=== PATIENT | male | born 1960 | race Caucasian/White ===

== ENCOUNTER 2019-11-04 19:59 | Inpatient (IN) | payer OTHER, MEDICARE, SELFPAY ==
[2019-11-04] VITALS (8 sets, daily range): BP systolic 127–151; BP diastolic 45–87; PULSE 72–86; RESP 12–23; TEMP 36.7–37.1; O2SAT 94–96; BMI 66.3
--- NOTE | 2019-11-04 20:51 | EKG12_ITS ---
Test Reason : SOB Blood Pressure : / mmHG Vent. Rate : 081 BPM Atrial Rate : 081 BPM P-R Int : 154 ms QRS Dur : 104 ms QT Int : 388 ms P-R-T Axes : 057 015 075 degrees QTc Int : 450 ms Normal sinus rhythm Normal ECG Confirmed by JOSE L WANG MD ([id number]), design editor MICKY LARES ([id number]) on 11/07/2019 3:15:31 PM Referred By: BB Confirmed By:JOSE L WANG MD
[2019-11-04] MEDS: Ipratropium/Albuterol Sulfate 3 ML AMPUL.NEB INHALATION (21:07)
[2019-11-04] MEDS: Furosemide 100 MG/10 ML Vial 80 MG IV (21:52)
[2019-11-04 22:01] LABS: Absolute Lymphocyte Count 2.49 X10^3/uL (0.83-4.51); Basophil# 0.03 X10^3/uL; Basophil% 0.2 % (0-1); Eosinophil# 0.11 X10^3/uL; Eosinophils% 0.8 % (0-5); Hematocrit 35.5 % (40-54); Hemoglobin 10.4 g/dL (13.0-16.5); Lymphocyte # 2.49 X10^3/ul (4.0); Lymphocyte % 18.6 % (19-41); Mean Corp Hgb Conc 29.3 g/dL (32-36); Mean Corpuscular Volume 88.8 fL (80-94); Mean Platelet Vol. 8.6 fl (6.2-12.0); Monocyte# 0.74 X10^3/uL; Monocyte% 5.5 % (0-10); NRBC Flagged by Analyzer 0 % (0-5); Neutrophil # 9.95 X10^3/uL (2.7-7.7); Neutrophil % 74.2 % (47-70); Platelet Count 271 K/mm3 (150-450); RBC Distribution Width CV 16.4 % (11.6-14.6); RBC Distribution Width SD 52.9 fl (35.1-43.9); White Blood Count 13.4 K/mm3 (4.4-11.0)
--- NOTE | 2019-11-04 22:20 | RAD_ITS ---
STUDY: X-RAY CHEST REASON FOR EXAM: Male, 59 years old. C/O OF S/S OF CHF, GAINED 25 LB, GENERALIZED RASH. EDEMA. TECHNIQUE: Single AP portable view of the chest. COMPARISON: None. FINDINGS: lunchroom monitor leads are present. The lungs are clear and expanded. There is no demonstrated pleural abnormality. Normal size heart. Normal mediastinum and jazmine. Normal visualized pulmonary arteries. Normal visualized aortic arch and descending thoracic aorta. There are diffuse degenerative changes of the visualized thoracic spine. Normal visualized ribs, clavicles, and shoulders. There is no demonstrated abnormality of the visualized soft tissue structures of the upper abdomen. RAD/Chest 1 View (Portable) IMPRESSION: Degenerative changes of the thoracic spine. No acute cardiopulmonary disease process is seen. Electronically Signed: Ramu Lewis MD at 22:49 EDT , Service support ,
[2019-11-04 22:22] LABS: Anion Gap 3 (5-15); BUN 16 mg/dL (7-18); BUN/Creat Ratio 13.7 RATIO (10-20); Calcium,Total 8.7 mg/dL (8.5-10.1); Chloride 103 mmol/L (98-107); Creatinine, Serum 1.17 mg/dL (0.70-1.30); EST Glomerular Filtration Rate 68 mL/min (>60); Est Glom Filt Rate - Afr Amer 83 mL/min (>60); Estimated Creatinine Clearance 76.46 ml/min; Glucose 315 mg/dL (74-106); Potassium 3.6 mmol/L (3.5-5.1); Sodium Level 138 mmol/L (136-145)
--- NOTE | 2019-11-04 22:47 | ED.DCSUM_ITS ---
History of Present Illness Chief Complaint: Edema Informant: Patient Onset: Weeks - 1 Activity at onset: Exertion, Rest Timing: Continuous Quality: Dyspnea on exertion, Orthopnea Current Severity: Severe Maximum Severity: Severe Worsened by: Exertion, Lying flat Relieved by: Rest Associated Symptoms: Cough - [employer]. Negative for: Fever Narrative: 25 pound weight gain in the past week, seems to all have gone into his legs and possibly his abdomen, he is on torsemide 80 mg once daily for congestive heart failure, in the last day or 2 he has felt more dyspneic as well especially with exertion, lying down, and now at rest he is still mildly dyspneic. He is not able to walk now. He lives by himself and has severe lymphedema. He denies any chest pain, fevers. He has had a minor cough. - Past Medical History (1) Congestive heart failure Status: Chronic (2) Lymphedema Status: Chronic Past Medical History - Allergies and Home Meds Allergies/Adverse Reactions: Allergies gabapentin Adverse Reaction (Verified 11/04/19 21:43) Swelling liraglutide [From Victoza] Adverse Reaction (Verified 11/04/19 21:43) Nausea/Vom/Diarrhea Primary Care Physician: [facility] Doctor,Out of [NON-STAFF] - Lives: Alone Smoking Status: Never smoker Review of Systems General: Reports: Malaise. Denies: Chills, Fever, Sweats Eyes: Denies: Visual changes - bilaterally, Diplopia ENT: Denies: Bilateral ear pain, Rhinorrhea, Sore throat Cardiovascular: Denies: Chest pain, Palpitations, Heart racing Respiratory: Reports: Dyspnea, Cough, Dyspnea on exertion, Orthopnea. Denies: Sputum Gastrointestinal: Denies: Abdominal pain, Nausea, Vomiting, Diarrhea, Melena, Hematochezia Genitourinary: Denies: Dysuria, Hematuria, Frequency Musculoskeletal: Reports: Swelling. Denies: Back pain, Extremity Pain Skin: Denies: Rash, Wounds Neurological: Denies: Headache, Weakness, Numbness Physical Exam Vital Signs/Narrative: Vital Signs Temp Pulse Resp BP Pulse Ox 11/04/19 22:01 76 12 150/72 H 95 11/04/19 22:00 98.5 F 76 12 150/72 H 95 11/04/19 21:07 82 14 11/04/19 21:04 98.5 F 82 18 151/59 H 94 11/04/19 20:04 98.7 F 82 14 148/87 H 94 11/04/19 20:02 98.7 F 86 23 H 148/87 H 94 Inital Vital Signs reviewed: Yes General: Well nourished, Well developed, Obese - morbidly, No Acute Distress Head: Normocephalic, Atraumatic Eyes: Perrl, EOMI ENT: Moist mucous membranes, No rhinorrhea Neck: Supple, Nontender, - - + mild JVD Cardiovascular: Regular rate, Regular rhythm, No murmurs Respiratory: No distress, Chest nontender, Diminished - diffusely, symmetrically. Negative for: Rales, Rhonchi, Wheezing Abdomen: Soft, Nontender, Nondistended, Normal bowel sounds Back: Nontender, Normal Inspection Extremities: Nontender, Edema - Severe bilateral lower extremity to groins, with signs of chronic venous stasis dermatitis, no tenderness or wounds that appear infected Skin: Normal color, No Trauma, Rash - Chronic stasis dermatitis, see above Neurological: Alert, Oriented x3, Cranial nerves II-XII grossly intact, Normal Strength, Normal Sensation Psychological: Normal affect, Normal Mood Diagnostic/Tx/Re-eval Impressions Chest X-Ray 11/04/19 22:20 IMPRESSION: Degenerative changes of the thoracic spine. No acute cardiopulmonary disease process is seen. Electronically Signed: Ramu Lewis MD at 22:49 EDT , Service support , 11/04/19 20:51 Chest 1 View (Portable) [RAD] Stat Laboratory Results 11/04/19 11/04/19 21:56 21:56 WBC 13.4 H RBC 4.00 L Hgb 10.4 L Hct 35.5 L MCV 88.8 MCH 26.0 L MCHC 29.3 L RDW Std Deviation 52.9 H RDW Coeff of Varsha 16.4 H Plt Count 271 MPV 8.6 Immature Gran % (Auto) 0.700 Neut % (Auto) 74.2 H Lymph % (Auto) 18.6 L [place] % (Auto) 5.5 Eos % (Auto) 0.8 Baso % (Auto) 0.2 Absolute Neuts (auto) 10.0 H Absolute Lymphs (auto) 2.49 Nucleated RBC % 0 Sodium 138 Potassium 3.6 Chloride 103 Carbon Dioxide 32.0 Anion Gap 3 L BUN 16 Creatinine 1.17 Estim Creat Clear Calc 76.46 Est GFR (MDRD) Af Amer 83 Est GFR (MDRD) Non-Af 68 BUN/Creatinine Ratio 13.7 Glucose 315 H Calcium 8.7 Troponin I < 0.015 - Rhythm Strip Rhythm Strip: Sinus Rhythm Rate: 81 Ectopy: None - EKG Initial EKG Interpretation: Sinus Rhythm, No Acute Injury Pattern Treatment - Dyspnea: Albuterol, - - Lasix Repeat Evaluation: Improved - With no dyspnea at rest while sitting any longer - Medical Decision Making Patient lives alone and has so much lymphedema and increased water weight that he is unable to safely walk at home. He has no signs of any infection or overt decompensated heart failure with regards to pulmonary edema, however I think inpatient diuresis will benefit him. Plan is for admission. There is no old echocardiogram to know any other details about his heart failure at this time. The patient does not know the details. ED Disposition - Plan for ED Patient: Disposition: Acute Care Hospital [facility] Diagnosis: Acute exacerbation of CHF (congestive heart failure), Anasarca, Unable to ambulate Referrals: [facility] Doctor,Out of [NON-STAFF] -
--- NOTE | 2019-11-04 23:13 | HP.PCM_ITS ---
Problem List (1) Acute exacerbation of CHF (congestive heart failure) Status: Acute (2) Anasarca Status: Acute (3) Unable to ambulate Status: Acute (4) Congestive heart failure Status: Chronic (5) Lymphedema Status: Chronic History of Present Illness Date of Admission: 11/04/19 Chief Complaint: weight gain The patient is a 59 year old M with a significant history of congestive heart failure; severe obesity; diabetes mellitus; lymphedema; hermaphrodite s/p surgical correction; bipolar disease; and DVT who presented to emergency department with weight gain. He reports gained about 25 pounds in 1 week. He reported that the weight gain is water weight in his legs and in his abdomen. Associated with his symptoms is shortness of breath at rest. He has chronic orthopnea for which he sleeps in a couch. He has paroxysmal nocturnal dyspnea and fatigue. Patient has difficulty walking. Also he reports rash on his torso for 4 weeks Home health nurse helps to take care of him. Past Medical History Past Medical History (Chronic Problems): Chronic Problems Congestive heart failure (Chronic) Lymphedema (Chronic) Allergies gabapentin Adverse Reaction (Verified 11/04/19 21:43) Swelling liraglutide [From Victoza] Adverse Reaction (Verified 11/04/19 21:43) Nausea/Vom/Diarrhea Home Medications: Ambulatory Orders Medication Instructions Recorded Aripiprazole [Abilify] 30 mg PO DAILY 11/04/19 Aspirin [Aspir 81] 81 mg PO DAILY 11/04/19 Fluoxetine [Prozac] 20 mg PO DAILY 11/04/19 [place] Carbonate 600 mg PO DAILY 11/04/19 Rosuvastatin Calcium 10 mg PO DAILY 11/04/19 Syringe,Insul U-500,Ndl,0.5ML 130 units SQ BID 11/04/19 [Insulin Syringe] Warfarin [Coumadin ([facility])] 5 mg PO DAILY 11/04/19 Warfarin [Coumadin ([facility])] 7.5 mg PO QWEEK 11/04/19 Torsemide [Demadex] 40 mg PO BID 11/05/19 Surgical History: tonsillectomy, - - Surgery to close vaginal opening (reports hermaphrodite at ); leg surgery Lives: Alone Smoking Status: Never smoker Alcohol: None - *Family History Maternal History Items: Heart Disease Paternal History Items: Cancer - His father from mesothelioma Review of Systems Constitutional: Reports: Weight Change, Fatigue. Denies: Chills, Fever HEENT: Denies: Head Aches, Sinus Congestion, Sinus Drainage Cardiovascular: Reports: Edema, Orthopnea, Paroxysmal Noc. Dyspnea. Denies: Chest Pain, Palpitations Respiratory: Reports: Shortness of breath at rest. Denies: Cough, Sputum production Gastrointestinal: Denies: Abdominal Pain, Nausea, Vomiting Genitourinary: Denies: Dysuria Musculoskeletal: Denies: Joint Pain, Joint Tenderness Skin: Reports: Rash. Denies: Wounds Neurological: Denies: Numbness, Tingling, Focal weakness Psychiatric: Denies: Anxiety, Depression, Homicidal Ideations, Suicidal Ideations Hematologic/ Lymphatic: Denies: Easy Bruising, Easy Bleeding VTE Information - Inpt Only VTE Present on Admission: No VTE Mechan Device Prophylaxis: None VTE Pharm Prophylaxis ordered?: No Reason prophylaxis not ordered:: Treatment Not Indicated - Continue home Coumadin the patient takes for history of DVT. Patient Problems: Active and Suspected Problems Acute exacerbation of CHF (congestive heart failure) (Acute) Anasarca (Acute) Unable to ambulate (Acute) - Physical Exam Vitals/I&O's: Vital Signs Temp Pulse Resp BP Pulse Ox 98.1 F 72 17 127/45 H 96 11/04/19 23:00 11/04/19 23:00 11/04/19 23:00 11/04/19 23:00 11/04/19 23:00 Oxygen Delivery Method Room Air Weight: 221.807 kg Body Mass Index (BMI) 66.3 General: Alert, Oriented x3, Cooperative HEENT: Atraumatic, PERRLA, EOMI, Normocephalic Neck: Supple, No JVD, Negative Carotid Bruits Lungs: Clear to auscultation, Normal air movement Cardiovascular: Regular rate, Normal S1, Normal S2, No murmurs Abdomen: Bowel Sounds Present, Soft, Non Tender Extremities: Capillary Refill Less than 3 Seconds, Edema - Nonpitting Skin: - - Maculopapular rash on torso; erythema bilateral legs. Musculoskeletal: No Tenderness to Palpation of Joints or Extremities Neurological: Cranial nerves II-XII grossly intact Psych/Mental Status: Normal Affect, Appropriate Laboratory Results 11/04/19 21:56: WBC 13.4 H, RBC 4.00 L, Hgb 10.4 L, Hct 35.5 L, MCV 88.8, MCH 26.0 L, MCHC 29.3 L, RDW Std Deviation 52.9 H, RDW Coeff of Varsha 16.4 H, Plt Count 271, MPV 8.6, Immature Gran % (Auto) 0.700, Neut % (Auto) 74.2 H, Lymph % (Auto) 18.6 L, [place] % (Auto) 5.5, Eos % (Auto) 0.8, Baso % (Auto) 0.2, Absolute Neuts (auto) 10.0 H, Absolute Lymphs (auto) 2.49, Nucleated RBC % 0 11/04/19 21:56: Sodium 138, Potassium 3.6, Chloride 103, Carbon Dioxide 32.0, Anion Gap 3 L, BUN 16, Creatinine 1.17, Estim Creat Clear Calc 76.46, Est GFR (MDRD) Af Amer 83, Est GFR (MDRD) Non-Af 68, BUN/Creatinine Ratio 13.7, Glucose 315 H, Calcium 8.7, Troponin I < 0.015 Assessment/Plan All Active Problems Acute exacerbation of CHF (congestive heart failure) (Acute) Anasarca (Acute) Unable to ambulate (Acute) The patient is a 59 year old M with a significant history of congestive heart failure; severe obesity; diabetes mellitus; lymphedema; hermaphrodite s/p surgical correction; bipolar disease; and DVT who presented to emergency department with weight gain; and shortness of breath consistent with acute exacerbation of underlying heart failure. Acute Exacerbation of heart failure Patient reports history of heart failure. Type of heart failure unspecified No echocardiogram in our system. Indeed patient has no have records in our system prior to this presentation. Patient reported last echocardiogram was done this year[address] at [facility]. Orders to obtain records. Daily weight. Strict I&O's CXR independently reviewed confirms no acute cardiopulmonary process. EKG independently reviewed confirms sinus rhythm. BNP ordered. Reportedly he is on torsemide 40 mg twice daily at home. At the emergency department he received Lasix 80 mg IV x1. We will continue patient on Lasix 80 mg every 8 hours. Supplement potassium. Monitor electrolytes and renal function Trend blood pressure Fluid restriction of 1500 mls daily Cardiac calorie controlled and 2 g sodium restricted diet. Diabetes mellitus On presentation his blood glucose was elevated. Continue home basal insulin. Accu-Chek QA [facility] with correction scale insulin. Leukocytosis White count of 13.4. No clear signs of infection. Trend. Debility Patient is unable to ambulate. PT and OT consult. Treatment for heart failure. Bipolar disorder Abilify, Prozac and lithium continued History of DVT On presentation INR was supratherapeutic at 3.6. Daily INR. De-escalate home Coumadin. Coumadin 4 mg daily ordered. Adjust as necessary. Severe obesity: BMI 65.9. Complicates care. Recommend lifestyle modification. Maculopapular rash Reportedly patient saw dermatology at via telemedicine. Patient to follow-up outpatient with electronic gluer. DVT prophylaxis Patient on Coumadin for DVT. Coumadin continued. Inpatient E&M: 36440 Init Hosp L3
[2019-11-04 23:20] LABS: Prothrombin Time (Protime)PT. 35.6 SECONDS (11.7-14.9)
[2019-11-04 23:25] LABS: International Normalized Ratio 3.6
[2019-11-05] VITALS (11 sets, daily range): BP systolic 129–153; BP diastolic 53–68; PULSE 72–80; RESP 18–22; TEMP 36.6–36.9; O2SAT 92–95; BMI 65.9
[2019-11-05 01:25] LABS: Bedside Glucose 191 mg/dL (70-110)
[2019-11-05 04:01] LABS: BNP,B-Type NATRIURETIC PEPTIDE 7.8 pg/mL (0-100)
[2019-11-05 05:24] LABS: Absolute Lymphocyte Count 3.05 X10^3/uL (0.83-4.51); Absolute Neutrophil Count 8.9 X10^3/uL (2.0-7.7); Basophil# 0.02 X10^3/uL; Basophil% 0.2 % (0-1); Eosinophil# 0.07 X10^3/uL; Eosinophils% 0.6 % (0-5); Hematocrit 33.5 % (40-54); Hemoglobin 10.1 g/dL (13.0-16.5); Lymphocyte # 3.05 X10^3/ul (4.0); Mean Corp Hgb Conc 30.1 g/dL (32-36); Mean Corpuscular Hgb 25.8 pg (27.0-32.0); Mean Corpuscular Volume 85.5 fL (80-94); Mean Platelet Vol. 8.1 fl (6.2-12.0); Monocyte# 0.64 X10^3/uL; NRBC Flagged by Analyzer 0 % (0-5); Neutrophil # 8.86 X10^3/uL (2.7-7.7); Neutrophil % 69.6 % (47-70); Platelet Count 264 K/mm3 (150-450); RBC Distribution Width CV 16.6 % (11.6-14.6); Red Blood Count 3.92 M/mm3 (4.6-6.2); White Blood Count 12.7 K/mm3 (4.4-11.0)
[2019-11-05 05:35] LABS: Anion Gap 5 (5-15); BUN 15 mg/dL (7-18); BUN/Creat Ratio 14.4 RATIO (10-20); Calcium,Total 8.4 mg/dL (8.5-10.1); Chloride 103 mmol/L (98-107); Creatinine, Serum 1.04 mg/dL (0.70-1.30); EST Glomerular Filtration Rate 78 mL/min (>60); Est Glom Filt Rate - Afr Amer 95 mL/min (>60); Estimated Creatinine Clearance 86.01 ml/min; Glucose 173 mg/dL (74-106); International Normalized Ratio 3.4; Potassium 3.4 mmol/L (3.5-5.1); Prothrombin Time (Protime)PT. 34.3 SECONDS (11.7-14.9); Sodium Level 139 mmol/L (136-145)
[2019-11-05] MEDS: Insulin Lispro 100 UNIT/ML INSULN.PEN SC ×4 (06:47→21:36)
[2019-11-05] MEDS: 0.9% Saline Lock 10 ML Syringe IV ×2 (06:49→21:30)
[2019-11-05] MEDS: Furosemide 100 MG/10 ML Vial 80 MG IV ×2 (06:49→21:29)
[2019-11-05 07:00] LABS: Bedside Glucose 170 mg/dL (70-110)
[2019-11-05] MEDS: ARIPiprazole 10 MG Tablet 30 MG PO (09:51)
[2019-11-05] MEDS: Lithium Carbonate 300mg Capsule 600 MG PO (09:52)
[2019-11-05] MEDS: FLUoxetine 20 MG Capsule PO (09:52)
[2019-11-05] MEDS: Aspirin E.C. 81 MG Tablet PO (09:53)
--- NOTE | 2019-11-05 10:35 | VDLE_ITS ---
Reason For Study: Shortness of breath RIGHT LEFT GSV is normal. GSV is normal. CFV is compressible, spontaneous, phasic, CFV is compressible, spontaneous, phasic, competent and demonstrates normal competent, and demonstrates normal augmentation. augmentation. FV is compressible, spontaneous, phasic, FV is compressible, spontaneous, phasic, competent and demonstrates normal competent and demonstrates normal augmentation. augmentation. POP V is compressible, spontaneous, phasic, POP V is compressible, spontaneous, phasic, competent and demonstrates normal competent and demonstrates normal augmentation. augmentation. T/P Trunk is compressible. T/P Trunk is compressible. PTV is compressible. PTV is compressible. PeroV not visualized. SFJ and PeroV not visualized. Procedure Exam performed portable in patient room. Exam was limited and technically difficult due to pt body habitus. A preliminary report was called and/or faxed to [facility]. Interpretation Summary No evidence for acute deep venous thrombosis bilateral lower extremities with patent and compressible bilateral great saphenous veins. Note limitations of exam with bilateral peroneal veins and left saphenofemoral junction not identified Ordering Physician: Yudith Head Performed By: Carito Shafer RVT
--- NOTE | 2019-11-05 11:56 | PCM.PROGNOTE ---
Patient Problems: Active and Suspected Problems Acute exacerbation of CHF (congestive heart failure) (Acute) Anasarca (Acute) Unable to ambulate (Acute) Subjective: Patient seen and examined. Reports continued shortness of breath. He reports earlier in the week he had fever, chills which is now resolved. He reports shortness of breath developed fairly suddenly over the past 24 hours. States shortness of breath is worsened by lying flat. He also reports a 25 pound weight gain in the last week and increased lower extremity swelling. - Physical Exam Vitals/I&O's: Vital Signs Temp Pulse Resp BP Pulse Ox 97.9 F 80 20 H 129/68 H 92 11/05/19 10:25 11/05/19 10:25 11/05/19 10:25 11/05/19 10:25 11/05/19 10:25 Oxygen Delivery Method Room Air Weight: 486 lb 12.49 oz Body Mass Index (BMI) 65.9 Intake and Output for Last 24 Hours 11/03/19 11/04/19 11/05/19 23:59 23:59 23:59 Intake Total 460 / 460 Balance 460 / 460 General: Alert, Oriented x3, Cooperative HEENT: Atraumatic, PERRLA, EOMI, Normocephalic Neck: Supple, No JVD, Negative Carotid Bruits Lungs: Clear to auscultation, Diminished Cardiovascular: Regular rate, Regular Rhythm, Normal S1, Normal S2, No murmurs Abdomen: Bowel Sounds Present, Soft, Non Tender, Non-Distended, Obese Extremities: No clubbing, No cyanosis, - - Chronic lymphedema bilateral lower extremities Skin: - - Chronic skin changes bilateral lower extremities with hyperpigmentation and venous stasis changes Musculoskeletal: No Tenderness to Palpation of Joints or Extremities Neurological: Cranial nerves II-XII grossly intact, Neuro grossly intact Psych/Mental Status: Normal Affect, Appropriate Laboratory Results 11/04/19 21:06: PT 35.6 H, INR 3.6 H* 11/04/19 21:52: B-Natriuretic Peptide 7.8 11/04/19 21:56: WBC 13.4 H, RBC 4.00 L, Hgb 10.4 L, Hct 35.5 L, MCV 88.8, MCH 26.0 L, MCHC 29.3 L, RDW Std Deviation 52.9 H, RDW Coeff of Varsha 16.4 H, Plt Count 271, MPV 8.6, Immature Gran % (Auto) 0.700, Neut % (Auto) 74.2 H, Lymph % (Auto) 18.6 L, [place] % (Auto) 5.5, Eos % (Auto) 0.8, Baso % (Auto) 0.2, Absolute Neuts (auto) 10.0 H, Absolute Lymphs (auto) 2.49, Nucleated RBC % 0 11/04/19 21:56: Sodium 138, Potassium 3.6, Chloride 103, Carbon Dioxide 32.0, Anion Gap 3 L, BUN 16, Creatinine 1.17, Estim Creat Clear Calc 76.46, Est GFR (MDRD) Af Amer 83, Est GFR (MDRD) Non-Af 68, BUN/Creatinine Ratio 13.7, Glucose 315 H, Calcium 8.7, Troponin I < 0.015 11/05/19 01:17: POC Glucose 191 H 11/05/19 05:15: WBC 12.7 H, RBC 3.92 L, Hgb 10.1 L, Hct 33.5 L, MCV 85.5, MCH 25.8 L, MCHC 30.1 L, RDW Std Deviation 51.0 H, RDW Coeff of Varsha 16.6 H, Plt Count 264, MPV 8.1, Immature Gran % (Auto) 0.600, Neut % (Auto) 69.6, Lymph % (Auto) 24.0, [place] % (Auto) 5.0, Eos % (Auto) 0.6, Baso % (Auto) 0.2, Absolute Neuts (auto) 8.9 H, Absolute Lymphs (auto) 3.05, Nucleated RBC % 0 11/05/19 05:15: PT 34.3 H, INR 3.4 11/05/19 05:15: Sodium 139, Potassium 3.4 L, Chloride 103, Carbon Dioxide 31.0, Anion Gap 5, BUN 15, Creatinine 1.04, Estim Creat Clear Calc 86.01, Est GFR (MDRD) Af Amer 95, Est GFR (MDRD) Non-Af 78, BUN/Creatinine Ratio 14.4, Glucose 173 H, Calcium 8.4 L 11/05/19 06:43: POC Glucose 170 H Current Medications Acetaminophen (Tylenol) 650 mg PO Q6H PRN PRN PRN Reason: Pain Score 1-10/Temp > 100.7 F Aripiprazole (Abilify) 30 mg PO DAILY [facility] Last Admin: 11/05/19 09:51 Dose: 30 mg Documented by: Aspirin (Ecotrin) 81 mg PO DAILY [facility] Last Admin: 11/05/19 09:53 Dose: 81 mg Documented by: Atorvastatin Calcium (Lipitor) 20 mg PO QHS [facility] Dextrose (D50w Syringe) 0 gm IV X1 PRN; Protocol PRN Reason: Hypoglycemia Fluoxetine HCl (Prozac) 20 mg PO DAILY [facility] Last Admin: 11/05/19 09:52 Dose: 20 mg Documented by: Furosemide (Lasix) 80 mg IV BID [facility] Glucagon () 1 mg IM .X1 PRN PRN Reason: Hypoglycemia Insulin Human Lispro (Humalog Kwikpen (Bkc)) 0 unit SC ACHS [facility]; Protocol Last Admin: 11/05/19 06:47 Dose: 3 units Documented by: [place] Carbonate ([place] Carbonate) 600 mg PO DAILY [facility] Last Admin: 11/05/19 09:52 Dose: 600 mg Documented by: Melatonin (Melatonin) 3 mg PO QHS PRN PRN PRN Reason: INSOMNIA Ondansetron HCl (Zofran) 4 mg IV Q8H PRN PRN PRN Reason: NAUSEA/VOMITING Potassium Chloride (K-Dur) 40 meq PO TID [facility] Last Admin: 11/05/19 06:44 Dose: 40 meq Documented by: Sodium Chloride () 10 - 40 ml IV UD PRN PRN Reason: SALINE FLUSH Last Admin: 11/05/19 06:49 Dose: 10 ml Documented by: Warfarin Sodium (Coumadin (Pbkc)) 4 mg PO DAILY@1700 [facility] Medical Necessity - Tobacco Use Smoking Status: Never smoker Assessment/Plan All Active Problems Acute exacerbation of CHF (congestive heart failure) (Acute) Anasarca (Acute) Unable to ambulate (Acute) 1. Chronic lymphedema with increased swelling and weight gain-BNP and chest x-ray is normal. Patient was discharged from [facility] 08/17/2019 following treatment for CHF exacerbation however at that time he also had normal BNP and chest x-ray. Echocardiogram completed during that admission which showed preserved ejection fraction. Low suspicion for diastolic CHF. Snug Scott wraps bilateral lower extremities. Elevate lower extremities. IV Lasix. Patient is torsemide 40 mg twice daily at home. PT/OT. Fluid and sodium restriction. 2. Super morbid obesity-complicates #1. Encouraged diet and lifestyle modifications. 3. Type 2 diabetes [id number] with sliding scale insulin. Continue home insulin regimen. 4. History of DVT-on anticoagulation with Coumadin 5. Bipolar disorder/schizophrenia-continue Abilify, Prozac, lithium. 6. Hyperlipidemia-continue statin. DVT prophylaxis-Coumadin This patient was seen by YAMILEX Burgess under the supervision of Dr. Head.
[2019-11-05 12:30] LABS: Bedside Glucose 278 mg/dL (70-110)
[2019-11-05] MEDS: Acetaminophen 325 MG Tablet 650 MG PO (17:34)
[2019-11-05] MEDS: Atorvastatin Calcium 20 MG Tablet PO (21:29)
[2019-11-05 22:45] LABS: Bedside Glucose 255 mg/dL (70-110)
[2019-11-06 00:46] LABS: Bedside Glucose 282 mg/dL (70-110)
[2019-11-06] MEDS: Acetaminophen 325 MG Tablet 650 MG PO (00:46)
[2019-11-06 00:50] VITALS: BP 146/61; PULSE 70; RESP 18; TEMP 36.8; O2SAT 94
[2019-11-06 03:00] VITALS: PULSE 68
[2019-11-06 06:38] LABS: Hematocrit 35.4 % (40-54); Hemoglobin 10.5 g/dL (13.0-16.5); Mean Corp Hgb Conc 29.7 g/dL (32-36); Mean Corpuscular Hgb 25.9 pg (27.0-32.0); Mean Corpuscular Volume 87.4 fL (80-94); Mean Platelet Vol. 8.5 fl (6.2-12.0); Platelet Count 254 K/mm3 (150-450); RBC Distribution Width CV 16.6 % (11.6-14.6); RBC Distribution Width SD 53.1 fl (35.1-43.9); Red Blood Count 4.05 M/mm3 (4.6-6.2); White Blood Count 10.8 K/mm3 (4.4-11.0)
[2019-11-06 06:44] LABS: International Normalized Ratio 2.5; Prothrombin Time (Protime)PT. 26.4 SECONDS (11.7-14.9)
[2019-11-06] MEDS: Insulin Lispro 100 UNIT/ML INSULN.PEN SC ×2 (06:46→11:34)
[2019-11-06 06:50] VITALS: BP 122/66; PULSE 70; RESP 18; TEMP 36.7; O2SAT 96
[2019-11-06 06:57] LABS: Anion Gap 3 (5-15); BUN 12 mg/dL (7-18); BUN/Creat Ratio 12.2 RATIO (10-20); Calcium,Total 8.9 mg/dL (8.5-10.1); Chloride 102 mmol/L (98-107); Creatinine, Serum 0.98 mg/dL (0.70-1.30); EST Glomerular Filtration Rate 84 mL/min (>60); Est Glom Filt Rate - Afr Amer 101 mL/min (>60); Estimated Creatinine Clearance 91.28 ml/min; Glucose 258 mg/dL (74-106); Potassium 3.9 mmol/L (3.5-5.1); Sodium Level 137 mmol/L (136-145)
[2019-11-06 07:01] LABS: Bedside Glucose 256 mg/dL (70-110)
[2019-11-06 07:17] VITALS: PULSE 63
[2019-11-06 09:47] VITALS: BP 116/69; PULSE 68; RESP 16; TEMP 36.8; O2SAT 96
[2019-11-06] MEDS: Lithium Carbonate 300mg Capsule 600 MG PO (09:57)
[2019-11-06] MEDS: ARIPiprazole 10 MG Tablet 30 MG PO (09:57)
[2019-11-06] MEDS: Aspirin E.C. 81 MG Tablet PO (09:58)
[2019-11-06] MEDS: Furosemide 100 MG/10 ML Vial 80 MG IV (09:58)
[2019-11-06] MEDS: FLUoxetine 20 MG Capsule PO (09:58)
--- NOTE | 2019-11-06 11:26 | PCM.DC ---
- Discharge Diagnoses Current Active Problems: Current Active and Chronic Problems Anasarca (Acute) Unable to ambulate (Acute) Congestive heart failure (Chronic) Lymphedema (Chronic) You will use the following diet at home:: Calorie/Carbohydrate Controlled (specify 1200, 1400, etc), Cardiac, Other - 1500 cc fluid restriction, 2 g sodium restriction Discharge Activity: Return to Normal Activity Call your doctor if you observe: Shortness of breath, Dizziness, Fainting spells, Chest pain Additional Instructions: Your home torsemide regimen was increased to 60 mg twice daily. Recommend continuing this for 2 weeks with further follow-up with your primary care provider in 1 to 2 weeks. You will need repeat lab work including a BMP which can be ordered by her primary care provider in 1 week. Allergies/Adverse Reactions: Allergies gabapentin Adverse Reaction (Verified 11/04/19 21:43) Swelling liraglutide [From Victoza] Adverse Reaction (Verified 11/04/19 21:43) Nausea/Vom/Diarrhea Medications to take at Discharge Aripiprazole [Abilify] 30 mg PO DAILY 11/04/19 Aspirin [Aspir 81] 81 mg PO DAILY 11/04/19 Fluoxetine [Prozac] 20 mg PO DAILY 11/04/19 [place] Carbonate 600 mg PO DAILY 11/04/19 Rosuvastatin Calcium 10 mg PO DAILY 11/04/19 Syringe,Insul U-500,Ndl,0.5ML [Insulin Syringe U-500] 130 units SQ BID 11/04/19 Warfarin [Coumadin] 5 mg PO DAILY 11/04/19 Warfarin [Coumadin] 7.5 mg PO QWEEK 11/04/19 Potassium Chloride [K-Dur] 40 meq PO BID #120 tab 11/06/19 Torsemide [Demadex] 60 mg PO BID #30 tab 11/06/19 The following prescriptions were given: Torsemide [Demadex] 60 mg PO BID #30 tab Transmission Status: Pending to [id number] Potassium Chloride [K-Dur] 40 meq PO BID #120 tab Transmission Status: Pending to [id number] Primary Care Physician: Chantale Doctor,Out of [NON-STAFF] - Please follow up with your Primary Care Physician in: 1 Week Test Results: Test results from this visit will be discussed in further detail at your follow-up appointment, if applicable. Please Follow Up With: Clinic,Wound When: Call to follow up for lymphedema Proposed Discharge Date: 11/06/19
--- NOTE | 2019-11-06 11:29 | DS.PCM_ITS ---
Discharge Date and Diagnosis Date of Admission: 11/04/19 Date of Discharge: 11/06/19 - Primary Discharge Diagnosis Acute Problems: Active Problems 1. Chronic lymphedema with increased swelling and weight gain, low suspicion for diastolic CHF 2. Super morbid obesity 3. Type 2 diabetes mellitus 4. History of DVT 5. Bipolar disorder/schizophrenia 6. Hyperlipidemia - Secondary Discharge Diagnosis Chronic Problems: Chronic Problems Congestive heart failure (Chronic) Lymphedema (Chronic) Hospital Course and Treatment Imaging Results: Diagnostic Data Chest X-Ray 11/04/19 22:20 IMPRESSION: Degenerative changes of the thoracic spine. No acute cardiopulmonary disease process is seen. Electronically Signed: Ramu Lewis MD at 22:49 EDT , Service support , Operations: None Procedures: None Summary of Care Provided: The patient is a 59 year old M admitted 11/04/2019 due to weight gain. 1. Chronic lymphedema with increased swelling and weight gain-BNP and chest x- ray is normal. Patient was discharged from [facility] 08/17/2019 following treatment for CHF exacerbation however at that time he also had normal BNP and chest x-ray. Echocardiogram completed during that admission which showed preserved ejection fraction. Low suspicion for diastolic CHF. Snug Scott wraps bilateral lower extremities. Elevate lower extremities. IV Lasix during admission. Lower extremity Dopplers negative for DVT. Patient is torsemide 40 mg twice daily at home. Will increase to 60 mg twice daily for at least the next 2 weeks pending outpatient follow-up with primary care provider in the next 1 to 2 weeks and repeat BMP. Recommend continuing increased dose until patient reaches dry weight/swelling at baseline. Patient did have 11 pound weight loss during admission. Discharged on potassium supplementation as well. Recommended follow-up with wound clinic for lymphedema management. Patient educated on 1500 cc fluid restriction and sodium restriction. 2. Super morbid obesity-complicates #1. Encouraged diet and lifestyle modifications. 3. Type 2 diabetes mellitus- Continue home insulin regimen. 4. History of DVT-on anticoagulation with Coumadin. 5. Bipolar disorder/schizophrenia-continue Abilify, Prozac, lithium. 6. Hyperlipidemia-continue statin. General: Alert, Oriented x3, Cooperative HEENT: Atraumatic, PERRLA, EOMI, Normocephalic Neck: Supple, No JVD, Negative Carotid Bruits Lungs: Clear to auscultation, Diminished Cardiovascular: Regular rate, Regular Rhythm, Normal S1, Normal S2, No murmurs Abdomen: Bowel Sounds Present, Soft, Non Tender, Non-Distended, Obese Extremities: No clubbing, No cyanosis, - - Chronic lymphedema bilateral lower extremities Skin: - - Chronic skin changes bilateral lower extremities with hyperpigmentation and venous stasis changes Musculoskeletal: No Tenderness to Palpation of Joints or Extremities Neurological: Cranial nerves II-XII grossly intact, Neuro grossly intact Psych/Mental Status: Normal Affect, Appropriate Patient seen and examined prior to discharge. Physical assessment as noted above. Patient is stable for discharge with follow up recommendations as noted above. This patient was seen by YAMILEX Burgess under the supervision of Dr. Weiner. - Physical Exam Vitals/I&O's: Vital Signs Temp Pulse Resp BP Pulse Ox 98.3 F 68 16 116/69 96 11/06/19 09:47 11/06/19 09:47 11/06/19 09:47 11/06/19 09:47 11/06/19 09:47 Oxygen Flow Rate (L/min) 2 Oxygen Delivery Method Room Air Weight: 478 lb 9.977 oz Body Mass Index (BMI) 65.9 Intake and Output for Last 24 Hours 11/04/19 11/05/19 11/06/19 23:59 23:59 23:59 Intake Total 1540 / 1540 Output Total 6500 / 6500 1500 / 1500 Balance -4960 / -4960 -1500 / -1500 Microbiology Past 72 Hours 11/05/19 11:43 Mucosa - Nasopharyngeal Coronavirus COVID-19 PCR - Final Laboratory Results 11/05/19 12:12: POC Glucose 278 H 11/05/19 17:23: POC Glucose 282 H 11/05/19 21:35: POC Glucose 255 H 11/06/19 06:27: PT 26.4 H, INR 2.5 11/06/19 06:27: WBC 10.8, RBC 4.05 L, Hgb 10.5 L, Hct 35.4 L, MCV 87.4, MCH 25.9 L, MCHC 29.7 L, RDW Std Deviation 53.1 H, RDW Coeff of Varsha 16.6 H, Plt Count 254, MPV 8.5 11/06/19 06:27: Sodium 137, Potassium 3.9, Chloride 102, Carbon Dioxide 32.0, Anion Gap 3 L, BUN 12, Creatinine 0.98, Estim Creat Clear Calc 91.28, Est GFR (MDRD) Af Amer 101, Est GFR (MDRD) Non-Af 84, BUN/Creatinine Ratio 12.2, Glucose 258 H, Calcium 8.9 11/06/19 06:44: POC Glucose 256 H Current Medications Acetaminophen (Tylenol) 650 mg PO Q6H PRN PRN PRN Reason: Pain Score 1-10/Temp > 100.7 F Last Admin: 11/06/19 00:46 Dose: 650 mg Documented by: Aripiprazole (Abilify) 30 mg PO DAILY [facility] Last Admin: 11/06/19 09:57 Dose: 30 mg Documented by: Aspirin (Ecotrin) 81 mg PO DAILY [facility] Last Admin: 11/06/19 09:58 Dose: 81 mg Documented by: Atorvastatin Calcium (Lipitor) 20 mg PO QHS [facility] Last Admin: 11/05/19 21:29 Dose: 20 mg Documented by: Dextrose (D50w Syringe) 0 gm IV X1 PRN; Protocol PRN Reason: Hypoglycemia Fluoxetine HCl (Prozac) 20 mg PO DAILY [facility] Last Admin: 11/06/19 09:58 Dose: 20 mg Documented by: Furosemide (Lasix) 80 mg IV BID [facility] Last Admin: 11/06/19 09:58 Dose: 80 mg Documented by: Glucagon () 1 mg IM .X1 PRN PRN Reason: Hypoglycemia Insulin Human Lispro (Humalog Kwikpen (Bkc)) 0 unit SC ACHS [facility]; Protocol Last Admin: 11/06/19 06:46 Dose: 6 units Documented by: [place] Carbonate (Grabill Carbonate) 600 mg PO DAILY [facility] Last Admin: 11/06/19 09:57 Dose: 600 mg Documented by: Melatonin (Melatonin) 3 mg PO QHS PRN PRN PRN Reason: INSOMNIA Ondansetron HCl (Zofran) 4 mg IV Q8H PRN PRN PRN Reason: NAUSEA/VOMITING Potassium Chloride (K-Dur) 40 meq PO TID [facility] Last Admin: 11/06/19 06:45 Dose: 40 meq Documented by: Sodium Chloride () 10 - 40 ml IV UD PRN PRN Reason: SALINE FLUSH Last Admin: 11/05/19 21:30 Dose: 10 ml Documented by: Warfarin Sodium (Coumadin (Pbkc)) 4 mg PO DAILY@1700 HARSHIL Last Admin: 11/05/19 16:02 Dose: 4 mg Documented by: Discharge Diet: Low fat/ Low Cholesterol, 8 Cup Fluid Restriciton, 2000 mg Sodium Diet, Carb Control Diet Discharge Activity: Return to Normal Activity Call your doctor if you observe: Shortness of breath, Dizziness, Fainting spells, Chest pain Home Medications: Medications to take at Discharge Aripiprazole [Abilify] 30 mg PO DAILY 11/04/19 Aspirin [Aspir 81] 81 mg PO DAILY 11/04/19 Fluoxetine [Prozac] 20 mg PO DAILY 11/04/19 [place] Carbonate 600 mg PO DAILY 11/04/19 Rosuvastatin Calcium 10 mg PO DAILY 11/04/19 Syringe,Insul U-500,Ndl,0.5ML [Insulin Syringe U-500] 130 units SQ BID 11/04/19 Warfarin [Coumadin] 5 mg PO DAILY 11/04/19 Warfarin [Coumadin] 7.5 mg PO QWEEK 11/04/19 Potassium Chloride [K-Dur] 40 meq PO BID #120 tab 11/06/19 Torsemide [Demadex] 60 mg PO BID #30 tab 11/06/19 Following Prescrptions Were Given to Patient: Torsemide [Demadex] 60 mg PO BID #30 tab Transmission Status: Pending to [id number] Potassium Chloride [K-Dur] 40 meq PO BID #120 tab [facility] Status: [facility] Primary Care Physician: Chantale Doctor,Out of [NON-STAFF] - Please follow up with your Primary Care Physician in: 1 Week Please Follow Up With: Clinic,Wound When: Call to follow up for lymphedema Disposition: Home Minutes spent on discharge:: 35 Patient Condition:: Stable Medical Necessity - Tobacco Use Smoking Status: Never smoker Meaningful Use Info Meaningful Use Diagnoses (Choose all that apply): None applicable
[2019-11-06 12:15] LABS: Bedside Glucose 320 mg/dL (70-110)
== END 2019-11-06 13:39 | disposition home or self-care (01) | DRG 607 ==
LOC: ED 23:00 → PCU 11-05 01:08
PROVIDERS: Family Medicine; Nurse Practitioner Family; Admitting Provider Hospitalist; Emergency Provider Emergency Medicine
DX: I89.0 Lymphedema, not elsewhere classified (principal); I50.32 Chronic diastolic (congestive) heart failure; Z68.44 Body mass index [BMI] 60.0-69.9, adult; E66.01 Morbid (severe) obesity due to excess calories; I11.0 Hypertensive heart disease with heart failure; E11.65 Type 2 diabetes mellitus with hyperglycemia; F31.9 Bipolar disorder, unspecified; F20.9 Schizophrenia, unspecified; E78.5 Hyperlipidemia, unspecified; Q56.0 Hermaphroditism, not elsewhere classified; R21 Rash and other nonspecific skin eruption; Z86.718 Personal history of other venous thrombosis and embolism
CPT/HCPCS: 36415; 71045; 80048; 82962; 83880; 84484; 85025; 85027; 85610; 87635; 93005; 93970; 94640; 97116; 97162; 97165; 97802; 99285; G2023; A4216; J1940; U0004

== ENCOUNTER 2019-11-27 19:20 | Inpatient (IN) | payer MEDICARE, MEDICAID, OTHER, SELFPAY ==
[2019-11-05 00:27] VITALS: BMI 65.9
[2019-11-27 19:20] VITALS: PULSE 80; RESP 20; TEMP 36.9; O2SAT 98; BMI 66.0
--- NOTE | 2019-11-27 19:40 | EKG12_ITS ---
Test Reason : DYSRHYTHMIA Blood Pressure : / mmHG Vent. Rate : 076 BPM Atrial Rate : 076 BPM P-R Int : 156 ms QRS Dur : 104 ms QT Int : 412 ms P-R-T Axes : 041 000 047 degrees QTc Int : 463 ms Normal sinus rhythm Poor R wave progression Confirmed by SUHAS DENIS, JOSE EDUARDO ([id number]), news copy editor MICKY LARES ([id number]) on 11/28/2019 11:19:58 AM Referred By: Jose Eduardo Solares Confirmed By:JOSE EDUARDO DAI MD
--- NOTE | 2019-11-27 19:41 | ED.DCSUM_ITS ---
History of Present Illness Chief Complaint: Shortness of Breath Informant: Patient Onset: Days Context: Gradual Onset Narrative: Patient presents with increasing shortness of breath and weakness. He reports a 16 pound weight gain in fluid over the past 1 week. He is on Lasix 40 mg twice daily for CHF. He also states he has had a fever nightly for the past month in the high 99 range. He does report short of breath but denies cough or conge stion. For the past 3 hours he does report chest heaviness. - Past Medical History (1) Anxiety and depression Status: Chronic (2) High cholesterol Status: Chronic (3) Hypertension Status: Chronic (4) Obstructive sleep apnea Status: Chronic (5) CVA (cerebral vascular accident) Status: Chronic (6) Diabetes Status: Chronic (7) Congestive heart failure Status: Chronic (8) Lymphedema Status: Chronic Past Medical History - Allergies and Home Meds Allergies/Adverse Reactions: Allergies gabapentin Adverse Reaction (Verified 11/27/19 19:24) Swelling liraglutide [From Victoza] Adverse Reaction (Verified 11/27/19 19:24) Nausea/Vom/Diarrhea Primary Care Physician: [facility] [Primary Care Provider] - Prior records reviewed: Yes Surgical History: tonsillectomy, - - Surgery to close vaginal opening (reports hermaphrodite at ); leg surgery Smoking Status: Never smoker - Family History Maternal Family History: Reports: Heart Disease Paternal Family History: Reports: Cancer - His father from mesothelioma Review of Systems General: Reports: Fever Eyes: Denies: Visual changes - bilaterally ENT: Denies: Bilateral ear pain Cardiovascular: Reports: Chest pain Respiratory: Reports: Dyspnea. Denies: Cough Gastrointestinal: Denies: Abdominal pain, Nausea, Vomiting, Diarrhea Musculoskeletal: Reports: Swelling. Denies: Extremity Pain Skin: Denies: Rash Neurological: Reports: Weakness. Denies: Headache Hematologic: Denies: Easy bruising, Easy bleeding Allergy: Denies: Uticaria Physical Exam Vital Signs/Narrative: Vital Signs Temp Pulse Resp Pulse Ox 11/27/19 19:20 98.4 F 80 20 H 98 Inital Vital Signs reviewed: Yes General: Well nourished, Well developed Head: Normocephalic ENT: Moist mucous membranes Neck: Supple Cardiovascular: Regular rate, Regular rhythm Respiratory: No distress, CTA bilaterally Abdomen: Soft, Nontender, Normal bowel sounds Extremities: - - Patient with chronic lower extremity edema and venous stasis skin changes. No sign of cellulitis or open wounds. Neurological: Alert, Oriented x3 Psychological: Normal affect Diagnostic/Tx/Re-eval Impressions Chest X-Ray 11/27/19 20:16 IMPRESSION: Mild bilateral groundglass pulmonary opacities possible pneumonia, atypical viral pneumonia. Electronically Signed: Jayro Bolden, at 21:04 EDT Tel , Service support , 11/27/19 20:16 Chest 1 View (Portable) [RAD] Stat Laboratory Results 11/27/19 11/27/19 11/27/19 19:35 19:35 19:35 WBC 13.1 H RBC 4.19 L Hgb 10.8 L Hct 36.3 L MCV 86.6 MCH 25.8 L MCHC 29.8 L RDW Std Deviation 49.1 H RDW Coeff of Varsha 15.7 H Plt Count 281 MPV 8.6 Immature Gran % (Auto) 0.800 Neut % (Auto) 73.3 H Lymph % (Auto) 21.5 [place] % (Auto) 3.4 Eos % (Auto) 0.8 Baso % (Auto) 0.2 Absolute Neuts (auto) 9.6 H Absolute Lymphs (auto) 2.82 Nucleated RBC % 0 PT INR Sodium 139 Potassium 3.7 Chloride 100 Carbon Dioxide 35.0 H Anion Gap 4 L BUN 14 Creatinine 1.05 Estim Creat Clear Calc 85.20 Est GFR (MDRD) Af Amer 94 Est GFR (MDRD) Non-Af 77 BUN/Creatinine Ratio 13.3 Glucose 234 H Calcium 8.8 Troponin I < 0.015 B-Natriuretic Peptide 21.0 [place] 11/27/19 11/27/19 19:35 19:35 WBC RBC Hgb Hct MCV MCH MCHC RDW Std Deviation RDW Coeff of Varsha Plt Count MPV Immature Gran % (Auto) Neut % (Auto) Lymph % (Auto) [place] % (Auto) Eos % (Auto) Baso % (Auto) Absolute Neuts (auto) Absolute Lymphs (auto) Nucleated RBC % PT 31.5 H INR 3.1 Sodium Potassium Chloride Carbon Dioxide Anion Gap BUN Creatinine Estim Creat Clear Calc Est GFR (MDRD) Af Amer Est GFR (MDRD) Non-Af BUN/Creatinine Ratio Glucose Calcium Troponin I B-Natriuretic Peptide [place] 0.40 L - EKG Initial EKG Interpretation: Sinus Rhythm - Sinus at 76 with no acute ischemia. - Medical Decision Making Patient's vital signs been stable. He is currently on 2 L nasal cannula that was started by EMS. In review of prior records, patient presented for CHF exacerbation with admission last year with similar findings-normal chest x-ray and BNP despite being fluid overloaded. At that time he had a recent echocardiogram at [facility] that showed preserved ejection fraction. Patient has gained 16 pounds in the last week and because of the extra fluid retention has been unable to ambulate around his home. He is given 80 mg of IV Lasix here. I will speak with hospitalist regarding admission overnight for diuresis and evaluation by physical therapy. ED Disposition - Plan for ED Patient: Disposition: Acute Care Hospital [facility] Diagnosis: CHF (congestive heart failure) [facility] [Primary [facility] Provider] -
[2019-11-27 20:12] LABS: Absolute Lymphocyte Count 2.82 X10^3/uL (0.83-4.51); Absolute Neutrophil Count 9.6 X10^3/uL (2.0-7.7); Basophil# 0.02 X10^3/uL; Basophil% 0.2 % (0-1); Eosinophils% 0.8 % (0-5); Hematocrit 36.3 % (40-54); Hemoglobin 10.8 g/dL (13.0-16.5); Lymphocyte # 2.82 X10^3/ul (4.0); Lymphocyte % 21.5 % (19-41); Mean Corp Hgb Conc 29.8 g/dL (32-36); Mean Corpuscular Hgb 25.8 pg (27.0-32.0); Mean Corpuscular Volume 86.6 fL (80-94); Mean Platelet Vol. 8.6 fl (6.2-12.0); Monocyte# 0.45 X10^3/uL; Monocyte% 3.4 % (0-10); NRBC Flagged by Analyzer 0 % (0-5); Neutrophil % 73.3 % (47-70); Platelet Count 281 K/mm3 (150-450); RBC Distribution Width CV 15.7 % (11.6-14.6); RBC Distribution Width SD 49.1 fl (35.1-43.9); Red Blood Count 4.19 M/mm3 (4.6-6.2); White Blood Count 13.1 K/mm3 (4.4-11.0)
--- NOTE | 2019-11-27 20:16 | RAD_ITS ---
STUDY: X-RAY CHEST REASON FOR EXAM: Male, 59 years old. Weakness -- Increase Shortness of breath TECHNIQUE: Portable chest COMPARISON: 11/04/2019 FINDINGS: There are mild bilateral groundglass pulmonary opacities. There is no demonstrated pleural abnormality. Normal size heart. Normal mediastinum and jazmine. Normal visualized pulmonary arteries. Normal visualized aortic arch and descending thoracic aorta. Normal visualized thoracic spine. Normal visualized ribs, clavicles, and shoulders. There is no demonstrated abnormality of the visualized soft tissue structures of the upper abdomen. RAD/Chest 1 View (Portable) IMPRESSION: Mild bilateral groundglass pulmonary opacities possible pneumonia, atypical viral pneumonia. Electronically Signed: Jayro Bolden, at 21:04 EDT Tel , Service support ,
[2019-11-27 20:26] LABS: Anion Gap 4 (5-15); BUN 14 mg/dL (7-18); BUN/Creat Ratio 13.3 RATIO (10-20); Calcium,Total 8.8 mg/dL (8.5-10.1); Chloride 100 mmol/L (98-107); Creatinine, Serum 1.05 mg/dL (0.70-1.30); EST Glomerular Filtration Rate 77 mL/min (>60); Est Glom Filt Rate - Afr Amer 94 mL/min (>60); Glucose 234 mg/dL (74-106); Potassium 3.7 mmol/L (3.5-5.1); Sodium Level 139 mmol/L (136-145)
[2019-11-27 20:49] VITALS: BP 182/83; PULSE 72; RESP 15; TEMP 36.9; O2SAT 99
[2019-11-27 20:56] VITALS: BP 133/59; PULSE 71; RESP 20; O2SAT 97
[2019-11-27 21:02] LABS: International Normalized Ratio 3.1; Prothrombin Time (Protime)PT. 31.5 SECONDS (11.7-14.9)
[2019-11-27] MEDS: Furosemide 100 MG/10 ML Vial 80 MG IV (21:38)
[2019-11-27 21:47] VITALS: BP 140/56; PULSE 69; RESP 12; TEMP 36.8; O2SAT 99
[2019-11-27 21:57] LABS: Probe Check PASS; Specimen Processing Control PASS
--- NOTE | 2019-11-27 22:00 | HP.PCM_ITS ---
Problem List (1) Anxiety and depression Status: Chronic (2) High cholesterol Status: Chronic (3) Hypertension Status: Chronic (4) Obstructive sleep apnea Status: Chronic (5) Diabetes Status: Chronic (6) Acute exacerbation of CHF (congestive heart failure) Status: Acute (7) Lymphedema Status: Chronic (8) Morbid obesity Status: Chronic History of Present Illness Date of Admission: 11/27/19 The patient is a 59 year old patient with a past medical history of morbid obesity, lymphedema, congestive heart failure, coronary artery disease, hypertension, hyperlipidemia presents the emergency room with shortness of breath after gaining 16 pounds over the past week. He is a known patient of the [facility] however they did not have beds available for admission this evening. The patient is requiring supplemental oxygen to maintain his oxygen saturation in normal range. Laboratory studies reveal a white blood cell count of 13.1, hemoglobin 10.8, hematocrit 36.3 platelets 281, sodium 139, potassium 3.7, chloride 100, bicarb 35, BUN 14, creatinine 1.05, glucose 234, lithium 0.4, COVID test negative, chest x-ray mild groundglass pulmonary opacities possible pneumonia. The patient has had previous heart failure exacerbations and responded to increased doses of Lasix. The patient will be admitted to the progressive care unit for management of underlying congestive heart failure and further cardiac work-up. Past Medical History Past Medical History (Chronic Problems): Chronic Problems Anxiety and depression (Chronic) High cholesterol (Chronic) Hypertension (Chronic) Obstructive sleep apnea (Chronic) CVA (cerebral vascular accident) (Chronic) Diabetes (Chronic) Morbid obesity (Chronic) Congestive heart failure (Chronic) Lymphedema (Chronic) Allergies gabapentin Adverse Reaction (Verified 11/27/19 19:24) Swelling liraglutide [From Victoza] Adverse Reaction (Verified 11/27/19 19:24) Nausea/Vom/Diarrhea Home Medications: Ambulatory Orders Medication Instructions Recorded Aripiprazole [Abilify] 30 mg PO DAILY 11/04/19 Aspirin [Aspir 81] 81 mg PO DAILY 11/04/19 Fluoxetine [Prozac] 20 mg PO DAILY 11/04/19 [place] Carbonate 600 mg PO DAILY 11/04/19 Rosuvastatin Calcium 10 mg PO DAILY 11/04/19 Syringe,Insul U-500,Ndl,0.5ML 140 units SQ BID 11/04/19 [Insulin Syringe U-500] Warfarin [Coumadin] 5 mg PO SUMOTUWETHSA 11/04/19 Warfarin [Coumadin] 7.5 mg PO FR 11/04/19 Potassium Chloride [K-Dur] 20 meq PO DAILY 11/27/19 Torsemide [Demadex] 40 mg PO BID 11/27/19 Surgical History: tonsillectomy, - - Surgery to close vaginal opening (reports hermaphrodite at ); leg surgery Lives: Spouse/ Significant Other Smoking Status: Never smoker - *Family History Maternal History Items: Heart Disease Paternal History Items: Cancer - His father from mesothelioma Review of Systems Constitutional: Reports: Weight Change - +16lbs. Denies: Chills, Fever HEENT: Denies: Head Aches, Sinus Congestion, Sinus Drainage Cardiovascular: Denies: Chest Pain, Palpitations Respiratory: Reports: Shortness of breath at rest. Denies: Cough, Sputum production Gastrointestinal: Denies: Abdominal Pain, Nausea, Vomiting Genitourinary: Denies: Dysuria Musculoskeletal: Denies: Joint Pain, Joint Tenderness Skin: Denies: Rash, Wounds Neurological: Denies: Numbness, Tingling, Focal weakness Psychiatric: Denies: Anxiety, Depression, Homicidal Ideations, Suicidal Ideations Hematologic/ Lymphatic: Denies: Easy Bruising, Easy Bleeding VTE Information - Inpt Only VTE Present on Admission: No VTE Mechan Device Prophylaxis: None VTE Pharm Prophylaxis ordered?: Yes - Physical Exam Vitals/I&O's: Vital Signs Temp Pulse Resp BP Pulse Ox 98.2 F 69 12 140/56 H 99 11/27/19 21:47 11/27/19 21:47 11/27/19 21:47 11/27/19 21:47 11/27/19 21:47 Oxygen Flow Rate (L/min) 3 Oxygen Delivery Method Nasal Cannula Weight: 487 lb 0.018 oz Body Mass Index (BMI) 66.0 General: Alert, Oriented x3, Cooperative HEENT: Atraumatic, Normocephalic Neck: Supple, No JVD Lungs: No rhonchi, No wheeze, No rales, Diminished Cardiovascular: Regular rate, Normal S1, Normal S2, No murmurs Abdomen: Bowel Sounds Present, Soft, Non Tender, Obese Extremities: Capillary Refill Less than 3 Seconds, Edema - 4+ Skin: No rashes Musculoskeletal: No Tenderness to Palpation of Joints or Extremities Neurological: Neuro grossly intact Psych/Mental Status: Normal Affect, Appropriate Laboratory Results 11/27/19 19:35: WBC 13.1 H, RBC 4.19 L, Hgb 10.8 L, Hct 36.3 L, MCV 86.6, MCH 25.8 L, MCHC 29.8 L, RDW Std Deviation 49.1 H, RDW Coeff of Varsha 15.7 H, Plt Count 281, MPV 8.6, Immature Gran % (Auto) 0.800, Neut % (Auto) 73.3 H, Lymph % (Auto) 21.5, [place] % (Auto) 3.4, Eos % (Auto) 0.8, Baso % (Auto) 0.2, Absolute Neuts (auto) 9.6 H, Absolute Lymphs (auto) 2.82, Nucleated RBC % 0 11/27/19 19:35: Sodium 139, Potassium 3.7, Chloride 100, Carbon Dioxide 35.0 H, Anion Gap 4 L, BUN 14, Creatinine 1.05, Estim Creat Clear Calc 85.20, Est GFR (MDRD) Af Amer 94, Est GFR (MDRD) Non-Af 77, BUN/Creatinine Ratio 13.3, Glucose 234 H, Calcium 8.8, Troponin I < 0.015 11/27/19 19:35: B-Natriuretic Peptide 21.0 11/27/19 19:35: PT 31.5 H, INR 3.1 11/27/19 19:35: [place] 0.40 L 11/27/19 19:48: COVID-19 (JEN) Negative Assessment/Plan All Active Problems Acute exacerbation of CHF (congestive heart failure) (Acute) Anasarca (Acute) Unable to ambulate (Acute) Chronic Problems Anxiety and depression (Chronic) High cholesterol (Chronic) Hypertension (Chronic) Obstructive sleep apnea (Chronic) CVA (cerebral vascular accident) (Chronic) Diabetes (Chronic) Morbid obesity (Chronic) Congestive heart failure (Chronic) Lymphedema (Chronic) Plan 1. Congestive heart failure exacerbation?admit patient to progressive care unit?increase Lasix to 80 mg IV twice daily, echocardiogram in the a.m., continue oxygen support, repeat CBC BMP and BNP in the a.m. 2. Hyperlipidemia?continue statin 3. Hypertension?continue current medication stable 4. Diabetes?continue current medications may add sliding scale insulin if necessary 5. DVT prophylaxis?low molecular weight heparin Inpatient E&M: 04274 Init Hosp L3
[2019-11-27 22:20] VITALS: BP 151/83; BP 153/65; PULSE 75; RESP 18; TEMP 36.5; O2SAT 95
--- NOTE | 2019-11-27 22:26 | ED.RN ---
called friendAlycia for pt update.
[2019-11-27 22:30] VITALS: PULSE 72
[2019-11-27 22:40] VITALS: BMI 64.9
--- NOTE | 2019-11-27 22:43 | NURSING ---
Pt states last PNA shot was about 2 years ago.
[2019-11-27 22:44] VITALS: BMI 64.9
[2019-11-27] MEDS: 0.9% Saline Lock 10 ML Syringe IV (23:45)
[2019-11-27] MEDS: DiphenhydrAMINE 50 MG/ML Syringe IV (23:45)
[2019-11-28] VITALS (9 sets, daily range): BP systolic 110–148; BP diastolic 51–78; PULSE 67–78; RESP 18–24; TEMP 36.6–37.6; O2SAT 93–96
[2019-11-28 01:41] LABS: Bedside Glucose 116 mg/dL (70-110)
--- NOTE | 2019-11-28 05:55 | ECHOCS_ITS ---
Reason For Study: CHF Procedure This was a 2D Doppler, Color Flow transthoracic echocardiogram. The study was technically difficult. The exam was of poor technical quality due to body habitus. Contrast injection was performed. Exam performed portable in patient room. Left Ventricle Normal LV size. Left ventricular systolic function is normal. The estimated ejection fraction is 65 %. Unable to assess diastolic dysfunction. No regional wall motion abnormalities noted. Right Ventricle Normal RV size. Normal systolic function. Atria Normal left atrium. Normal right atrium. No doppler evidence for ASD. Mitral Valve There is no mitral annular calcification. Normal mitral valve. Tricuspid Valve Normal tricuspid valve. Trivial tricuspid valve insufficiency. Unable to estimate RV systolic pressure/pulmonary artery pressure due to technically difficult study. Aortic Valve Trisinus/trileaflet aortic valve. Mild focal aortic valve calcification. Pulmonic Valve The pulmonic valve is not well visualized. Great Vessels Mildly dilated aortic root. Pericardium/Pleural No pericardial effusion. Medication Diluted definity 8.0ml given slow IV push to enhance endocardial definition. MMode/2D Measurements & Calculations LVIDd: 5.4 cm IVSd: 1.1 cm Ao root diam: 4.2 cm LVIDs: 3.3 cm LVPWd: 1.4 cm RVDd: 4.9 cm FS: 38.5 % LA dimension(2D): 4.4 cm Time Measurements MV dec time: 0.29 sec Doppler Measurements & Calculations MV E max tanmay: 106.9 cm/sec Ao V2 max: 178.6 cm/sec LV V1 max: 109.4 cm/sec MV A max tanmay: 88.1 cm/sec Ao max P.8 mmHg LV V1 max P.8 mmHg MV E/A: 1.2 PA V2 max: 116.3 cm/sec Interpretation Summary The study was technically difficult. Contrast injection was performed. Left ventricular systolic function is normal. The estimated ejection fraction is 65 %. Trivial tricuspid valve insufficiency. Mild focal aortic valve calcification. Mildly dilated aortic root. Unable to estimate RV systolic pressure/pulmonary artery pressure due to technically difficult study. Unable to assess diastolic dysfunction. Ordering Physician: Jose Eduardo Solares Referring Physician: [facility] Performed By: Marielena Moralez, MIAH, RVT
[2019-11-28 06:36] LABS: Absolute Lymphocyte Count 2.85 X10^3/uL (0.83-4.51); Absolute Neutrophil Count 8.8 X10^3/uL (2.0-7.7); Basophil# 0.02 X10^3/uL; Basophil% 0.2 % (0-1); Eosinophil# 0.08 X10^3/uL; Eosinophils% 0.6 % (0-5); Hematocrit 34.7 % (40-54); Hemoglobin 10.3 g/dL (13.0-16.5); Lymphocyte # 2.85 X10^3/ul (4.0); Lymphocyte % 23.1 % (19-41); Mean Corp Hgb Conc 29.7 g/dL (32-36); Mean Corpuscular Hgb 26.1 pg (27.0-32.0); Mean Corpuscular Volume 88.1 fL (80-94); Mean Platelet Vol. 8.5 fl (6.2-12.0); Monocyte# 0.54 X10^3/uL; Monocyte% 4.4 % (0-10); NRBC Flagged by Analyzer 0 % (0-5); Neutrophil # 8.76 X10^3/uL (2.7-7.7); Neutrophil % 71.1 % (47-70); Platelet Count 274 K/mm3 (150-450); RBC Distribution Width CV 15.9 % (11.6-14.6); RBC Distribution Width SD 50.8 fl (35.1-43.9); Red Blood Count 3.94 M/mm3 (4.6-6.2); White Blood Count 12.3 K/mm3 (4.4-11.0)
[2019-11-28 06:49] LABS: Prothrombin Time (Protime)PT. 30.8 SECONDS (11.7-14.9)
[2019-11-28 07:00] LABS: Anion Gap 6 (5-15); BUN 14 mg/dL (7-18); BUN/Creat Ratio 14.4 RATIO (10-20); Calcium,Total 8.6 mg/dL (8.5-10.1); Chloride 100 mmol/L (98-107); Creatinine, Serum 0.97 mg/dL (0.70-1.30); EST Glomerular Filtration Rate 84 mL/min (>60); Est Glom Filt Rate - Afr Amer 102 mL/min (>60); Estimated Creatinine Clearance 92.22 ml/min; Glucose 116 mg/dL (74-106); Potassium 3.3 mmol/L (3.5-5.1); Sodium Level 140 mmol/L (136-145)
[2019-11-28] MEDS: Aspirin E.C. 81 MG Tablet PO (08:35)
[2019-11-28] MEDS: ARIPiprazole 10 MG Tablet 30 MG PO (08:35)
[2019-11-28 08:36] LABS: Bedside Glucose 162 mg/dL (70-110)
[2019-11-28] MEDS: Furosemide 100 MG/10 ML Vial 80 MG IV ×2 (08:36→17:00)
[2019-11-28] MEDS: FLUoxetine 20 MG Capsule PO (08:37)
[2019-11-28] MEDS: Lithium Carbonate 300mg Capsule 600 MG PO (08:37)
[2019-11-28] MEDS: 0.9% Saline Lock 10 ML Syringe IV ×3 (08:40→21:57)
--- NOTE | 2019-11-28 09:51 | PN_ITS ---
Reason for Visit: Follow-up for CHF exacerbation Objective: Seen and examined along with the nursing staff. No fever or chills. 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 This time he is admitted with 14 pounds weight gain along with shortness of breath for about 1- 2 weeks. Patient was last admitted from 11/03 through 11/05 for chronic lymphedema with increased swelling and weight gain and prior to that emergency hospital in August 2019. Although, patient was discharged on torsemide 60 mg twice daily but home medication shows torsemide 40 mg twice daily at home. Patient has been also noncompliant with fluid intake and salt intake. Vitals/I&O's: Vital Signs Temp Pulse Resp BP Pulse Ox 98.4 F 67 24 H 133/51 H 96 11/28/19 04:32 11/28/19 06:25 11/28/19 04:32 11/28/19 04:32 11/28/19 04:32 Oxygen Flow Rate (L/min) 2 Oxygen Delivery Method Nasal Cannula Weight: 474 lb 10.484 oz Body Mass Index (BMI) 64.9 Intake and Output for Last 24 Hours 11/26/19 11/27/19 11/28/19 23:59 23:59 23:59 Intake Total 240 / 240 160 / 160 Output Total 1320 / 1320 815 / 815 Balance -1080 / -1080 -655 / -655 General: Alert, Oriented x3, Cooperative HEENT: Atraumatic, PERRLA, EOMI, Normocephalic Neck: Supple, No JVD, Negative Carotid Bruits Lungs: Clear to auscultation, No rhonchi, No wheeze, No rales, Diminished Cardiovascular: Regular rate, Regular Rhythm, Normal S1, Normal S2, No murmurs Abdomen: Bowel Sounds Present, Soft, Non Tender, Non-Distended Extremities: No edema, Capillary Refill Less than 3 Seconds, Edema - Bilateral lower extremity edema. Lymphedema bilateral lower extremity along with soft tissue hypertrophy and hyperplasia. Skin: No breakdown, Rash Present - Hives and wheals present on back upper chest, upper extremities and thighs area. Musculoskeletal: No Tenderness to Palpation of Joints or Extremities Neurological: Cranial nerves II-XII grossly intact Psych/Mental Status: Normal Affect, Appropriate Laboratory Results 11/27/19 19:35: WBC 13.1 H, RBC 4.19 L, Hgb 10.8 L, Hct 36.3 L, MCV 86.6, MCH 25.8 L, MCHC 29.8 L, RDW Std Deviation 49.1 H, RDW Coeff of Varsha 15.7 H, Plt Count 281, MPV 8.6, Immature Gran % (Auto) 0.800, Neut % (Auto) 73.3 H, Lymph % (Auto) 21.5, [place] % (Auto) 3.4, Eos % (Auto) 0.8, Baso % (Auto) 0.2, Absolute Neuts (auto) 9.6 H, Absolute Lymphs (auto) 2.82, Nucleated RBC % 0 11/27/19 19:35: Sodium 139, Potassium 3.7, Chloride 100, Carbon Dioxide 35.0 H, Anion Gap 4 L, BUN 14, Creatinine 1.05, Estim Creat Clear Calc 85.20, Est GFR (MDRD) Af Amer 94, Est GFR (MDRD) Non-Af 77, BUN/Creatinine Ratio 13.3, Glucose 234 H, Calcium 8.8, Troponin I < 0.015 11/27/19 19:35: B-Natriuretic Peptide 21.0 11/27/19 19:35: PT 31.5 H, INR 3.1 11/27/19 19:35: [place] 0.40 L 11/27/19 19:48: COVID-19 (JEN) Negative 11/27/19 23:52: POC Glucose 116 H 11/28/19 06:05: WBC 12.3 H, RBC 3.94 L, Hgb 10.3 L, Hct 34.7 L, MCV 88.1, MCH 26.1 L, MCHC 29.7 L, RDW Std Deviation 50.8 H, RDW Coeff of Varsha 15.9 H, Plt Count 274, MPV 8.5, Immature Gran % (Auto) 0.600, Neut % (Auto) 71.1 H, Lymph % (Auto) 23.1, [place] % (Auto) 4.4, Eos % (Auto) 0.6, Baso % (Auto) 0.2, Absolute Neuts (auto) 8.8 H, Absolute Lymphs (auto) 2.85, Nucleated RBC % 0 11/28/19 06:05: PT 30.8 H, INR 3.0 11/28/19 06:05: Sodium 140, Potassium 3.3 L, Chloride 100, Carbon Dioxide 34.0 H , Anion Gap 6, BUN 14, Creatinine 0.97, Estim Creat Clear Calc 92.22, Est GFR (MDRD) Af Amer 102, Est GFR (MDRD) Non-Af 84, BUN/Creatinine Ratio 14.4, Glucose 116 H, Calcium 8.6 11/28/19 08:26: POC Glucose 162 H Current Medications Acetaminophen (Tylenol) 650 mg PO Q4H PRN PRN PRN Reason: Pain Score 1-1010 Aripiprazole (Abilify) 30 mg PO DAILY REPLACED BY [facility] Last Admin: 11/28/19 08:35 Dose: 30 mg Documented by: [facility] Last Admin: 11/28/19 08:35 Dose: 81 mg Documented by: Atorvastatin Calcium (Lipitor) 20 mg PO DAILY@2200 REPLACED BY [facility] Dextrose (D50w Syringe) 0 gm IV X1 PRN; Protocol PRN Reason: Hypoglycemia Diphenhydramine HCl (Benadryl) 50 mg IV Q6H PRN PRN PRN Reason: ITCHING Last Admin: 11/27/19 23:45 Dose: 50 mg Documented by: Fluoxetine HCl (Prozac) 20 mg PO DAILY REPLACED BY [facility] Last Admin: 11/28/19 08:37 Dose: 20 mg Documented by: Furosemide (Lasix) 80 mg IV BID@1000,1800 REPLACED BY [facility] Last Admin: 11/28/19 08:36 Dose: 80 mg Documented by: Glucagon () 1 mg IM .X1 PRN PRN Reason: Hypoglycemia Hydrocortisone (Hytone) 1 applic TOPICAL BID REPLACED BY [facility]; Protocol Sodium Chloride () 250 mls @ 15 mls/hr IV .[id number] PRN PRN Reason: Saline Flush Sodium Chloride () 250 mls @ 15 mls/hr IV .[id number] PRN PRN Reason: Additional IVPB Infusion Insulin Human Regular (Humulin R U-500 (Bkc)) 140 units SC BID REPLACED BY [facility] Last Admin: 11/28/19 08:35 Dose: 140 units Documented by: [place] Carbonate ([place] Carbonate) 600 mg PO DAILY REPLACED BY [facility] Last Admin: 11/28/19 08:37 Dose: 600 mg Documented by: Potassium Chloride (K-Dur) [facility] Stop: 12/01/19 09:18 Sodium Chloride () 10 - 40 ml IV UD PRN PRN Reason: SALINE FLUSH Last Admin: 11/28/19 08:40 Dose: 10 ml Documented by: Warfarin Sodium (Coumadin (Pbkc)) 5 mg PO SuMoTuWeThSa@1700 HARSHIL Warfarin Sodium (Coumadin (Pbkc)) 7.5 mg PO Fr@1700 REPLACED BY [facility] STROKE Vital Signs/Narrative: Vital Signs Pulse 11/28/19 06:25 67 Medical Necessity - Tobacco Use Smoking Status: Never smoker Assessment/Plan All Active Problems Acute exacerbation of CHF (congestive heart failure) (Acute) Anasarca (Acute) Unable to ambulate (Acute) There is a 59-year-old gentleman with history of bilateral lower extremity lymphedema, CVA, right lower extremity DVT on Coumadin and other comorbidities is being admitted with shortness of breath, weight gain about 14 pounds in last 1 to 2 weeks, lower extremity lymphedema 1. Acute on chronic heart failure with preserved EF: Patient is being admitted to PCU. As per previous discharge summary on November 06, 2019, he had echo done in [facility] probably in August 2019 which showed preserved EF. Try to get that echo report. 2D echo is ordered. On Lasix 80 mg IV twice daily. CHF core measures discussed with the patient, low-salt diet, daily weight measurement, strict intake and output and strict compliance with his diet. His consumer safety officer is in [facility]. 2. Hypokalemia: Potassium replaced. Monitor electrolytes. 3. Dyslipidemia: Continue statin 4. Diabetes mellitus type 2: Blood sugars controlled. A1c tomorrow a.m. Accu- Cheks and insulin is covered with sliding scale short-acting insulin 5. History of right lower extremity: On Coumadin. INR is 3.0. 6. Super morbid obesity: Filter Assembler consult. Weight loss counseling done. 7. Allergic dermatitis: Macular rash with hives on the back, upper extremities and thighs. Hydrocortisone cream 2.5% ordered. Total time of the visit including total time spent in counseling or coordination of care, (more than 50% of the total time, spent in obtaining medical information from nurses and other ancillary care providers), food and drug research scientist and wound nurse, review of labs and imaging is 30 minutes Inpatient E&M: [id number] [place] [id number]
[2019-11-28 11:03] LABS: Magnesium 2.1 mg/dL (1.6-2.6)
[2019-11-28] MEDS: Acetaminophen 325 MG Tablet 650 MG PO ×2 (11:13→21:52)
--- NOTE | 2019-11-28 11:18 | NURSING ---
Was consulted on patient for chronic lymphedema. pt has no open wounds. pt states he has had lymphedema for over 20 years and does use his lymphedema pumps twice a day. pt lives at home alone and has aides that come on to assist him at home. patient has very large calves and much smaller ankles. with legs this shape, it is difficult to wrap and ends up constricting at the ankles. Pt states he cannot wear compression wraps. washed legs and feet with soap and water. pat dry. applied aloe vesta to the dry skin bilateral lower legs. if patient does not go home in the next day or two, would recommend family bring in his lymphedema pumps. will monitor as needed.
[2019-11-28 11:51] LABS: Bedside Glucose 163 mg/dL (70-110)
--- NOTE | 2019-11-28 13:15 | CASEMGMT ---
NICK ORNELAS assessment: Face to Face with patient for initial transition planning/care coordination assessment. NICK ORNELAS introduced self and role at [facility], pt voices understanding and consents to assessment at this time. Pt is sitting up in chair in no distress at this time. Pt is A/Ox4 at this time and answers all questions appropriately at this time. Care providers, pharmacy, and demographics verified/updated at this time. Presentation: Increased SOB, weakness Admitting dx: CHF exacerbation PCP: [facility] Specialists: Pt states no current specialists. [facility] A[facility]B, [facility], [place] Prescription Benefit: ID Living Will/HPOA: Pt states has LW/HPOA and is aware that they are not on file at [facility] at this time. Pt states his sister, Tash Carroll, is HPOA. LNOK: Tash Carroll, sister/HPOA; Juanjose Osorio, friend Living Arrangements: Pt states lives alone in 1 story apartment and states no concerns at home at this time. Pt states is independent with ADL's. Transportation: Pt states friend drives or uses ID transportation and states no transportation concerns at this time. DME/HHC: Pt states has the following DME: grab bars, shower chair, raised toilet seat, cane, walkerx3, w/c, hospital bed, medical alert button, lymphadema pumps, and 2liters home oxygen prn thru the ID. Pt states no need for any further DME at this time. Pt states has an aide thru [facility] which is set up thru the ID and states has ID Home health nurse that comes out as needed. Pt states has been to [facility] in the past. Pt states no concerns with going home at time of discharge. Pt states is disabled. Pt states does not smoke or drink ETOH. Pt states no further concerns/needs at this time. CM to follow for any further discharge planning/needs. Advised pt to ask for CM if any further questions/concerns/needs arise, voices understanding. Pt Goal: Home Plan[place] NICK ORNELAS
[2019-11-28] MEDS: Hydrocortisone 2.5% Crm 1 APPLIC TOPICAL ×2 (14:56→21:52)
--- NOTE | 2019-11-28 15:56 | CHAPLAIN ---
Type of Pastoral Visit _x__ Initial Visit ___ Follow-up Visit ___ On-call Visit ___ General Patient Visit ___ Spiritual Assessment ___ Family Conference ___ Bereavement ___ Rapid Response ___ Code Blue ___ Other (describe below) Pastoral Care Referral From _x__ Patient ___ Family ___ Nurse ___ Physician ___ Residential Treatment Specialist ___ Bottle Packing Machine Cleaner ___ Other (describe below) Sacrament/Intervention _x__ Active listening ___ Anointing ___ Faith ___ Bereavement ___ Communion _x__ Alanna exploration ___ _x__ Life review _x__ Prayer ___ Reconciliation ___ Sacrament of Sick ___ Supportive presence ___ Wedding ___ Other (describe below) Pastoral Comments patient identified himself as a believing Episcopalian and welcomes spiritual care; pt is talkative about his alanna and his family; pt is ; pt does not have a orthodoxy connection at this time; pt requested a Bible to read and this was given to him
[2019-11-28 17:06] LABS: Bedside Glucose 120 mg/dL (70-110)
[2019-11-28] MEDS: Atorvastatin Calcium 20 MG Tablet PO (21:52)
[2019-11-28 22:05] LABS: Bedside Glucose 188 mg/dL (70-110)
[2019-11-29 03:00] VITALS: PULSE 65
[2019-11-29 03:50] VITALS: BP 143/62; PULSE 62; RESP 18; TEMP 36.9; O2SAT 96
[2019-11-29 03:55] VITALS: O2SAT 96
[2019-11-29 06:20] LABS: International Normalized Ratio 2.5; Prothrombin Time (Protime)PT. 26.7 SECONDS (11.7-14.9)
[2019-11-29 07:12] LABS: Absolute Lymphocyte Count 3.06 X10^3/uL (0.83-4.51); Absolute Neutrophil Count 7.9 X10^3/uL (2.0-7.7); Basophil# 0.02 X10^3/uL; Basophil% 0.2 % (0-1); Eosinophil# 0.13 X10^3/uL; Eosinophils% 1.1 % (0-5); Hematocrit 37.7 % (40-54); Hemoglobin 11.1 g/dL (13.0-16.5); Lymphocyte # 3.06 X10^3/ul (4.0); Lymphocyte % 26.1 % (19-41); Mean Corp Hgb Conc 29.4 g/dL (32-36); Mean Corpuscular Hgb 26.2 pg (27.0-32.0); Mean Corpuscular Volume 88.9 fL (80-94); Mean Platelet Vol. 8.2 fl (6.2-12.0); Monocyte# 0.57 X10^3/uL; Monocyte% 4.9 % (0-10); NRBC Flagged by Analyzer 0 % (0-5); Neutrophil # 7.87 X10^3/uL (2.7-7.7); Neutrophil % 67.1 % (47-70); Platelet Count 279 K/mm3 (150-450); RBC Distribution Width SD 51.9 fl (35.1-43.9); Red Blood Count 4.24 M/mm3 (4.6-6.2); White Blood Count 11.7 K/mm3 (4.4-11.0)
[2019-11-29 07:21] VITALS: PULSE 64
[2019-11-29 07:38] LABS: ALB/GLOB Ratio 0.5 RATIO (0.9-2.4); AST(SGOT) 14 U/L (15-37); Alanine Aminotransfer ALT/SGPT 16 U/L (16-61); Albumin, Serum 2.8 g/dL (3.2-5.0); Alkaline Phosphatase 90 U/L (45-117); Anion Gap 5 (5-15); BUN 15 mg/dL (7-18); BUN/Creat Ratio 13.8 RATIO (10-20); Calcium,Total 9.2 mg/dL (8.5-10.1); Chloride 100 mmol/L (98-107); Creatinine, Serum 1.09 mg/dL (0.70-1.30); EST Glomerular Filtration Rate 74 mL/min (>60); Est Glom Filt Rate - Afr Amer 90 mL/min (>60); Estimated Creatinine Clearance 82.07 ml/min; Globulin 5.3 g/dL (2.2-4.2); Glucose 87 mg/dL (74-106); Magnesium 2.4 mg/dL (1.6-2.6); Potassium 3.6 mmol/L (3.5-5.1); Protein, Total 8.1 g/dL (6.4-8.2); Sodium Level 139 mmol/L (136-145)
[2019-11-29 07:49] VITALS: BP 117/48; PULSE 63; RESP 16; TEMP 36.5; O2SAT 96
[2019-11-29 07:59] LABS: Hemoglobin A1c 8.3 % (3.8-5.6)
[2019-11-29 08:01] LABS: Bedside Glucose 80 mg/dL (70-110)
--- NOTE | 2019-11-29 08:57 | DCINST_ITS ---
- Discharge Diagnoses Current Active Problems: Current Active and Chronic Problems Morbid obesity (Chronic) Congestive heart failure (Chronic) You will use the following diet at home:: Calorie/Carbohydrate Controlled (specify 1200, 1400, etc) - Carb controlled diet, Cardiac Your food should be the consistency of: Regular Discharge Activity: May Not Drive Weight Bearing Status: Weight bearing as tolerated Call your doctor if you observe: Fever of 101 or Higher, Numbness or Tingling, Change in Color, Inability to urinate, Inability to have a bowel movement, Shortness of breath, Dizziness, Fainting spells, Swelling in the ankles, Chest pain, Prolonged hiccoughing, Increased palpitations (irregular heartbeat) Additional Instructions: Follow-up system archive analyst in 1 to 2 weeks. 2 g sodium di et was emphasized along with 1500 mL fluid restriction. Allergies/Adverse Reactions: Allergies gabapentin Adverse Reaction (Verified 11/27/19 19:24) Swelling liraglutide [From Victoza] Adverse Reaction (Verified 11/27/19 19:24) Nausea/Vom/Diarrhea Medications to take at Discharge Aripiprazole [Abilify] 30 mg PO DAILY 11/04/19 Aspirin [Aspir 81] 81 mg PO DAILY 11/04/19 Fluoxetine [Prozac] 20 mg PO DAILY 11/04/19 [place] Carbonate 600 mg PO DAILY 11/04/19 Syringe,Insul U-500,Ndl,0.5ML [Insulin Syringe U-500] 140 units SQ BID 11/04/19 Warfarin [Coumadin] 5 mg PO SUMOTUWETHSA 11/04/19 Warfarin [Coumadin] 7.5 mg PO FR 11/04/19 Furosemide [Lasix] 80 mg PO BIDLX #60 tab 11/29/19 Potassium Chloride [K-Dur] 40 meq PO BID #0 11/29/19 Rosuvastatin Calcium 20 mg PO DAILY #0 11/29/19 The following prescriptions were given: Furosemide [Lasix] 80 mg PO BIDLX #60 tab Transmission Status: Sent to [facility] [[facility]] - Please follow up with your Primary Care Physician in: In 1 week Test Results: Test results from this visit will be discussed in further detail at your follow- up appointment, if applicable.
[2019-11-29 09:00] VITALS: BP 117/48; PULSE 63; RESP 16; TEMP 36.5; O2SAT 96
--- NOTE | 2019-11-29 09:01 | PCM.DC.SUM ---
Discharge Date and Diagnosis Date of Admission: 11/27/19 Date of Discharge: 11/29/19 - Primary Discharge Diagnosis Acute Problems: Acute on chronic heart failure with preserved EF/diastolic heart failure - Secondary Discharge Diagnosis Chronic Problems: Chronic Problems Anxiety and depression (Chronic) High cholesterol (Chronic) Hypertension (Chronic) Obstructive sleep apnea (Chronic) CVA (cerebral vascular accident) (Chronic) Diabetes (Chronic) Morbid obesity (Chronic) Congestive heart failure (Chronic) Lymphedema (Chronic) Hospital Course and Treatment Consultations 11/28/19 10:18 Consult: Onc/Wound/picker and packer Routine Comment: Reason for Consult:: Bilateral lower extremity lymphedema/CHF Operations: None Summary of Care Provided: The patient is a 59 year old gentleman with history of bilateral lower extremity lymphedema, CVA, right lower extremity DVT on Coumadin and other comorbidities is being admitted with shortness of breath, weight gain about 14 pounds in last 1 to 2 weeks, lower extremity lymphedema 1. Acute on chronic heart failure with preserved EF, clinically, seems early findings of heart failure: Patient is being admitted to PCU. The echo done in [facility] showed preserved EF. Patient is started on Lasix 30 mg IV twice daily. Ordnance Engineering Technician consult and CHF core measures were followed. Patient was emphasized on low-salt diet, daily weight measurement strict intake and output and fluid restriction of 1500 mL. 2D echo done here was technically difficult but reported EF 65% with no regional wall motion abnormality. Normal right and left atria. Normal mitral valve, trivial TR unable to assess right ventricular systolic function. Chest x-ray shows mild bilateral groundglass pulmonary opacities but normal mediastinum and jazmine. Patient is discharged on Lasix 80 mg twice daily along with potassium supplement. Fasting lipid profile shows HDL 38, LDL 81, triglyceride 149. Rosuvastatin dose increased to 10 mg daily. Patient heart rate in 60s but may be considered if heart rate permits. Consider PAMELLA inhibitor if BP permits. Medical records from [facility] reviewed. Patient had echo done in [facility] on August 15, 2019 reported as EF 50 to 55%, mild concentric LVH, mild TR. Ventricular filling pattern normal. RVSP 35.2. Patient also had CTPA on 08/15/2019 which shows mild scattered groundglass infiltrative/edematous changes. Mild bronchial wall thickening suggestive of bronchitis 2. Hypokalemia: Potassium replaced. Monitor electrolytes. 3. Dyslipidemia: Rosuvastatin dose increased to 20 mg daily. 4. Diabetes mellitus type 2: Blood sugars controlled. A1c 8.3. Accu-Cheks and insulin is covered with sliding scale short-acting insulin 5. History of right lower extremity: On Coumadin. Repeat INR 2.5. 6. Super morbid obesity: Ordnance Engineering Technician consult. Weight loss counseling done. 7. Allergic dermatitis: Macular rash with hives on the back, upper extremities and thighs. Hydrocortisone cream 2.5% ordered. Discharge medication reconciliation done. Discharge follow-up instructions completed. Discharge process discussed with the patient and all questions were answered to patient's satisfaction. Total time spent, exact 35 minutes on discharge meds reconciliation, examination, coordination of care with nurses and ancillary staff, review of imaging and blood test and discussion with the patient on follow-up instructions - Physical Exam Vitals/I&O's: Vital Signs Temp Pulse Resp BP Pulse Ox 97.7 F L 63 16 117/48 L 96 11/29/19 07:49 11/29/19 07:49 11/29/19 07:49 11/29/19 07:49 11/29/19 07:49 Oxygen Flow Rate (L/min) 2 Oxygen Delivery Method Room Air Weight: 468 lb 0.662 oz Body Mass Index (BMI) 64.9 Intake and Output for Last 24 Hours 11/27/19 11/28/19 11/29/19 23:59 23:59 23:59 Intake Total 240 / 240 1550 / 1550 140 / 140 Output Total 1320 / 1320 2095 / 2095 Balance -1080 / -1080 -545 / -545 140 / 140 General: Alert, Oriented x3, Cooperative HEENT: Atraumatic, PERRLA, EOMI, Normocephalic Neck: Supple, No JVD, Negative Carotid Bruits Lungs: Clear to auscultation, No rhonchi, No wheeze, No rales, Diminished - Air entry is diminished bilaterally Cardiovascular: Regular rate, Regular Rhythm, Normal S1, Normal S2, No murmurs Abdomen: Bowel Sounds Present, Soft, Non Tender, Non-Distended Extremities: Capillary Refill Less than 3 Seconds, Edema - Bilateral lower extremity pitting and nonpitting edema Skin: No rashes, No breakdown Musculoskeletal: No Tenderness to Palpation of Joints or Extremities, Arthritic Changes Neurological: Cranial nerves II-XII grossly intact, Deep Tendon Reflexes 2+/4 and Symmetrical, Neuro grossly intact Psych/Mental Status: Normal Affect, Appropriate Laboratory Results 11/28/19 06:05: Magnesium 2.1 11/28/19 11:45: POC Glucose 163 H 11/28/19 16:57: POC Glucose 120 H 11/28/19 21:50: POC Glucose 188 H 11/29/19 05:42: PT 26.7 H, INR 2.5 11/29/19 06:55: WBC 11.7 H, RBC 4.24 L, Hgb 11.1 L, Hct 37.7 L, MCV 88.9, MCH 26.2 L, MCHC 29.4 L, RDW Std Deviation 51.9 H, RDW Coeff of Varsha 16.0 H, Plt Count 279, MPV 8.2, Immature Gran % (Auto) 0.600, Neut % (Auto) 67.1, Lymph % (Auto) 26.1, [place] % (Auto) 4.9, Eos % (Auto) 1.1, Baso % (Auto) 0.2, Absolute Neuts (auto) 7.9 H, Absolute Lymphs (auto) 3.06, Nucleated RBC % 0 11/29/19 06:55: Sodium 139, Potassium 3.6, Chloride 100, Carbon Dioxide 34.0 H, Anion Gap 5, BUN 15, Creatinine 1.09, Estim Creat Clear Calc 82.07, Est GFR (MDRD) Af Amer 90, Est GFR (MDRD) Non-Af 74, BUN/Creatinine Ratio 13.8, Glucose 87, Calcium 9.2, Magnesium 2.4, Total Bilirubin 0.50, AST 14 L, ALT 16, Alkaline Phosphatase 90, Total Protein 8.1, Albumin 2.8 L, Globulin 5.3 H, Albumin/Globulin Ratio 0.5 L 11/29/19 06:55: Hemoglobin A1c 8.3 H 11/29/19 06:55: Triglycerides Pending, Cholesterol Pending, LDL Cholesterol Pending, VLDL Cholesterol Pending, HDL Cholesterol Pending 11/29/19 07:55: POC Glucose 80 Current Medications Acetaminophen (Tylenol) 650 mg PO Q4H PRN PRN PRN Reason: Pain Score 1-10/10 Last Admin: 11/28/19 21:52 Dose: 650 mg Documented by: Aripiprazole (Abilify) 30 mg PO DAILY COUNTS INCLUDE 234 BEDS AT THE [facility] Last Admin: 11/28/19 08:35 Dose: 30 mg Documented by: [facility] Last Admin: 11/28/19 08:35 Dose: 81 mg Documented by: Atorvastatin Calcium (Lipitor) 20 mg PO DAILY@2200 COUNTS INCLUDE 234 BEDS AT THE [facility] Last Admin: 11/28/19 21:52 Dose: 20 mg Documented by: Dextrose (D50w Syringe) 0 gm IV X1 PRN; Protocol PRN Reason: Hypoglycemia Diphenhydramine HCl (Benadryl) 50 mg IV Q6H PRN PRN PRN Reason: ITCHING Last Admin: 11/27/19 23:45 Dose: 50 mg Documented by: Fluoxetine HCl (Prozac) 20 mg PO DAILY COUNTS INCLUDE 234 BEDS AT THE [facility] Last Admin: 11/28/19 08:37 Dose: 20 mg Documented by: Furosemide (Lasix) 80 mg IV BID@1000,1800 COUNTS INCLUDE 234 BEDS AT THE [facility] Last Admin: 11/28/19 17:00 Dose: 80 mg Documented by: Glucagon () 1 mg IM .X1 PRN PRN Reason: Hypoglycemia Hydrocortisone (Hytone) 1 applic TOPICAL BID COUNTS INCLUDE 234 BEDS AT THE [facility]; Protocol Last Admin: 11/28/19 21:52 Dose: 1 applicatio Documented by: Sodium Chloride () 250 mls @ 15 mls/hr IV .[id number] PRN PRN Reason: Saline Flush Sodium Chloride () 250 mls @ 15 mls/hr IV .[id number] PRN PRN Reason: Additional IVPB Infusion Insulin Human Regular (Humulin R U-500 (Bkc)) 140 units SC BID COUNTS INCLUDE 234 BEDS AT THE [facility] Last Admin: 11/28/19 21:52 Dose: 140 units Documented by: [place] Carbonate ([place] Carbonate) 600 mg PO DAILY COUNTS INCLUDE 234 BEDS AT THE [facility] Last Admin: 11/28/19 08:37 Dose: 600 mg Documented by: Potassium Chloride (K-Dur) [facility] Stop: 12/01/19 09:18 Last Admin: 11/28/19 16:59 Dose: 40 meq Documented by: Sodium Chloride () 10 - 40 ml IV UD PRN PRN Reason: SALINE FLUSH Last Admin: 11/28/19 21:57 Dose: 10 ml Documented by: Warfarin Sodium (Coumadin (Pbkc)) 5 mg PO SuMoTuWeThSa@1700 COUNTS INCLUDE 234 BEDS AT THE [facility] Last Admin: 11/28/19 16:59 Dose: 5 mg Documented by: Warfarin Sodium (Coumadin (Pbkc)) 7.5 mg PO @1700 COUNTS INCLUDE 234 BEDS AT THE [facility] Discharge Activity: May Not Drive Weight Bearing Status: Weight bearing as tolerated Call your doctor if you observe: Fever of 101 or Higher, Numbness or Tingling, Change in Color, Inability to urinate, Inability to have a bowel movement, Shortness of breath, Dizziness, Fainting spells, Swelling in the ankles, Chest pain, Prolonged hiccoughing, Increased palpitations (irregular heartbeat) Home Medications: Medications to take at Discharge Aripiprazole [Abilify] 30 mg PO DAILY 11/04/19 Aspirin [Aspir 81] 81 mg PO DAILY 11/04/19 Fluoxetine [Prozac] 20 mg PO DAILY 11/04/19 [place] Carbonate 600 mg PO DAILY 11/04/19 Syringe,Insul U-500,Ndl,0.5ML [Insulin Syringe U-500] 140 units SQ BID 11/04/19 Warfarin [Coumadin] 5 mg PO SUMOTUWETHSA 11/04/19 Warfarin [Coumadin] 7.5 mg PO 11/04/19 Furosemide [Lasix] 80 mg PO BIDLX #60 tab 11/29/19 Hydrocortisone 2.5% Crm [Hytone] 1 applic TOPICAL BID #1 tube 11/29/19 Potassium Chloride [K-Dur] 40 meq PO BID #0 11/29/19 Rosuvastatin Calcium 20 mg PO DAILY #0 11/29/19 Following Prescrptions Were Given to Patient: Hydrocortisone 2.5% Crm [Hytone] 1 applic TOPICAL BID #1 tube Transmission Status: Pending to [facility] Furosemide [Lasix] 80 mg PO BIDLX #60 tab Transmission Status: Sent to [facility] [[facility]] - Please follow up with your Primary Care Physician in: In 1 week Medical Necessity - Tobacco Use Smoking Status: Never smoker Meaningful Use Info Meaningful Use Diagnoses (Choose all that apply): CHF - CHF PAMELLA/ARB ordered at discharge?: No Reason PAMELLA/ARB not ordered?: Hypotension Documented LVEF (%): 65 Inpatient E&M: 21686 Disch Hosp
[2019-11-29] MEDS: Furosemide 100 MG/10 ML Vial 80 MG IV (09:13)
[2019-11-29] MEDS: Aspirin E.C. 81 MG Tablet PO (09:13)
[2019-11-29] MEDS: ARIPiprazole 10 MG Tablet 30 MG PO (09:14)
[2019-11-29] MEDS: Hydrocortisone 2.5% Crm 1 APPLIC TOPICAL (09:14)
[2019-11-29] MEDS: FLUoxetine 20 MG Capsule PO (09:14)
[2019-11-29] MEDS: Lithium Carbonate 300mg Capsule 600 MG PO (09:14)
[2019-11-29] MEDS: 0.9% Saline Lock 10 ML Syringe IV (09:16)
[2019-11-29 09:19] LABS: Cholesterol 149 mg/dL (200); High Density Lipoprotein 38 mg/dL; Triglycerides 149 mg/dL; Very Low Density Lipoprotein 30 mg/dL (5-40)
--- NOTE | 2019-11-29 09:35 | PHA.DC.MC ---
Addendum entered and electronically signed by Esme Hall 11/29/19 09:41: Also spoke to patient regarding U-500 insulin. Pt confirms he uses a pen and takes 140 units BID. This h clarified that no changes were made to the U-500. Pt verbalized understanding and denied any questions. Original Note: Pharmacy Service has performed discharge medication reconciliation and counseling for this patient. 1. FUROSEMIDE 80MG PO BIDLX The patient's discharge medication list was reviewed for discrepancies and discrepancies were resolved. Home Medications Aripiprazole [Abilify] 30 mg PO DAILY 11/04/19 Aspirin [Aspir 81] 81 mg PO DAILY 11/04/19 Fluoxetine [Prozac] 20 mg PO DAILY 11/04/19 [place] Carbonate 600 mg PO DAILY 11/04/19 Rosuvastatin Calcium 10 mg PO DAILY 11/04/19 Syringe,Insul U-500,Ndl,0.5ML [Insulin Syringe U-500] 140 units SQ BID 11/04/19 Warfarin [Coumadin] 5 mg PO SUMOTUWETHSA 11/04/19 Warfarin [Coumadin] 7.5 mg PO FR 11/04/19 Furosemide [Lasix] 80 mg PO BIDLX #60 tab 11/29/19 Potassium Chloride [K-Dur] 40 meq PO BID #0 11/29/19 The patient was counseled on the following discharge medications and changes in medications for homegoing were reviewed. The Reason for Use, instructions for use, and potential side effects were reviewed for all new medications. The patient's questions regarding all of their medications were answered. The patient was able to verbally demonstrate an understanding of their discharge medications.
--- NOTE | 2019-11-29 09:56 | CASEMGMT ---
RN CM NOTE: Pt being discharged. Discharge instructions and summary faxed to [facility] at this time. Ryanne GOODRICHN RN CM
--- NOTE | 2019-11-30 13:50 | CASEMGMT ---
NICK ORNELAS Discharge Follow-Up Phone Call. Lace: 10 Strata: 3 Discharge Date: 11/29/19 Adm Dx: Acute on Chronic Heart Failure Attempted discharge follow-up phone call. No answer. VM message left for pt to return call if he has any questions/concerns/needs. Phone number provided. Ryanne CALVILLO RN CM
== END 2019-11-29 11:10 | disposition home or self-care (01) | DRG 292 ==
LOC: ED 21:30 → PCU 22:42
PROVIDERS: Admitting Provider Family Medicine; Emergency Provider Emergency Medicine; Referring Provider Family Medicine; Visit Provider Internal Medicine
DX: I11.0 Hypertensive heart disease with heart failure (principal); Z68.44 Body mass index [BMI] 60.0-69.9, adult; I50.33 Acute on chronic diastolic (congestive) heart failure; I89.0 Lymphedema, not elsewhere classified; I25.10 Atherosclerotic heart disease of native coronary artery without angina pectoris; E11.9 Type 2 diabetes mellitus without complications; E78.00 Pure hypercholesterolemia, unspecified; G47.33 Obstructive sleep apnea (adult) (pediatric); F32.9 Major depressive disorder, single episode, unspecified; F41.9 Anxiety disorder, unspecified; E66.01 Morbid (severe) obesity due to excess calories; Z86.718 Personal history of other venous thrombosis and embolism; Z79.01 Long term (current) use of anticoagulants; Z86.73 Personal history of transient ischemic attack (TIA), and cerebral infarction without residual deficits; E87.6 Hypokalemia; E78.5 Hyperlipidemia, unspecified; L23.9 Allergic contact dermatitis, unspecified cause; Z79.82 Long term (current) use of aspirin; Z79.4 Long term (current) use of insulin; Z79.899 Other long term (current) drug therapy
CPT/HCPCS: 36415; 71045; 80048; 80053; 80061; 80178; 82962; 83036; 83735; 83880; 84484; 85025; 85610; 87635; 93005; 93306; 97110; 97162; 97166; 97802; 97803; 99285; G2023; Q9957; A4216; C8929; J1940; U0003

== ENCOUNTER 2020-02-20 17:26 | Inpatient (IN) | payer OTHER, MEDICARE, MEDICAID, SELFPAY ==
[2020-02-20 17:27] VITALS: BP 127/41; PULSE 88; RESP 18; TEMP 36.8; O2SAT 99; BMI 68.3
--- NOTE | 2020-02-20 17:35 | EKG12_ITS ---
Test Reason : EDEMA Blood Pressure : / mmHG Vent. Rate : 080 BPM Atrial Rate : 080 BPM P-R Int : 162 ms QRS Dur : 106 ms QT Int : 386 ms P-R-T Axes : 040 -05 063 degrees QTc Int : 445 ms Normal sinus rhythm Nonspecific T wave abnormality Abnormal ECG Confirmed by CARLOS DENIS, JAXON ([id number]), clinical editor OMKAR PAZ ([id number]) on 02/23/2020 1:28:09 PM Referred By: DONNA Confirmed By:SRIRAM GONZALEZ MD
--- NOTE | 2020-02-20 17:37 | ED.DCSUM_ITS ---
History of Present Illness Chief Complaint: Edema Informant: Patient Onset: Weeks Context: Gradual Onset Narrative: Patient presents with increased edema and 20 pound weight gain over the last 10 days. He is a history of CHF with similar presentations. He states he is currently on torsemide 40 mg twice daily. Approximate 2 weeks ago he went to the ER at [facility] for similar. He states he was discharged with instructions to double his diuretic. He states he did this for a while, however got to the point where he was not passing any urine. He backed off to his regular dosing and started urinating again. Unfortunately he started retaining more fluid at that time. He does report shortness of breath especially with exertion. He is unable to lie down flat to sleep but states it is been that way for several years. - Past Medical History (1) Anxiety and depression Status: Chronic (2) CVA (cerebral vascular accident) Status: Chronic (3) Congestive heart failure Status: Chronic (4) Diabetes Status: Chronic (5) High cholesterol Status: Chronic (6) Hypertension Status: Chronic (7) Lymphedema Status: Chronic (8) Morbid obesity Status: Chronic Past Medical History - Allergies and Home Meds Allergies/Adverse Reactions: Allergies gabapentin Adverse Reaction (Verified 11/27/19 19:24) Swelling liraglutide [From Victoza] Adverse Reaction (Verified 11/27/19 19:24) Nausea/Vom/Diarrhea Primary Care Physician: [facility] [Primary Care Provider] - Prior records reviewed: Yes Surgical History: tonsillectomy, - - Surgery to close vaginal opening (reports hermaphrodite at ); leg surgery Lives: Alone Smoking Status: Never smoker - Family History Maternal Family History: Reports: Heart Disease Paternal Family History: Reports: Cancer - His father from mesothelioma Review of Systems General: Denies: Chills, Fever Eyes: Denies: Visual changes - bilaterally ENT: Denies: Bilateral ear pain Cardiovascular: Denies: Chest pain Respiratory: Reports: Dyspnea. Denies: Cough Gastrointestinal: Denies: Abdominal pain, Nausea, Vomiting, Diarrhea Musculoskeletal: Reports: Swelling Skin: Denies: Rash Neurological: Denies: Headache Hematologic: Denies: Easy bruising, Easy bleeding Allergy: Denies: Uticaria Physical Exam Vital Signs/Narrative: Vital Signs Temp Pulse Resp BP Pulse Ox 02/20/20 17:27 98.2 F 88 18 127/41 H 99 Inital Vital Signs reviewed: Yes General: Well nourished, Well developed Head: Normocephalic ENT: Moist mucous membranes Neck: Supple Cardiovascular: Regular rate, Regular rhythm Respiratory: No distress, CTA bilaterally Abdomen: Soft, Nontender Extremities: Edema, - - Chronic lymphedema lower extremities. Few abrasions noted to the lateral portion of the right lower leg without sign of infection. Neurological: Alert, Oriented x3 Psychological: Normal affect Diagnostic/Tx/Re-eval Impressions Chest X-Ray 02/20/20 18:40 IMPRESSION: No acute cardiopulmonary disease or major interval change. Electronically Signed: Emeterio Maynard DO at 18:59 EDT Tel [phone], Service support , 02/20/20 18:40 Chest 1 View (Portable) [RAD] Stat Laboratory Results 02/20/20 02/20/20 02/20/20 08:24 08:24 08:24 WBC 13.7 H RBC 4.31 L Hgb 11.2 L Hct 37.5 L MCV 87.0 MCH 26.0 L MCHC 29.9 L RDW Std Deviation 51.6 H RDW Coeff of Varsha 16.2 H Plt Count 280 MPV 8.4 Immature Gran % (Auto) 0.600 Neut % (Auto) 74.1 H Lymph % (Auto) 19.3 Travis % (Auto) 4.9 Eos % (Auto) 1.0 Baso % (Auto) 0.1 Absolute Neuts (auto) 10.1 H Absolute Lymphs (auto) 2.65 Nucleated RBC % 0 PT INR Sodium 139 Potassium 3.7 Chloride 102 Carbon Dioxide 34.0 H Anion Gap 3 L BUN 15 Creatinine 1.21 Estim Creat Clear Calc 73.93 Est GFR (MDRD) Af Amer 79 Est GFR (MDRD) Non-Af 66 BUN/Creatinine Ratio 12.4 Glucose 217 H Calcium 8.9 Troponin I < 0.015 B-Natriuretic Peptide 5.8 TSH 2.36 02/20/20 08:24 WBC RBC Hgb Hct MCV MCH MCHC RDW Std Deviation RDW Coeff of Varsha Plt Count MPV Immature Gran % (Auto) Neut % (Auto) Lymph % (Auto) Travis % (Auto) Eos % (Auto) Baso % (Auto) Absolute Neuts (auto) Absolute Lymphs (auto) Nucleated RBC % PT 29.5 H INR 2.9 Sodium Potassium Chloride Carbon Dioxide Anion Gap BUN Creatinine Estim Creat Clear Calc Est GFR (MDRD) Af Amer Est GFR (MDRD) Non-Af BUN/Creatinine Ratio Glucose Calcium Troponin I B-Natriuretic Peptide TSH - EKG Initial EKG Interpretation: Sinus Rhythm - Sinus at 80 with nonspecific T wave flattening. No acute ischemia. - Medical Decision Making Test results are reviewed with the patient. Although his BNP is not elevated, the last 2 admissions with similar presentation and excess fluid did not reveal an elevation in his BNP. At this time I will give him IV Lasix and speak with hospitalist regarding admission. He has tried changing his torsemide dose at home as an outpatient without success. ED Disposition - Plan for ED Patient: Disposition: Acute Care Hospital [facility] Diagnosis: CHF (congestive heart failure) [facility] [Primary Care Provider] -
[2020-02-20 18:33] LABS: Absolute Lymphocyte Count 2.65 X10^3/uL (0.83-4.51); Absolute Neutrophil Count 10.1 X10^3/uL (2.0-7.7); Basophil# 0.02 X10^3/uL; Basophil% 0.1 % (0-1); Eosinophil# 0.14 X10^3/uL; Hematocrit 37.5 % (40-54); Hemoglobin 11.2 g/dL (13.0-16.5); Lymphocyte # 2.65 X10^3/ul (4.0); Lymphocyte % 19.3 % (19-41); Mean Corp Hgb Conc 29.9 g/dL (32-36); Mean Platelet Vol. 8.4 fl (6.2-12.0); Monocyte# 0.67 X10^3/uL; Monocyte% 4.9 % (0-10); NRBC Flagged by Analyzer 0 % (0-5); Neutrophil # 10.14 X10^3/uL (2.7-7.7); Neutrophil % 74.1 % (47-70); Platelet Count 280 K/mm3 (150-450); RBC Distribution Width CV 16.2 % (11.6-14.6); RBC Distribution Width SD 51.6 fl (35.1-43.9); Red Blood Count 4.31 M/mm3 (4.6-6.2); White Blood Count 13.7 K/mm3 (4.4-11.0)
--- NOTE | 2020-02-20 18:40 | RAD_ITS ---
STUDY: X-RAY CHEST REASON FOR EXAM: Male, 59 years old. No evidence of breath. Increased edema in the legs. History of CHF. TECHNIQUE: Single AP portable view of the chest. COMPARISON: 11/27/2019. And 09/03/1999 FINDINGS: Telemetry wires overlie the chest. There is chronic interstitial changes within the lungs. There is no new mass or infiltrate. There is no demonstrated pleural abnormality. Normal size heart. Normal mediastinum and jazmine. Normal visualized pulmonary arteries. There is atherosclerotic calcification of the aortic arch with tortuosity. There are diffuse degenerative changes of the visualized thoracic spine. Normal visualized ribs, clavicles, and shoulders. There is no demonstrated abnormality of the visualized soft tissue structures of the upper abdomen. RAD/Chest 1 View (Portable) IMPRESSION: No acute cardiopulmonary disease or major interval change. Electronically Signed: Emeterio Maynard DO at 18:59 EDT Tel [phone], Service support ,
[2020-02-20 18:43] LABS: International Normalized Ratio 2.9; Prothrombin Time (Protime)PT. 29.5 SECONDS (11.7-14.9)
[2020-02-20 18:53] LABS: BNP,B-Type NATRIURETIC PEPTIDE 5.8 pg/mL (0-100)
[2020-02-20 18:58] LABS: Anion Gap 3 (5-15); BUN 15 mg/dL (7-18); BUN/Creat Ratio 12.4 RATIO (10-20); Calcium,Total 8.9 mg/dL (8.5-10.1); Chloride 102 mmol/L (98-107); Creatinine, Serum 1.21 mg/dL (0.70-1.30); EST Glomerular Filtration Rate 66 mL/min (>60); Est Glom Filt Rate - Afr Amer 79 mL/min (>60); Estimated Creatinine Clearance 73.93 ml/min; Glucose 217 mg/dL (74-106); Potassium 3.7 mmol/L (3.5-5.1); Sodium Level 139 mmol/L (136-145); Thyroid Stim Hormone (TSH) 2.36 uIU/mL (0.358-3.74)
--- NOTE | 2020-02-20 19:23 | HP.PCM_ITS ---
Problem List (1) Lymphedema Status: Acute (2) Congestive heart failure Status: Chronic Qualifiers: Heart failure type: diastolic (3) Anxiety and depression Status: Chronic (4) Diabetes Status: Chronic Qualifiers: Diabetes mellitus type: type 2 Diabetes mellitus residential insulin use: with extermination supervisor use Diabetes mellitus complication status: with other specified complication Qualified Code(s): E11.69 - Type 2 diabetes mellitus with other specified complication; Z79.4 - extermination supervisor (current) use of insulin (5) High cholesterol Status: Chronic (6) Hypertension Status: Chronic Qualifiers: Hypertension type: essential hypertension Qualified Code(s): I10 - Essential (primary) hypertension (7) Morbid obesity Status: Chronic (8) Obstructive sleep apnea Status: Chronic History of Present Illness Date of Admission: 02/20/20 Chief Complaint: BL LE edema, weight gain, dyspnea The patient is a 59 y/o M w/ PMHx: Morbid Obesity, Hx DVT on Coumadin, HTN, HLD, Diabetes mellitus type II, FERNANDO on 2L NC q HS, Anxiety and Depression/bipolar disorder, CKD stage II, Chronic Diastolic CHF, Chronic BL LE Lymphedema who presents to the [facility] ED on 02/20/20 with history of ~ 22 lb weight gain over the last 1.5 weeks in addition to worsening BL LE edema with recent ED evaluation at [facility] ED only ~ 2 weeks prior with increase of his torsemide x 2 with resulting eventual decreased UOP so he returned to his home regimen; however, since he notes recurrent weight gain on ~ 20 lbs. He denies any chest pain. He notes chronic exertional dyspnea and orthopnea but this is unchanged. He notes that normally when this does occur he has weight gain in his BL LE and abdominal region. He does admit that he does make poor diet choices including several high salt items. He denies having been working with the wound care center for his chronic lymphedema but is interested in doing so. Work-up in the ED included T 98.2, heart rate 88, BP 127/41, respiratory rate 18, 99% on room air, CBC with WC 13.7, hemoglobin 11.2, platelet 280 with left shift, INR 2.9, BMP with carbon oxide 34, glucose 217 otherwise not marked appearing, BNP 5.8, TSH 2.38, troponin less than 0.015, chest x-ray with no acute cardiopulmonary findings, EKG with sinus rhythm with nonspecific T wave flattening with no acute evidence of ischemia. In the ED patient ministered Lasix 80 mg IV x1. Past Medical History Past Medical History (Chronic Problems): Chronic Problems Anxiety and depression (Chronic) High cholesterol (Chronic) Hypertension (Chronic) Obstructive sleep apnea (Chronic) CVA (cerebral vascular accident) (Chronic) Diabetes (Chronic) Morbid obesity (Chronic) Congestive heart failure (Chronic) Allergies gabapentin Adverse Reaction (Verified 11/27/19 19:24) Swelling liraglutide [From Victoza] Adverse Reaction (Verified 11/27/19 19:24) Nausea/Vom/Diarrhea Home Medications: Ambulatory Orders Medication Instructions Recorded Aripiprazole [Abilify] 30 mg PO DAILY 11/04/19 Fluoxetine [Prozac] 20 mg PO DAILY 11/04/19 [place] Carbonate 600 mg PO DAILY 11/04/19 Warfarin [Coumadin] 5 mg PO SUMOTUWETHSA 11/04/19 Warfarin [Coumadin] 7.5 mg PO FR 11/04/19 Potassium Chloride [K-Dur] 40 meq PO BID #0 11/29/19 Rosuvastatin Calcium 20 mg PO DAILY #0 11/29/19 Aspirin E.C. [Ecotrin] 81 mg PO DAILY@0800 02/20/20 Insulin Regular, Human [Humulin R 130 unit SQ BID 02/20/20 U-500 Kwikpen] Liraglutide [Victoza 3-Rick] 1.2 mg SQ DAILY 02/20/20 Torsemide [Demadex] 40 mg PO BID 02/20/20 Surgical History: tonsillectomy, - - 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 Psychiatric History: Anxiety, Bipolar, Depression Lives: Alone Smoking Status: Never smoker Tobacco Use: Non-smoker Alcohol: None Drugs: None - *Family History Maternal History Items: Heart Disease - Mother with history of significant CHF. Paternal History Items: Cancer - Father with a history of mesothelioma. Review of Systems Constitutional: Reports: Fatigue. Denies: Anorexia, Chills, Fever, Malaise, Weakness, Weight Change HEENT: Denies: Head Aches, Sinus Congestion, Sinus Drainage Cardiovascular: Reports: Edema, Orthopnea. Denies: Chest Pain, Chest Pressure, Chest Tightness, Heaviness, Light Headedness, Palpitations, Syncope Respiratory: Reports: Shortness of breath upon exertion. Denies: Cough, Pleuritic Pain, Shortness of Breath, Shortness of breath at rest, Sputum production Gastrointestinal: Denies: Abdominal Pain, Nausea, Vomiting Genitourinary: Denies: Dysuria Musculoskeletal: Reports: Back Pain, Joint Pain. Denies: Joint Tenderness Skin: Denies: Rash, Wounds Neurological: Denies: Numbness, Tingling, Focal weakness Psychiatric: Reports: Anxiety, Depression. Denies: Homicidal Ideations, Suicidal Ideations Hematologic/ Lymphatic: Reports: Anemia, Easy Bruising, Easy Bleeding VTE Information - Inpt Only VTE Present on Admission: No VTE Mechan Device Prophylaxis: SCD's VTE Pharm Prophylaxis ordered?: No Reason prophylaxis not ordered:: Treatment Not Indicated - On coumadin, therapeutic. Subjective: Patient seated upright in the ED bed, no acute distress, no apparent dyspnea. Objective: Physical Examination: General: awake, alert, oriented x 3 and cooperative, seated upright in the ED bed, no acute distress. Skin: normal color, turgor, no icterus, cyanosis significant bilateral lower extremity lymphedema and chronic stasis skin changes. HEENT: AT/NC, EOMI, PERRLA, MMM, no carotid bruits or JVD noted; however, signif icantly thickened neck makes examination difficult. Lungs: Distant normal breath sounds, moderately decreased BL bases, no obvious rales, ronchi or wheezing. Heart: Regular rate and rhythm; no gallop, rub audible. Abdomen: soft, morbidly obese, NTTP, difficult to discern distention given habitus, some pitting to the lower abdomen, distant normal BS, unable to discern HSM secondary to morbidly obese habitus. Extremities: no cyanosis, clubbing, see skin, significant bilateral lower extremity pedal to proximal thigh 3+ pitting edema, significant lymphedema. Neurological: patient awake, alert, oriented x 3; cognitive function intact; pupils equally reactive to light and accomodation; cranial nerves II-XII grossly normal, moving all 4 extremities, no focal deficits, strength moderately to horacio rely global decrease secondary to acute presentation. Psychiatric: affect appears normal, no acute evidence of depressive or anxiety feelings. - Physical Exam Vitals/I&O's: Vital Signs Temp Pulse Resp BP Pulse Ox 98.2 F 88 18 127/41 H 99 02/20/20 17:27 02/20/20 17:27 02/20/20 17:27 02/20/20 17:27 02/20/20 17:27 Oxygen Delivery Method Room Air Weight: 503 lb 8.572 oz Body Mass Index (BMI) 68.3 Laboratory Results 02/20/20 08:24: WBC 13.7 H, RBC 4.31 L, Hgb 11.2 L, Hct 37.5 L, MCV 87.0, MCH 26.0 L, MCHC 29.9 L, RDW Std Deviation 51.6 H, RDW Coeff of Varsha 16.2 H, Plt Count 280, MPV 8.4, Immature Gran % (Auto) 0.600, Neut % (Auto) 74.1 H, Lymph % (Auto) 19.3, [place] % (Auto) 4.9, Eos % (Auto) 1.0, Baso % (Auto) 0.1, Absolute Neuts (auto) 10.1 H, Absolute Lymphs (auto) 2.65, Nucleated RBC % 0 02/20/20 08:24: Sodium 139, Potassium 3.7, Chloride 102, Carbon Dioxide 34.0 H, Anion Gap 3 L, BUN 15, Creatinine 1.21, Estim Creat Clear Calc 73.93, Est GFR (MDRD) Af Amer 79, Est GFR (MDRD) Non-Af 66, BUN/Creatinine Ratio 12.4, Glucose 217 H, Calcium 8.9, Troponin I < 0.015, TSH 2.36 02/20/20 08:24: B-Natriuretic Peptide 5.8 02/20/20 08:24: PT 29.5 H, INR 2.9 Assessment/Plan All Active Problems Acute exacerbation of CHF (congestive heart failure) (Acute) Anasarca (Acute) Unable to ambulate (Acute) Lymphedema (Acute) The patient is a 59 y/o M w/ PMHx: Morbid Obesity, Hx DVT on Coumadin, HTN, HLD, Diabetes mellitus type II, FERNANDO on 2L NC q HS, Anxiety and Depression/bipolar disorder, CKD stage II, Chronic Diastolic CHF, Chronic BL LE Lymphedema who presents to the [facility] ED on 02/20/20 with history of ~ 22 lb weight gain over the last 1.5 weeks in addition to worsening BL LE edema with recent ED evaluation at [facility] ED only ~ 2 weeks prior with increase of his torsemide x 2 with resulting eventual decreased UOP so he returned to his home regimen; however, since he notes recurrent weight gain on ~ 20 lbs. 1. Acute on Chronic Severe Lymphedema with recent weight gain, Lower Suspicion Acute on Chronic Diastolic CHF: ED evaluation with chest x-ray with no acute cardiopulmonary findings, normal BNP which is been demonstrated previously and he notes is consistently the case when he presents with weight gain, trop normal x 1, 11/28/19 ECHO w/ normal LV systolic function, EF 65%, trivial TVI, mild focal AV calcification, mildly dilated aortic root, inability to estimate RV systolic pressure, inability to assess diastolic dysfunction. Will admit to PCU on telemetry be cautious, will cycle cardiac enzymes, trend INR which is known to be therapeutic upon presentation therefore lower suspicion for DVT recurrence, encourage bilateral lower extremity snug Scott wraps and elevation, initiate IV diuresis for lower extremity lymphedema primarily, monitor renal function closely, consult nutrition for education and teaching as suspect oral intake of salt likely contributing. 2. Morbid Obesity: Weight loss and lifestyle changes encouraged, nutrition consulted. 3. Diabetes mellitus type II: Will continue home insulin regimen, ADA diet, accu checks w/ ISS. 4. Bipolar disorder: We will continue patient Abilify, fluoxetine and lithium. [place] level requested and pending. 5. Hypertension: Holding home oral Lasix, IV Lasix temporarily as noted for acute on chronic lymphedema, transition back to oral once appropriate, PRN hydralazine. 6. Hyperlipidemia: Continue home statin regimen. 7. DVT prophylaxis: SCDs, continue Coumadin with INR trending. 8. CODE status: Patient NICOL is his sister and living will is currently in place. Discussed CODE status at length including difference between FULL code, DNR-CCA and DNR-CC status. Following discussions about the differences in these status, requested Full Code status. Advanced Care Planning Face to Face Time: 16 minutes. OBSV E&M: 87473 Initial observation care L3 Procedures: [id number] Advncd Care Plan 30 Min
[2020-02-20] MEDS: Furosemide 100 MG/10 ML Vial 80 MG IV (19:35)
[2020-02-20 19:39] VITALS: BP 109/84; PULSE 73; RESP 12; TEMP 36.8; O2SAT 98
[2020-02-20 20:12] VITALS: BMI 66.7
[2020-02-20 20:13] VITALS: BMI 66.7
[2020-02-20 20:27] LABS: Magnesium 2.1 mg/dL (1.6-2.6)
[2020-02-20 20:30] VITALS: BP 154/76; PULSE 74; RESP 22; TEMP 36.9; O2SAT 95
[2020-02-20] MEDS: Insulin Lispro 100 UNIT/ML INSULN.PEN SC (21:18)
[2020-02-20 21:21] LABS: Bedside Glucose 178 mg/dL (70-110)
[2020-02-20 23:17] VITALS: PULSE 73
[2020-02-20 23:39] VITALS: O2SAT 97
[2020-02-21] VITALS (11 sets, daily range): BP systolic 117–137; BP diastolic 56–71; PULSE 63–80; RESP 17–18; TEMP 36.4–37.1; O2SAT 92–99
[2020-02-21] MEDS: Acetaminophen 325 MG Tablet 650 MG PO ×3 (02:50→19:52)
[2020-02-21] MEDS: 0.9% Saline Lock 10 ML Syringe IV ×3 (05:21→21:05)
[2020-02-21] MEDS: Furosemide 40 MG/4 ML Vial IV ×3 (05:21→21:05)
--- NOTE | 2020-02-21 05:55 | EKG12_ITS ---
Test Reason : AM EKG Blood Pressure : / mmHG Vent. Rate : 074 BPM Atrial Rate : 074 BPM P-R Int : 162 ms QRS Dur : 108 ms QT Int : 424 ms P-R-T Axes : 007 020 045 degrees QTc Int : 470 ms Normal sinus rhythm Normal ECG When compared with ECG of 20-FEB-2020 17:54, MANUAL COMPARISON REQUIRED, DATA IS UNCONFIRMED Confirmed by CARLOS DENIS, JAXON ([id number]), photography editor SCOOBY FOSTER ([id number]) on 02/26/2020 1:32:39 PM Referred By: RAMANA Confirmed By:SRIRAM GONZALEZ MD
[2020-02-21 05:57] LABS: Basophil# 0.02 X10^3/uL; Basophil% 0.1 % (0-1); Eosinophil# 0.09 X10^3/uL; Eosinophils% 0.7 % (0-5); Hematocrit 35.2 % (40-54); Hemoglobin 10.1 g/dL (13.0-16.5); Lymphocyte % 21.1 % (19-41); Mean Corp Hgb Conc 28.7 g/dL (32-36); Mean Corpuscular Hgb 24.8 pg (27.0-32.0); Mean Corpuscular Volume 86.3 fL (80-94); Mean Platelet Vol. 8.3 fl (6.2-12.0); Monocyte# 0.69 X10^3/uL; NRBC Flagged by Analyzer 0 % (0-5); Neutrophil # 9.99 X10^3/uL (2.7-7.7); Neutrophil % 72.7 % (47-70); Platelet Count 267 K/mm3 (150-450); RBC Distribution Width CV 16.5 % (11.6-14.6); RBC Distribution Width SD 51.8 fl (35.1-43.9); Red Blood Count 4.08 M/mm3 (4.6-6.2); White Blood Count 13.8 K/mm3 (4.4-11.0)
[2020-02-21 06:05] LABS: International Normalized Ratio 2.8
[2020-02-21 06:30] LABS: ALB/GLOB Ratio 0.6 RATIO (0.9-2.4); AST(SGOT) 13 U/L (15-37); Alanine Aminotransfer ALT/SGPT 12 U/L (16-61); Albumin, Serum 2.8 g/dL (3.2-5.0); Alkaline Phosphatase 80 U/L (45-117); Anion Gap 5 (5-15); BUN 14 mg/dL (7-18); BUN/Creat Ratio 12.6 RATIO (10-20); Calcium,Total 8.7 mg/dL (8.5-10.1); Chloride 104 mmol/L (98-107); Creatinine, Serum 1.11 mg/dL (0.70-1.30); EST Glomerular Filtration Rate 73 mL/min (>60); Est Glom Filt Rate - Afr Amer 88 mL/min (>60); Estimated Creatinine Clearance 80.59 ml/min; Globulin 4.5 g/dL (2.2-4.2); Glucose 138 mg/dL (74-106); Potassium 3.3 mmol/L (3.5-5.1); Protein, Total 7.3 g/dL (6.4-8.2); Sodium Level 141 mmol/L (136-145)
[2020-02-21] MEDS: Insulin Lispro 100 UNIT/ML INSULN.PEN SC ×2 (08:56→12:03)
[2020-02-21] MEDS: Aspirin E.C. 81 MG Tablet PO (08:58)
[2020-02-21] MEDS: ARIPiprazole 10 MG Tablet 30 MG PO (08:58)
[2020-02-21] MEDS: Lithium Carbonate 300mg Capsule 600 MG PO (08:58)
[2020-02-21] MEDS: FLUoxetine 20 MG Capsule PO (08:59)
[2020-02-21 09:11] LABS: Bedside Glucose 210 mg/dL (70-110)
[2020-02-21 12:11] LABS: Bedside Glucose 176 mg/dL (70-110)
--- NOTE | 2020-02-21 12:33 | PN_ITS ---
Subjective: Patient seen and examined. He was admitted with a complaint of worsening lower extremity edema and weight gain. He has been evaluated for acute on chronic lymphedema. He is on IV Lasix. Patient states he feels better today. He feels the swelling has gone down a bit. His shortness of breath is also much better. He denies any nausea or vomiting, fever or chills abdominal pain. Review systems otherwise negative. He has remained hemodynamically stable. Vitals/I&O's: Vital Signs Temp Pulse Resp BP Pulse Ox 98.0 F 80 17 134/71 H 92 02/21/20 08:42 02/21/20 11:58 02/21/20 08:42 02/21/20 08:42 02/21/20 08:42 Oxygen Flow Rate (L/min) 2 Oxygen Delivery Method Room Air Weight: 491 lb 13.62 oz Body Mass Index (BMI) 66.7 Intake and Output for Last 24 Hours 02/19/20 02/20/20 02/21/20 23:59 23:59 23:59 Intake Total 1402 / 1402 Output Total 3000 / 3000 Balance -1598 / -1598 General: Alert, Oriented x3, Cooperative, - - super morbid obesity HEENT: Atraumatic, PERRLA, EOMI, Normocephalic Oral: Moist Mucosa Neck: Supple, No JVD, Negative Carotid Bruits Lungs: Clear to auscultation, Normal air movement, No rhonchi, No wheeze Cardiovascular: Regular rate, Regular Rhythm, Normal S1, Normal S2, No murmurs Abdomen: Bowel Sounds Present, Soft, Non Tender, Non-Distended, No Hepato- splenomegaly Extremities: - - massive lymphadenopathy of both LEs, both LEs wrapped in PAMELLA bandage. Skin: No rashes, No breakdown Musculoskeletal: No Tenderness to Palpation of Joints or Extremities Lymphatic: No Cervical, Supraclavicular, or Inguinal Adenopathy Neurological: Cranial nerves II-XII grossly intact, Neuro grossly intact, Motor Exam 5/5 strength throughout Psych/Mental Status: Normal Affect, Appropriate, Alert and oriented to time, place, person, mood and affect Laboratory Results 02/20/20 18:24: WBC 13.7 H, RBC 4.31 L, Hgb 11.2 L, Hct 37.5 L, MCV 87.0, MCH 26.0 L, MCHC 29.9 L, RDW Std Deviation 51.6 H, RDW Coeff of Varsha 16.2 H, Plt Count 280, MPV 8.4, Immature Gran % (Auto) 0.600, Neut % (Auto) 74.1 H, Lymph % (Auto) 19.3, Bryan % (Auto) 4.9, Eos % (Auto) 1.0, Baso % (Auto) 0.1, Absolute Neuts (auto) 10.1 H, Absolute Lymphs (auto) 2.65, Nucleated RBC % 0 02/20/20 18:24: Sodium 139, Potassium 3.7, Chloride 102, Carbon Dioxide 34.0 H, Anion Gap 3 L, BUN 15, Creatinine 1.21, Estim Creat Clear Calc 73.93, Est GFR (MDRD) Af Amer 79, Est GFR (MDRD) Non-Af 66, BUN/Creatinine Ratio 12.4, Glucose 217 H, Calcium 8.9, Troponin I < 0.015, TSH 2.36 02/20/20 18:24: B-Natriuretic Peptide 5.8 02/20/20 18:24: PT 29.5 H, INR 2.9 02/20/20 18:24: Magnesium 2.1 02/20/20 18:24: Prentiss 0.50 L 02/20/20 21:08: POC Glucose 178 H 02/20/20 21:25: Troponin I < 0.015 02/21/20 00:05: Troponin I < 0.015 02/21/20 05:40: WBC 13.8 H, RBC 4.08 L, Hgb 10.1 L, Hct 35.2 L, MCV 86.3, MCH 24.8 L, MCHC 28.7 L, RDW Std Deviation 51.8 H, RDW Coeff of Varsha 16.5 H, Plt Count 267, MPV 8.3, Immature Gran % (Auto) 0.400, Neut % (Auto) 72.7 H, Lymph % (Auto) 21.1, Bryan % (Auto) 5.0, Eos % (Auto) 0.7, Baso % (Auto) 0.1, Absolute Neuts (auto) 10.0 H, Absolute Lymphs (auto) 2.90, Nucleated RBC % 0 02/21/20 05:40: PT 29.0 H, INR 2.8 02/21/20 05:40: Sodium 141, Potassium 3.3 L, Chloride 104, Carbon Dioxide 32.0, Anion Gap 5, BUN 14, Creatinine 1.11, Estim Creat Clear Calc 80.59, Est GFR (MDRD) Af Amer 88, Est GFR (MDRD) Non-Af 73, BUN/Creatinine Ratio 12.6, Glucose 138 H, Calcium 8.7, Total Bilirubin 0.50, AST 13 L, ALT 12 L, Alkaline Phosphatase 80, Total Protein 7.3, Albumin 2.8 L, Globulin 4.5 H, Albumin/Globulin Ratio 0.6 L 02/21/20 08:44: POC Glucose 210 H 02/21/20 12:01: POC Glucose 176 H Diagnostic Data Chest X-Ray 02/20/20 18:40 IMPRESSION: No acute cardiopulmonary disease or major interval change. Electronically Signed: Emeterio Maynard DO at 18:59 EDT Tel [phone], Service support , Current Medications Acetaminophen (Tylenol) 650 mg PO Q6H PRN PRN PRN Reason: Pain Score 1-10/Temp > 100.7 F Last Admin: 02/21/20 09:05 Dose: 650 mg Documented by: Al Hydroxide/Mg Hydroxide (Mylanta Ii) 30 ml PO Q6H PRN PRN PRN Reason: Gastric Burning Albuterol Sulfate (Ventolin Aerosols) 2.5 mg INHALATION Q2H PRN PRN PRN Reason: Dyspnea, wheezing Aripiprazole (Abilify) 30 mg PO DAILY [facility] Last Admin: 02/21/20 08:58 Dose: 30 mg Documented by: Aspirin (Ecotrin) 81 mg PO DAILY@0800 [facility] Last Admin: 02/21/20 08:58 Dose: 81 mg Documented by: Atorvastatin Calcium (Lipitor) 40 mg PO QHS [facility] Last Admin: 02/20/20 21:21 Dose: Not Given Documented by: Fluoxetine HCl (Prozac) 20 mg PO DAILY [facility] Last Admin: 02/21/20 08:59 Dose: 20 mg Documented by: Furosemide (Lasix) 40 mg IV Q8 [facility] Last Admin: 02/21/20 05:21 Dose: 40 mg Documented by: Guaifenesin (Robitussin) 20 ml PO Q4H PRN PRN PRN Reason: COUGH Hydralazine HCl (Apresoline Iv) 10 mg IV Q4H PRN PRN PRN Reason: SBP > 160 Insulin Human Lispro (Humalog Kwikpen (Bk)) 0 unit SC ACHS [facility]; Protocol Last Admin: 02/21/20 12:03 Dose: 2 units Documented by: Insulin Human Regular (Humulin R U-500 ([facility] Last Admin: 02/21/20 08:57 Dose: 130 units Documented by: [place] Carbonate ([place] Carbonate) 600 mg PO DAILY [facility] Last Admin: 02/21/20 08:58 Dose: 600 mg Documented by: Magnesium Hydroxide (Milk Of Magnesia) 30 ml PO DAILY PRN PRN PRN Reason: Constipation Melatonin (Melatonin) 3 mg PO QHS PRN PRN PRN Reason: INSOMNIA Morphine Sulfate () 2 mg IV Q3H PRN PRN PRN Reason: Pain Score 6-10/10 Nitroglycerin (Nitrostat) 0.4 mg SUBLINGUAL Q5M PRN PRN Reason: CARDIAC/CHEST PAIN Ondansetron HCl (Zofran) 4 mg IV Q8H PRN PRN PRN Reason: NAUSEA/VOMITING Oxycodone HCl (Oxyir) 5 mg PO Q4H PRN PRN PRN Reason: Pain Score 4-5/10 Potassium Chloride (K-Dur) [facility] Last Admin: 02/21/20 08:58 Dose: 40 meq Documented by: Prochlorperazine Edisylate (Compazine Iv) 5 mg IV Q4H PRN PRN PRN Reason: Breakthrough Nausea/Vomiting Psyllium Hydrophilic Mucilloid (Metamucil) 1 packet PO DAILY PRN PRN PRN Reason: Constipation Senna/Docusate Sodium (Senokot-S, Liv-Colace) 2 tablet PO BID PRN PRN PRN Reason: Constipation Sodium Chloride () 10 - 40 ml IV UD PRN PRN Reason: SALINE FLUSH Last Admin: 02/21/20 05:21 Dose: 10 ml Documented by: Throat Lozenges (Cepacol Sore Throat Lozenge) 1 lozenge MUCOUS MEM Q2H PRN PRN PRN Reason: SORE THROAT Warfarin Sodium (Coumadin (Pbkc)) 7.5 mg PO Fr@1700 [facility] Warfarin Sodium (Jantoven) 5 mg PO SuMoTuWeThSa@1700 [facility] Vital Signs/Narrative: Vital Signs Temp Pulse Resp BP Pulse Ox 02/21/20 11:58 80 02/21/20 08:42 98.0 F 69 17 134/71 H 92 Medical Necessity - Tobacco Use Smoking Status: Never smoker Tobacco Use: Non-smoker Assessment/Plan All Active Problems Acute exacerbation of CHF (congestive heart failure) (Acute) Anasarca (Acute) Unable to ambulate (Acute) Lymphedema (Acute) # acute on chronic lymphedema * This is gained about 20 pounds over the last few weeks due to worsening of his edema. * Claims to be compliant with his Lasix. * Currently on IV Lasix. Troponins x3 were negative. * continue IV lasix * PT/OT consult to encourage patient to ambulate * fall precautions * # Type 2 diabetes mellitus * on liraglutide and lantus 130 units bid. * ISS. Accuchecks ACHS * # Bipolar disorder: on abilify, fluoxetine and lithium. # Hypertension; IV hydralazine prn. # history of DVT; on coumadin. INR is 2.8 today # super morbid obesity; BMI is >66. Severe lymphedema likely contributing. Nutrition consulted DVT prophylaxis: on coumadin. INR is therapeutic OBSV E&M: 64785 Subsequent observation care L2
--- NOTE | 2020-02-21 14:45 | CASEMGMT ---
NICK ORNELAS Assessment: Face to Face with patient for initial transition planning/care coordination assessment. NICK ORNELAS introduced self and role at [facility], pt voices understanding and consents to assessment at this time. Pt is sitting up in chair in no distress at this time. Pt is A/Ox4 at this time and answers all questions appropriately at this time. Care providers, pharmacy, and demographics verified at this time. Presentation: Pt w/ increased edema to bilat lower extremities. Pt w/ CHF and has gained 22lbs in a week and half Admitting dx: A on C lymphedema, weight gain, CHF PCP: Carol [place] Specialists: Pt states no current specialists. [place]acy[place] [place], [facility] Living Will/HPOA: Pt states has a LW/HPOA and is aware that they are not on file at [facility] at this time. Pt states his sister, Tash Carroll, is HPOA. LNOK: Tash Carroll, sister/HPOA; Juanjose Osorio, friend Living Arrangements: Pt states lives with alone in 1 story apartment and states no concerns at home at this time. Pt states is independent with ADL's. Transportation: Pt states drives self and states no transportation concerns at this time. DME/HHC: Pt states has the following DME: cane, w/c, hospital bed, medical alert, walker x3, raised toilet seat, grab bars, shower chair, lymphadema pumps, and 2 liters [facility]. Pt states no need for any further DME at this time. Pt states has an aide 3 times/week for 2 hours and SN thru the [place]. Pt states has been to [facility] in the past. Pt states no concerns with going home at time of discharge. Pt states is disabled. Pt states does not smoke cigarettes or drink ETOH. Pt states no further concerns/needs at this time. CM to follow for any further discharge planning/needs. Advised pt to ask for CM if any further questions/concerns/needs arise, voices understanding. Pt Goal: Home [place]
--- NOTE | 2020-02-21 14:45 | CASEMGMT ---
NICK ORNELAS Assessment: Face to Face with patient for initial transition planning/care coordination assessment. NICK ORNELAS introduced self and role at [facility], pt voices understanding and consents to assessment at this time. Pt is sitting up in chair in no distress at this time. Pt is A/Ox4 at this time and answers all questions appropriately at this time. Care providers, pharmacy, and demographics verified at this time. Presentation: Pt w/ increased edema to bilat lower extremities. Pt w/ CHF and has gained 22lbs in a week and half Admitting dx: A on C lymphedema, weight gain, CHF PCP: [place] Specialists: Pt states no current specialists. [place]acy[place] [place], [facility] [place] Living Will/HPOA: Pt states has a LW/HPOA and is aware that they are not on file at [facility] at this time. Pt states his son, Kris Hartman, is HPOA. LNOK: Tash Mccartyclifblayne, sister/HPOA; Juanjose Devon, friend Living Arrangements: Pt states lives with alone in 1 story apartment and states no concerns at home at this time. Pt states is independent with ADL's. Transportation: Pt states drives self and states no transportation concerns at this time. DME/HHC: Pt states has the following DME: cane, w/c, hospital bed, medical alert, walker x3, raised toilet seat, grab bars, shower chair, lymphadema pumps, and 2 liters [facility] oxygen [facility]. Pt states no need for any further DME at this time. Pt states has an aide 3 times/week for 2 hours and SN thru [place]. Pt states has been to [facility] in the past. Pt states no concerns with going home at time of discharge. Pt states is disabled. Pt states does not smoke cigarettes or drink ETOH. Pt states no further concerns/needs at this time. CM to follow for any further discharge planning/needs. Advised pt to ask for CM if any further questions/concerns/needs arise, voices understanding. Pt Goal: Home Plan[place] NICK ORNELAS
--- NOTE | 2020-02-21 15:54 | CHAPLAIN ---
Type of Pastoral Visit _x__ Initial Visit ___ Follow-up Visit ___ On-call Visit ___ General Patient Visit ___ Spiritual Assessment ___ Family Conference ___ Bereavement ___ Rapid Response ___ Code Blue ___ Other (describe below) Pastoral Care Referral From _x__ Patient ___ Family ___ Nurse ___ Physician ___ Pet Care Attendant ___ Driving Teacher ___ Other (describe below) Sacrament/Intervention _x__ Active listening ___ Anointing ___ Mosque ___ Bereavement ___ Communion _x__ Alanna exploration _x__ ___ Life review _x__ Prayer ___ Reconciliation ___ Sacrament of Sick _x__ Supportive presence ___ Wedding ___ Other (describe below) Pastoral Comments have met this patient in previous admission; update on life and health; pt likes talking about spiritual alanna and life; pt welcomes prayer and asks for a Bible to read while he is in hospital; given Bible upon return to room
[2020-02-21 17:35] LABS: Bedside Glucose 148 mg/dL (70-110)
[2020-02-21] MEDS: oxyCODONE 5 MG Tablet PO (21:04)
[2020-02-21] MEDS: Atorvastatin Calcium 40 MG Tablet PO (21:05)
[2020-02-21 21:16] LABS: Bedside Glucose 104 mg/dL (70-110)
[2020-02-22 02:39] VITALS: BP 126/63; PULSE 65; RESP 14; TEMP 36.4; O2SAT 97
[2020-02-22] MEDS: Acetaminophen 325 MG Tablet 650 MG PO (02:41)
[2020-02-22 03:26] VITALS: PULSE 65
[2020-02-22 04:56] LABS: Absolute Lymphocyte Count 2.79 X10^3/uL (0.83-4.51); Absolute Neutrophil Count 8.5 X10^3/uL (2.0-7.7); Basophil# 0.01 X10^3/uL; Basophil% 0.1 % (0-1); Eosinophil# 0.14 X10^3/uL; Eosinophils% 1.2 % (0-5); Hematocrit 38.5 % (40-54); Lymphocyte # 2.79 X10^3/ul (4.0); Lymphocyte % 23.2 % (19-41); Mean Corp Hgb Conc 28.6 g/dL (32-36); Mean Corpuscular Hgb 25.1 pg (27.0-32.0); Mean Corpuscular Volume 87.7 fL (80-94); Mean Platelet Vol. 8.5 fl (6.2-12.0); Monocyte# 0.59 X10^3/uL; Monocyte% 4.9 % (0-10); NRBC Flagged by Analyzer 0 % (0-5); Neutrophil # 8.45 X10^3/uL (2.7-7.7); Neutrophil % 70.3 % (47-70); Platelet Count 280 K/mm3 (150-450); RBC Distribution Width CV 16.5 % (11.6-14.6); RBC Distribution Width SD 52.6 fl (35.1-43.9); Red Blood Count 4.39 M/mm3 (4.6-6.2)
[2020-02-22 05:18] LABS: Anion Gap 5 (5-15); BUN 13 mg/dL (7-18); BUN/Creat Ratio 11.9 RATIO (10-20); Calcium,Total 8.8 mg/dL (8.5-10.1); Chloride 102 mmol/L (98-107); Creatinine, Serum 1.09 mg/dL (0.70-1.30); EST Glomerular Filtration Rate 74 mL/min (>60); Est Glom Filt Rate - Afr Amer 90 mL/min (>60); Estimated Creatinine Clearance 82.07 ml/min; Glucose 79 mg/dL (74-106); Potassium 3.8 mmol/L (3.5-5.1); Sodium Level 135 mmol/L (136-145)
[2020-02-22] MEDS: oxyCODONE 5 MG Tablet PO (05:57)
[2020-02-22] MEDS: 0.9% Saline Lock 10 ML Syringe IV (05:57)
[2020-02-22] MEDS: Furosemide 40 MG/4 ML Vial IV (05:57)
[2020-02-22 07:00] VITALS: PULSE 65
[2020-02-22 07:43] VITALS: O2SAT 94
[2020-02-22] MEDS: Aspirin E.C. 81 MG Tablet PO (07:47)
[2020-02-22 08:30] VITALS: BP 140/67; PULSE 80; RESP 18; TEMP 36.7; O2SAT 97
[2020-02-22 08:46] LABS: Bedside Glucose 114 mg/dL (70-110)
[2020-02-22] MEDS: ARIPiprazole 10 MG Tablet 30 MG PO (09:11)
[2020-02-22] MEDS: FLUoxetine 20 MG Capsule PO (09:12)
[2020-02-22] MEDS: Lithium Carbonate 300mg Capsule 600 MG PO (09:12)
--- NOTE | 2020-02-22 09:17 | PCM.DC ---
- Discharge Diagnoses Current Active Problems: Current Active and Chronic Problems Congestive heart failure (Chronic) You will use the following diet at home:: Cardiac Your food should be the consistency of: Regular Your liquids should be the consistency of: Regular/Thin Discharge Activity: Return to Normal Activity Weight Bearing Status: Weight bearing as tolerated Call your doctor if you observe: Fever of 101 or Higher, Shortness of breath, Swelling in the ankles, Chest pain Instructions: ED Peripheral Edema, Bilateral Allergies/Adverse Reactions: Allergies gabapentin Adverse Reaction (Verified 11/27/19 19:24) Swelling liraglutide [From Victoza] Adverse Reaction (Verified 11/27/19 19:24) Nausea/Vom/Diarrhea Medications to take at Discharge Aripiprazole [Abilify] 30 mg PO DAILY 11/04/19 Fluoxetine [Prozac] 20 mg PO DAILY 11/04/19 [place] Carbonate 600 mg PO DAILY 11/04/19 Warfarin [Coumadin] 5 mg PO SUMOTUWETHSA 11/04/19 Warfarin [Coumadin] 7.5 mg PO FR 11/04/19 Potassium Chloride [K-Dur] 40 meq PO BID #0 11/29/19 Rosuvastatin Calcium 20 mg PO DAILY #0 11/29/19 Aspirin E.C. [Ecotrin] 81 mg PO DAILY@0800 02/20/20 Insulin Regular, Human [Humulin R U-500 Kwikpen] 130 unit SQ BID 02/20/20 Liraglutide [Victoza 3-Rick] 1.2 mg SQ DAILY 02/20/20 Torsemide [Demadex] 40 mg PO BID 02/20/20 Primary Care Physician: [facility] [Primary Care Provider] - Please follow up with your Primary Care Physician in: 1-2 weeks Test Results: Test results from this visit will be discussed in further detail at your follow-up appointment, if applicable. When: wound clinic in 2-3 weeks Proposed Discharge Date: 02/22/20
--- NOTE | 2020-02-22 09:22 | DS.PCM_ITS ---
Discharge Date and Diagnosis Date of Admission: 02/20/20 Date of Discharge: 02/22/20 - Primary Discharge Diagnosis Acute Problems: acute on chronic lymphedema of the lower extremities - Secondary Discharge Diagnosis Chronic Problems: Chronic Problems Anxiety and depression (Chronic) High cholesterol (Chronic) Hypertension (Chronic) Obstructive sleep apnea (Chronic) CVA (cerebral vascular accident) (Chronic) Diabetes (Chronic) Morbid obesity (Chronic) Congestive heart failure (Chronic) Hospital Course and Treatment Imaging Results: Diagnostic Data Chest X-Ray 02/20/20 18:40 IMPRESSION: No acute cardiopulmonary disease or major interval change. Electronically Signed: Emeterio RobertonDO at 18:59 EDT Tel [phone], Service support , Operations: None Procedures: None Summary of Care Provided: Patient is a 59-year-old male with an extensive past medical history as outlined was admitted through the ED on 02/20/2020 with complaint of 22 pound weight gain over the last 1-1/2 weeks in addition to worsening lower extremity edema. He had been seen at an ED about 2 weeks prior to admission and his torsemide dose was doubled. However he had noted the weight gain as mentioned. He also had chronic exertional dyspnea and orthopnea but this had not worsened. Patient admitted to eating high salt food items in the weeks prior to admission. He had not been following up at the wound care center for the lymphedema. In the ED, vitals were stable and labs were essentially unremarkable. BNP was only 5.8. Troponins x3 were negative and chest x-ray showed no acute cardiopulmonary findings. EKG showed no acute ST changes. He was admitted and managed for acute on chronic lymphedema. He was diuresed with IV Lasix. Patient's swelling improved and shortness of breath also improved. Patient work with physical therapy. Stable and was discharged home on 02/22/2020. He is to continue taking his torsemide and is to follow-up with his primary care doctor within 1 to 2 weeks. Patient was also referred to the wound care center for follow-up about his chronic lymphedema. Patient seen and examined prior to discharge. He felt well and had no complaints. Review of systems otherwise negative. Labs and vitals reviewed. Home medication reviewed and reconciled. o/E; Vital Signs Temp Pulse Resp BP Pulse Ox 98.0 F 80 18 140/67 H 97 02/22/20 09:38 02/22/20 09:38 02/22/20 09:38 02/22/20 09:38 02/22/20 09:38 General: Alert, Oriented x3, Cooperative, - - super morbid obesity HEENT: Atraumatic, PERRLA, EOMI, Normocephalic Oral: Moist Mucosa Neck: Supple, No JVD, Negative Carotid Bruits Lungs: Clear to auscultation, Normal air movement, No rhonchi, No wheeze Cardiovascular: Regular rate, Regular Rhythm, Normal S1, Normal S2, No murmurs Abdomen: Bowel Sounds Present, Soft, Non Tender, Non-Distended, No Hepato- splenomegaly Extremities: - - massive lymphadenopathy of both LEs, both LEs wrapped in PAMELLA bandage. Skin: No rashes, No breakdown Musculoskeletal: No Tenderness to Palpation of Joints or Extremities Lymphatic: No Cervical, Supraclavicular, or Inguinal Adenopathy Neurological: Cranial nerves II-XII grossly intact, Neuro grossly intact, Motor Exam 5/5 strength throughout Psych/Mental Status: Normal Affect, Appropriate, Alert and oriented to time, place, person, mood and affect Plan is for discharge today. Patient counseled about eating a low-salt diet and to be compliant with his diuretic. - Physical Exam Vitals/I&O's: Vital Signs Temp Pulse Resp BP Pulse Ox 98.0 F 80 18 140/67 H 97 02/22/20 08:30 02/22/20 08:30 02/22/20 08:30 02/22/20 08:30 02/22/20 08:30 Oxygen Flow Rate (L/min) 2 Oxygen Delivery Method Room Air Weight: 491 lb 13.62 oz Body Mass Index (BMI) 66.7 Intake and Output for Last 24 Hours 02/20/20 02/21/20 02/22/20 23:59 23:59 23:59 Intake Total 1742 / 1742 120 / 120 Output Total 3300 / 3300 200 / 200 Balance -1558 / -1558 -80 / -80 Laboratory Results 02/21/20 12:01: POC Glucose 176 H 02/21/20 16:22: POC Glucose 148 H 02/21/20 21:03: POC Glucose 104 02/22/20 04:20: WBC 12.0 H, RBC 4.39 L, Hgb 11.0 L, Hct 38.5 L, MCV 87.7, MCH 25.1 L, MCHC 28.6 L, RDW Std Deviation 52.6 H, RDW Coeff of Varsha 16.5 H, Plt Count 280, MPV 8.5, Immature Gran % (Auto) 0.300, Neut % (Auto) 70.3 H, Lymph % (Auto) 23.2, [place] % (Auto) 4.9, Eos % (Auto) 1.2, Baso % (Auto) 0.1, Absolute Neuts (auto) 8.5 H, Absolute Lymphs (auto) 2.79, Nucleated RBC % 0 02/22/20 04:20: Sodium 135 L, Potassium 3.8, Chloride 102, Carbon Dioxide 28.0, Anion Gap 5, BUN 13, Creatinine 1.09, Estim Creat Clear Calc 82.07, Est GFR (MDRD) Af Amer 90, Est GFR (MDRD) Non-Af 74, BUN/Creatinine Ratio 11.9, Glucose 79, Calcium 8.8 02/22/20 08:30: POC Glucose 114 H Current Medications Acetaminophen (Tylenol) 650 mg PO Q6H PRN PRN PRN Reason: Pain Score 1-10/Temp > 100.7 F Last Admin: 02/22/20 02:41 Dose: 650 mg Documented by: Al Hydroxide/Mg Hydroxide (Mylanta Ii) 30 ml PO Q6H PRN PRN PRN Reason: Gastric Burning Albuterol Sulfate (Ventolin Aerosols) 2.5 mg INHALATION Q2H PRN PRN PRN Reason: Dyspnea, wheezing Aripiprazole (Abilify) 30 mg PO DAILY [facility] Last Admin: 02/22/20 09:11 Dose: 30 mg Documented by: Aspirin (Ecotrin) 81 mg PO DAILY@0800 [facility] Last Admin: 02/22/20 07:47 Dose: 81 mg Documented by: Atorvastatin Calcium (Lipitor) 40 mg PO QHS [facility] Last Admin: 02/21/20 21:05 Dose: 40 mg Documented by: Fluoxetine HCl (Prozac) 20 mg PO DAILY [facility] Last Admin: 02/22/20 09:12 Dose: 20 mg Documented by: Furosemide (Lasix) 40 mg IV Q8 [facility] Last Admin: 02/22/20 05:57 Dose: 40 mg Documented by: Guaifenesin (Robitussin) 20 ml PO Q4H PRN PRN PRN Reason: COUGH Hydralazine HCl (Apresoline Iv) 10 mg IV Q4H PRN PRN PRN Reason: SBP > 160 Hydrocortisone (Hytone) 1 applic TOPICAL BID PRN PRN; Protocol PRN Reason: RASH/TOPICAL IRRITATION Insulin Human Lispro (Humalog Kwikpen ([facility])) 0 unit SC [facility]; Protocol Last Admin: 02/22/20 08:31 Dose: Not Given Documented by: Insulin Human Regular (Humulin R U-500 ([facility])) [facility] Last Admin: 02/22/20 08:32 Dose: 130 units Documented by: [place] Carbonate ([place] Carbonate) 600 mg PO DAILY [facility] Last Admin: 02/22/20 09:12 Dose: 600 mg Documented by: Magnesium Hydroxide (Milk Of Magnesia) 30 ml PO DAILY PRN PRN PRN Reason: Constipation Melatonin (Melatonin) 3 mg PO QHS PRN PRN PRN Reason: INSOMNIA Morphine Sulfate () 2 mg IV Q3H PRN PRN PRN Reason: Pain Score 6-10/10 Nitroglycerin (Nitrostat) 0.4 mg SUBLINGUAL Q5M PRN PRN Reason: CARDIAC/CHEST PAIN Ondansetron HCl (Zofran) 4 mg IV Q8H PRN PRN PRN Reason: NAUSEA/VOMITING Oxycodone HCl (Oxyir) 5 mg PO Q4H PRN PRN PRN Reason: Pain Score 4-5/10 Last Admin: 02/22/20 05:57 Dose: 5 mg Documented by: Potassium Ch[facility] ([facility]) [facility] Last Admin: 02/22/20 07:47 Dose: 40 meq Documented by: Prochlorperazine Edisylate (Compazine Iv) 5 mg IV Q4H PRN PRN PRN Reason: Breakthrough Nausea/Vomiting Psyllium Hydrophilic Mucilloid (Metamucil) 1 packet PO DAILY PRN PRN PRN Reason: Constipation Senna/Docusate Sodium (Senokot-S, Liv-Colace) 2 tablet PO BID PRN PRN PRN Reason: Constipation Sodium Chloride () 10 - 40 ml IV UD PRN PRN Reason: SALINE FLUSH Last Admin: 02/22/20 05:57 Dose: 10 ml Documented by: Throat Lozenges (Cepacol Sore Throat Lozenge) 1 lozenge MUCOUS MEM Q2H PRN PRN PRN Reason: SORE THROAT Warfarin Sodium (Coumadin (Pbkc)) 7.5 mg PO Fr@1700 [facility] Warfarin Sodium (Jantoven) 5 mg PO SuMoTuWeThSa@1700 [facility] Last Admin: 02/21/20 16:40 Dose: 5 mg Documented by: Discharge Diet: Low fat/ Low Cholesterol Discharge Activity: Return to Normal Activity Weight Bearing Status: Weight bearing as tolerated Call your doctor if you observe: Fever of 101 or Higher, Shortness of breath, Swelling in the ankles, Chest pain Home Medications: Medications to take at Discharge Aripiprazole [Abilify] 30 mg PO DAILY 11/04/19 Fluoxetine [Prozac] 20 mg PO DAILY 11/04/19 [place] Carbonate 600 mg PO DAILY 11/04/19 Warfarin [Coumadin] 5 mg PO SUMOTUWETHSA 11/04/19 Warfarin [Coumadin] 7.5 mg PO 11/04/19 Potassium Chloride [K-Dur] 40 meq PO BID #0 11/29/19 Rosuvastatin Calcium 20 mg PO DAILY #0 11/29/19 Aspirin E.C. [Ecotrin] 81 mg PO DAILY@0800 02/20/20 Insulin Regular, Human [Humulin R U-500 Kwikpen] 130 unit SQ BID 02/20/20 Liraglutide [Victoza 3-Rick] 1.2 mg SQ DAILY 02/20/20 Torsemide [Demadex] 40 mg PO BID 02/20/20 [facility] - Please follow up with your Primary Care Physician in: 1-2 weeks When: wound clinic in 2-3 weeks Patient Instructions: ED Peripheral Edema, Bilateral Disposition: Home with Home Health Minutes spent on discharge:: 40 Patient Condition:: Stable Medical Necessity - Tobacco Use Smoking Status: Never smoker Tobacco Use: Non-smoker Meaningful Use Info Meaningful Use Diagnoses (Choose all that apply): None applicable Inpatient E&M: 41180 Disch Hosp
[2020-02-22 09:38] VITALS: BP 140/67; PULSE 80; RESP 18; TEMP 36.7; O2SAT 97
--- NOTE | 2020-02-22 09:53 | PHA.DC.MR ---
Pharmacy Service has performed discharge medication reconciliation for this patient. The patient's discharge medication list was reviewed for discrepancies and discrepancies were resolved. Home Medications Aripiprazole [Abilify] 30 mg PO DAILY 11/04/19 Fluoxetine [Prozac] 20 mg PO DAILY 11/04/19 [place] Carbonate 600 mg PO DAILY 11/04/19 Warfarin [Coumadin] 5 mg PO SUMOTUWETHSA 11/04/19 Warfarin [Coumadin] 7.5 mg PO FR 11/04/19 Potassium Chloride [K-Dur] 40 meq PO BID #0 11/29/19 Rosuvastatin Calcium 20 mg PO DAILY #0 11/29/19 Aspirin E.C. [Ecotrin] 81 mg PO DAILY@0800 02/20/20 Insulin Regular, Human [Humulin R U-500 Kwikpen] 130 unit SQ BID 02/20/20 Liraglutide [Victoza 3-Rick] 1.2 mg SQ DAILY 02/20/20 Torsemide [Demadex] 40 mg PO BID 02/20/20
--- NOTE | 2020-02-22 10:38 | CASEMGMT ---
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 He is aware they are not on file at [facility]. His sister Tash is his Healthcare Power of Fishing Tool [employer]. Kristi CHAPARRO
--- NOTE | 2020-02-23 15:14 | CASEMGMT ---
DC DATE: 02.22.2020 DC Disposition: Home Attempted call to phone, call did not go through. Mani GOODRICHN RN ACM
== END 2020-02-22 11:06 | disposition home health service (06) | DRG 607 ==
LOC: ED 19:20 → PCU 19:45
PROVIDERS: Admitting Provider Family Medicine; Emergency Provider Emergency Medicine; Visit Provider Student in an Organized Health Care Education/Training Program
DX: I89.0 Lymphedema, not elsewhere classified (principal); I50.32 Chronic diastolic (congestive) heart failure; I13.0 Hypertensive heart and chronic kidney disease with heart failure and stage 1 through stage 4 chronic kidney disease, or unspecified chronic kidney disease; Z68.44 Body mass index [BMI] 60.0-69.9, adult; E66.01 Morbid (severe) obesity due to excess calories; G47.33 Obstructive sleep apnea (adult) (pediatric); F31.9 Bipolar disorder, unspecified; F41.9 Anxiety disorder, unspecified; N18.2 Chronic kidney disease, stage 2 (mild); E11.22 Type 2 diabetes mellitus with diabetic chronic kidney disease; E78.5 Hyperlipidemia, unspecified; Z86.718 Personal history of other venous thrombosis and embolism
CPT/HCPCS: 36415; 71045; 80048; 80053; 80178; 82962; 83735; 83880; 84443; 84484; 85025; 85610; 93005; 97162; 97166; 97802; 99251; 99285; A4216; G0463; J1940

== ENCOUNTER 2020-04-01 16:54 | Inpatient (IN) | payer OTHER, MEDICARE, MEDICAID, SELFPAY ==
[2020-04-01] VITALS (8 sets, daily range): BP systolic 117–144; BP diastolic 58–68; PULSE 66–72; RESP 16–24; TEMP 36.2–36.7; O2SAT 96–100; BMI 49.2; BMI 49.3; BMI 65.9
--- NOTE | 2020-04-01 17:17 | EKG12_ITS ---
Test Reason : Blood Pressure : / mmHG Vent. Rate : 071 BPM Atrial Rate : 071 BPM P-R Int : 164 ms QRS Dur : 106 ms QT Int : 422 ms P-R-T Axes : 011 003 037 degrees QTc Int : 458 ms Normal sinus rhythm Poor R wave progression Normal ECG Confirmed by SUHAS DENIS, MAMADOU ([id number]), editor managing newspaper OMKAR PAZ ([id number]) on 04/08/2020 11:44:34 AM Referred By: Yudith Head Confirmed By:MAMADOU DAI MD
--- NOTE | 2020-04-01 17:43 | RAD_ITS ---
STUDY: X-RAY CHEST REASON FOR EXAM: Male, 59 years old. cellulitis to both legs, seeping clear fluids TECHNIQUE: Single AP portable view of the chest. COMPARISON: 02/20/2020. FINDINGS: The lungs are clear and expanded. There is no demonstrated pleural abnormality. Normal size heart. Normal mediastinum and jazmine. Normal visualized pulmonary arteries. Normal visualized aortic arch and descending thoracic aorta. Normal visualized thoracic spine. Normal visualized ribs, clavicles, and shoulders. There is no demonstrated abnormality of the visualized soft tissue structures of the upper abdomen. RAD/Chest 1 View (Portable) IMPRESSION: Normal x-ray examination of the chest. Electronically Signed: Rachel Dowell MD at 18:31 EDT Tel , Service support ,
[2020-04-01 18:09] LABS: Absolute Neutrophil Count 9.2 X10^3/uL (2.0-7.7); Basophil# 0.02 X10^3/uL; Basophil% 0.2 % (0-1); Eosinophil# 0.21 X10^3/uL; Eosinophils% 1.7 % (0-5); Hematocrit 36.7 % (40-54); Hemoglobin 10.9 g/dL (13.0-16.5); Lymphocyte % 18.3 % (19-41); Mean Corp Hgb Conc 29.7 g/dL (32-36); Mean Corpuscular Hgb 25.5 pg (27.0-32.0); Mean Corpuscular Volume 85.7 fL (80-94); Mean Platelet Vol. 8.7 fl (6.2-12.0); Monocyte# 0.78 X10^3/uL; Monocyte% 6.2 % (0-10); NRBC Flagged by Analyzer 0 % (0-5); Platelet Count 308 K/mm3 (150-450); RBC Distribution Width CV 16.4 % (11.6-14.6); RBC Distribution Width SD 50.9 fl (35.1-43.9); Red Blood Count 4.28 M/mm3 (4.6-6.2); White Blood Count 12.6 K/mm3 (4.4-11.0)
[2020-04-01 18:17] LABS: International Normalized Ratio 2.7; Prothrombin Time (Protime)PT. 28.6 SECONDS (11.7-14.9)
[2020-04-01 18:18] LABS: Partial Thromboplast Time 56.9 Seconds (24.1-36.2)
[2020-04-01 18:29] LABS: ALB/GLOB Ratio 0.6 RATIO (0.9-2.4); AST(SGOT) 13 U/L (15-37); Alanine Aminotransfer ALT/SGPT 15 U/L (16-61); Albumin, Serum 2.9 g/dL (3.2-5.0); Alkaline Phosphatase 83 U/L (45-117); Anion Gap 1 (5-15); BUN 17 mg/dL (7-18); Calcium,Total 9.2 mg/dL (8.5-10.1); Chloride 102 mmol/L (98-107); Creatinine, Serum 1.21 mg/dL (0.70-1.30); EST Glomerular Filtration Rate 66 mL/min (>60); Est Glom Filt Rate - Afr Amer 79 mL/min (>60); Estimated Creatinine Clearance 73.93 ml/min; Globulin 5.2 g/dL (2.2-4.2); Glucose 117 mg/dL (74-106); Lactic Acid 1.7 mmol/L (0.4-1.9); Potassium 3.8 mmol/L (3.5-5.1); Protein, Total 8.1 g/dL (6.4-8.2); Sodium Level 138 mmol/L (136-145)
[2020-04-01 18:37] LABS: Bacteria 0 SEEN /hpf (None Seen); Mucous, Urine 0 SEEN /hpf (<or=2+); Red Blood Cells-Urine 0 SEEN /hpf (0-5)
[2020-04-01 18:40] LABS: Color, Urine Yellow (Yellow); Glucose, Dipstick Normal (Normal); Ketone-Dipstick Negative (Negative); Leukocyte Esterase-Dipstick 25 /ul (Negative); Nitrite-Dipstick Negative (Negative); Occult Blood-Urine Negative /ul (Negative); Protein-Dipstick Negative (Negative); Urine Bilirubin Dipstick Negative (Negative); Urine Clarity Sl. Cloudy (Clear); Urine Urobilinogen Normal (Normal)
[2020-04-01 18:47] LABS: Squamous Epithelial Cells - UA 5-10 SEEN /hpf (0-5); White Blood Cells 0-5 SEEN /hpf (0-5)
--- NOTE | 2020-04-01 19:33 | PCM.HP.STD ---
Problem List (1) Cellulitis of right leg Status: Acute (2) Lymphedema Status: Chronic (3) Anxiety and depression Status: Chronic (4) Congestive heart failure Status: Chronic Qualifiers: Heart failure type: diastolic Heart failure chronicity: chronic Qualified Code(s): I50.32 - Chronic diastolic (congestive) heart failure (5) Diabetes Status: Chronic Qualifiers: Diabetes mellitus type: type 2 Diabetes mellitus penitentiary insulin use: with penitentiary use Diabetes mellitus complication status: with other specified complication Qualified Code(s): E11.69 - Type 2 diabetes mellitus with other specified complication; 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 (6) High cholesterol Status: Chronic (7) Hypertension Status: Chronic Qualifiers: Hypertension type: essential hypertension Qualified Code(s): I10 - Essential (primary) hypertension (8) Morbid obesity Status: Chronic History of Present Illness Date of Admission: 04/01/20 Chief Complaint: Fever, RLE redness, warmth, BL LE lymphedema with BL drainage The patient is a 59 y/o M w/ PMHx: Morbid Obesity, HTN, HLD, Chronic diastolic CHF, Diabetes mellitus type II, Anxiety and Depression/Bipolar disorder, [facility]), Chronic lymphedema with chronic BL LE venous stasis who presents to the [facility] ED on 04/01/20 with worsening RLE redness, pain, edema with F 101 at home the day prior. He does note that both lower extremities have had significantly increased drainage over the last several weeks. He was hoping that things would scab over and resolve but they had not done so. He notes the right lower extremity redness and discomfort has been over the last 48 hours with a fever only yesterday. Patient denies any contact with any ill individuals specifically concerning for Covid. He does state that he has had some nausea with this acute presentation but otherwise denies any vomiting, abdominal pain, diarrhea, alteration to sense of taste or smell, cough or dyspnea. Work-up in the ED included T 97.3, HR 72, BP 144/61, RR 24, 100% on RA, CBC with WC 12.6, hemoglobin 10.9, platelet 308 with left shift, coags with INR 2.7, CMP with carbon oxide 35, glucose 117, lactic acid 1.7, troponin less than 0.015, urinalysis not marked appearing, chest x-rays no acute cardiopulmonary findings. In the ED patient administered Zosyn therapy. Past Medical History Past Medical History (Chronic Problems): Chronic Problems Anxiety and depression (Chronic) High cholesterol (Chronic) Hypertension (Chronic) Obstructive sleep apnea (Chronic) CVA (cerebral vascular accident) (Chronic) Diabetes (Chronic) Morbid obesity (Chronic) Congestive heart failure (Chronic) Lymphedema (Chronic) Allergies gabapentin Adverse Reaction (Verified 04/01/20 16:55) Swelling liraglutide [From Victoza] Adverse Reaction (Verified 04/01/20 16:55) Nausea/Vom/Diarrhea Home Medications: Ambulatory Orders Medication Instructions Recorded Aripiprazole [Abilify] 30 mg PO DAILY 11/04/19 Fluoxetine [Prozac] 40 mg PO DAILY 11/04/19 [place] Carbonate 600 mg PO DAILY 11/04/19 Warfarin [Coumadin] 5 mg PO SUMOTUWETHSA 11/04/19 Warfarin [Coumadin] 7.5 mg PO FR 11/04/19 Aspirin E.C. [Ecotrin] 81 mg PO DAILY@0800 02/20/20 Insulin Regular, Human [Humulin R 140 unit SQ BID 02/20/20 U-500 Kwikpen] Liraglutide [Victoza 3-Rick] 1.2 mg SQ DAILY 02/20/20 Torsemide [Demadex] 80 mg PO BID 02/20/20 Acetaminophen [Tylenol Extra 1,000 mg PO Q8H PRN PRN 04/01/20 Strength] Potassium Chloride [K-Dur] 40 meq PO DAILY 04/01/20 Rosuvastatin Calcium 20 mg PO QHS 04/01/20 Surgical History: tonsillectomy, - - 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 Psychiatric History: Anxiety, Bipolar, Depression Lives: Alone Smoking Status: Never smoker Tobacco Use: Non-smoker Alcohol: None Drugs: None - *Family History Maternal History Items: Heart Disease - Mother with history of significant CHF. Paternal History Items: Cancer - Father with a history of mesothelioma. Review of Systems Constitutional: Reports: Anorexia, Fever, Malaise, Weakness, Fatigue. Denies: Chills, Weight Change HEENT: Denies: Head Aches, Sinus Congestion, Sinus Drainage Cardiovascular: Denies: Chest Pain, Palpitations Respiratory: Reports: Shortness of breath upon exertion. Denies: Cough, Shortness of Breath, Shortness of breath at rest, Sputum production Gastrointestinal: Reports: Nausea. Denies: Abdominal Pain, Vomiting Genitourinary: Denies: Dysuria Musculoskeletal: Reports: Back Pain, Joint Pain, Leg Pain. Denies: Joint Tenderness Skin: Reports: Skin Changes, Wounds. Denies: Rash Neurological: Denies: Numbness, Tingling, Focal weakness Psychiatric: Reports: Anxiety, Depression. Denies: Homicidal Ideations, Suicidal Ideations Hematologic/ Lymphatic: Reports: Anemia. Denies: Easy Bruising, Easy Bleeding VTE Information - Inpt Only VTE Present on Admission: No VTE Mechan Device Prophylaxis: SCD's VTE Pharm Prophylaxis ordered?: No Reason prophylaxis not ordered:: Medical Contraindication - Continued on coumadin w/ INR trending. Subjective: Patient seated upright in the ED bed, fatigued otherwise no acute distress, notes some discomfort to right lower extremity primarily. Objective: Physical Examination: General: awake, alert, oriented x 3 and cooperative, seated upright in the ED bed, mildly fatigued, denies any acute complaints aside from mild discomfort lower extremities, right greater than left. Skin: normal color, turgor, no icterus, cyanosis except significant chronic bilateral lower extremity venous stasis skin changes, seeping, increased redness to right lower extremity compared to left, more warmth to right lower extremity palpation than left, bilateral, left greater than right small denuded regions with seepage, blistering. HEENT: AT/NC, EOMI, PERRLA, MMM, no obvious carotid bruits, difficult to assess JVD secondary to thickened neck. Lungs: Distant breath sounds, greater bases, moderate effort, no rales, rhonchi or wheezing. Heart: Regular rate and rhythm; no gallop, rub audible. Abdomen: soft, morbidly obese, NTTP, unable to discern distention secondary to habitus, distant normal bowel sounds, no obvious HSM but habitus makes examination difficult. Extremities: no cyanosis, clubbing, chronic bilateral lower extremity significant lymphedema with significant 3+ pitting edema bilaterally. Neurological: patient awake, alert, oriented x 3; cognitive function intact; pupils equally reactive to light and accomodation; cranial nerves II-XII grossly normal, moving all 4 extremities, no focal deficits, strength moderately to severely globally decreased secondary to underlying conditions including morbid obesity and acute presentation as noted. Psychiatric: affect appears fatigued otherwise normal, no acute evidence of depressive or anxiety feelings. - Physical Exam Vitals/I&O's: Vital Signs Temp Pulse Resp BP Pulse Ox 97.1 F L 72 20 H 129/65 H 96 04/01/20 19:13 04/01/20 19:13 04/01/20 18:17 04/01/20 19:13 04/01/20 18:17 Oxygen Delivery Method Room Air Weight: 363 lb 5.149 oz Body Mass Index (BMI) 49.2 Laboratory Results 04/01/20 17:12: WBC 12.6 H, RBC 4.28 L, Hgb 10.9 L, Hct 36.7 L, MCV 85.7, MCH 25.5 L, MCHC 29.7 L, RDW Std Deviation 50.9 H, RDW Coeff of Varsha 16.4 H, Plt Count 308, MPV 8.7, Immature Gran % (Auto) 0.600, Neut % (Auto) 73.0 H, Lymph % (Auto) 18.3 L, [place] % (Auto) 6.2, Eos % (Auto) 1.7, Baso % (Auto) 0.2, Absolute Neuts (auto) 9.2 H, Absolute Lymphs (auto) 2.30, Nucleated RBC % 0 04/01/20 17:12: PT 28.6 H, INR 2.7, APTT 56.9 H 04/01/20 17:12: Sodium 138, Potassium 3.8, Chloride 102, Carbon Dioxide 35.0 H, Anion Gap 1 L, BUN 17, Creatinine 1.21, Estim Creat Clear Calc 73.93, Est GFR (MDRD) Af Amer 79, Est GFR (MDRD) Non-Af 66, BUN/Creatinine Ratio 14.0, Glucose 117 H, Calcium 9.2, Total Bilirubin 0.40, AST 13 L, ALT 15 L, Alkaline Phosphatase 83, Troponin I < 0.015, Total Protein 8.1, Albumin 2.9 L, Globulin 5.2 H, Albumin/Globulin Ratio 0.6 L 04/01/20 17:12: Lactic Acid 1.7 04/01/20 18:30: Urine Color Yellow, Urine Clarity Sl. Cloudy, Urine pH 6.0, Ur Specific [place] 1.010, Urine Protein Negative, Urine Glucose (UA) Normal, Urine Ketones Negative, Urine Occult Blood Negative, Urine Nitrite Negative, Urine Bilirubin Negative, Urine Urobilinogen Normal, Ur Leukocyte Esterase 25 H, Urine RBC 0 SEEN, Urine WBC 0-5 SEEN, Ur Squamous Epith Cells 5-10 SEEN, Urine Bacteria 0 SEEN, Urine Mucus 0 SEEN Current Medications Piperacillin Sod/Tazobactam (Sod 3.375 gm/ Sodium Chloride) 50 mls @ 100 mls/hr IV X1 ONE Stop: 04/01/20 19:40 Last Admin: 04/01/20 19:27 Dose: 100 mls/hr Documented by: Assessment/Plan All Active Problems Cellulitis of right leg (Acute) Acute exacerbation of CHF (congestive heart failure) (Acute) Anasarca (Acute) Unable to ambulate (Acute) The patient is a 59 y/o M w/ PMHx: Morbid Obesity, HTN, HLD, Chronic diastolic CHF, Diabetes mellitus type II, Anxiety and Depression/Bipolar disorder, [facility] ([facility]), Chronic lymphedema with chronic BL LE venous stasis who presents to the [facility] ED on 04/01/20 with worsening RLE redness, pain, edema with F 101 at home the day prior. 1. RLE Extremity Cellulitis complicated by significant bilateral lower extremity stasis disease and lymphedema: Will admit to [facility], maintain on IV Zosyn and Vanc pending MRSA screen with d/c vanc if negative, will obtain Wound Cx, plan repeat CBC in AM, continue affected extremity elevation above heart when seated and in bed, monitor erythema outline with VS checks, currently therapeutic on his Coumadin, initiate and continue IV Lasix therapy to assist with transition back to oral torsemide once appropriate, snug Scott wraps, bilateral lower extremity elevation. 2. Chronic systolic CHF: Noted in history, will continue Coumadin with INR trending, holding torsemide with continued IV Lasix as noted, not on SCOTT inhibitor/ARB or beta-roman therapy, continue statin. Post recent echocardiogram noted to 11/28/2019 with normal LV systolic function, EF 65%, trivial TBI, mildly dilated aortic root, inability to assess RV systolic pressure/pulmonary artery pressure secondary to technical difficulty and inability to assess diastolic dysfunction. 3. Chronic normocytic anemia: Admission Hgb 10.9, baseline appears 10-11, stable, continue to trend. Iron panel, ferritin, vitamin B12, folic acid levels requested. 4. Morbid Obesity: Weight loss and lifestyle changes encouraged, nutrition consulted. 5. Diabetes mellitus type II: Will continue home insulin regimen as well as Victoza, ADA diet, accu checks w/ ISS, nutrition consulted for education and teaching. 6. Anxiety and depression/bipolar disorder: We will continue patient home Prozac, Abilify and lithium regimen. 7. Hypertension: Holding patient oral torsemide, will maintain on IV Lasix as noted, add back oral regimen once improved bilateral lower extremity. 8. Hyperlipidemia: Continue home statin regimen. 9. History of bone cancer: Per patient report possible history of 2010 [facility], no treatment, unclear, [facility]. 10. History DVT: Continued on Coumadin with INR trending. 11. DVT Prophylaxis: SCDs, coumadin w/ INR trending. Inpatient E&M: 62034 Init Hosp L3
--- NOTE | 2020-04-01 19:56 | ED.VIS.GEN ---
History of Present Illness Chief Complaint: Cellulitis Informant: Patient Narrative: 59-year-old male with past medical history of hypertension, hyperlipidemia, morbid obesity, diabetes, lymphedema presents with fever and lower extremity redness. Patient states has been present over the past few days. Worsening swelling over the past 3 weeks however he did have a fever of 101 yesterday. States his legs have been weeping. Denies any nausea, vomiting, abdominal pain, urinary symptoms. Denies chest pain or shortness of breath. Past Medical History - Allergies and Home Meds Allergies/Adverse Reactions: Allergies gabapentin Adverse Reaction (Verified 04/01/20 19:46) Swelling of legs Past Medical History: - - HTN, DMII, HLD Surgical History: tonsillectomy, - - 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 Smoking Status: Never smoker - Family History Maternal Family History: Reports: Heart Disease - Mother with history of significant CHF. Paternal Family History: Reports: Cancer - Father with a history of mesothelioma. Review of Systems General: Reports: Fever. Denies: Chills, Sweats Eyes: Denies: Visual changes - bilaterally, Diplopia ENT: Denies: Rhinorrhea, Sore throat Cardiovascular: Denies: Chest pain, Palpitations Respiratory: Denies: Dyspnea, Cough, Dyspnea on exertion Gastrointestinal: Denies: Abdominal pain, Nausea, Vomiting, Diarrhea, Melena, Hematochezia Genitourinary: Denies: Dysuria, Hematuria, Frequency Musculoskeletal: Reports: Swelling. Denies: Back pain, Extremity Pain Skin: Reports: - - redness. Denies: Rash, Wounds Neurological: Denies: Headache, Weakness, Numbness Physical Exam Vital Signs/Narrative: Vital Signs Temp Pulse Resp BP Pulse Ox 04/01/20 19:45 97.5 F L 66 20 H 117/62 100 04/01/20 19:13 97.1 F L 72 129/65 H 04/01/20 18:17 66 20 H 129/68 H 96 04/01/20 17:39 97.7 F L 04/01/20 17:38 100 04/01/20 16:57 97.3 F L 72 24 H 144/61 H 100 Inital Vital Signs reviewed: Yes General: Well nourished, Well developed, Obese, No Acute Distress Head: Normocephalic, Atraumatic Eyes: Perrl, EOMI ENT: Moist mucous membranes, No rhinorrhea Neck: Supple, Nontender Cardiovascular: Regular rate, Regular rhythm, No murmurs Respiratory: No distress, CTA bilaterally, Chest nontender Abdomen: Soft, Nontender, Nondistended, Normal bowel sounds Back: Nontender, Normal Inspection Extremities: - - Bilateral lower extremity swelling. Erythema to the right. Bilateral weeping. Skin: Normal color, No rash Neurological: Alert, Oriented x3, Cranial nerves II-XII grossly intact, Normal Strength, Normal Sensation Psychological: Normal affect, Normal Mood Diagnostic/Tx/Re-eval Chest X-Ray - ED: 1 View, Normal Clinical Impression(s) from Imaging Studies Chest X-Ray 04/01/20 17:43 IMPRESSION: Normal x-ray examination of the chest. Electronically Signed: Rachel Dowell MD at 18:31 EDT Tel , Service support , Laboratory Data 04/01/20 04/01/20 04/01/20 17:12 17:12 17:12 WBC 12.6 H RBC 4.28 L Hgb 10.9 L Hct 36.7 L MCV 85.7 MCH 25.5 L MCHC 29.7 L RDW Std Deviation 50.9 H RDW Coeff of Varsha 16.4 H Plt Count 308 MPV 8.7 Immature Gran % (Auto) 0.600 Neut % (Auto) 73.0 H Lymph % (Auto) 18.3 L [place] % (Auto) 6.2 Eos % (Auto) 1.7 Baso % (Auto) 0.2 Absolute Neuts (auto) 9.2 H Absolute Lymphs (auto) 2.30 Nucleated RBC % 0 PT 28.6 H INR 2.7 APTT 56.9 H Sodium 138 Potassium 3.8 Chloride 102 Carbon Dioxide 35.0 H Anion Gap 1 L BUN 17 Creatinine 1.21 Estim Creat Clear Calc 73.93 Est GFR (MDRD) Af Amer 79 Est GFR (MDRD) Non-Af 66 BUN/Creatinine Ratio 14.0 Glucose 117 H Lactic Acid Calcium 9.2 Total Bilirubin 0.40 AST 13 L ALT 15 L Alkaline Phosphatase 83 Troponin I < 0.015 Total Protein 8.1 Albumin 2.9 L Globulin 5.2 H Albumin/Globulin Ratio 0.6 L Urine Color Urine Clarity Urine pH Ur Specific [place] Urine Protein Urine Glucose (UA) Urine Ketones Urine Occult Blood Urine Nitrite Urine Bilirubin Urine Urobilinogen Ur Leukocyte Esterase Urine RBC Urine WBC Ur Squamous Epith Cells Urine Bacteria Urine Mucus 04/01/20 04/01/20 17:12 18:30 WBC RBC Hgb Hct MCV MCH MCHC RDW Std Deviation RDW Coeff of Varsha Plt Count MPV Immature Gran % (Auto) Neut % (Auto) Lymph % (Auto) [place] % (Auto) Eos % (Auto) Baso % (Auto) Absolute Neuts (auto) Absolute Lymphs (auto) Nucleated RBC % PT INR APTT Sodium Potassium Chloride Carbon Dioxide Anion Gap BUN Creatinine Estim Creat Clear Calc Est GFR (MDRD) Af Amer Est GFR (MDRD) Non-Af BUN/Creatinine Ratio Glucose Lactic Acid 1.7 Calcium Total Bilirubin AST ALT Alkaline Phosphatase Troponin I Total Protein Albumin Globulin Albumin/Globulin Ratio Urine Color Yellow Urine Clarity Sl. Cloudy Urine pH 6.0 Ur Specific [place] 1.010 Urine Protein Negative Urine Glucose (UA) Normal Urine Ketones Negative Urine Occult Blood Negative Urine Nitrite Negative Urine Bilirubin Negative Urine Urobilinogen Normal Ur Leukocyte Esterase 25 H Urine RBC 0 SEEN Urine WBC 0-5 SEEN Ur Squamous Epith Cells 5-10 SEEN Urine Bacteria 0 SEEN Urine Mucus 0 SEEN - Medical Decision Making Patient has significant swelling to the bilateral lower extremities. Erythema and warmth of the right lower extremity. Leukocytosis. Chest x-ray clear. Patient will be given Zosyn. Patient will benefit from IV antibiotics as well as diuresis. Spoke with hospitalist who is agreeable with this plan and patient was admitted in stable condition. Impression: 1. Cellulitis 2. Bilateral lower extremity swelling 3. Morbid obesity ED Disposition - Plan for ED Patient: Disposition: Acute Care Hospital [facility]
[2020-04-01 22:05] LABS: Magnesium 2.3 mg/dL (1.6-2.6)
[2020-04-01] MEDS: Furosemide 100 MG/10 ML Vial 80 MG IV (22:35)
[2020-04-01] MEDS: Atorvastatin Calcium 40 MG Tablet PO (22:36)
[2020-04-01 23:05] LABS: Bedside Glucose 106 mg/dL (70-110)
[2020-04-01] MEDS: Acetaminophen 325 MG Tablet 650 MG PO (23:06)
[2020-04-01] MEDS: oxyCODONE 5 MG Tablet PO (23:07)
--- NOTE | 2020-04-01 23:27 | PCM.RX.CS ---
Consult Pharmacy has been consulted to manage selected antiobiotic: Vancomycin Type of Consult: New start Suspected Infection: Skin/Soft tissue Prior Doses of Antibiotics Received/Current Regimen: Medications Vancomycin HCl 1,750 mg/ (Sodium Chloride) 535 mls @ 250 mls/hr IV Q12H HARSHIL Vancomycin HCl 2,000 mg/ (Sodium Chloride) 540 mls @ 250 mls/hr IV X1 ONE Stop: 04/02/20 00:39 Last Admin: 04/01/20 23:15 Dose: 250 mls/hr Labs: Sodium 138 mmol/L (136-145) 04/01/20 17:12 Potassium 3.8 mmol/L (3.5-5.1) 04/01/20 17:12 Chloride 102 mmol/L (98-107) 04/01/20 17:12 Carbon Dioxide 35.0 mmol/L (21.0-32.0) H 04/01/20 17:12 Anion Gap 1 (5-15) L 04/01/20 17:12 BUN 17 mg/dL (7-18) 04/01/20 17:12 Creatinine 1.21 mg/dL (0.70-1.30) 04/01/20 17:12 Est GFR (MDRD) Af Amer 79 mL/min (>60) 04/01/20 17:12 Est GFR (MDRD) Non-Af 66 mL/min (>60) 04/01/20 17:12 BUN/Creatinine Ratio 14.0 RATIO (-20) 04/01/20 17:12 Glucose 117 mg/dL (74-106) H 04/01/20 17:12 Weight used for dosin.4 kg Estimated Creatinine Clearance: 74 Goal Trough: 15-20 mcg/mL Pharmacy Plan for Drug Dosing: Pharmacy Service will continue to monitor and adjust dosing as required. Follow-Up Labs: Trough Vancomycin Labs to be done on [date and time ordered]: 04/03/20 @1030
[2020-04-02 00:31] LABS: Bedside Glucose 132 mg/dL (70-110)
[2020-04-02 00:47] LABS: M R Staph aureus DNA By PCR Negative (Negative); Probe Check PASS; Specimen Processing Control PASS; Staph aureus DNA By PCR NEGATIVE (Negative)
[2020-04-02 01:25] VITALS: O2SAT 93
--- NOTE | 2020-04-02 03:35 | NURSING ---
Oxygen applied at 2L via n/c. Pt states he has sleep apnea and cannot wear a CPAP or BIPAP but does wear 2L at home at .
[2020-04-02 04:55] VITALS: BP 133/52; PULSE 89; RESP 20; TEMP 37.3; O2SAT 95
[2020-04-02 05:55] LABS: Absolute Lymphocyte Count 1.23 X10^3/uL (0.83-4.51); Absolute Neutrophil Count 11.3 X10^3/uL (2.0-7.7); Basophil# 0.02 X10^3/uL; Basophil% 0.2 % (0-1); Eosinophil# 0.02 X10^3/uL; Eosinophils% 0.2 % (0-5); Hematocrit 32.4 % (40-54); Hemoglobin 9.9 g/dL (13.0-16.5); Lymphocyte # 1.23 X10^3/ul (4.0); Lymphocyte % 9.3 % (19-41); Mean Corp Hgb Conc 30.6 g/dL (32-36); Mean Corpuscular Volume 88.3 fL (80-94); Mean Platelet Vol. 8.4 fl (6.2-12.0); Monocyte# 0.56 X10^3/uL; Monocyte% 4.2 % (0-10); NRBC Flagged by Analyzer 0 % (0-5); Neutrophil # 11.33 X10^3/uL (2.7-7.7); Neutrophil % 85.6 % (47-70); Platelet Count 252 K/mm3 (150-450); RBC Distribution Width CV 18.9 % (11.6-14.6); RBC Distribution Width SD 58.4 fl (35.1-43.9); Red Blood Count 3.67 M/mm3 (4.6-6.2); White Blood Count 13.2 K/mm3 (4.4-11.0)
[2020-04-02] MEDS: Furosemide 100 MG/10 ML Vial 80 MG IV ×3 (05:56→21:00)
[2020-04-02 06:02] LABS: International Normalized Ratio 1.1; Prothrombin Time (Protime)PT. 14.2 SECONDS (11.7-14.9)
[2020-04-02 06:38] LABS: ALB/GLOB Ratio 0.7 RATIO (0.9-2.4); AST(SGOT) 31 U/L (15-37); Alanine Aminotransfer ALT/SGPT 46 U/L (16-61); Albumin, Serum 2.6 g/dL (3.2-5.0); Alkaline Phosphatase 151 U/L (45-117); Anion Gap 7 (5-15); BUN 19 mg/dL (7-18); BUN/Creat Ratio 24.8 RATIO (10-20); Calcium,Total 8.4 mg/dL (8.5-10.1); Chloride 102 mmol/L (98-107); Creatinine, Serum 0.77 mg/dL (0.70-1.30); EST Glomerular Filtration Rate 111 mL/min (>60); Est Glom Filt Rate - Afr Amer 135 mL/min (>60); Estimated Creatinine Clearance 116.18 ml/min; Ferritin 1164 ng/mL (26-388); Globulin 3.8 g/dL (2.2-4.2); Glucose 142 mg/dL (74-106); Iron 75 ug/dL (65-175); Iron Binding Capacity,Total 236 ug/dL (250-450); PERCENT IRON SATURATION 31.8 % (15.0-55.0); Potassium 4.5 mmol/L (3.5-5.1); Protein, Total 6.4 g/dL (6.4-8.2); Sodium Level 136 mmol/L (136-145)
[2020-04-02 07:10] VITALS: O2SAT 96
[2020-04-02] MEDS: Insulin Lispro 100 UNIT/ML INSULN.PEN SC ×2 (08:50→11:27)
[2020-04-02] MEDS: Aspirin E.C. 81 MG Tablet PO (08:55)
[2020-04-02 08:56] VITALS: BP 130/60; PULSE 78; RESP 20; TEMP 37.1; O2SAT 96
[2020-04-02] MEDS: ARIPiprazole 10 MG Tablet 30 MG PO (09:07)
[2020-04-02] MEDS: Lithium Carbonate 300mg Capsule 600 MG PO (09:07)
[2020-04-02] MEDS: FLUoxetine 20 MG Capsule 40 MG PO (09:07)
--- NOTE | 2020-04-02 09:09 | NURSING ---
wound photo: left lower leg
--- NOTE | 2020-04-02 09:10 | NURSING ---
wound photo: right lower leg
[2020-04-02 10:00] LABS: Vitamin B12 900 pg/mL (211-911)
--- NOTE | 2020-04-02 10:40 | CASEMGMT ---
NICK ORNELAS Face to Face with patient for initial transition planning/care coordination assessment. RN JOHNSON introduced self and role at [facility]. Patient lying in bed, alert and oriented. Patient willing to participate in assessment and is able to answer all questions appropriately. Care providers, pharmacy, and demographics verified. Patient wishes to discharge home, with resumption of his aide services. Patient states he has no further needs or concerns at this time. CM to follow for discharge planning needs that may arise. PCP: SHASHANK Medina Specialists: none Preferred Pharmacy: [facility] Insurance: [place], [facility], [facility] Prescription Benefit: yes Living Will/HPOA: yes sister Tash Pace HPOA LNOK: sister Living Arrangements: Patient lives alone in a 1st floor apartment with no steps to enter. Patient states he is independent for dressing and toileting, has aides for bathing 3x/week for 2 hrs/day. Transportation: [employer] DME/HHC: Patient states he has a shower chair, raised toilet, cane, walker, hospital bed, grab bars, wheelchair, and oxygen at [facility] @ 2lpm. Will monitor need for HHC as patient progresses with care. Disposition Plan: Patient to discharge home with resumption of aide services, family support, and follow-up plans in place. Will monitor need for HHC for [facility]cfp and therapy. Carito CALVILLO, RN, CM
[2020-04-02 11:05] LABS: Bedside Glucose 219 mg/dL (70-110)
[2020-04-02 11:51] LABS: Bedside Glucose 205 mg/dL (70-110)
--- NOTE | 2020-04-02 11:57 | PCM.PN.HOSP ---
Patient Problems: Active and Suspected Problems Cellulitis of right leg (Acute) Reason for Visit: Bilateral lower extremity lymphedema, chronic in nature. Right lower extremity cellulitis Objective: Patient had fever at home. T-max in hospital 99.2 Fahrenheit. Heart rate and blood pressure are controlled. Physical exam General: Alert, Oriented x3, Cooperative, morbid obesity 65.9 kg/m?. HEENT: Atraumatic, PERRLA, EOMI, Normocephalic Oral: No Gingival or Mucosal Lesions/ Ulcerations Neck: Supple, No JVD, Negative Carotid Bruits Lungs: Air entry diminished in bilateral lung bases. No crepitation/rhonchi Cardiovascular: Regular rate, Regular Rhythm, Normal S1, Normal S2, No murmurs Abdomen: Bowel Sounds Present, Soft, Non Tender, Non-Distended : No renal angle tenderness. No suprapubic tenderness. Extremities: Bilateral lower extremity lymphedema chronic in nature with seeping of clear fluid. Right worse than left. Skin: Erythema, tenderness in right lower leg. Superficial weeping excoriation/ulcer in both lower legs. Musculoskeletal: No Tenderness to Palpation of Joints or Extremities Neurological: Cranial nerves II-XII grossly intact, Deep Tendon Reflexes 2+/4 and Symmetrical, Neuro grossly intact Psych/Mental Status: Normal Affect, Appropriate. Vitals/I&O's: Vital Signs Temp Pulse Resp BP Pulse Ox 98.8 F 78 20 H 130/60 H 96 04/02/20 08:56 04/02/20 08:56 04/02/20 08:56 04/02/20 08:56 04/02/20 08:56 Oxygen Flow Rate (L/min) 2 Oxygen Delivery Method Nasal Cannula Weight: 485 lb 14.381 oz Body Mass Index (BMI) 65.9 Intake and Output for Last 24 Hours 03/31/20 04/01/20 04/02/20 23:59 23:59 23:59 Intake Total 850 / 850 1390 / 1390 Output Total 1000 / 1000 1100 / 1100 Balance -150 / -150 290 / 290 Microbiology Past 72 Hours 04/01/20 22:45 Wound - Leg, Left Gram Stain - Final 04/01/20 22:45 Wound - Leg, Right Gram Stain - Final Laboratory Results 04/01/20 17:12: WBC 12.6 H, RBC 4.28 L, Hgb 10.9 L, Hct 36.7 L, MCV 85.7, MCH 25.5 L, MCHC 29.7 L, RDW Std Deviation 50.9 H, RDW Coeff of Varsha 16.4 H, Plt Count 308, MPV 8.7, Immature Gran % (Auto) 0.600, Neut % (Auto) 73.0 H, Lymph % (Auto) 18.3 L, [place] % (Auto) 6.2, Eos % (Auto) 1.7, Baso % (Auto) 0.2, Absolute Neuts (auto) 9.2 H, Absolute Lymphs (auto) 2.30, Nucleated RBC % 0 04/01/20 17:12: PT 28.6 H, INR 2.7, APTT 56.9 H 04/01/20 17:12: Sodium 138, Potassium 3.8, Chloride 102, Carbon Dioxide 35.0 H, Anion Gap 1 L, BUN 17, Creatinine 1.21, Estim Creat Clear Calc 73.93, Est GFR (MDRD) Af Amer 79, Est GFR (MDRD) Non-Af 66, BUN/Creatinine Ratio 14.0, Glucose 117 H, Calcium 9.2, Total Bilirubin 0.40, AST 13 L, ALT 15 L, Alkaline Phosphatase 83, Troponin I < 0.015, Total Protein 8.1, Albumin 2.9 L, Globulin 5.2 H, Albumin/Globulin Ratio 0.6 L 04/01/20 17:12: Lactic Acid 1.7 04/01/20 17:12: Magnesium 2.3 04/01/20 18:30: Urine Color Yellow, Urine Clarity Sl. Cloudy, Urine pH 6.0, Ur Specific Gu[place] 1.010, Urine Protein Negative, Urine Glucose (UA) Normal, Urine Ketones Negative, Urine Occult Blood Negative, Urine Nitrite Negative, Urine Bilirubin Negative, Urine Urobilinogen Normal, Ur Leukocyte Esterase 25 H, Urine RBC 0 SEEN, Urine WBC 0-5 SEEN, Ur Squamous Epith Cells 5-10 SEEN, Urine Bacteria 0 SEEN, Urine Mucus 0 SEEN 04/01/20 22:34: POC Glucose 106 04/01/20 22:45: S.aureus Protein A PCR NEGATIVE, MRSA (PCR) Negative 04/02/20 00:26: POC Glucose 132 H 04/02/20 05:38: WBC 13.2 H, RBC 3.67 L, Hgb 9.9 L, Hct 32.4 L, MCV 88.3, MCH 27.0, MCHC 30.6 L, RDW Std Deviation 58.4 H, RDW Coeff of Varsha 18.9 H, Plt Count 252, MPV 8.4, Immature Gran % (Auto) 0.500, Neut % (Auto) 85.6 H, Lymph % (Auto) 9.3 L, [place] % (Auto) 4.2, Eos % (Auto) 0.2, Baso % (Auto) 0.2, Absolute Neuts (auto) 11.3 H, Absolute Lymphs (auto) 1.23, Nucleated RBC % 0 04/02/20 05:38: Sodium 136, Potassium 4.5, Chloride 102, Carbon Dioxide 27.0, Anion Gap 7, BUN 19 H, Creatinine 0.77, Estim Creat Clear Calc 116.18, Est GFR (MDRD) Af Amer 135, Est GFR (MDRD) Non-Af 111, BUN/Creatinine Ratio 24.8 H, Glucose 142 H, Calcium 8.4 L, Iron 75, TIBC 236 L, Iron Saturation 31.8, Ferritin 1164 H, Total Bilirubin 0.50, AST 31, ALT 46, Alkaline Phosphatase 151 H, Total Protein 6.4, Albumin 2.6 L, Globulin 3.8, Albumin/Globulin Ratio 0.7 L, Folate 17.40 04/02/20 05:38: PT 14.2, INR 1.1 04/02/20 05:38: Vitamin B12 900 04/02/20 08:02: POC Glucose 219 H 04/02/20 11:25: POC Glucose 205 H Current Medications Acetaminophen (Acetaminophen 325 Mg Tablet) 650 mg PO Q6H PRN PRN PRN Reason: Pain Score 1-10/Temp > 100.7 F Last Admin: 04/01/20 23:06 Dose: 650 mg Documented by: Al Hydroxide/Mg Hydroxide (Mag Hydrox/Al Hydrox/Simeth 30 Ml Udc) 30 ml PO Q6H PRN PRN PRN Reason: Gastric Burning Aripiprazole (Aripiprazole 10 Mg Tablet) 30 mg PO DAILY [facility] Last Admin: 04/02/20 09:07 Dose: 30 mg Documented by: Aspirin (Aspirin E.C. 81 Mg Tablet) 81 mg PO DAILY@0800 [facility] Last Admin: 04/02/20 08:55 Dose: 81 mg Documented by: Atorvastatin Calcium (Atorvastatin Calcium 40 Mg Tablet) 40 mg PO QHS [facility] Last Admin: 04/01/20 22:36 Dose: 40 mg Documented by: Fluoxetine HCl (Fluoxetine 20 Mg Capsule) 40 mg PO DAILY [facility] Last Admin: 04/02/20 09:07 Dose: 40 mg Documented by: Furosemide (Furosemide 100 Mg/10 Ml Vial) 80 mg IV TID [facility] Last Admin: 04/02/20 05:56 Dose: 80 mg Documented by: Guaifenesin (Guaifenesin 10 Ml Udc (200mg/10ml)) 20 ml PO Q4H PRN PRN PRN Reason: COUGH Piperacillin Sod/Tazobactam (Sod 3.375 gm/ Sodium Chloride) 50 mls @ 12.5 mls/hr IV Q8 [facility] Last Infusion: 04/02/20 09:41 Dose: Infused Documented by: Insulin Human Lispro (Insulin Lispro 100 Unit/Ml Insuln.Pen) 0 unit SC ACHS [facility]; Protocol Last Admin: 04/02/20 11:27 Dose: 2 u Documented by: Insulin Human Regular (Insulin U-500 Pen) 140 units SC BIDAC [facility] Last Admin: 04/02/20 08:50 Dose: 140 u Documented by: [place] Carbonate ([place] Carbonate 300mg Capsule) 600 mg PO DAILY [facility] Last Admin: 04/02/20 09:07 Dose: 600 mg Documented by: Magnesium Hydroxide (Magnesium Hydroxide 30 Ml Udc) 30 ml PO DAILY PRN PRN PRN Reason: Constipation Melatonin (Melatonin 3 Mg Tablet) 3 mg PO QHS PRN PRN PRN Reason: INSOMNIA Morphine Sulfate (Morphine 2 Mg/Ml Syringe) 2 mg IV Q3H PRN PRN PRN Reason: Pain Score 6-10 Nitroglycerin (Nitroglycerin (Inpatient Use) 0.4 Mg Tab.Subl) 0.4 mg SUBLINGUAL Q5M PRN PRN Reason: CARDIAC/CHEST PAIN Ondansetron HCl (Ondansetron 4 Mg/2 Ml Vial) 4 mg IV Q8H PRN PRN PRN Reason: NAUSEA/VOMITING Oxycodone HCl (Oxycodone 5 Mg Tablet) 5 mg PO Q4H PRN PRN PRN Reason: Pain Score 4-5 Last Admin: 10/19/20 23:07 Dose: 5 mg Documented by: Potassium Chloride (Potassium Chloride 20 Meq Tablet) [facility] Last Admin: 04/02/20 08:54 Dose: 40 meq Documented by: Prochlorperazine Edisylate (Prochlorperazine 10 Mg/2 Ml Vial) 5 mg IV Q4H PRN PRN PRN Reason: Breakthrough nausea/vomiting Psyllium Hydrophilic Mucilloid (Psyllium 1 Packet) 1 packet PO DAILY PRN PRN PRN Reason: Constipation Senna/Docusate Sodium (Senna/Docusate Sodium 1 Tablet) 2 tablet PO BID PRN PRN PRN Reason: Constipation Sodium Chloride (0.9% Saline Lock 10 Ml Syringe) 10 - 40 ml IV UD PRN PRN Reason: SALINE FLUSH Throat Lozenges (Benzocaine/Menthol 1 Lozenge) 1 lozenge MUCOUS MEM Q2H PRN PRN PRN Reason: SORE THROAT Warfarin Sodium (Warfarin 7.5 Mg Tablet) 7.5 mg PO Fr@1700 [facility] Warfarin Sodium (Warfarin 5 Mg Tablet) 5 mg PO SuMoTuWeThSa@1700 [facility] STROKE Vital Signs/Narrative: Vital Signs Temp Pulse Resp BP Pulse Ox 04/02/20 08:56 98.8 F 78 20 H 130/60 H 96 Medical Necessity - Tobacco Use Smoking Status: Never smoker Tobacco Use: Non-smoker Assessment/Plan All Active Problems Cellulitis of right leg (Acute) Acute exacerbation of CHF (congestive heart failure) (Acute) Anasarca (Acute) Unable to ambulate (Acute) The patient is 55-year-old woman with multiple comorbidities including chronic diastolic heart failure diabetes mellitus type 2 was admitted with worsening of right lower extremity erythema, pain, tenderness and fever 101 at home suggestive of right lower extremity cellulitis. 1. Right lower extremity cellulitis complicated with bilateral lower extremity lymphedema with venous stasis/hypertension and weeping/seepage of lymphatic fluid and ulcer: Patient is being admitted on the MedSurg floor. Seen by wound care nurse and dressing done. On IV Zosyn. Vancomycin discontinued as MRSA nasal screen was negative. Conservative management with lower extremity elevation, PT and OT. On IV Lasix for lymphedema 2. Chronic systolic heart failure: At home patient is on torsemide which is transitioned to IV Lasix. On a statin. Most of his echocardiogram 11/28/2019 showed normal LV systolic function EF 65%, mildly dilated aortic root with technically limited study. 3. Chronic normocytic anemia: Hemoglobin is stable, baseline 10.9/36, most recent 9.9/32.4. Serum iron 75, TIBC low at 236, iron saturation 31.8. Ferritin high 1164. 4. Morbid Obesity: Weight loss and lifestyle changes encouraged, renal technician consulted. 5. Diabetes mellitus type II: continue home insulin regimen accu checks with sliding scale insulin. Victoza is on hold as not hospital formulary. 6. Anxiety and depression/bipolar disorder: continue patient home Prozac, Abilify and lithium regimen. 7. Hypertension: Holding patient oral torsemide, on IV Lasix, 80 mg 3 times daily as noted, once euvolemic, will change to back Torsemide 8. Hyperlipidemia: Continue home statin regimen. 9. History of bone cancer: Per patient report possible [facility], unclear, [facility]. 10. History DVT: Continued on Coumadin with INR trending. Coumadin increased to 7.5 mg daily. Monitor INR daily. INR subtherapeutic. Supplemented with Lovenox subcu 1 dose. 11. DVT Prophylaxis: As mentioned above Total time of the visit including total time spent in counseling or coordination of care, (more than 50% of the total time, spent in obtaining medical information from nurses and other ancillary care providers), wound care, review of labs and imaging is 30 minutes. Inpatient E&M: [id number] [facility] [[email or web address]] Hosp L2
--- NOTE | 2020-04-02 13:51 | CASEMGMT ---
NICK CM in to discuss [facility] decl[facility]. Patient wishes to stay at [facility]. [facility] with [facility]. Patient had no further questions or concerns at this time.
[2020-04-02 13:57] VITALS: BP 122/53; PULSE 73; RESP 16; TEMP 37.2; O2SAT 97
--- NOTE | 2020-04-02 15:16 | CASEMGMT ---
NICK ORNELAS received call from [facility] and [facility]. Patient is active with aides serviced 6 hours per week. Per Purnima at [facility] they are able to provided skilled services if needs. P: [phone] F: [phone] to send updated clinicals at discharge.
[2020-04-02 16:26] LABS: Bedside Glucose 112 mg/dL (70-110)
[2020-04-02] MEDS: Enoxaparin 150 MG/ML Syringe SC (16:27)
[2020-04-02 21:00] VITALS: BP 125/56; PULSE 68; RESP 18; TEMP 36.9; O2SAT 94
[2020-04-02] MEDS: Atorvastatin Calcium 40 MG Tablet PO (21:00)
[2020-04-02] MEDS: oxyCODONE 5 MG Tablet PO (21:01)
[2020-04-02 21:41] LABS: Bedside Glucose 90 mg/dL (70-110)
[2020-04-02 22:31] LABS: Bedside Glucose 135 mg/dL (70-110)
[2020-04-03 02:22] VITALS: BP 119/63; PULSE 64; RESP 18; TEMP 36.7; O2SAT 96
[2020-04-03] MEDS: oxyCODONE 5 MG Tablet PO ×2 (05:13→21:04)
[2020-04-03] MEDS: Furosemide 100 MG/10 ML Vial 80 MG IV ×2 (05:14→16:40)
[2020-04-03] MEDS: 0.9% Saline Lock 10 ML Syringe IV ×3 (05:15→16:47)
[2020-04-03 05:43] LABS: Absolute Lymphocyte Count 1.99 X10^3/uL (0.83-4.51); Absolute Neutrophil Count 7.7 X10^3/uL (2.0-7.7); Basophil# 0.02 X10^3/uL; Basophil% 0.2 % (0-1); Eosinophil# 0.14 X10^3/uL; Eosinophils% 1.3 % (0-5); Hematocrit 32.5 % (40-54); Hemoglobin 9.4 g/dL (13.0-16.5); Lymphocyte # 1.99 X10^3/ul (4.0); Lymphocyte % 18.8 % (19-41); Mean Corp Hgb Conc 28.9 g/dL (32-36); Mean Corpuscular Hgb 25.3 pg (27.0-32.0); Mean Corpuscular Volume 87.6 fL (80-94); Mean Platelet Vol. 8.3 fl (6.2-12.0); Monocyte# 0.71 X10^3/uL; Monocyte% 6.7 % (0-10); NRBC Flagged by Analyzer 0 % (0-5); Neutrophil # 7.68 X10^3/uL (2.7-7.7); Neutrophil % 72.5 % (47-70); Platelet Count 251 K/mm3 (150-450); RBC Distribution Width CV 16.6 % (11.6-14.6); RBC Distribution Width SD 53.3 fl (35.1-43.9); Red Blood Count 3.71 M/mm3 (4.6-6.2); White Blood Count 10.6 K/mm3 (4.4-11.0)
[2020-04-03 05:55] LABS: International Normalized Ratio 2.8; Prothrombin Time (Protime)PT. 29.5 SECONDS (11.7-14.9)
[2020-04-03 06:09] LABS: Anion Gap 4 (5-15); BUN 12 mg/dL (7-18); BUN/Creat Ratio 11.4 RATIO (10-20); Calcium,Total 8.3 mg/dL (8.5-10.1); Chloride 105 mmol/L (98-107); Creatinine, Serum 1.05 mg/dL (0.70-1.30); EST Glomerular Filtration Rate 77 mL/min (>60); Est Glom Filt Rate - Afr Amer 93 mL/min (>60); Glucose 73 mg/dL (74-106); Magnesium 2.2 mg/dL (1.6-2.6); Potassium 3.4 mmol/L (3.5-5.1); Sodium Level 137 mmol/L (136-145)
[2020-04-03 07:34] VITALS: O2SAT 95
[2020-04-03] MEDS: Lithium Carbonate 300mg Capsule 600 MG PO (08:27)
[2020-04-03] MEDS: FLUoxetine 20 MG Capsule 40 MG PO (08:28)
[2020-04-03] MEDS: Aspirin E.C. 81 MG Tablet PO (08:28)
[2020-04-03] MEDS: ARIPiprazole 10 MG Tablet 30 MG PO (08:28)
[2020-04-03 08:33] VITALS: BP 114/42; PULSE 71; RESP 20; TEMP 36.9; O2SAT 98
[2020-04-03 08:40] LABS: Bedside Glucose 91 mg/dL (70-110)
--- NOTE | 2020-04-03 11:19 | PN_ITS ---
Patient Problems: Active and Suspected Problems Cellulitis of right leg (Acute) Reason for Visit: Follow-up for cellulitis Objective: Seen and examined. No fever or chills. Physical exam General: Alert, Oriented x3, Cooperative, morbid obesity 65.9 kg/m?. HEENT: Atraumatic, PERRLA, EOMI, Normocephalic Oral: No Gingival or Mucosal Lesions/ Ulcerations Neck: Supple, No JVD, Negative Carotid Bruits Lungs: Air entry diminished in bilateral lung bases. No crepitation/rhonchi Cardiovascular: Regular rate, Regular Rhythm, Normal S1, Normal S2, No murmurs Abdomen: Bowel Sounds Present, Soft, Non Tender, Non-Distended : No renal angle tenderness. No suprapubic tenderness. Extremities: Bilateral lower extremity lymphedema chronic in nature with seeping of clear fluid. Right worse than left. Skin: Bilateral lower extremity legs looks better. Seepage have almost stopped. Superficial excoriation in both lower legs. Musculoskeletal: No Tenderness to Palpation of Joints or Extremities Neurological: Cranial nerves II-XII grossly intact, Deep Tendon Reflexes 2+/4 and Symmetrical, Neuro grossly intact Psych/Mental Status: Normal Affect, Appropriate. Vitals/I&O's: Vital Signs Temp Pulse Resp BP Pulse Ox 98.4 F 71 20 H 114/42 L 98 04/03/20 08:33 04/03/20 08:33 04/03/20 08:33 04/03/20 08:33 04/03/20 08:33 Oxygen Flow Rate (L/min) 2 Oxygen Delivery Method Nasal Cannula Weight: 478 lb 6.449 oz Body Mass Index (BMI) 65.9 Intake and Output for Last 24 Hours 04/01/20 04/02/20 04/03/20 23:59 23:59 23:59 Intake Total 850 / 850 1440 / 1440 100 / 100 Output Total 1000 / 1000 1100 / 2750 3600 / 3600 Balance -150 / -150 340 / -1310 -3500 / -3500 Microbiology Past 72 Hours 04/01/20 22:45 Wound - Leg, Left Gram Stain - Final 04/01/20 22:45 Wound - Leg, Left Wound Culture - Preliminary GNR lactose earth sciences professor Mixed Gram Positive Organisms 04/01/20 22:45 Wound - Leg, Right Gram Stain - Final 04/01/20 22:45 Wound - Leg, Right Wound Culture - Preliminary Mixed Gram Pos & Gram Neg Org 04/01/20 18:30 Urine, Clean Catch Urine Culture - Final Mixed Gram Positive Organisms Laboratory Results 04/02/20 11:25: POC Glucose 205 H 04/02/20 16:21: POC Glucose 112 H 04/02/20 21:35: POC Glucose 90 04/02/20 22:24: POC Glucose 135 H 04/03/20 05:34: PT 29.5 H, INR 2.8 04/03/20 05:34: WBC 10.6, RBC 3.71 L, Hgb 9.4 L, Hct 32.5 L, MCV 87.6, MCH 25.3 L, MCHC 28.9 L D, RDW Std Deviation 53.3 H, RDW Coeff of Varsha 16.6 H, Plt Count 251, MPV 8.3, Immature Gran % (Auto) 0.500, Neut % (Auto) 72.5 H, Lymph % (Auto) 18.8 L, [place] % (Auto) 6.7, Eos % (Auto) 1.3, Baso % (Auto) 0.2, Absolute Neuts (auto) 7.7, Absolute Lymphs (auto) 1.99, Nucleated RBC % 0 04/03/20 05:34: Sodium 137, Potassium 3.4 L, Chloride 105, Carbon Dioxide 28.0, Anion Gap 4 L, BUN 12, Creatinine 1.05, Estim Creat Clear Calc 85.20, Est GFR (MDRD) Af Amer 93, Est GFR (MDRD) Non-Af 77, BUN/Creatinine Ratio 11.4, Glucose 73 L, Calcium 8.3 L, Magnesium 2.2 04/03/20 08:25: POC Glucose 91 Current Medications Acetaminophen (Acetaminophen 325 Mg Tablet) 650 mg PO Q6H PRN PRN PRN Reason: Pain Score 1-10/Temp > 100.7 F Last Admin: 04/01/20 23:06 Dose: 650 mg Documented by: Al Hydroxide/Mg Hydroxide (Mag Hydrox/Al Hydrox/Simeth 30 Ml Udc) 30 ml PO Q6H PRN PRN PRN Reason: Gastric Burning Aripiprazole (Aripiprazole 10 Mg Tablet) 30 mg PO DAILY [facility] Last Admin: 04/03/20 08:28 Dose: 30 mg Documented by: Aspirin (Aspirin E.C. 81 Mg Tablet) 81 mg PO DAILY@0800 [facility] Last Admin: 04/03/20 08:28 Dose: 81 mg Documented by: Atorvastatin Calcium (Atorvastatin Calcium 40 Mg Tablet) 40 mg PO QHS [facility] Last Admin: 04/02/20 21:00 Dose: 40 mg Documented by: Calamine/Phenol (Menthol/Lanolin/Calamine/Znox 113 Gm Tube) 1 applic TOPICAL BID [facility]; Protocol Fluoxetine HCl (Fluoxetine 20 Mg Capsule) 40 mg PO DAILY [facility] Last Admin: 04/03/20 08:28 Dose: 40 mg Documented by: Furosemide (Furosemide 100 Mg/10 Ml Vial) 80 mg IV TID [facility] Last Admin: 04/03/20 05:14 Dose: 80 mg Documented by: Guaifenesin (Guaifenesin 10 Ml Udc (200mg/10ml)) 20 ml PO Q4H PRN PRN PRN Reason: COUGH Ceftriaxone Sodium 2 gm/ (Sodium Chloride) 50 mls @ 100 mls/hr IV Q24 [facility] Insulin Human Lispro (Insulin Lispro 100 Unit/Ml Insuln.Pen) 0 unit SC ACHS [facility]; Protocol Last Admin: 04/03/20 08:26 Dose: Not Given Documented by: Insulin Human Regular (Insulin U-500 Pen) 140 units SC BIDAC [facility] Last Admin: 04/03/20 08:29 Dose: 140 u Documented by: [place] Carbonate ([place] Carbonate 300mg Capsule) 600 mg PO DAILY [facility] Last Admin: 04/03/20 08:27 Dose: 600 mg Documented by: Magnesium Hydroxide (Magnesium Hydroxide 30 Ml Udc) 30 ml PO DAILY PRN PRN PRN Reason: Constipation Melatonin (Melatonin 3 Mg Tablet) 3 mg PO QHS PRN PRN PRN Reason: INSOMNIA Morphine Sulfate (Morphine 2 Mg/Ml Syringe) 2 mg IV Q3H PRN PRN PRN Reason: Pain Score 6-10 Nitroglycerin (Nitroglycerin (Inpatient Use) 0.4 Mg Tab.Subl) 0.4 mg SUBLINGUAL Q5M PRN PRN Reason: CARDIAC/CHEST PAIN Nystatin (Nystatin Powder 15gm Bottle) 1 applic TOPICAL BID [facility]; Protocol Ondansetron HCl (Ondansetron 4 Mg/2 Ml Vial) 4 mg IV Q8H PRN PRN PRN Reason: NAUSEA/VOMITING Oxycodone HCl (Oxycodone 5 Mg Tablet) 5 mg PO Q4H PRN PRN PRN Reason: Pain Score 4-5 Last Admin: 04/03/20 05:13 Dose: 5 mg Documented by: Potassium Chloride (Potassium Chloride 20 Meq Tablet) 40 meq PO DAILYCM [facility] Last Admin: 04/03/20 08:28 Dose: 40 meq Documented by: Prochlorperazine Edisylate (Prochlorperazine 10 Mg/2 Ml Vial) 5 mg IV Q4H PRN PRN PRN Reason: Breakthrough nausea/vomiting Psyllium Hydrophilic Mucilloid (Psyllium 1 Packet) 1 packet PO DAILY PRN PRN PRN Reason: Constipation Senna/Docusate Sodium (Senna/Docusate Sodium 1 Tablet) 2 tablet PO BID PRN PRN PRN Reason: Constipation Sodium Chloride (0.9% Saline Lock 10 Ml Syringe) 10 - 40 ml IV UD PRN PRN Reason: SALINE FLUSH Last Admin: 04/03/20 06:25 Dose: 10 ml Documented by: Throat Lozenges (Benzocaine/Menthol 1 Lozenge) 1 lozenge MUCOUS MEM Q2H PRN PRN PRN Reason: SORE THROAT Warfarin Sodium (Warfarin 7.5 Mg Tablet) 7.5 mg PO Fr@1700 [facility] Warfarin Sodium (Warfarin 7.5 Mg Tablet) 7.5 mg PO SuMoTuWeThSa@1700 [facility] Last Admin: 04/02/20 17:37 Dose: 7.5 mg Documented by: STROKE Vital Signs/Narrative: Vital Signs Temp Pulse Resp BP Pulse Ox 04/03/20 08:33 98.4 F 71 20 H 114/42 L 98 04/03/20 07:34 95 Medical Necessity - Tobacco Use Smoking Status: Never smoker Tobacco Use: Non-smoker Assessment/Plan All Active Problems Cellulitis of right leg (Acute) Acute exacerbation of CHF (congestive heart failure) (Acute) Anasarca (Acute) Unable to ambulate (Acute) The patient is 55-year-old woman with multiple comorbidities including chronic diastolic heart failure diabetes mellitus type 2 was admitted with worsening of right lower extremity erythema, pain, tenderness and fever 101 at home suggestive of right lower extremity cellulitis. 1. Right lower extremity cellulitis complicated with bilateral lower extremity lymphedema with venous stasis/hypertension and weeping/seepage of lymphatic fluid and ulcer: Patient is being admitted on the MedSur floor. Seen by wound care nurse and dressing done. On IV Zosyn. Vancomycin discontinued as MRSA nasal screen was negative. Conservative management with lower extremity elevation, PT and OT. On IV Lasix for lymphedema 04/03: Antibiotic narrowed down to IV ceftriaxone 2 g daily. DC IV Zosyn. Gram stain of wound culture shows mixed gram-positive and gram-negative organism and gram-negative chilo lactose earth sciences professor. Monitor culture. Blood cultures x2 did not show growth yet. Patient has lymphedema pump at home. He agreed for coming to lymphedema clinic at [facility]. 2. Chronic systolic heart failure: At home patient is on torsemide which is transitioned to IV Lasix. On a statin. Most of his echocardiogram 11/28/2019 showed normal LV systolic function EF 65%, mildly dilated aortic root with technically limited study. 3. Chronic normocytic anemia: Hemoglobin is stable, baseline 10.9/36, most rece nt 9.9/32.4. Serum iron 75, TIBC low at 236, iron saturation 31.8. Ferritin high 1164. 4. Morbid Obesity: Weight loss and lifestyle changes encouraged, hydrogen treater consulted. 5. Diabetes mellitus type II: continue home insulin regimen accu checks with sliding scale insulin. Victoza is on hold as not hospital formulary. 6. Anxiety and depression/bipolar disorder: continue patient home Prozac, Abilify and lithium regimen. 7. Hypertension: Holding patient oral torsemide, on IV Lasix, 80 mg 3 times daily as noted, once euvolemic, will change to back Torsemide 8. Hyperlipidemia: Continue home statin regimen. 9. History of bone cancer: Per patient report possible [facility], unclear, [facility] at [facility]. 10. History DVT: Continued on Coumadin with INR trending. Coumadin increased to 7.5 mg daily. Monitor INR daily. INR subtherapeutic. Supplemented with Lovenox subcu 1 dose. 11. DVT Prophylaxis: As mentioned above Total time of the visit including total time spent in counseling or coordination of care, (more than 50% of the total time, spent in obtaining medical information from nurses and other ancillary care providers), wound care, review of labs and imaging is 30 minutes. Inpatient E&M: [id number] [facility] Hosp L2
[2020-04-03] MEDS: Nystatin Powder 15gm Bottle 1 APPLIC TOPICAL ×2 (11:42→21:04)
[2020-04-03 16:45] LABS: Bedside Glucose 139 mg/dL (70-110)
[2020-04-03 16:46] VITALS: BP 112/61; PULSE 62; RESP 20; TEMP 36.6; O2SAT 99
[2020-04-03 21:00] VITALS: BP 105/52; PULSE 65; RESP 18; TEMP 36.7; O2SAT 96
[2020-04-03] MEDS: Acetaminophen 325 MG Tablet 650 MG PO (21:04)
[2020-04-03] MEDS: Atorvastatin Calcium 40 MG Tablet PO (21:05)
[2020-04-03] MEDS: Menthol/Lanolin/Calamine/Znox 113 GM Tube 1 APPLIC TOPICAL (21:05)
[2020-04-03 21:06] LABS: Bedside Glucose 86 mg/dL (70-110)
[2020-04-03 22:26] LABS: Bedside Glucose 137 mg/dL (70-110)
[2020-04-04] MEDS: oxyCODONE 5 MG Tablet PO (02:01)
[2020-04-04 02:13] VITALS: BP 121/60; PULSE 62; RESP 18; TEMP 36.8; O2SAT 98
[2020-04-04 07:29] LABS: Anion Gap 4 (5-15); BUN 8 mg/dL (7-18); BUN/Creat Ratio 7.8 RATIO (10-20); Calcium,Total 8.6 mg/dL (8.5-10.1); Chloride 105 mmol/L (98-107); Creatinine, Serum 1.03 mg/dL (0.70-1.30); EST Glomerular Filtration Rate 79 mL/min (>60); Est Glom Filt Rate - Afr Amer 96 mL/min (>60); Estimated Creatinine Clearance 86.85 ml/min; Glucose 83 mg/dL (74-106); Potassium 3.3 mmol/L (3.5-5.1); Sodium Level 140 mmol/L (136-145)
[2020-04-04 07:49] LABS: International Normalized Ratio 2.9; Prothrombin Time (Protime)PT. 29.8 SECONDS (11.7-14.9)
[2020-04-04 07:55] VITALS: O2SAT 96
[2020-04-04 08:10] LABS: Bedside Glucose 93 mg/dL (70-110)
[2020-04-04 08:15] VITALS: BP 135/52; PULSE 55; RESP 18; TEMP 37.1; O2SAT 98
[2020-04-04] MEDS: Aspirin E.C. 81 MG Tablet PO (08:32)
--- NOTE | 2020-04-04 10:02 | PCM.DC ---
- Discharge Diagnoses Current Active Problems: Current Active and Chronic Problems Anxiety and depression (Chronic) High cholesterol (Chronic) Hypertension (Chronic) Diabetes (Chronic) Morbid obesity (Chronic) Cellulitis of right leg (Acute) Congestive heart failure (Chronic) Lymphedema (Chronic) You will use the following diet at home:: Calorie/Carbohydrate Controlled (specify 1200, 1400, etc) - 1800 ADA DIET, Cardiac Your food should be the consistency of: Regular Discharge Activity: May Not Drive Call your doctor if you observe: Fever of 101 or Higher, Numbness or Tingling, Inability to urinate, Inability to have a bowel movement, Shortness of breath, Dizziness, Fainting spells, Swelling in the ankles, Chest pain, Prolonged hiccoughing, Increased palpitations (irregular heartbeat), Calf discomfort, Uncontrolled pain Additional Instructions: Patient can come to lymphedema clinic at [facility] as an outpatient 2 times a week. Allergies/Adverse Reactions: Allergies gabapentin Adverse Reaction (Verified 04/01/20 19:46) Swelling of legs Medications to take at Discharge Aripiprazole [Abilify] 30 mg PO DAILY 11/04/19 Fluoxetine [Prozac] 40 mg PO DAILY 11/04/19 [place] Carbonate 600 mg PO DAILY 11/04/19 Warfarin [Coumadin] 5 mg PO SUMOTUWETHSA 11/04/19 Warfarin [Coumadin] 7.5 mg PO FR 11/04/19 Aspirin E.C. [Ecotrin] 81 mg PO DAILY@0800 02/20/20 Insulin Regular, Human [Humulin R U-500 Kwikpen] 140 unit SQ BID 02/20/20 Liraglutide [Victoza 3-Rick] 1.2 mg SQ DAILY 02/20/20 Acetaminophen [Tylenol] 1,000 mg PO Q8H PRN PRN 04/01/20 Rosuvastatin Calcium 20 mg PO QHS 04/01/20 Amox/Clavulanate Tablet [Augmentin Tablet] 875 mg PO Q12H #8 tab 04/04/20 L. Acidophilus/L.bulgaricus [Lactobacillus Tablet] 1 ea PO TID #14 tab 04/04/20 Menthol/Lanolin/Calamine/Znox [Calmoseptine Ointment] 1 applic TOPICAL BID tube 04/04/20 Nystatin Powder [Mycostatin Powder] 1 applic TOPICAL BID #1 bottle 04/04/20 Potassium Chloride [K-Dur] 40 meq PO BIDCM #60 tab 04/04/20 Senna/Docusate Sodium [Senokot-S] 2 tablet PO BID PRN PRN tablet 04/04/20 Torsemide [Demadex] 80 mg PO BID #60 tab 04/04/20 The following prescriptions were given: Amox/Clavulanate Tablet [Augmentin Tablet] 875 mg PO Q12H #8 tab Transmission Status: Pending to [facility] Torsemide [Demadex] 80 mg PO BID #60 tab Transmission Status: Pending to [facility] Potassium Chloride [K-Dur] 40 meq PO BIDCM #60 tab Transmission Status: Pending to [facility] L. Acidophilus/L.bulgaricus [Lactobacillus Tablet] 1 ea PO TID #14 tab Transmission Status: Pending to [facility] Nystatin Powder [Mycostatin Powder] 1 applic TOPICAL BID #1 bottle Transmission Status: Pending to [facility] Primary Care Physician: [facility] [Primary Care Provider] - Please follow up with your Primary Care Physician in: IN 1-2 WEEKS Test Results: Test results from this visit will be discussed in further detail at your follow-up appointment, if applicable.
--- NOTE | 2020-04-04 10:03 | DS.PCM_ITS ---
Discharge Date and Diagnosis - Problem List Patient Problems: Active and Suspected Problems Cellulitis of right leg (Acute) Date of Admission: 04/01/20 Date of Discharge: 04/04/20 - Primary Discharge Diagnosis Acute Problems: Active Problems Cellulitis of right leg (Acute) - Secondary Discharge Diagnosis Chronic Problems: Chronic Problems Anxiety and depression (Chronic) High cholesterol (Chronic) Hypertension (Chronic) Obstructive sleep apnea (Chronic) CVA (cerebral vascular accident) (Chronic) Diabetes (Chronic) Morbid obesity (Chronic) Congestive heart failure (Chronic) Lymphedema (Chronic) Hospital Course and Treatment Consultations 04/01/20 21:46 Consult: Onc/Wound/toll mechanic Routine Comment: Operations: None Summary of Care Provided: [] The patient is 55-year-old woman with multiple comorbidities including chronic diastolic heart failure diabetes mellitus type 2 was admitted with worsening of right lower extremity erythema, pain, tenderness and fever 101 at home suggestive of right lower extremity cellulitis. 1. Right lower extremity cellulitis complicated with bilateral lower extremity lymphedema with venous stasis/hypertension and weeping/seepage of lymphatic fluid and ulcer: Patient is being admitted on the [facility] floor. Seen by wound care nurse and dressing done. Patient was started on IV Zosyn which was narrowed down to ceftriaxone. Vancomycin discontinued as MRSA nasal screen was negative. Conservative management with lower extremity elevation, PT and OT. On IV Lasix for lymphedema Advised to take lactobacillus 1 tablet 3 times daily as patient had history of C. difficile about 3 to 4 years ago. Initial Gram stain of wound culture shows Enterobacter cloacae, Streptococcus group G gram-positive organism and gram- negative organism. Patient is discharged on broad-spectrum antibiotic Augmentin to complete a total of 7 days to cover gram-positive and gram-negative organisms. Blood culture negative for more than 48 hours. Patient has lymphedema pump at home. He agreed for coming to [facility]. 2. Chronic systolic heart failure: At home patient is on torsemide which is transitioned to IV Lasix. On a statin. Most of his echocardiogram 11/28/2019 showed normal LV systolic function EF 65%, mildly dilated aortic root with technically limited study. Torsemide increased to 100 mg twice daily with potassium supplement. Follow with PCP to titrate the dose of Lasix and check BMP. 3. Chronic normocytic anemia: Hemoglobin is stable, baseline 10.9/36, most recent 9.9/32.4. Serum iron 75, TIBC low at 236, iron saturation 31.8. Ferritin high 1164. 4. Morbid Obesity: Weight loss and lifestyle changes encouraged, healthcare project manager consulted. 5. Diabetes mellitus type II: continue home insulin regimen accu checks with sliding scale insulin. Victoza is on hold as not hospital formulary. 6. Anxiety and depression/bipolar disorder: continue patient home Prozac, Abilify and lithium regimen. 7. Hypertension: Holding patient oral torsemide, on IV Lasix, 80 mg 3 times daily as noted, once euvolemic, will change to back Torsemide 8. Hyperlipidemia: Continue home statin regimen. 9. History of bone cancer: Per patient report possible history of 2010 bone cancer under care [facility] the [facility], no treatment, unclear, follow-up at the [facility]. 10. History DVT: Continued on Coumadin INR therapeutic. On home dose of Coumadin. 11. DVT Prophylaxis: As mentioned above Discharge medication reconciliation done. Discharge follow-up instructions completed. Discharge process discussed with the patient and all questions were answered to patient's satisfaction. Total time spent, exact 35 minutes on discharge meds reconciliation, examination, coordination of care with nurses and ancillary staff, review of imaging and blood test and discussion with the patient on follow-up instructions Patient Problems: Active and Suspected Problems Cellulitis of right leg (Acute) Objective: No fever or chills. Heart rate and blood pressure controlled. Patient had good diuresis, negative telemetry. Physical exam General: Alert, Oriented x3, Cooperative, morbid obesity 65.9 kg/m?. HEENT: Atraumatic, PERRLA, EOMI, Normocephalic Oral: No Gingival or Mucosal Lesions/ Ulcerations Neck: Supple, No JVD, Negative Carotid Bruits Lungs: Air entry diminished in bilateral lung bases. No crepitation/rhonchi Cardiovascular: Regular rate, Regular Rhythm, Normal S1, Normal S2, No murmurs Abdomen: Bowel Sounds Present, Soft, Non Tender, Non-Distended : No renal angle tenderness. No suprapubic tenderness. Extremities: Bilateral lower extremity lymphedema chronic in nature. Lymphedema, and leg edema much better. Skin: Bilateral lower extremity legs looks better. Scott wrap bandage on. Superficial excoriation in both lower legs. Musculoskeletal: No Tenderness to Palpation of Joints or Extremities Neurological: Cranial nerves II-XII grossly intact, Deep Tendon Reflexes 2+/4 and Symmetrical, Neuro grossly intact Psych/Mental Status: Normal Affect, Appropriate. - Physical Exam Vitals/I&O's: Vital Signs Temp Pulse Resp BP Pulse Ox 98.7 F 55 L 18 135/52 H 98 04/04/20 08:15 04/04/20 08:15 04/04/20 08:15 04/04/20 08:15 04/04/20 08:15 Oxygen Flow Rate (L/min) 2 Oxygen Delivery Method Nasal Cannula Weight: 479 lb 1.032 oz Body Mass Index (BMI) 65.9 Intake and Output for Last 24 Hours 04/02/20 04/03/20 04/04/20 23:59 23:59 23:59 Intake Total 1440 / 1440 870 / 870 480 / 480 Output Total 1100 / 2750 4000 / 4000 400 / 400 Balance 340 / -1310 -3130 / -3130 80 / 80 Microbiology Past 72 Hours 04/02/20 05:38 Blood Culture (Wb) - Anticubital Right Blood Culture - Preliminary No growth in 48 hours. 04/01/20 17:38 Blood Culture (Wb) - Left Hand Blood Culture - Preliminary No growth in 48 hours. 04/01/20 22:45 Wound - Leg, Left Gram Stain - Final 04/01/20 22:45 Wound - Leg, Left Wound Culture - Preliminary Enterobacter cloacae complex Mixed Gram Positive Organisms 04/01/20 22:45 Wound - Leg, Right Gram Stain - Final 04/01/20 22:45 Wound - Leg, Right Wound Culture - Preliminary Mixed Gram Pos & Gram Neg Org 04/01/20 18:30 Urine, Clean Catch Urine Culture - Final Mixed Gram Positive Organisms Laboratory Results 04/03/20 11:40: POC Glucose 137 H 04/03/20 16:38: POC Glucose 139 H 04/03/20 21:01: POC Glucose 86 04/04/20 06:05: PT 29.8 H, INR 2.9 04/04/20 06:05: Sodium 140, Potassium 3.3 L, Chloride 105, Carbon Dioxide 31.0, Anion Gap 4 L, BUN 8, Creatinine 1.03, Estim Creat Clear Calc 86.85, Est GFR (MDRD) Af Amer 96, Est GFR (MDRD) Non-Af 79, BUN/Creatinine Ratio 7.8 L, Glucose 83, Calcium 8.6 04/04/20 08:03: POC Glucose 93 Current Medications Acetaminophen (Acetaminophen 325 Mg Tablet) 650 mg PO Q6H PRN PRN PRN Reason: Pain Score 1-10/Temp > 100.7 F Last Admin: 04/03/20 21:04 Dose: 650 mg Documented by: Al Hydroxide/Mg Hydroxide (Mag Hydrox/Al Hydrox/Simeth 30 Ml Udc) 30 ml PO Q6H PRN PRN PRN Reason: Gastric Burning Aripiprazole (Aripiprazole 10 Mg Tablet) 30 mg PO DAILY REPLACED BY [facility] Last Admin: 04/03/20 08:28 Dose: 30 mg Documented by: Aspirin (Aspirin E.C. 81 Mg Tablet) 81 mg PO DAILY@0800 REPLACED BY [facility] Last Admin: 04/04/20 08:32 Dose: 81 mg Documented by: Atorvastatin Calcium (Atorvastatin Calcium 40 Mg Tablet) 40 mg PO QHS REPLACED BY [facility] Last Admin: 04/03/20 21:05 Dose: 40 mg Documented by: Calamine/Phenol (Menthol/Lanolin/Calamine/Znox 113 Gm Tube) 1 applic TOPICAL BID REPLACED BY [facility]; Protocol Last Admin: 04/03/20 21:05 Dose: 1 applicatio Documented by: Fluoxetine HCl (Fluoxetine 20 Mg Capsule) 40 mg PO DAILY REPLACED BY [facility] Last Admin: 04/03/20 08:28 Dose: 40 mg Documented by: Furosemide (Furosemide 100 Mg/10 Ml Vial) 80 mg IV BID@1000,1800 REPLACED BY [facility] Last Admin: 04/03/20 16:40 Dose: 80 mg Documented by: Guaifenesin (Guaifenesin 10 Ml Udc (200mg/10ml)) 20 ml PO Q4H PRN PRN PRN Reason: COUGH Ceftriaxone Sodium 2 gm/ (Sodium Chloride) 50 mls @ 100 mls/hr IV Q24 REPLACED BY [facility] Last Infusion: 04/03/20 12:18 Dose: Infused Documented by: Sodium Chloride () 250 mls @ 15 mls/hr IV .[id number] PRN PRN Reason: Saline Flush Last Infusion: 04/03/20 12:55 Dose: 0 mls/hr Documented by: Insulin Human Lispro (Insulin Lispro 100 Unit/Ml Insuln.Pen) 0 unit SC ACHS REPLACED BY [facility]; Protocol Last Admin: 04/04/20 08:09 Dose: Not Given Documented by: Insulin Human Regular (Insulin U-500 Pen) [facility] Last Admin: 04/04/20 08:32 Dose: 140 u Documented by: [place] Carbonate ([place] Carbonate 300mg Capsule) 600 mg PO DAILY REPLACED BY [facility] Last Admin: 04/03/20 08:27 Dose: 600 mg Documented by: Magnesium Hydroxide (Magnesium Hydroxide 30 Ml Udc) 30 ml PO DAILY PRN PRN PRN Reason: Constipation Melatonin (Melatonin 3 Mg Tablet) 3 mg PO QHS PRN PRN PRN Reason: INSOMNIA Morphine Sulfate (Morphine 2 Mg/Ml Syringe) 2 mg IV Q3H PRN PRN PRN Reason: Pain Score 6-10 Nitroglycerin (Nitroglycerin (Inpatient Use) 0.4 Mg Tab.Subl) 0.4 mg SUBLINGUAL Q5M PRN PRN Reason: CARDIAC/CHEST PAIN Nystatin (Nystatin Powder 15gm Bottle) 1 applic TOPICAL BID REPLACED BY [facility]; Protocol Last Admin: 04/03/20 21:04 Dose: 1 applicatio Documented by: Ondansetron HCl (Ondansetron 4 Mg/2 Ml Vial) 4 mg IV Q8H PRN PRN PRN Reason: NAUSEA/VOMITING Oxycodone HCl (Oxycodone 5 Mg Tablet) 5 mg PO Q4H PRN PRN PRN Reason: Pain Score 4-5 Last Admin: 04/04/20 02:01 Dose: 5 mg Documented by: Potassium Chloride (Potassium Chloride 20 Meq Tablet) [facility] Last Admin: 04/04/20 08:32 Dose: 40 meq Documented by: Prochlorperazine Edisylate (Prochlorperazine 10 Mg/2 Ml Vial) 5 mg IV Q4H PRN PRN PRN Reason: Breakthrough nausea/vomiting Psyllium Hydrophilic Mucilloid (Psyllium 1 Packet) 1 packet PO DAILY PRN PRN PRN Reason: Constipation Senna/Docusate Sodium (Senna/Docusate Sodium 1 Tablet) 2 tablet PO BID PRN PRN PRN Reason: Constipation Sodium Chloride (0.9% Saline Lock 10 Ml Syringe) 10 - 40 ml IV UD PRN PRN Reason: SALINE FLUSH Last Admin: 04/03/20 16:47 Dose: 10 ml Documented by: Throat Lozenges (Benzocaine/Menthol 1 Lozenge) 1 lozenge MUCOUS MEM Q2H PRN PRN PRN Reason: SORE THROAT Warfarin Sodium (Warfarin 7.5 Mg Tablet) 7.5 mg PO Fr@1700 REPLACED BY [facility] Warfarin Sodium (Warfarin 5 Mg Tablet) 5 mg PO SuMoTuWeThSa@1700 REPLACED BY [facility] Last Admin: 04/03/20 16:39 Dose: 5 mg Documented by: Discharge Activity: May Not Drive Call your doctor if you observe: Fever of 101 or Higher, Numbness or Tingling, Inability to urinate, Inability to have a bowel movement, Shortness of breath, Dizziness, Fainting spells, Swelling in the ankles, Chest pain, Prolonged hiccoughing, Increased palpitations (irregular heartbeat), Calf discomfort, Uncontrolled pain Home Medications: Medications to take at Discharge Aripiprazole [Abilify] 30 mg PO DAILY 11/04/19 Fluoxetine [Prozac] 40 mg PO DAILY 11/04/19 [place] Carbonate 600 mg PO DAILY 11/04/19 Warfarin [Coumadin] 5 mg PO SUMOTUWETHSA 11/04/19 Warfarin [Coumadin] 7.5 mg PO FR 11/04/19 Aspirin E.C. [Ecotrin] 81 mg PO DAILY@0800 02/20/20 Insulin Regular, Human [Humulin R U-500 Kwikpen] 140 unit SQ BID 02/20/20 Liraglutide [Victoza 3-Rick] 1.2 mg SQ DAILY 02/20/20 Acetaminophen [Tylenol] 1,000 mg PO Q8H PRN PRN 04/01/20 Rosuvastatin Calcium 20 mg PO QHS 04/01/20 Amox/Clavulanate Tablet [Augmentin Tablet] 875 mg PO Q12H #8 tab 04/04/20 L. Acidophilus/L.bulgaricus [Lactobacillus Tablet] 1 ea PO TID #14 tab 04/04/20 Menthol/Lanolin/Calamine/Znox [Calmoseptine Ointment] 1 applic TOPICAL BID tube 04/04/20 Nystatin Powder [Mycostatin Powder] 1 applic TOPICAL BID #1 bottle 04/04/20 Potassium Chloride [K-Dur] 40 meq PO BIDCM #60 tab 04/04/20 Senna/Docusate Sodium [Senokot-S] 2 tab PO BID PRN PRN tab 04/04/20 Torsemide 100 mg PO BID #60 tab 04/04/20 Following Prescriptions Were Given to Patient: Amox/Clavulanate Tablet [Augmentin Tablet] 875 mg PO Q12H #8 tab Transmission Status: Received by [facility] Potassium Chloride [K-Dur] 40 meq PO BIDCM #60 tab Transmission Status: Received by [facility] L. Acidophilus/L.bulgaricus [Lactobacillus Tablet] 1 ea PO TID #14 tab Transmission Status: Received by [facility] Nystatin Powder [Mycostatin Powder] 1 applic TOPICAL BID #1 bottle Transmission Status: Received by [facility] Torsemide 100 mg PO BID #60 tab Transmission Status: Received by [facility] - Please follow up with your Primary Care Physician in: IN 1-2 WEEKS Medical Necessity - Tobacco Use Smoking Status: Never smoker Tobacco Use: Non-smoker Meaningful Use Info Meaningful Use Diagnoses (Choose all that apply): None applicable Inpatient E&M: 55783 [facility]
[2020-04-04] MEDS: Menthol/Lanolin/Calamine/Znox 113 GM Tube 1 APPLIC TOPICAL (10:50)
[2020-04-04] MEDS: ARIPiprazole 10 MG Tablet 30 MG PO (10:50)
[2020-04-04] MEDS: Lithium Carbonate 300mg Capsule 600 MG PO (10:50)
[2020-04-04] MEDS: Furosemide 100 MG/10 ML Vial 80 MG IV (10:50)
[2020-04-04] MEDS: FLUoxetine 20 MG Capsule 40 MG PO (10:51)
[2020-04-04] MEDS: Nystatin Powder 15gm Bottle 1 APPLIC TOPICAL (10:51)
[2020-04-04 11:46] LABS: Bedside Glucose 134 mg/dL (70-110)
--- NOTE | 2020-04-04 12:59 | CASEMGMT ---
NICK ORNELAS in to discuss discharge plans with patient. Patient is interested in [facility] for nursing and therapy. Per Purnima at [facility] they are able to provided these services as he is already established them for [facility]. INCK ORNELAS updated the patietn and he is agreeable with [facility] for HHC. NICK ORNELAS sent referral to Purnima at [facility] and discharge instructions.
[2020-04-04 13:49] VITALS: BP 134/61; PULSE 65; RESP 18; TEMP 36.9; O2SAT 98
--- NOTE | 2020-04-05 13:52 | CASEMGMT ---
NICK ORNELAS Discharge Follow-Up Phone Call. Veronicae:??14 ???Strata: 4 Discharge Date: 04/04/20 Adm Dx:?? RLE cellulitis, BLE lymphedema/Venous status Call to pt to inquire about how he?has been doing since being discharged from the hospital.? He states he is doing okay. His aide from [facility] will be coming to his home this evening to wash his hair and give him a sponge bath. He states the nurse is scheduled to come tomorrow for start of care and for therapy to begin. He feels he is getting around his home with use of his cane, but is thankful he will be getting therapy, stating That will be good to help get some of my strength back and improve my balance. He reports his leg is Looking good. It's pretty well dried up. He states there has not been any draingin/seepage from it that he has noticed. He has not removed the dressing to it yet, as he is waiting for the nurse to come tomorrow to remove/change it . Pt reports he got both of the prescriptions from [facility] retail pharmacy. He states he already had supply of K+, Torsemide, and Nystatin, so he only needed to get the Augmentin and Acidophilus. He states he is taking his medications as prescribed and denies having any questions about his medications. [facility]. They told him they would call him back to schedule a video-appt. He is awaiting their return call. Pt denies having any questions/concerns/needs. NICK ORNELAS thanked pt for choosing [facility]. Pt states, You guys took very good care of me. I really appreciated it. The nurses and aides were really great. NICK ORNELAS thanked pt for the compliment. Ryanne CALVILLO RN, CM
== END 2020-04-04 13:55 | disposition home health service (06) | DRG 603 ==
LOC: ED 17:22 → MS3 19:57
PROVIDERS: Admitting Provider Family Medicine; Emergency Provider Emergency Medicine; Referring Provider Family Medicine; Visit Provider Internal Medicine
DX: L03.115 Cellulitis of right lower limb (principal); Z68.44 Body mass index [BMI] 60.0-69.9, adult; I50.32 Chronic diastolic (congestive) heart failure; E66.01 Morbid (severe) obesity due to excess calories; I11.0 Hypertensive heart disease with heart failure; F31.9 Bipolar disorder, unspecified; F41.9 Anxiety disorder, unspecified; E11.9 Type 2 diabetes mellitus without complications; E78.5 Hyperlipidemia, unspecified; G47.33 Obstructive sleep apnea (adult) (pediatric); D64.9 Anemia, unspecified; I89.0 Lymphedema, not elsewhere classified; Z86.718 Personal history of other venous thrombosis and embolism; Z79.01 Long term (current) use of anticoagulants
CPT/HCPCS: 36415; 71045; 80048; 80053; 81001; 82607; 82728; 82746; 82962; 83540; 83550; 83605; 83735; 84484; 85025; 85610; 85730; 87040; 87070; 87077; 87086; 87088; 87186; 87205; 87640; 93005; 97802; 99251; 99285; J7040; J7050; A4216; G0463; J0696; J1940

== ENCOUNTER → 2020-05-24 13:23 | Outpatient (CLI) | payer MEDICARE, MEDICAID, SELFPAY ==
[2020-04-01 19:52] VITALS: BMI 65.9
[2020-05-24 13:50] LABS: Anion Gap 7 (5-15); BUN 23 mg/dL (7-18); BUN/Creat Ratio 16.8 RATIO (10-20); Chloride 99 mmol/L (98-107); Creatinine, Serum 1.37 mg/dL (0.70-1.30); EST Glomerular Filtration Rate 57 mL/min (>60); Est Glom Filt Rate - Afr Amer 69 mL/min (>60); Glucose 276 mg/dL (74-106); Potassium 3.9 mmol/L (3.5-5.1); Sodium Level 134 mmol/L (136-145)
== END ==
DX: I50.9 Heart failure, unspecified (principal)
CPT/HCPCS: 80048

== ENCOUNTER 2020-05-29 16:09 | Inpatient (IN) | payer OTHER, MEDICARE, MEDICAID, SELFPAY ==
[2020-04-01 19:52] VITALS: BMI 65.9
[2020-05-29] VITALS (12 sets, daily range): BP systolic 91–158; BP diastolic 48–79; PULSE 90–113; RESP 24–39; TEMP 38.3–39.8; O2SAT 80–100; BMI 67.6
--- NOTE | 2020-05-29 16:26 | EKG12_ITS ---
Test Reason : SOB Blood Pressure : / mmHG Vent. Rate : 095 BPM Atrial Rate : 095 BPM P-R Int : 146 ms QRS Dur : 096 ms QT Int : 340 ms P-R-T Axes : 055 003 054 degrees QTc Int : 427 ms Normal sinus rhythm Normal ECG Confirmed by CARLOS DENIS, JAXON ([id number]), film editor supervisor OMKAR PAZ ([id number]) on 06/05/2020 10:19:29 AM Referred By: FARA/DON Confirmed By:SRIRAM GONZALEZ MD
--- NOTE | 2020-05-29 16:28 | ED.DCSUM_ITS ---
- ER Visit Summary Date of Service: 05/29/20 Chief Complaint: Weakness History of Present Illness: The patient is a 59 M who goes to the [facility]. He reports that he has weakness that began yesterday. States he has had a fever to 102 degrees and chills. Has been nausea and vomited twice. No blood in his emesis. He had strips of the diarrhea today. No blood in the stools or black tarry stools. Complains of a headache is 5-10 in severity and throbbing. Does have a history of similar headaches. Complains of generalized weakness that is made him unable to walk. Patient denies sick contacts. He does wear a mask. States that he does have a history of obstructive sleep apnea. He does not wear CPAP. He wears 2 L of oxygen at night. Physical Examination: Vitals: 101.7, 158/56, 100, 24, 90% on room air which is not hypoxic. General: Well-nourished and well-developed. Head: Normocephalic atraumatic. Neck: Supple, no lymphadenopathy. No JVD. Nontender. Cardiovascular: Regular rate and rhythm. No murmurs. Heart sounds are distant. Respiratory: No respiratory distress. Clear to auscultation bilaterally. Abdominal: Soft, nontender, nondistended, normal bowel sounds. No guarding, rebound, or peritoneal signs. Back: Nontender. Extremities: Nontender, 3+ edema to his lower extremities bilaterally with dry, thickened skin. Skin: Normal color, no rash. Neurologic: Alert and oriented ?3. Cranial nerves II through XII are intact. Normal strength and sensation. Psych: Normal affect. Test Results: EKG is sinus at [address] changes. CBC shows a white count of 25.9 with an H&H 11.0 and 36.5, 7 neutrophils and a 3, lymphs is a 3, immature granulocytes 1.4%. Chem-7 shows a sodium 128, chloride 93, glucose 225, BUN 21, creatinine 1.64. LFTs show total protein of 8.4 and albumin of 2.9, globulin 5.5. INR is 2.7. PTT is 49.5. Troponin is negative. BNP is 14.9. Lactic acid is 4.1. Emergency Department Course and Treatment: Patient had an IV placed. Is given a dose of Zofran IV and Tylenol p.o. He is resting more comfortably. Patient does meet criteria for septic shock with a lactic acid of 4.1. However, he has lymphedema with increased swelling of his lower extremities and a 30 cc/kg bolus would be 6.7 L. I do not think that that it is in his best interest. He was given a liter of normal saline. His vital signs have remained stable while here. I do not have an obvious source for the patient's sepsis. He does have excoriation to his legs and weeping from them. He was given Zosyn and vancomycin IV. Sepsis re-evaluation was performed Treatment Plan: Patient was discussed with Dr. Head. He will be admitted to the hospital for further evaluation and treatment. Disposition: Admitted in serious condition. Impression: 1. Septic shock. 2. Coumadin coagulopathy. 3. JIL. 4. Critical care time 33 minutes. 5. Lymphedema. This note was generated with [employer] dictation software. It may contain incorrect words, spelling, and punctuation that were not noted in review of the chart prior to signing ED Disposition - Plan for ED Patient: [facility] [[facility] -
[2020-05-29 16:53] LABS: Absolute Lymphocyte Count 0.78 X10^3/uL (0.83-4.51); Absolute Neutrophil Count 24.2 X10^3/uL (2.0-7.7); Basophil# 0.06 X10^3/uL; Basophil% 0.2 % (0-1); Hematocrit 36.5 % (40-54); Lymphocyte # 0.78 X10^3/ul (4.0); Mean Corp Hgb Conc 30.1 g/dL (32-36); Mean Corpuscular Hgb 25.5 pg (27.0-32.0); Mean Corpuscular Volume 84.5 fL (80-94); Mean Platelet Vol. 8.6 fl (6.2-12.0); Monocyte# 0.51 X10^3/uL; NRBC Flagged by Analyzer 0 % (0-5); Neutrophil # 24.15 X10^3/uL (2.7-7.7); Neutrophil % 93.4 % (47-70); POSITIVE DIFFERENTIAL YES; Platelet Count 275 K/mm3 (150-450); RBC Distribution Width CV 16.9 % (11.6-14.6); RBC Distribution Width SD 52.4 fl (35.1-43.9); Red Blood Count 4.32 M/mm3 (4.6-6.2); White Blood Count 25.9 K/mm3 (4.4-11.0)
[2020-05-29] MEDS: Ondansetron 4 MG/2 ML Vial IV (16:56)
[2020-05-29] MEDS: Acetaminophen 500 MG Tablet 1000 MG PO (16:57)
[2020-05-29 17:01] LABS: International Normalized Ratio 2.7; Partial Thromboplast Time 49.5 Seconds (24.1-36.2)
[2020-05-29 17:02] LABS: Differential Indicated SCAN CRITERIA MET
[2020-05-29 17:08] LABS: Bacteria 0 SEEN /hpf (None Seen); Mucous, Urine 0 SEEN /hpf (<or=2+); Red Blood Cells-Urine 0 SEEN /hpf (0-5)
[2020-05-29 17:08] LABS: ALB/GLOB Ratio 0.5 RATIO (0.9-2.4); AST(SGOT) 5 U/L (15-37); Alanine Aminotransfer ALT/SGPT 14 U/L (16-61); Albumin, Serum 2.9 g/dL (3.2-5.0); Alkaline Phosphatase 87 U/L (45-117); Anion Gap 7 (5-15); BUN 21 mg/dL (7-18); BUN/Creat Ratio 12.8 RATIO (10-20); Calcium,Total 8.8 mg/dL (8.5-10.1); Chloride 93 mmol/L (98-107); Creatinine, Serum 1.64 mg/dL (0.70-1.30); EST Glomerular Filtration Rate 46 mL/min (>60); Est Glom Filt Rate - Afr Amer 56 mL/min (>60); Estimated Creatinine Clearance 54.55 ml/min; Globulin 5.5 g/dL (2.2-4.2); Glucose 225 mg/dL (74-106); Protein, Total 8.4 g/dL (6.4-8.2); Sodium Level 128 mmol/L (136-145)
[2020-05-29 17:10] LABS: Color, Urine Yellow (Yellow); Glucose, Dipstick Normal (Normal); Ketone-Dipstick Negative (Negative); Leukocyte Esterase-Dipstick 25 /ul (Negative); Nitrite-Dipstick Negative (Negative); Occult Blood-Urine Negative /ul (Negative); Protein-Dipstick Negative (Negative); Urine Bilirubin Dipstick Negative (Negative); Urine Clarity Clear (Clear); Urine Urobilinogen Normal (Normal)
--- NOTE | 2020-05-29 17:10 | RAD_ITS ---
STUDY: X-RAY CHEST REASON FOR EXAM: Male, 59 years old. FEVER, WEAKNESS, NAUSEA TECHNIQUE: Single AP portable view of the chest. COMPARISON: 04/01/2020. FINDINGS: The lungs are clear and expanded. There is no demonstrated pleural abnormality. Normal size heart. Normal mediastinum and jazmine. Normal visualized pulmonary arteries. Normal visualized aortic arch and descending thoracic aorta. Normal visualized thoracic spine. Normal visualized ribs, clavicles, and shoulders. There is no demonstrated abnormality of the visualized soft tissue structures of the upper abdomen. RAD/Chest 1 View (Portable) IMPRESSION: Normal x-ray examination of the chest. Electronically Signed: Rachel Dowell MD at 17:42 EST Tel , Service support ,
[2020-05-29 17:15] LABS: BNP,B-Type NATRIURETIC PEPTIDE 14.9 pg/mL (0-100)
[2020-05-29 17:17] LABS: Lactic Acid 4.1 mmol/L (0.4-1.9)
[2020-05-29] MEDS: 0.9% Normal Saline 1,000 ML 999 ML IV (17:30)
[2020-05-29 17:44] LABS: Squamous Epithelial Cells - UA 0-5 SEEN /hpf (0-5); White Blood Cells 0-5 SEEN /hpf (0-5)
--- NOTE | 2020-05-29 18:20 | NURSING ---
ICU SEPTIC SHOCK WHITE
--- NOTE | 2020-05-29 18:29 | HP.PCM_ITS ---
Problem List (1) Septic shock Status: Acute (2) Cellulitis Status: Acute (3) Anxiety and depression Status: Chronic (4) CVA (cerebral vascular accident) Status: Chronic (5) Congestive heart failure Status: Chronic Qualifiers: (6) Diabetes Status: Chronic Qualifiers: (7) High cholesterol Status: Chronic (8) Hypertension Status: Chronic Qualifiers: (9) Lymphedema Status: Chronic (10) Morbid obesity Status: Chronic (11) Obstructive sleep apnea Status: Chronic History of Present Illness Date of Admission: 05/29/20 Chief Complaint: fever The patient is a 59 year old M with pmhx of lympedema, morbid obesity, CHF, FERNANDO, CVA, HTN, DMt2, who presented to the ER with c/o fever. This began last night. He has had progressive worsening of his lymphedema with increased pain to the point where he cannot walk. He states he uses pumps and leg wraps daily. He states he has wounds on the backs of his legs. Last night he developed a fever along with diarrhea, body aches, and headache. He denies SOB or cough. He denies change in taste or smell. He continues to have a fever in the ER and has evidence of septic shock, tho he is resting comfortably in bed and appears nontoxic. [] Past Medical History Past Medical History (Chronic Problems): Chronic Problems Anxiety and depression (Chronic) High cholesterol (Chronic) Hypertension (Chronic) Obstructive sleep apnea (Chronic) CVA (cerebral vascular accident) (Chronic) Diabetes (Chronic) Morbid obesity (Chronic) Congestive heart failure (Chronic) Lymphedema (Chronic) Allergies gabapentin Adverse Reaction (Verified 05/29/20 16:14) Swelling of legs Home Medications: Ambulatory Orders Medication Instructions Recorded Aripiprazole [Abilify] 30 mg PO DAILY 11/04/19 Warfarin [Coumadin] 5 mg PO SUMOTUWETHSA 11/04/19 Aspirin E.C. 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 Psychiatric History: Anxiety, Bipolar, Depression Lives: Alone Smoking Status: Never smoker Tobacco Use: Non-smoker Alcohol: None Drugs: None - *Family History Maternal History Items: Heart Disease - Mother with history of significant CHF. Paternal History Items: Cancer - Father with a history of mesothelioma. Review of Systems Constitutional: Reports: Chills, Fever, Weakness, Fatigue. Denies: Weight Change HEENT: Denies: Head Aches, Sinus Congestion, Sinus Drainage Cardiovascular: Denies: Chest Pain, Heaviness, Light Headedness, Palpitations Respiratory: Denies: Cough, Shortness of Breath, Shortness of breath at rest, Sputum production Gastrointestinal: Reports: Diarrhea, Nausea, Vomiting. Denies: Abdominal Pain Genitourinary: Denies: Dysuria, Hesitancy, Urgency Musculoskeletal: Reports: - - generalized aches and pains. Denies: Joint Pain, Joint Tenderness Skin: Denies: Rash, Wounds Neurological: Denies: Numbness, Tingling, Focal weakness Psychiatric: Denies: Anxiety, Depression, Homicidal Ideations, Suicidal Ideations Hematologic/ Lymphatic: Denies: Easy Bruising, Easy Bleeding VTE Information - Inpt Only VTE Present on Admission: No VTE Mechan Device Prophylaxis: None VTE Pharm Prophylaxis ordered?: Yes Patient Problems: Active and Suspected Problems Septic shock (Acute) Cellulitis (Acute) - Physical Exam Vitals/I&O's: Vital Signs Temp Pulse Resp BP Pulse Ox 101.0 F H 99 38 H 141/79 H 99 05/29/20 17:19 05/29/20 17:19 05/29/20 17:19 05/29/20 17:19 05/29/20 17:19 Oxygen Delivery Method Room Air Weight: 498 lb 3.915 oz Body Mass Index (BMI) 67.6 General: Alert, Oriented x3, Cooperative HEENT: Atraumatic, PERRLA, EOMI, Normocephalic Neck: Supple, No JVD, Negative Carotid Bruits Lungs: Clear to auscultation, Normal air movement Cardiovascular: Regular rate, No murmurs Abdomen: Bowel Sounds Present, Soft, Obese, Tender - mild tenderness to moderate palp Extremities: Capillary Refill Less than 3 Seconds, Edema - Severe lymphedema, flaking dry skin, some erythema, increased warmth. Skin: No rashes, No breakdown Musculoskeletal: No Tenderness to Palpation of Joints or Extremities Neurological: Cranial nerves II-XII grossly intact Psych/Mental Status: Normal Affect, Appropriate, Alert and oriented to time, place, person, mood and affect Microbiology Past 72 Hours 05/29/20 17:00 Mucosa - Nose SARS-CoV-2 Antigen (Rapid) - Final Laboratory Results 05/29/20 16:35: WBC 25.9 H, RBC 4.32 L, Hgb 11.0 L, Hct 36.5 L, MCV 84.5, MCH 25.5 L, MCHC 30.1 L, RDW Std Deviation 52.4 H, RDW Coeff of Varsha 16.9 H, Plt Count 275, MPV 8.6, Immature Gran % (Auto) 1.400 H, Neut % (Auto) 93.4 H, Lymph % (Auto) 3.0 L, [place] % (Auto) 2.0, Eos % (Auto) 0.0, Baso % (Auto) 0.2, Absolute Neuts (auto) 24.2 H, Absolute Lymphs (auto) 0.78 L, Nucleated RBC % 0, Differential Comment COMMENT 05/29/20 16:35: PT 28.0 H, INR 2.7, APTT 49.5 H 05/29/20 16:35: Sodium 128 L, Potassium 4.0, Chloride 93 L, Carbon Dioxide 28.0, Anion Gap 7, BUN 21 H, Creatinine 1.64 H, Estim Creat Clear Calc 54.55, Est GFR (MDRD) Af Amer 56 L, Est GFR (MDRD) Non-Af 46 L, BUN/Creatinine Ratio 12.8, Glucose 225 H, Calcium 8.8, Total Bilirubin 0.60, AST 5 L, ALT 14 L, Alkaline Phosphatase 87, Troponin I < 0.015, Total Protein 8.4 H, Albumin 2.9 L, Globulin 5.5 H, Albumin/Globulin Ratio 0.5 L 05/29/20 16:35: Lactic Acid 4.1 H* 05/29/20 16:35: B-Natriuretic Peptide 14.9 05/29/20 17:00: Urine Color Yellow, Urine Clarity Clear, Urine pH 5.0, Ur Specific [place] 1.010, Urine Protein Negative, Urine Glucose (UA) Normal, Urine Ketones Negative, Urine Occult Blood Negative, Urine Nitrite Negative, Urine Bilirubin Negative, Urine Urobilinogen Normal, Ur Leukocyte Esterase 25 H, Urine RBC 0 SEEN, Urine WBC 0-5 SEEN, Ur Squamous Epith Cells 0-5 SEEN, Urine Bacteria 0 SEEN, Urine Mucus 0 SEEN Current Medications Vancomycin HCl 2,000 mg/ (Sodium Chloride) 540 mls @ 250 mls/hr IV X1 ONE Stop: 05/29/20 20:39 Assessment/Plan All Active Problems Cellulitis of right leg (Acute) Septic shock (Acute) Cellulitis (Acute) Acute exacerbation of CHF (congestive heart failure) (Acute) Anasarca (Acute) Unable to ambulate (Acute) 1. Septic shock 2/2 cellulitis BL LE complicated by severe lymphedema - start vanc/zosyn. Pt appears to have a large quantity of volume overload so it would be inappropriate to fluid resuscitate him. He has lactic acid of 4.1 with marked leukocytosis and fever in the ER. BNP neg, trop neg. EKG neg. CXR neg. UA negative. Covid neg. He had an admission for cellulitis in march of this year with multiple bacteria growing including a Pseudomonas species, Enterobacter, Strep, and Staph. Obtain blood and wound cultures. Consult wound nurse. -Hx Cdiff - check stool for C diff as well as enteric panel as he has had N/V/D. 2. Hyponatremia - possibly due to sepsis or hypervolemia - will trend 3. JIL 2/2 above - hold/avoid nephrotixins. 4. DMt2 with morbid obesity - hold victoza - continue U500. Patient Financial Services Coordinator consult 5. FERNANDO - does not use CPAP/Bipap, wears NC at night. 6. Chronic systolic CHF - continue diuretics 7. Anxiety/Depression - abilify 8. Hx bone cancer s/p resection 9. Hx DVT - on warfarin - therapeutic at this time. Trend INR. DVT ppx: warfarin DC planning:PTOT, pt lives alone, currently unable to ambulate due to legs swelling and pain. This patient was seen by Augustine Ling PA-C under the supervision of Dr. Head.
[2020-05-29 20:37] LABS: Ferritin 79 ng/mL (26-388); LDH 134 U/L (87-241); Magnesium 1.9 mg/dL (1.6-2.6); Procalcitonin 0.82 ng/mL (0.00-0.09)
[2020-05-29 20:46] LABS: Reflex Lactate? Y
--- NOTE | 2020-05-29 20:46 | PCM.RX.CS ---
Consult Pharmacy has been consulted to manage selected antiobiotic: Vancomycin Type of Consult: New start Suspected Infection: Sepsis Labs: Sodium 128 mmol/L (136-145) L 05/29/20 16:35 Potassium 4.0 mmol/L (3.5-5.1) 05/29/20 16:35 Chloride 93 mmol/L (98-107) L 05/29/20 16:35 Carbon Dioxide 28.0 mmol/L (21.0-32.0) 05/29/20 16:35 Anion Gap 7 (5-15) 05/29/20 16:35 BUN 21 mg/dL (7-18) H 05/29/20 16:35 Creatinine 1.64 mg/dL (0.70-1.30) H 05/29/20 16:35 Est GFR (MDRD) Af Amer 56 mL/min (>60) L 05/29/20 16:35 Est GFR (MDRD) Non-Af 46 mL/min (>60) L 05/29/20 16:35 BUN/Creatinine Ratio 12.8 RATIO (10-20) 05/29/20 16:35 Glucose 225 mg/dL (74-106) H 05/29/20 16:35 Microbiology: Microbiology 05/29/20 17:00 Mucosa - Nose SARS-CoV-2 Antigen (Rapid) - Final Goal Trough: 15-20 mcg/mL Pharmacy Plan for Drug Dosing: NEW START IV VANCOMYCIN Consulting Physician:Dr. Head Indication: SIRS/Sepsis Goal Trough: 15-20 SrCr: 1.64 CrCl: 96 mL/min (using AdjBW = 137kg) Comments: Loading dose 2g IV x1 administered in ED 05/29 @1913 Vancomcyin Dose: 1250mg IV Q8hr to start 05/30/20 @0300 Pending Level: 05/30/20 @1830 (Prior to 4th total dose per protocol) Pharmacy Service will continue to monitor and adjust dosing as required.
[2020-05-29] MEDS: Acetaminophen 325 MG Tablet 650 MG PO (21:21)
[2020-05-29 21:40] LABS: Allen Test Positive; Base Excess -2 mmol/L (-2 to +2); Bicarbonate 22.6 mmol/L (22-26); Blood Gas Specimen Type ART; O2 Delivery Device Cannula; PO2 71 mmHG (75-100); SITE R Radial; SO2 94 % (95-99); Total Carbon Dioxide 24 mmol/L; pCO2 37.5 mmHg (35-45); pH 7.39 (7.35-7.45)
[2020-05-29] MEDS: Contrast Allergy Safety Check IV (22:30)
[2020-05-29 22:44] LABS: Lactic Acid 5.6 mmol/L (0.4-1.9)
[2020-05-29] MEDS: Menthol/Lanolin/Calamine/Znox 113 GM Tube 1 APPLIC TOPICAL (22:55)
[2020-05-29] MEDS: Atorvastatin Calcium 40 MG Tablet PO (22:55)
[2020-05-29] MEDS: Insulin Lispro 100 UNIT/ML INSULN.PEN SC (23:06)
[2020-05-29] MEDS: Nystatin Powder 15gm Bottle 1 APPLIC TOPICAL (23:07)
--- NOTE | 2020-05-29 23:29 | PN_ITS ---
Progress Note Patient is septic shock. Receiving IV fluids. Discontinue Demadex at this time. When blood pressure is stable consider restarting torsemide. Also because of body habitus a CT scan ordered by admitting doctor, be done. Rounding MD and geophysical laboratory supervisor to advise. STROKE Vital Signs/Narrative: Vital Signs Pulse Resp BP Pulse Ox 05/29/20 21:08 100 05/29/20 20:00 95 25 H 93/51 L 80
[2020-05-29] MEDS: 0.9% Saline Lock 10 ML Syringe IV (23:41)
[2020-05-29 23:51] LABS: Bedside Glucose 179 mg/dL (70-110)
[2020-05-30] VITALS (52 sets, daily range): BP systolic 74–131; BP diastolic 37–116; PULSE 30–99; RESP 17–36; TEMP 37.6–38.8; O2SAT 90–100
[2020-05-30] MEDS: 0.9% Normal Saline 1,000 ML 100 ML IV ×2 (00:35→10:47)
[2020-05-30] MEDS: 0.9% Normal Saline 1,000 ML 500 ML IV (01:29)
[2020-05-30 03:14] LABS: M R Staph aureus DNA By PCR Negative (Negative); Probe Check PASS; Specimen Processing Control PASS; Staph aureus DNA By PCR NEGATIVE (Negative)
[2020-05-30 03:15] LABS: M R Staph aureus DNA By PCR Negative (Negative); Probe Check PASS; Specimen Processing Control PASS; Staph aureus DNA By PCR NEGATIVE (Negative)
[2020-05-30 03:29] LABS: M R Staph aureus DNA By PCR Negative (Negative); Probe Check PASS; Specimen Processing Control PASS
[2020-05-30 03:42] LABS: Absolute Lymphocyte Count 0.69 X10^3/uL (0.83-4.51); Absolute Neutrophil Count 21.9 X10^3/uL (2.0-7.7); Basophil# 0.06 X10^3/uL; Basophil% 0.3 % (0-1); Eosinophil# 0.25 X10^3/uL; Hematocrit 32.6 % (40-54); Hemoglobin 9.9 g/dL (13.0-16.5); Lymphocyte # 0.69 X10^3/ul (4.0); Lymphocyte % 2.9 % (19-41); Mean Corp Hgb Conc 30.4 g/dL (32-36); Mean Corpuscular Hgb 26.4 pg (27.0-32.0); Mean Corpuscular Volume 86.9 fL (80-94); Mean Platelet Vol. 8.7 fl (6.2-12.0); Monocyte# 0.57 X10^3/uL; Monocyte% 2.4 % (0-10); NRBC Flagged by Analyzer 0 % (0-5); Neutrophil # 21.88 X10^3/uL (2.7-7.7); Neutrophil % 91.7 % (47-70); POSITIVE DIFFERENTIAL YES; POSITIVE MORPHOLOGY YES; Platelet Count 208 K/mm3 (150-450); RBC Distribution Width CV 17.2 % (11.6-14.6); RBC Distribution Width SD 54.7 fl (35.1-43.9); Red Blood Count 3.75 M/mm3 (4.6-6.2); White Blood Count 23.9 K/mm3 (4.4-11.0)
[2020-05-30 03:54] LABS: Differential Indicated SCAN CRITERIA MET
[2020-05-30 04:12] LABS: Lactic Acid 5.5 mmol/L (0.4-1.9)
[2020-05-30 04:19] LABS: ALB/GLOB Ratio 0.5 RATIO (0.9-2.4); AST(SGOT) 40 U/L (15-37); Alanine Aminotransfer ALT/SGPT 16 U/L (16-61); Albumin, Serum 2.1 g/dL (3.2-5.0); Alkaline Phosphatase 77 U/L (45-117); Anion Gap 9 (5-15); BUN 24 mg/dL (7-18); BUN/Creat Ratio 13.6 RATIO (10-20); Calcium,Total 7.9 mg/dL (8.5-10.1); Chloride 97 mmol/L (98-107); Creatinine, Serum 1.77 mg/dL (0.70-1.30); EST Glomerular Filtration Rate 42 mL/min (>60); Est Glom Filt Rate - Afr Amer 51 mL/min (>60); Estimated Creatinine Clearance 50.54 ml/min; Globulin 4.4 g/dL (2.2-4.2); Glucose 157 mg/dL (74-106); Potassium 4.3 mmol/L (3.5-5.1); Protein, Total 6.5 g/dL (6.4-8.2); Sodium Level 131 mmol/L (136-145)
--- NOTE | 2020-05-30 05:55 | RAD_ITS ---
STUDY: X-RAY CHEST REASON FOR EXAM: Male, 59 years old. Dyspnea and cough TECHNIQUE: Single AP portable view of the chest. COMPARISON: Comparison is made with prior study dated 05/29/2020. FINDINGS: EKG electrode seen. Hyperinflation. There is no demonstrated pleural abnormality. Normal size heart. Normal mediastinum and jazmine. There is prominence of the pulmonary hilar arteries without peripheral pulmonary vascular congestion, suggesting pulmonary hypertension. Normal visualized aortic arch and descending thoracic aorta. There are diffuse degenerative changes of the visualized thoracic spine. Normal visualized ribs, clavicles, and shoulders. There is no demonstrated abnormality of the visualized soft tissue structures of the upper abdomen. RAD/Chest 1 View (Portable) IMPRESSION: Hyperinflation. Prominence of the pulmonary arteries bilaterally. Electronically Signed: Chin Obregon, at 10:00 EST , Service support ,
[2020-05-30] MEDS: Insulin Lispro 100 UNIT/ML INSULN.PEN SC ×3 (07:00→17:01)
[2020-05-30 07:01] LABS: International Normalized Ratio 2.9; Prothrombin Time (Protime)PT. 29.9 SECONDS (11.7-14.9)
[2020-05-30 07:06] LABS: Bedside Glucose 198 mg/dL (70-110)
--- NOTE | 2020-05-30 07:06 | PCM.CON.CC ---
Reason for Consult Date of Consultation: 05/30/20 Reason for Consultation: Septic shock History of Present Illness: The patient is a 59-year-old male, with a history as outlined below, who presented to the emergency department on May 29 with complaints of generalized weakness, fever, nausea, vomiting and diarrhea. The patient has a history of heart failure with preserved ejection fraction along with chronic lower extremity lymphedema and venous stasis. The patient does have a history of obstructive sleep apnea, but is noncompliant with the use of nocturnal Pap therapy. He denies a history of COPD or asthma. He does not utilize any inhalers at his baseline. On presentation to the emergency department, the patient was noted to be febrile with a temperature of 101.7 ?F. Laboratory evaluation revealed an elevated white blood cell count to 26,000. INR was noted to be 2.7. Chemistry profile was notable for a sodium of 128, chloride of 93, creatinine of 1.64. Lactate was elevated at 4.1. Troponin was negative. MRSA screen was negative. Coronavirus PCR was negative. Chest x-ray revealed no acute cardiopulmonary process. The patient received supplemental IV fluid hydration and was started on broad-spectrum antimicrobials. The patient was subsequently transferred to the medical intensive care unit for further management. The patient was eventually started on Levophed to maintain hemodynamic stability. Past Medical History Past Medical History (Chronic Problems): Chronic Problems Anxiety and depression (Chronic) High cholesterol (Chronic) Hypertension (Chronic) Obstructive sleep apnea (Chronic) CVA (cerebral vascular accident) (Chronic) Diabetes (Chronic) Morbid obesity (Chronic) Congestive heart failure (Chronic) Lymphedema (Chronic) Allergies gabapentin Adverse Reaction (Verified 05/29/20 16:14) Swelling of legs Home Medications: Ambulatory Orders Medication Instructions Recorded Aripiprazole [Abilify] 30 mg PO DAILY 11/04/19 Warfarin [Coumadin] 5 mg PO SUMOTUWETHSA 11/04/19 Aspirin E.C. 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 Psychiatric History: Anxiety, Bipolar, Depression Lives: Alone Smoking Status: Never smoker Tobacco Use: Non-smoker Alcohol: None Drugs: None - *Family History Maternal History Items: Heart Disease - Mother with history of significant CHF. Paternal History Items: Cancer - Father with a history of mesothelioma. Review of Systems Constitutional: Reports: Fever Eyes: Denies: Blurred vision, Double vision HEENT: Denies: Head Aches, Sinus Congestion, Sinus Drainage Cardiovascular: Reports: Edema. Denies: Chest Pain, Palpitations Respiratory: Denies: Cough, Shortness of breath at rest, Sputum production Gastrointestinal: Reports: Diarrhea, Nausea, Vomiting Genitourinary: Denies: Dysuria Musculoskeletal: Reports: Back Pain Skin: Reports: Rash Neurological: Denies: Numbness, Tingling, Focal weakness Psychiatric: Denies: Anxiety, Depression, Homicidal Ideations, Suicidal Ideations Hematologic/ Lymphatic: Denies: Easy Bruising, Easy Bleeding Patient Problems: Active and Suspected Problems Septic shock (Acute) Cellulitis (Acute) Objective: The patient's most recent lab work, culture data and imaging studies have all been personally reviewed. Surface echocardiogram from November 2019 revealed normal LV size with an ejection fraction of 65%. Pulmonary artery systolic pressure was unable to be estimated. - Physical Exam Vitals/I&O's: Vital Signs Temp Pulse Resp BP Pulse Ox 99.8 F H 73 28 H 97/50 L 97 05/30/20 07:00 05/30/20 07:00 05/30/20 07:00 05/30/20 07:00 05/30/20 07:00 Oxygen Flow Rate (L/min) 2 Oxygen Delivery Method Nasal Cannula Weight: 492 lb 1.148 oz Body Mass Index (BMI) 66.4 Intake and Output for Last 24 Hours 05/28/20 05/29/20 05/30/20 23:59 23:59 23:59 Intake Total 640 / 640 2347.88 / 2347.88 Output Total 1400 / 1400 Balance 640 / 390 947.88 / 947.88 General: Alert, Oriented x3, Cooperative HEENT: Atraumatic, Normocephalic Oral: No Gingival or Mucosal Lesions/ Ulcerations Neck: Supple, No Nodes, Trachea Midline, - - Large neck circumference with redundant soft tissue Lungs: Diminished Cardiovascular: Regular rate, Regular Rhythm Abdomen: Bowel Sounds Present, Soft, Non Tender, Obese Extremities: No clubbing, No cyanosis, Edema Skin: Ulcer/ Wound, - - Wrapped lower extremities Musculoskeletal: No Muscle Wasting Lymphatic: No Cervical, Supraclavicular, or Inguinal Adenopathy Neurological: Cranial nerves II-XII grossly intact, Neuro grossly intact Psych/Mental Status: Normal Affect Labs (Last 48 Hours) 05/29/20 05/29/20 05/29/20 16:35 16:35 16:35 WBC 25.9 H RBC 4.32 L Hgb 11.0 L Hct 36.5 L MCV 84.5 MCH 25.5 L MCHC 30.1 L RDW Std Deviation 52.4 H RDW Coeff of Varsha 16.9 H Plt Count 275 MPV 8.6 Immature Gran % (Auto) 1.400 H Neut % (Auto) 93.4 H Lymph % (Auto) 3.0 L Camas % (Auto) 2.0 Eos % (Auto) 0.0 Baso % (Auto) 0.2 Absolute Neuts (auto) 24.2 H Absolute Lymphs (auto) 0.78 L Nucleated RBC % 0 Differential Comment COMMENT PT 28.0 H INR 2.7 APTT 49.5 H Specimen Type Sample Site pH Bicarbonate Actual Total CO2 Base Excess O2 Saturation ABG pCO2 ABG pO2 Carmelo Test O2 Delivery Device Liter Flow Sodium 128 L Potassium 4.0 Chloride 93 L Carbon Dioxide 28.0 Anion Gap 7 BUN 21 H Creatinine 1.64 H Estim Creat Clear Calc 54.55 Est GFR (MDRD) Af Amer 56 L Est GFR (MDRD) Non-Af 46 L BUN/Creatinine Ratio 12.8 Glucose 225 H Lactic Acid Calcium 8.8 Magnesium Ferritin Total Bilirubin 0.60 AST 5 L ALT 14 L Alkaline Phosphatase 87 Lactate Dehydrogenase Troponin I < 0.015 C-React Prot Ext Range B-Natriuretic Peptide Total Protein 8.4 H Albumin 2.9 L Globulin 5.5 H Albumin/Globulin Ratio 0.5 L Procalcitonin Urine Color Urine Clarity Urine pH Ur Specific Erwin Urine Protein Urine Glucose (UA) Urine Ketones Urine Occult Blood Urine Nitrite Urine Bilirubin Urine Urobilinogen Ur Leukocyte Esterase Urine RBC Urine WBC Ur Squamous Epith Cells Urine Bacteria Urine Mucus COVID-19 (JEN) S.aureus Protein A PCR MRSA (PCR) POC Glucose 05/29/20 05/29/20 05/29/20 16:35 16:35 16:35 WBC RBC Hgb Hct MCV MCH MCHC RDW Std Deviation RDW Coeff of Varsha Plt Count MPV Immature Gran % (Auto) Neut % (Auto) Lymph % (Auto) Camas % (Auto) Eos % (Auto) Baso % (Auto) Absolute Neuts (auto) Absolute Lymphs (auto) Nucleated RBC % Differential Comment PT INR APTT Specimen Type Sample Site pH Bicarbonate Actual Total CO2 Base Excess O2 Saturation ABG pCO2 ABG pO2 Carmelo Test O2 Delivery Device Liter Flow Sodium Potassium Chloride Carbon Dioxide Anion Gap BUN Creatinine Estim Creat Clear Calc Est GFR (MDRD) Af Amer Est GFR (MDRD) Non-Af BUN/Creatinine Ratio Glucose Lactic Acid 4.1 H* Calcium Magnesium 1.9 Ferritin 79 Total Bilirubin AST ALT Alkaline Phosphatase Lactate Dehydrogenase 134 Troponin I C-React Prot Ext Range 139.00 H B-Natriuretic Peptide 14.9 Total Protein Albumin Globulin Albumin/Globulin Ratio Procalcitonin Urine Color Urine Clarity Urine pH Ur Specific Erwin Urine Protein Urine Glucose (UA) Urine Ketones Urine Occult Blood Urine Nitrite Urine Bilirubin Urine Urobilinogen Ur Leukocyte Esterase Urine RBC Urine WBC Ur Squamous Epith Cells Urine Bacteria Urine Mucus COVID-19 (JEN) S.aureus Protein A PCR MRSA (PCR) POC Glucose 05/29/20 05/29/20 05/29/20 16:35 17:00 20:00 WBC RBC Hgb Hct MCV MCH MCHC RDW Std Deviation RDW Coeff of Varsha Plt Count MPV Immature Gran % (Auto) Neut % (Auto) Lymph % (Auto) Camas % (Auto) Eos % (Auto) Baso % (Auto) Absolute Neuts (auto) Absolute Lymphs (auto) Nucleated RBC % Differential Comment PT INR APTT Specimen Type Sample Site pH Bicarbonate Actual Total CO2 Base Excess O2 Saturation ABG pCO2 ABG pO2 Carmelo Test O2 Delivery Device Liter Flow Sodium Potassium Chloride Carbon Dioxide Anion Gap BUN Creatinine Estim Creat Clear Calc Est GFR (MDRD) Af Amer Est GFR (MDRD) Non-Af BUN/Creatinine Ratio Glucose Lactic Acid Calcium Magnesium Ferritin Total Bilirubin AST ALT Alkaline Phosphatase Lactate Dehydrogenase Troponin I C-React Prot Ext Range B-Natriuretic Peptide Total Protein Albumin Globulin Albumin/Globulin Ratio Procalcitonin 0.82 H Urine Color Yellow Urine Clarity Clear Urine pH 5.0 Ur Specific Erwin 1.010 Urine Protein Negative Urine Glucose (UA) Normal Urine Ketones Negative Urine Occult Blood Negative Urine Nitrite Negative Urine Bilirubin Negative Urine Urobilinogen Normal Ur Leukocyte Esterase 25 H Urine RBC 0 SEEN Urine WBC 0-5 SEEN Ur Squamous Epith Cells 0-5 SEEN Urine Bacteria 0 SEEN Urine Mucus 0 SEEN COVID-19 (JEN) Not Detected S.aureus Protein A PCR NEGATIVE MRSA (PCR) Negative POC Glucose 05/29/20 05/29/20 05/29/20 21:10 21:10 21:33 WBC RBC Hgb Hct MCV MCH MCHC RDW Std Deviation RDW Coeff of Varsha Plt Count MPV Immature Gran % (Auto) Neut % (Auto) Lymph % (Auto) Camas % (Auto) Eos % (Auto) Baso % (Auto) Absolute Neuts (auto) Absolute Lymphs (auto) Nucleated RBC % Differential Comment PT INR APTT Specimen Type ART Sample Site R Radial pH 7.39 Bicarbonate Actual 22.6 Total CO2 24 Base Excess -2 O2 Saturation 94 L ABG pCO2 37.5 ABG pO2 71 L Carmelo Test Positive O2 Delivery Device Cannula Liter Flow 6.0 Sodium Potassium Chloride Carbon Dioxide Anion Gap BUN Creatinine Estim Creat Clear Calc Est GFR (MDRD) Af Amer Est GFR (MDRD) Non-Af BUN/Creatinine Ratio Glucose Lactic Acid Calcium Magnesium Ferritin Total Bilirubin AST ALT Alkaline Phosphatase Lactate Dehydrogenase Troponin I C-React Prot Ext Range B-Natriuretic Peptide Total Protein Albumin Globulin Albumin/Globulin Ratio Procalcitonin Urine Color Urine Clarity Urine pH Ur Specific Erwin Urine Protein Urine Glucose (UA) Urine Ketones Urine Occult Blood Urine Nitrite Urine Bilirubin Urine Urobilinogen Ur Leukocyte Esterase Urine RBC Urine WBC Ur Squamous Epith Cells Urine Bacteria Urine Mucus COVID-19 (JEN) S.aureus Protein A PCR NEGATIVE MRSA (PCR) Negative Negative POC Glucose 05/29/20 05/29/20 05/30/20 22:00 23:01 03:26 WBC 23.9 H RBC 3.75 L Hgb 9.9 L Hct 32.6 L MCV 86.9 MCH 26.4 L MCHC 30.4 L RDW Std Deviation 54.7 H RDW Coeff of Varsha 17.2 H Plt Count 208 MPV 8.7 Immature Gran % (Auto) 1.700 H Neut % (Auto) 91.7 H Lymph % (Auto) 2.9 L Camas % (Auto) 2.4 Eos % (Auto) 1.0 Baso % (Auto) 0.3 Absolute Neuts (auto) 21.9 H Absolute Lymphs (auto) 0.69 L Nucleated RBC % 0 Differential Comment PT INR APTT Specimen Type Sample Site pH Bicarbonate Actual Total CO2 Base Excess O2 Saturation ABG pCO2 ABG pO2 Carmelo Test O2 Delivery Device Liter Flow Sodium Potassium Chloride Carbon Dioxide Anion Gap BUN Creatinine Estim Creat Clear Calc Est GFR (MDRD) Af Amer Est GFR (MDRD) Non-Af BUN/Creatinine Ratio Glucose Lactic Acid 5.6 H* Calcium Magnesium Ferritin Total Bilirubin AST ALT Alkaline Phosphatase Lactate Dehydrogenase Troponin I C-React Prot Ext Range B-Natriuretic Peptide Total Protein Albumin Globulin Albumin/Globulin Ratio Procalcitonin Urine Color Urine Clarity Urine pH Ur Specific Erwin Urine Protein Urine Glucose (UA) Urine Ketones Urine Occult Blood Urine Nitrite Urine Bilirubin Urine Urobilinogen Ur Leukocyte Esterase Urine RBC Urine WBC Ur Squamous Epith Cells Urine Bacteria Urine Mucus COVID-19 (JEN) S.aureus Protein A PCR MRSA (PCR) POC Glucose 179 H 05/30/20 05/30/20 05/30/20 03:26 03:26 06:40 WBC RBC Hgb Hct MCV MCH MCHC RDW Std Deviation RDW Coeff of Varsha Plt Count MPV Immature Gran % (Auto) Neut % (Auto) Lymph % (Auto) Camas % (Auto) Eos % (Auto) Baso % (Auto) Absolute Neuts (auto) Absolute Lymphs (auto) Nucleated RBC % Differential Comment PT 29.9 H INR 2.9 APTT Specimen Type Sample Site pH Bicarbonate Actual Total CO2 Base Excess O2 Saturation ABG pCO2 ABG pO2 Carmelo Test O2 Delivery Device Liter Flow Sodium 131 L Potassium 4.3 Chloride 97 L Carbon Dioxide 25.0 Anion Gap 9 BUN 24 H Creatinine 1.77 H Estim Creat Clear Calc 50.54 Est GFR (MDRD) Af Amer 51 L Est GFR (MDRD) Non-Af 42 L BUN/Creatinine Ratio 13.6 Glucose 157 H Lactic Acid 5.5 H* Calcium 7.9 L Magnesium Ferritin Total Bilirubin 0.60 AST 40 H ALT 16 Alkaline Phosphatase 77 Lactate Dehydrogenase Troponin I C-React Prot Ext Range B-Natriuretic Peptide Total Protein 6.5 Albumin 2.1 L Globulin 4.4 H Albumin/Globulin Ratio 0.5 L Procalcitonin Urine Color Urine Clarity Urine pH Ur Specific Erwin Urine Protein Urine Glucose (UA) Urine Ketones Urine Occult Blood Urine Nitrite Urine Bilirubin Urine Urobilinogen Ur Leukocyte Esterase Urine RBC Urine WBC Ur Squamous Epith Cells Urine Bacteria Urine Mucus COVID-19 (JEN) S.aureus Protein A PCR MRSA (PCR) POC Glucose 05/30/20 06:59 WBC RBC Hgb Hct MCV MCH MCHC RDW Std Deviation RDW Coeff of Varsha Plt Count MPV Immature Gran % (Auto) Neut % (Auto) Lymph % (Auto) Camas % (Auto) Eos % (Auto) Baso % (Auto) Absolute Neuts (auto) Absolute Lymphs (auto) Nucleated RBC % Differential Comment PT INR APTT Specimen Type Sample Site pH Bicarbonate Actual Total CO2 Base Excess O2 Saturation ABG pCO2 ABG pO2 Carmelo Test O2 Delivery Device Liter Flow Sodium Potassium Chloride Carbon Dioxide Anion Gap BUN Creatinine Estim Creat Clear Calc Est GFR (MDRD) Af Amer Est GFR (MDRD) Non-Af BUN/Creatinine Ratio Glucose Lactic Acid Calcium Magnesium Ferritin Total Bilirubin AST ALT Alkaline Phosphatase Lactate Dehydrogenase Troponin I C-React Prot Ext Range B-Natriuretic Peptide Total Protein Albumin Globulin Albumin/Globulin Ratio Procalcitonin Urine Color Urine Clarity Urine pH Ur Specific Erwin Urine Protein Urine Glucose (UA) Urine Ketones Urine Occult Blood Urine Nitrite Urine Bilirubin Urine Urobilinogen Ur Leukocyte Esterase Urine RBC Urine WBC Ur Squamous Epith Cells Urine Bacteria Urine Mucus COVID-19 (JEN) S.aureus Protein A PCR MRSA (PCR) POC Glucose 198 H Microbiology 05/29/20 20:00 Mucosa - Nasopharyngeal Respiratory Panel (PCR) - Final 05/29/20 17:00 Mucosa - Nose SARS-CoV-2 Antigen (Rapid) - Final Clinical Impression(s) from Imaging Studies Chest X-Ray 05/29/20 17:10 IMPRESSION: Normal x-ray examination of the chest. Electronically Signed: Rachel Dowell MD at 17:42 EST Tel , Service support , Current Medications Acetaminophen (Acetaminophen 325 Mg Tablet) 650 mg PO Q6H PRN PRN PRN Reason: Pain Score 1-10/Temp > 100.7 F Last Admin: 05/29/20 21:21 Dose: 650 mg Documented by: Al Hydroxide/Mg Hydroxide (Mag Hydrox/Al Hydrox/Simeth 30 Ml Udc) 30 ml PO Q6H PRN PRN PRN Reason: Gastric Burning Albuterol Sulfate (Albuterol 2.5 Mg/3 Ml Vial.Neb.) 2.5 mg INHALATION Q2H PRN PRN PRN Reason: Dyspnea, wheezing Aripiprazole (Aripiprazole 10 Mg Tablet) 30 mg PO DAILY [facility] Aspirin (Aspirin E.C. 81 Mg Tablet) 81 mg PO DAILY@0800 [facility] Atorvastatin Calcium (Atorvastatin Calcium 40 Mg Tablet) 40 mg PO QHS [facility] Last Admin: 05/29/20 22:55 Dose: 40 mg Documented by: Calamine/Phenol (Menthol/Lanolin/Calamine/Znox 113 Gm Tube) 1 applic TOPICAL BID [facility]; Protocol Last Admin: 05/29/20 22:55 Dose: 1 applicatio Documented by: Fluoxetine HCl (Fluoxetine 20 Mg Capsule) 40 mg PO DAILY [facility] Guaifenesin (Guaifenesin 10 Ml Udc (200mg/10ml)) 10 ml PO Q4H PRN PRN PRN Reason: COUGH Hydralazine HCl (Hydralazine 20 Mg/Ml Vial) 10 mg IV Q4H PRN PRN PRN Reason: SBP > 160 Sodium Chloride () 1,000 mls @ 100 mls/hr IV .Q10H [facility] Last Admin: 05/30/20 00:35 Dose: 100 mls/hr Documented by: Piperacillin Sod/Tazobactam (Sod 3.375 gm/ Sodium Chloride) 50 mls @ 12.5 mls/hr IV Q8 [facility] Last Admin: 05/30/20 06:28 Dose: 12.5 mls/hr Documented by: Vancomycin IV Pharmacy to Dose (1 ea/ Sodium Chloride) 500 mls @ 250 mls/hr IV PRN PRN; Protocol PRN Reason: Rx to Dose Sodium Chloride () 250 mls @ 15 mls/hr IV .[id number] PRN PRN Reason: Saline Flush Sodium Chloride () 250 mls @ 15 mls/hr IV .[id number] PRN PRN Reason: Additional IVPB Infusion Vancomycin HCl 1,250 mg/ (Sodium Chloride) 275 mls @ 167 mls/hr IV Q8H [facility] Last Infusion: 05/30/20 05:49 Dose: Infused Documented by: Norepinephrine Bitartrate 8 mg (/ Sodium Chloride) 250 mls @ 9.375 mls/hr CONT INF .[id number] [facility]; Protocol Last Titration: 05/30/20 07:00 Dose: 5 mcg/min, 9.4 mls/hr Documented by: Insulin Human Lispro (Insulin Lispro 100 Unit/Ml Insuln.Pen) 0 unit SC ACHS [facility]; Protocol Last Admin: 05/30/20 07:00 Dose: 1 units Documented by: Insulin Human Regular (Insulin U-500 Pen) 140 units SC BID [facility] Last Admin: 05/29/20 23:38 Dose: Not Given Documented by: Iopamidol (Contrast Allergy Safety Check) 0 ml IV X1 [facility] Last Admin: 05/29/20 22:30 Dose: 1 ml Documented by: Melatonin (Melatonin 3 Mg Tablet) 3 mg PO QHS PRN PRN PRN Reason: INSOMNIA Morphine Sulfate (Morphine 2 Mg/Ml Syringe) 2 mg IV Q3H PRN PRN PRN Reason: Pain Score 6-10 Nitroglycerin (Nitroglycerin (Inpatient Use) 0.4 Mg Tab.Subl) 0.4 mg SUBLINGUAL Q5M PRN PRN Reason: CARDIAC/CHEST PAIN Nystatin (Nystatin Powder 15gm Bottle) 1 applic TOPICAL BID [facility]; Protocol Last Admin: 05/29/20 23:07 Dose: 1 applicatio Documented by: Ondansetron HCl (Ondansetron 4 Mg/2 Ml Vial) 4 mg IV Q8H PRN PRN PRN Reason: NAUSEA/VOMITING Oxycodone HCl (Oxycodone 5 Mg Tablet) 5 mg PO Q4H PRN PRN PRN Reason: Pain Score 4-5 Prochlorperazine Edisylate (Prochlorperazine 10 Mg/2 Ml Vial) 5 mg IV Q4H PRN PRN PRN Reason: Breakthrough Nausea/Vomiting Senna/Docusate Sodium (Senna/Docusate Sodium 1 Tablet) 2 tablet PO BID PRN PRN PRN Reason: Constipation Sodium Chloride (0.9% Saline Lock 10 Ml Syringe) 10 - 40 ml IV UD PRN PRN Reason: SALINE FLUSH Last Admin: 05/29/20 23:41 Dose: 20 ml Documented by: Throat Lozenges (Benzocaine/Menthol 1 Lozenge) 1 lozenge MUCOUS MEM Q2H PRN PRN PRN Reason: SORE THROAT Warfarin Sodium (Warfarin 2.5 Mg Tablet) 2.5 mg PO Fr@1700 [facility] Warfarin Sodium (Warfarin 5 Mg Tablet) 5 mg PO SuMoTuWeThSa@1700 [facility] Assessment/Plan Active and Suspected Problems Septic shock (Acute) Cellulitis (Acute) RECOMMENDATIONS: 1. Continue empiric antimicrobials per infectious diseases recommendations. 2. Wean Levophed to maintain a mean arterial pressure at or above 65 mmHg. 3. Continue systemic anticoagulation monitor INR daily. 4. Wean supplemental oxygen to maintain saturations at or above 90%. 5. Encourage incentive spirometer use and mobilize patient as tolerated. IMPRESSIONS: 1. Septic shock Unclear source, although lower extremity cellulitis is a possibility. The patient has received supplemental IV fluid hydration. Recommend continuing vasopressor support to maintain a mean arterial pressure at or above 65 mmHg. The patient will be continued on empiric antimicrobials, pending further infectious work-up per ID recommendations. 2. Acute kidney injury Likely prerenal in etiology. The patient did receive supplemental IV fluid hydration and is being maintained on pressor support to maintain hemodynamic stability. Anticipate improvement with time. Continue to monitor urine output. No current indication for renal replacement therapy. 3. Heart failure with preserved ejection fraction/history of DVT/morbid obesity Complicates care, management, recovery and prognosis. Continue Lantus and sliding scale insulin coverage. Hold outpatient diuretics. TIME: 34 minutes of critical care time, independent of procedures, was spent addressing the patient's septic shock, acute kidney injury, heart failure with preserved ejection fraction, review of all data and collaboration with the care team. [id number]) [id number] Critical care first hour
[2020-05-30 07:38] LABS: Reflex Lactate? Y
[2020-05-30 09:40] LABS: Bedside Glucose 163 mg/dL (70-110)
[2020-05-30] MEDS: Aspirin E.C. 81 MG Tablet PO (10:45)
[2020-05-30] MEDS: FLUoxetine 20 MG Capsule 40 MG PO (10:45)
[2020-05-30] MEDS: Menthol/Lanolin/Calamine/Znox 113 GM Tube 1 APPLIC TOPICAL ×2 (10:46→21:12)
[2020-05-30] MEDS: ARIPiprazole 10 MG Tablet 30 MG PO (10:46)
[2020-05-30] MEDS: Nystatin Powder 15gm Bottle 1 APPLIC TOPICAL ×2 (10:46→21:13)
--- NOTE | 2020-05-30 10:53 | PCM.PN.HOSP ---
Patient Problems: Active and Suspected Problems Septic shock (Acute) Cellulitis (Acute) Subjective: Patient seen and examined. He was admitted with a complaint of fever and progressive worsening of his lower extremity lymphedema. He also had diarrhea, body aches and headache. He was found to be in septic shock and admitted to the ICU. He is currently on low-dose Levophed and is on IV antibiotics. Patient was resting this morning and had no complaints. Diarrhea had resolved. Review of systems otherwise negative. Still does have fever today of 99.8 Fahrenheit and blood pressure still running low. He was breathing at 28/min. He is on 2 L of oxygen. Creatinine has trended up slightly to 1.77 and lactic acid is 5.5. BBC today is 23.9. Vitals/I&O's: Vital Signs Temp Pulse Resp BP Pulse Ox 99.8 F H 73 28 H 97/50 L 97 05/30/20 07:00 05/30/20 07:00 05/30/20 07:00 05/30/20 07:00 05/30/20 07:00 Oxygen Flow Rate (L/min) 2 Oxygen Delivery Method Nasal Cannula Weight: 492 lb 1.148 oz Body Mass Index (BMI) 66.4 Intake and Output for Last 24 Hours 05/28/20 05/29/20 05/30/20 23:59 23:59 23:59 Intake Total 640 / 640 3347.88 / 3347.88 Output Total 1400 / 1400 Balance 640 / 390 1947.88 / 1947.88 General: Alert, Oriented x3, Cooperative, No apparent distress, - - super morbid obesity HEENT: Atraumatic, PERRLA, EOMI, Normocephalic Oral: Dry Mucosa Neck: Supple, No JVD, Negative Carotid Bruits Lungs: Tachypneic, - - diminished breath sounds bibasally, no wheezes or crackles. Cardiovascular: Regular rate, Regular Rhythm, Normal S1, Normal S2, No murmurs Abdomen: Bowel Sounds Present, Soft, Non Tender, Non-Distended, No Hepato-splenomegaly Extremities: No clubbing, No cyanosis, Capillary Refill Less than 3 Seconds, - - bilateral massive lymphedema. Both LEs wrapped in PAMELLA bandage Skin: No rashes, No breakdown Musculoskeletal: No Tenderness to Palpation of Joints or Extremities Lymphatic: No Cervical, Supraclavicular, or Inguinal Adenopathy Neurological: Cranial nerves II-XII grossly intact, Neuro grossly intact, Motor Exam 5/5 strength throughout Psych/Mental Status: Normal Affect, Appropriate, Alert and oriented to time, place, person, mood and affect Microbiology Past 72 Hours 05/29/20 17:00 Urine Catheter - Catheter Legionella Antigen - Final 05/29/20 17:00 Urine Catheter - Catheter Streptococcus pneumoniae Antigen (M - Final 05/29/20 20:45 Stool C. difficile GDH Antigen & Toxins - Final 05/29/20 20:00 Mucosa - Nasopharyngeal Respiratory Panel (PCR) - Final 05/29/20 17:00 Mucosa - Nose SARS-CoV-2 Antigen (Rapid) - Final Laboratory Results 05/29/20 16:35: WBC 25.9 H, RBC 4.32 L, Hgb 11.0 L, Hct 36.5 L, MCV 84.5, MCH 25.5 L, MCHC 30.1 L, RDW Std Deviation 52.4 H, RDW Coeff of Varsha 16.9 H, Plt Count 275, MPV 8.6, Immature Gran % (Auto) 1.400 H, Neut % (Auto) 93.4 H, Lymph % (Auto) 3.0 L, [place] % (Auto) 2.0, Eos % (Auto) 0.0, Baso % (Auto) 0.2, Absolute Neuts (auto) 24.2 H, Absolute Lymphs (auto) 0.78 L, Nucleated RBC % 0, Differential Comment COMMENT 05/29/20 16:35: PT 28.0 H, INR 2.7, APTT 49.5 H 05/29/20 16:35: Sodium 128 L, Potassium 4.0, Chloride 93 L, Carbon Dioxide 28.0, Anion Gap 7, BUN 21 H, Creatinine 1.64 H, Estim Creat Clear Calc 54.55, Est GFR (MDRD) Af Amer 56 L, Est GFR (MDRD) Non-Af 46 L, BUN/Creatinine Ratio 12.8, Glucose 225 H, Calcium 8.8, Total Bilirubin 0.60, AST 5 L, ALT 14 L, Alkaline Phosphatase 87, Troponin I < 0.015, Total Protein 8.4 H, Albumin 2.9 L, Globulin 5.5 H, Albumin/Globulin Ratio 0.5 L 05/29/20 16:35: Lactic Acid 4.1 H* 05/29/20 16:35: B-Natriuretic Peptide 14.9 05/29/20 16:35: Magnesium 1.9, Ferritin 79, Lactate Dehydrogenase 134, C-React Prot Ext Range 139.00 H 05/29/20 16:35: Procalcitonin 0.82 H 05/29/20 17:00: Urine Color Yellow, Urine Clarity Clear, Urine pH 5.0, Ur Specific [place] 1.010, Urine Protein Negative, Urine Glucose (UA) Normal, Urine Ketones Negative, Urine Occult Blood Negative, Urine Nitrite Negative, Urine Bilirubin Negative, Urine Urobilinogen Normal, Ur Leukocyte Esterase 25 H, Urine RBC 0 SEEN, Urine WBC 0-5 SEEN, Ur Squamous Epith Cells 0-5 SEEN, Urine Bacteria 0 SEEN, Urine Mucus 0 SEEN 05/29/20 20:00: COVID-19 (JEN) Not Detected, S.aureus Protein A PCR NEGATIVE, MRSA (PCR) Negative 05/29/20 21:10: S.aureus Protein A PCR NEGATIVE, MRSA (PCR) Negative 05/29/20 21:10: MRSA (PCR) Negative 05/29/20 21:33: Specimen Type ART, Sample Site R Radial, pH 7.39, Bicarbonate Actual 22.6, Total CO2 24, Base Excess -2, O2 Saturation 94 L, ABG pCO2 37.5, ABG pO2 71 L, Carmelo Test Positive, O2 Delivery Device Cannula, Liter Flow 6.0 05/29/20 22:00: Lactic Acid 5.6 H* 05/29/20 23:01: POC Glucose 179 H 05/30/20 03:26: WBC 23.9 H, RBC 3.75 L, Hgb 9.9 L, Hct 32.6 L, MCV 86.9, MCH 26.4 L, MCHC 30.4 L, RDW Std Deviation 54.7 H, RDW Coeff of Varsha 17.2 H, Plt Count 208, MPV 8.7, Immature Gran % (Auto) 1.700 H, Neut % (Auto) 91.7 H, Lymph % (Auto) 2.9 L, [place] % (Auto) 2.4, Eos % (Auto) 1.0, Baso % (Auto) 0.3, Absolute Neuts (auto) 21.9 H, Absolute Lymphs (auto) 0.69 L, Nucleated RBC % 0 05/30/20 03:26: Sodium 131 L, Potassium 4.3, Chloride 97 L, Carbon Dioxide 25.0, Anion Gap 9, BUN 24 H, Creatinine 1.77 H, Estim Creat Clear Calc 50.54, Est GFR (MDRD) Af Amer 51 L, Est GFR (MDRD) Non-Af 42 L, BUN/Creatinine Ratio 13.6, Glucose 157 H, Calcium 7.9 L, Total Bilirubin 0.60, AST 40 H, ALT 16, Alkaline Phosphatase 77, Total Protein 6.5, Albumin 2.1 L, Globulin 4.4 H, Albumin/Globulin Ratio 0.5 L 05/30/20 03:26: Lactic Acid 5.5 H* 05/30/20 06:40: PT 29.9 H, INR 2.9 05/30/20 06:59: POC Glucose 198 H 05/30/20 09:18: POC Glucose 163 H Diagnostic Data Chest X-Ray 05/30/20 05:55 IMPRESSION: Hyperinflation. Prominence of the pulmonary arteries bilaterally. Electronically Signed: Chin Obregon, at 10:00 EST , Service support , Current Medications Acetaminophen (Acetaminophen 325 Mg Tablet) 650 mg PO Q6H PRN PRN PRN Reason: Pain Score 1-10/Temp > 100.7 F Last Admin: 05/29/20 21:21 Dose: 650 mg Documented by: Al Hydroxide/Mg Hydroxide (Mag Hydrox/Al Hydrox/Simeth 30 Ml Udc) 30 ml PO Q6H PRN PRN PRN Reason: Gastric Burning Albuterol Sulfate (Albuterol 2.5 Mg/3 Ml Vial.Neb.) 2.5 mg INHALATION Q2H PRN PRN PRN Reason: Dyspnea, wheezing Aripiprazole (Aripiprazole 10 Mg Tablet) 30 mg PO DAILY [facility] Last Admin: 05/30/20 10:46 Dose: 30 mg Documented by: Aspirin (Aspirin E.C. 81 Mg Tablet) 81 mg PO DAILY@0800 [facility] Last Admin: 05/30/20 10:45 Dose: 81 mg Documented by: Atorvastatin Calcium (Atorvastatin Calcium 40 Mg Tablet) 40 mg PO QHS [facility] Last Admin: 05/29/20 22:55 Dose: 40 mg Documented by: Calamine/Phenol (Menthol/Lanolin/Calamine/Znox 113 Gm Tube) 1 applic TOPICAL BID [facility]; Protocol Last Admin: 05/30/20 10:46 Dose: 1 applicatio Documented by: Fluoxetine HCl (Fluoxetine 20 Mg Capsule) 40 mg PO DAILY [facility] Last Admin: 05/30/20 10:45 Dose: 40 mg Documented by: Guaifenesin (Guaifenesin 10 Ml Udc (200mg/10ml)) 10 ml PO Q4H PRN PRN PRN Reason: COUGH Hydralazine HCl (Hydralazine 20 Mg/Ml Vial) 10 mg IV Q4H PRN PRN PRN Reason: SBP > 160 Sodium Chloride () 1,000 mls @ 100 mls/hr IV .Q10H [facility] Last Admin: 05/30/20 10:47 Dose: 100 mls/hr Documented by: Piperacillin Sod/Tazobactam (Sod 3.375 gm/ Sodium Chloride) 50 mls @ 12.5 mls/hr IV Q8 [facility] Last Admin: 05/30/20 06:28 Dose: 12.5 mls/hr Documented by: Vancomycin IV Pharmacy to Dose (1 ea/ Sodium Chloride) 500 mls @ 250 mls/hr IV PRN PRN; Protocol PRN Reason: Rx to Dose Sodium Chloride () 250 mls @ 15 mls/hr IV .[id number] PRN PRN Reason: Saline Flush Sodium Chloride () 250 mls @ 15 mls/hr IV .[id number] PRN PRN Reason: Additional IVPB Infusion Vancomycin HCl 1,250 mg/ (Sodium Chloride) 275 mls @ 167 mls/hr IV Q8H [facility] Last Infusion: 05/30/20 05:49 Dose: Infused Documented by: Norepinephrine Bitartrate 8 mg (/ Sodium Chloride) 250 mls @ 9.375 mls/hr CONT INF .[id number] [facility]; Protocol Last Titration: 05/30/20 07:00 Dose: 5 mcg/min, 9.4 mls/hr Documented by: Insulin Human Lispro (Insulin Lispro 100 Unit/Ml Insuln.Pen) 0 unit SC [id number]; Protocol Last Admin: 05/30/20 07:00 Dose: 1 units Documented by: Insulin Human Regular (Insulin U-500 Pen) 140 units SC BID [facility] Last Admin: 05/30/20 09:32 Dose: 140 u Documented by: Melatonin (Melatonin 3 Mg Tablet) 3 mg PO QHS PRN PRN PRN Reason: INSOMNIA Nitroglycerin (Nitroglycerin (Inpatient Use) 0.4 Mg Tab.Subl) 0.4 mg SUBLINGUAL Q5M PRN PRN Reason: CARDIAC/CHEST PAIN Nystatin (Nystatin Powder 15gm Bottle) 1 applic TOPICAL BID [facility]; Protocol Last Admin: 05/30/20 10:46 Dose: 1 applicatio Documented by: Ondansetron HCl (Ondansetron 4 Mg/2 Ml Vial) 4 mg IV Q8H PRN PRN PRN Reason: NAUSEA/VOMITING Prochlorperazine Edisylate (Prochlorperazine 10 Mg/2 Ml Vial) 5 mg IV Q4H PRN PRN PRN Reason: Breakthrough Nausea/Vomiting Senna/Docusate Sodium (Senna/Docusate Sodium 1 Tablet) 2 tablet PO BID PRN PRN PRN Reason: Constipation Sodium Chloride (0.9% Saline Lock 10 Ml Syringe) 10 - 40 ml IV UD PRN PRN Reason: SALINE FLUSH Last Admin: 05/29/20 23:41 Dose: 20 ml Documented by: Throat Lozenges (Benzocaine/Menthol 1 Lozenge) 1 lozenge MUCOUS MEM Q2H PRN PRN PRN Reason: SORE THROAT Warfarin Sodium (Warfarin 2.5 Mg Tablet) 2.5 mg PO Fr@1700 [facility] Warfarin Sodium (Warfarin 5 Mg Tablet) 5 mg PO SuMoTuWeThSa@1700 [facility] STROKE Vital Signs/Narrative: Vital Signs Temp Pulse Resp BP Pulse Ox 05/30/20 07:00 99.8 F H 73 28 H 97/50 L 97 Medical Necessity - Tobacco Use Smoking Status: Never smoker Tobacco Use: Non-smoker Assessment/Plan All Active Problems Cellulitis of right leg (Acute) Septic shock (Acute) Cellulitis (Acute) Acute exacerbation of CHF (congestive heart failure) (Acute) Anasarca (Acute) Unable to ambulate (Acute) #Septic shock due to bilateral LE cellulitis in [place] setting of severe LE lymphedema patient still requiring low dose levophed wbc still elevated at 23, and he is still having a low grade fever, and is also tachypneic on IV vancomycin and zosyn ID and critical care on board blood cultures pending. wound gram stain also pending #Diarrhea: resolved. C Diff screen was negative. Stool for enteric pathogen negative # Hyponatremia: sodium is now up to 131. Continue gentle hydration #LActic acidosis: lactic acid actually trended up to 5.5, from 4.1 on admission. patient on levophed. Will continue trending #JIL:Cr is up to 1.77, from 1.64 on admission. baseline is ~ 1. WIll continue hydration with IVF and monitor # History of DVT: on coumadin. INR is therapeutic at 2.9. #TYpe 2 diabetes mellitus: victoza on hold. on insulin regular U-500 140 units twice daily. Insulin sliding scale. Accu-Cheks AC at bedtime. #HFrEF: not in exacerbation.stable. # Anxiety and depression: on Abilify #FERNANDO: wears oxygen at night. Not on CPAP or BIPAP DVT prophylaxis: on coumadin. INR is therapeutic. Inpatient E&M: [id number] [facility] Hosp L3
--- NOTE | 2020-05-30 11:52 | CON.PCM_ITS ---
Problem List (1) Septic shock Status: Acute Reason for Consult: shock Consulted by: Dr. Meza History of Present Illness: The patient is a 59 year old M with chronic lymphedema, does not follow with wound care, came in yesterday with several weeks of worsening BLE redness, pain, drainage, swelling. Denies purulence. LLE worse than R. No outpt abx prior to presentation. Developed new fever, n/v and came to ED. Admitted to icu on levophed, vanc/zosyn, feeling a little better today. No cough, no SOB, no chest pain, no change in taste or smell. Full ROS performed and neg except as noted above. - Medical History Past Medical History (Chronic Problems): Chronic Problems Anxiety and depression (Chronic) High cholesterol (Chronic) Hypertension (Chronic) Obstructive sleep apnea (Chronic) CVA (cerebral vascular accident) (Chronic) Diabetes (Chronic) Morbid obesity (Chronic) Congestive heart failure (Chronic) Lymphedema (Chronic) Allergies/Adverse Reactions: Allergies gabapentin Adverse Reaction (Verified 05/29/20 16:14) Swelling of legs Home Medications: Ambulatory Orders Medication Instructions Recorded Aripiprazole [Abilify] 30 mg PO DAILY 11/04/19 Warfarin [Coumadin] 5 mg PO SUMOTUWETHSA 11/04/19 Aspirin E.C. [Ecotrin] 81 mg PO DAILY@0800 02/20/20 Insulin Regular, Human [Humulin R 140 unit SQ BID 02/20/20 U-500 Kwikpen] Liraglutide [Victoza 3-Rick] 1.2 mg SQ DAILY 02/20/20 Senna/Docusate Sodium [Senokot-S] 2 tab PO BID PRN PRN tab 04/04/20 Fluoxetine HCl 40 mg PO DAILY 05/29/20 Menthol/Lanolin/Calamine/Znox 1 applic TOPICAL BID 05/29/20 [Calmoseptine Ointment] Nystatin Powder [Mycostatin Powder] 1 applic TOPICAL BID 05/29/20 Rosuvastatin Calcium [Crestor] 20 mg PO QHS 05/29/20 Torsemide 100 mg PO BID 05/29/20 Warfarin Sodium [Coumadin] 2.5 mg PO FR 05/29/20 - Social History Tobacco Use: non-smoker Vital Signs Temp Pulse Resp BP Pulse Ox 99.8 F H 73 28 H 97/50 L 98 05/30/20 07:00 05/30/20 07:00 05/30/20 07:00 05/30/20 07:00 05/30/20 11:21 Oxygen Flow Rate (L/min) 2 Oxygen Delivery Method Nasal Cannula Weight: 223.2 kg Body Mass Index (BMI) 66.4 Microbiology Past 72 Hours 05/29/20 20:45 Enteric Bacteriology - Final Stool C. difficile GDH Antigen & Toxins - Final 05/29/20 17:00 Legionella Antigen - Final Urine Catheter - Catheter Streptococcus pneumoniae Antigen (M - Final 05/29/20 20:00 Respiratory Panel (PCR) - Final Mucosa - Nasopharyngeal 05/29/20 17:00 SARS-CoV-2 Antigen (Rapid) - Final Mucosa - Nose Laboratory Tests Past 24 Hrs 05/29/20 05/29/20 05/29/20 16:35 16:35 16:35 WBC 25.9 H RBC 4.32 L Hgb 11.0 L Hct 36.5 L MCV 84.5 MCH 25.5 L MCHC 30.1 L RDW Std Deviation 52.4 H RDW Coeff of Varsha 16.9 H Plt Count 275 MPV 8.6 Immature Gran % (Auto) 1.400 H Neut % (Auto) 93.4 H Lymph % (Auto) 3.0 L [place] % (Auto) 2.0 Eos % (Auto) 0.0 Baso % (Auto) 0.2 Absolute Neuts (auto) 24.2 H Absolute Lymphs (auto) 0.78 L Nucleated RBC % 0 Differential Comment COMMENT PT 28.0 H INR 2.7 APTT 49.5 H Specimen Type Sample Site pH Bicarbonate Actual Total CO2 Base Excess O2 Saturation ABG pCO2 ABG pO2 Carmelo Test O2 Delivery Device Liter Flow Sodium 128 L Potassium 4.0 Chloride 93 L Carbon Dioxide 28.0 Anion Gap 7 BUN 21 H Creatinine 1.64 H Estim Creat Clear Calc 54.55 Est GFR (MDRD) Af Amer 56 L Est GFR (MDRD) Non-Af 46 L BUN/Creatinine Ratio 12.8 Glucose 225 H Lactic Acid Calcium 8.8 Magnesium Ferritin Total Bilirubin 0.60 AST 5 L ALT 14 L Alkaline Phosphatase 87 Lactate Dehydrogenase Troponin I < 0.015 C-React Prot Ext Range B-Natriuretic Peptide Total Protein 8.4 H Albumin 2.9 L Globulin 5.5 H Albumin/Globulin Ratio 0.5 L Procalcitonin Urine Color Urine Clarity Urine pH Ur Specific [place] Urine Protein Urine Glucose (UA) Urine Ketones Urine Occult Blood Urine Nitrite Urine Bilirubin Urine Urobilinogen Ur Leukocyte Esterase Urine RBC Urine WBC Ur Squamous Epith Cells Urine Bacteria Urine Mucus COVID-19 (JEN) S.aureus Protein A PCR MRSA (PCR) 05/29/20 05/29/20 05/29/20 16:35 16:35 16:35 WBC RBC Hgb Hct MCV MCH MCHC RDW Std Deviation RDW Coeff of Varsha Plt Count MPV Immature Gran % (Auto) Neut % (Auto) Lymph % (Auto) [place] % (Auto) Eos % (Auto) Baso % (Auto) Absolute Neuts (auto) Absolute Lymphs (auto) Nucleated RBC % Differential Comment PT INR APTT Specimen Type Sample Site pH Bicarbonate Actual Total CO2 Base Excess O2 Saturation ABG pCO2 ABG pO2 Carmelo Test O2 Delivery Device Liter Flow Sodium Potassium Chloride Carbon Dioxide Anion Gap BUN Creatinine Estim Creat Clear Calc Est GFR (MDRD) Af Amer Est GFR (MDRD) Non-Af BUN/Creatinine Ratio Glucose Lactic Acid 4.1 H* Calcium Magnesium 1.9 Ferritin 79 Total Bilirubin AST ALT Alkaline Phosphatase Lactate Dehydrogenase 134 Troponin I C-React Prot Ext Range 139.00 H B-Natriuretic Peptide 14.9 Total Protein Albumin Globulin Albumin/Globulin Ratio Procalcitonin Urine Color Urine Clarity Urine pH Ur Specific [place] Urine Protein Urine Glucose (UA) Urine Ketones Urine Occult Blood Urine Nitrite Urine Bilirubin Urine Urobilinogen Ur Leukocyte Esterase Urine RBC Urine WBC Ur Squamous Epith Cells Urine Bacteria Urine Mucus COVID-19 (JEN) S.aureus Protein A PCR MRSA (PCR) 05/29/20 05/29/20 05/29/20 16:35 17:00 20:00 WBC RBC Hgb Hct MCV MCH MCHC RDW Std Deviation RDW Coeff of Varsha Plt Count MPV Immature Gran % (Auto) Neut % (Auto) Lymph % (Auto) [place] % (Auto) Eos % (Auto) Baso % (Auto) Absolute Neuts (auto) Absolute Lymphs (auto) Nucleated RBC % Differential Comment PT INR APTT Specimen Type Sample Site pH Bicarbonate Actual Total CO2 Base Excess O2 Saturation ABG pCO2 ABG pO2 Carmelo Test O2 Delivery Device Liter Flow Sodium Potassium Chloride Carbon Dioxide Anion Gap BUN Creatinine Estim Creat Clear Calc Est GFR (MDRD) Af Amer Est GFR (MDRD) Non-Af BUN/Creatinine Ratio Glucose Lactic Acid Calcium Magnesium Ferritin Total Bilirubin AST ALT Alkaline Phosphatase Lactate Dehydrogenase Troponin I C-React Prot Ext Range B-Natriuretic Peptide Total Protein Albumin Globulin Albumin/Globulin Ratio Procalcitonin 0.82 H Urine Color Yellow Urine Clarity Clear Urine pH 5.0 Ur Specific [place] 1.010 Urine Protein Negative Urine Glucose (UA) Normal Urine Ketones Negative Urine Occult Blood Negative Urine Nitrite Negative Urine Bilirubin Negative Urine Urobilinogen Normal Ur Leukocyte Esterase 25 H Urine RBC 0 SEEN Urine WBC 0-5 SEEN Ur Squamous Epith Cells 0-5 SEEN Urine Bacteria 0 SEEN Urine Mucus 0 SEEN COVID-19 (JEN) Not Detected S.aureus Protein A PCR NEGATIVE MRSA (PCR) Negative 05/29/20 05/29/20 05/29/20 21:10 21:10 21:33 WBC RBC Hgb Hct MCV MCH MCHC RDW Std Deviation RDW Coeff of Varsha Plt Count MPV Immature Gran % (Auto) Neut % (Auto) Lymph % (Auto) [place] % (Auto) Eos % (Auto) Baso % (Auto) Absolute Neuts (auto) Absolute Lymphs (auto) Nucleated RBC % Differential Comment PT INR APTT Specimen Type ART Sample Site R Radial pH 7.39 Bicarbonate Actual 22.6 Total CO2 24 Base Excess -2 O2 Saturation 94 L ABG pCO2 37.5 ABG pO2 71 L Carmelo Test Positive O2 Delivery Device Cannula Liter Flow 6.0 Sodium Potassium Chloride Carbon Dioxide Anion Gap BUN Creatinine Estim Creat Clear Calc Est GFR (MDRD) Af Amer Est GFR (MDRD) Non-Af BUN/Creatinine Ratio Glucose Lactic Acid Calcium Magnesium Ferritin Total Bilirubin AST ALT Alkaline Phosphatase Lactate Dehydrogenase Troponin I C-React Prot Ext Range B-Natriuretic Peptide Total Protein Albumin Globulin Albumin/Globulin Ratio Procalcitonin Urine Color Urine Clarity Urine pH Ur Specific [place] Urine Protein Urine Glucose (UA) Urine Ketones Urine Occult Blood Urine Nitrite Urine Bilirubin Urine Urobilinogen Ur Leukocyte Esterase Urine RBC Urine WBC Ur Squamous Epith Cells Urine Bacteria Urine Mucus COVID-19 (JEN) S.aureus Protein A PCR NEGATIVE MRSA (PCR) Negative Negative 05/29/20 05/30/20 05/30/20 22:00 03:26 03:26 WBC 23.9 H RBC 3.75 L Hgb 9.9 L Hct 32.6 L MCV 86.9 MCH 26.4 L MCHC 30.4 L RDW Std Deviation 54.7 H RDW Coeff of Varsha 17.2 H Plt Count 208 MPV 8.7 Immature Gran % (Auto) 1.700 H Neut % (Auto) 91.7 H Lymph % (Auto) 2.9 L [place] % (Auto) 2.4 Eos % (Auto) 1.0 Baso % (Auto) 0.3 Absolute Neuts (auto) 21.9 H Absolute Lymphs (auto) 0.69 L Nucleated RBC % 0 Differential Comment PT INR APTT Specimen Type Sample Site pH Bicarbonate Actual Total CO2 Base Excess O2 Saturation ABG pCO2 ABG pO2 Carmelo Test O2 Delivery Device Liter Flow Sodium 131 L Potassium 4.3 Chloride 97 L Carbon Dioxide 25.0 Anion Gap 9 BUN 24 H Creatinine 1.77 H Estim Creat Clear Calc 50.54 Est GFR (MDRD) Af Amer 51 L Est GFR (MDRD) Non-Af 42 L BUN/Creatinine Ratio 13.6 Glucose 157 H Lactic Acid 5.6 H* Calcium 7.9 L Magnesium Ferritin Total Bilirubin 0.60 AST 40 H ALT 16 Alkaline Phosphatase 77 Lactate Dehydrogenase Troponin I C-React Prot Ext Range B-Natriuretic Peptide Total Protein 6.5 Albumin 2.1 L Globulin 4.4 H Albumin/Globulin Ratio 0.5 L Procalcitonin Urine Color Urine Clarity Urine pH Ur Specific [place] Urine Protein Urine Glucose (UA) Urine Ketones Urine Occult Blood Urine Nitrite Urine Bilirubin Urine Urobilinogen Ur Leukocyte Esterase Urine RBC Urine WBC Ur Squamous Epith Cells Urine Bacteria Urine Mucus COVID-19 (JEN) S.aureus Protein A PCR MRSA (PCR) 05/30/20 05/30/20 03:26 06:40 WBC RBC Hgb Hct MCV MCH MCHC RDW Std Deviation RDW Coeff of Varsha Plt Count MPV Immature Gran % (Auto) Neut % (Auto) Lymph % (Auto) [place] % (Auto) Eos % (Auto) Baso % (Auto) Absolute Neuts (auto) Absolute Lymphs (auto) Nucleated RBC % Differential Comment PT 29.9 H INR 2.9 APTT Specimen Type Sample Site pH Bicarbonate Actual Total CO2 Base Excess O2 Saturation ABG pCO2 ABG pO2 Carmelo Test O2 Delivery Device Liter Flow Sodium Potassium Chloride Carbon Dioxide Anion Gap BUN Creatinine Estim Creat Clear Calc Est GFR (MDRD) Af Amer Est GFR (MDRD) Non-Af BUN/Creatinine Ratio Glucose Lactic Acid 5.5 H* Calcium Magnesium Ferritin Total Bilirubin AST ALT Alkaline Phosphatase Lactate Dehydrogenase Troponin I C-React Prot Ext Range B-Natriuretic Peptide Total Protein Albumin Globulin Albumin/Globulin Ratio Procalcitonin Urine Color Urine Clarity Urine pH Ur Specific [place] Urine Protein Urine Glucose (UA) Urine Ketones Urine Occult Blood Urine Nitrite Urine Bilirubin Urine Urobilinogen Ur Leukocyte Esterase Urine RBC Urine WBC Ur Squamous Epith Cells Urine Bacteria Urine Mucus COVID-19 (JEN) S.aureus Protein A PCR MRSA (PCR) - Other Studies Radiology: [] reviewed Other Studies: [] Route of nutrition/ use of supplements: [] Nutritional Intake: [] IV Site: [] Garcia Catheter: [] - Physical Exam General: Alert, Oriented x3, Cooperative, No apparent distress HEENT: Atraumatic, PERRLA, EOMI Neck: Supple, No Nodes Lungs: Clear to auscultation, Normal air movement Cardiovascular: Regular rate, Regular Rhythm Abdomen: Soft, Non Tender, Non-Distended, Obese Extremities: Edema Skin: Ulcer/ Wound - BLE wrapped IV Site: Peripheral, without redness Musculoskeletal: No Tenderness to Palpation of Joints or Extremities Neurological: Cranial nerves II-XII grossly intact - Assessment/Plan Antibiotics: [] Assessment/Plan: [] Active and Suspected Problems Septic shock (Acute) Cellulitis (Acute) septic shock suspected source BLE cellulitis with chronic lymphedema - fever improved. On vanc/zosyn. Covid pcr and Ag neg. UAg neg. Wound cx pending. Cdiff neg. MRSA pcr of wounds neg. Will follow, thank you
--- NOTE | 2020-05-30 11:57 | NURSING ---
skin photo: right lower leg
--- NOTE | 2020-05-30 11:58 | NURSING ---
skin photo: left lower leg
--- NOTE | 2020-05-30 11:58 | NURSING ---
skin photo: left buttock
--- NOTE | 2020-05-30 12:21 | CASEMGMT ---
RN CM Assessment Note Introduced role of CM to patient in room. Patient is awake, alert and able to participate in assessment. Demographics, PCP verified. Patient states he lives alone in an apartment, no stairs. He needs assistance at home and has aides who come [facility], and [facility] through [employer]. Pt uses walker and WC to get around home. He does not drive, but does use bus transportation or aides will do shopping for him. -Call was received from [facility] nurse Marcelina who states patient cannot care for himself @ home and they have concerns re: his returning home. Nurse feels he would benefit from SNF on discharge. She states he cannot get off couch and requires much assistance. He cannot elevate his legs and is not tolerating the leg wraps which need to be placed by nursing. He calls them within 24 hours to remove the wraps. Nurse states they have attempted to assist him with SNF placement but patient has refused. Diagnosis: Septic Shock PCP: [facility] in [place]. Dr. Silvestre Rosales Insurance: [facility] benefits, [facility] transfer declination form reviewed with patient and he is declining transfer to [facility]. States he will stay @ [facility] under his [facility] beneftis. Form and clinical faxed to [facility]. Preferred Pharmacy: [facility] Retail Prescription Benefit: yes LNOK: Sister Living Arrangements: Lives in one story apartment. Tranportation: does not drive. DME: walker, wheelchair, oxygen through [facility]. States he has a concentrator, but not portability. Oxygen is provided through [facility]. TABATHA consult: probable need for SNF placement on dc. TABATHA Coulter updated. [facility]: [facility] [employer]. They are strongly suggesting SNF placement on dc. Has aide services 3x week. Patient DC Goals: Home DC Plan: Anticipate patient would benefit from SNF placement on discharge. PT/OT evaluations pending. Pt has difficulty caring for self. CM available for discharge planning coordination. Contact CM for any concerns/needs that may arise. Mani CALVILLO RN ACM
[2020-05-30 13:10] LABS: Bedside Glucose 159 mg/dL (70-110)
[2020-05-30] MEDS: TITRATION PARAMETER CHANGE 1 EACH IV (14:57)
[2020-05-30 17:10] LABS: Bedside Glucose 171 mg/dL (70-110)
[2020-05-30] MEDS: Acetaminophen 325 MG Tablet 650 MG PO (20:09)
[2020-05-30] MEDS: Albuterol 2.5 MG/3 ML VIAL.NEB. INHALATION (20:24)
[2020-05-30] MEDS: Atorvastatin Calcium 40 MG Tablet PO (21:13)
[2020-05-30] MEDS: Loperamide 2 MG Capsule PO (21:16)
[2020-05-30 21:30] LABS: Bedside Glucose 142 mg/dL (70-110)
--- NOTE | 2020-05-30 23:40 | PCM.PN.BLA ---
Progress Note Nurse reported patient has respiratory distress and hypotension. Discussed with meds to resume levophed. Patient was examined at the bedside. Has an S1-S2 present. Lungs with wheezes. On home torsemide will give a one-time dose of Lasix 40 mg IV. STROKE Vital Signs/Narrative: Vital Signs Temp Pulse Resp BP BP Pulse Ox 05/30/20 22:47 77 22 H 95/44 L 93 05/30/20 22:40 75 32 H 97/37 L 94 05/30/20 22:00 101.2 F H 79 25 H 107/48 L 93 05/30/20 21:30 101.4 F H 84 29 H 111/91 H 94 05/30/20 20:30 101.8 F H 77 26 H 115/49 L 98 05/30/20 20:26 76 18 05/30/20 20:10 101.8 F H 77 27 H 123/57 H 100
[2020-05-30] MEDS: Furosemide 40 MG/4 ML Vial IV (23:54)
[2020-05-31] VITALS (43 sets, daily range): BP systolic 96–145; BP diastolic 30–74; PULSE 59–85; RESP 14–36; TEMP 38–38.6; O2SAT 90–98
[2020-05-31 02:57] LABS: Vancomycin, Trough Level 23.1 ug/mL (5.0-15.0)
[2020-05-31] MEDS: Acetaminophen 325 MG Tablet 650 MG PO (04:18)
[2020-05-31 04:34] LABS: Absolute Lymphocyte Count 1.63 X10^3/uL (0.83-4.51); Absolute Neutrophil Count 17.6 X10^3/uL (2.0-7.7); Basophil# 0.05 X10^3/uL; Basophil% 0.2 % (0-1); Eosinophil# 0.36 X10^3/uL; Eosinophils% 1.7 % (0-5); Hematocrit 29.8 % (40-54); Hemoglobin 8.9 g/dL (13.0-16.5); Lymphocyte # 1.63 X10^3/ul (4.0); Lymphocyte % 7.8 % (19-41); Mean Corp Hgb Conc 29.9 g/dL (32-36); Mean Corpuscular Volume 87.1 fL (80-94); Mean Platelet Vol. 8.9 fl (6.2-12.0); Monocyte# 0.98 X10^3/uL; Monocyte% 4.7 % (0-10); NRBC Flagged by Analyzer 0 % (0-5); Neutrophil # 17.62 X10^3/uL (2.7-7.7); Neutrophil % 84.3 % (47-70); Platelet Count 214 K/mm3 (150-450); RBC Distribution Width CV 17.2 % (11.6-14.6); RBC Distribution Width SD 55.8 fl (35.1-43.9); Red Blood Count 3.42 M/mm3 (4.6-6.2); White Blood Count 20.9 K/mm3 (4.4-11.0)
[2020-05-31 04:47] LABS: Anion Gap 3 (5-15); BUN 19 mg/dL (7-18); BUN/Creat Ratio 14.7 RATIO (10-20); Calcium,Total 8.1 mg/dL (8.5-10.1); Chloride 105 mmol/L (98-107); Creatinine, Serum 1.29 mg/dL (0.70-1.30); EST Glomerular Filtration Rate 61 mL/min (>60); Est Glom Filt Rate - Afr Amer 74 mL/min (>60); Estimated Creatinine Clearance 69.35 ml/min; Glucose 108 mg/dL (74-106); Potassium 3.5 mmol/L (3.5-5.1); Sodium Level 138 mmol/L (136-145)
--- NOTE | 2020-05-31 04:56 | PCM.RX.CS ---
Consult Pharmacy has been consulted to manage selected antiobiotic: Vancomycin Type of Consult: Follow-up Labs: Sodium 138 mmol/L (136-145) 05/31/20 04:20 Potassium 3.5 mmol/L (3.5-5.1) 05/31/20 04:20 Chloride 105 mmol/L (98-107) 05/31/20 04:20 Carbon Dioxide 30.0 mmol/L (21.0-32.0) 05/31/20 04:20 Anion Gap 3 (5-15) L 05/31/20 04:20 BUN 19 mg/dL (7-18) H 05/31/20 04:20 Creatinine 1.29 mg/dL (0.70-1.30) 05/31/20 04:20 Est GFR (MDRD) Af Amer 74 mL/min (>60) 05/31/20 04:20 Est GFR (MDRD) Non-Af 61 mL/min (>60) 05/31/20 04:20 BUN/Creatinine Ratio 14.7 RATIO (10-20) 05/31/20 04:20 Glucose 108 mg/dL (74-106) H 05/31/20 04:20 Vancomycin Trough 23.1 ug/mL (5.0-15.0) H 05/31/20 02:20 Microbiology: Microbiology 05/29/20 21:10 Tissue - Other Gram Stain - Final 05/29/20 21:10 Wound - Aerobic & Anaerobic Swabs Gram Stain - Final 05/29/20 20:45 Stool Enteric Bacteriology - Final 05/29/20 20:45 Stool C. difficile GDH Antigen & Toxins - Final 05/29/20 17:00 Urine Catheter - Catheter Legionella Antigen - Final 05/29/20 17:00 Urine Catheter - Catheter Streptococcus pneumoniae Antigen (M - Final 05/29/20 20:00 Mucosa - Nasopharyngeal Respiratory Panel (PCR) - Final 05/29/20 17:00 Mucosa - Nose SARS-CoV-2 Antigen (Rapid) - Final Goal Trough: 15-20 mcg/mL Pharmacy Plan for Drug Dosing: Pharmacy Service will continue to monitor and adjust dosing as required. TROUGH 23.1 DRAW RANDOM LEVEL IN 8 HOURS AND ADJUST DOSE THEN Follow-Up Labs: Trough Vancomycin Labs to be done on [date and time ordered]: 05/31 @ [id number]
[2020-05-31] MEDS: Albuterol 2.5 MG/3 ML VIAL.NEB. INHALATION (05:03)
--- NOTE | 2020-05-31 05:05 | RAD_ITS ---
STUDY: X-RAY CHEST REASON FOR EXAM: Male, 59 years old. EXP WHEEZES, SOB TECHNIQUE: Frontal view COMPARISON: 05/30/2020 FINDINGS: Lungs are expanded. There are mild fibrotic changes. There are NO acute infiltrates. There is no demonstrated pleural abnormality. Normal size heart. Normal mediastinum and jazmine. Normal visualized pulmonary arteries. Normal visualized aortic arch and descending thoracic aorta. Normal visualized thoracic spine. Normal visualized ribs, clavicles, and shoulders. There is no demonstrated abnormality of the visualized soft tissue structures of the upper abdomen. RAD/Chest 1 View (Portable) IMPRESSION: There is NO acute cardiopulmonary abnormality. Electronically Signed: Ubaldo Zayas MD at 5:37 EST , Service support ,
[2020-05-31] MEDS: LORazepam 2 MG/ML Syringe 1 MG IV (05:31)
--- NOTE | 2020-05-31 05:37 | PCM.PN.BLA ---
Progress Note With patient wheezing on examination DuoNeb x1 was ordered after Lasix was given. No acute cardiopulmonary process. Old chest x-ray interpreted as hyper ventilation. Cannot rule out COPD exacerbation. Will give patient a one-time dose of Solu-Medrol 125 mg x 1 and put him on a scheduled breathing treatment. Patient can tolerate BiPAP. BiPAP ordered. STROKE Vital Signs/Narrative: Vital Signs Temp Pulse Resp BP Pulse Ox 05/31/20 05:03 81 20 H 05/31/20 03:00 101.2 F H 68 29 H 112/50 L 92 05/31/20 02:00 72 29 H 117/49 L 94 05/31/20 01:45 121/55 H
[2020-05-31] MEDS: 0.9% Saline Lock 10 ML Syringe IV (06:00)
[2020-05-31] MEDS: MethylPREDNISolone 125 MG/2 ML Vial IV (06:00)
--- NOTE | 2020-05-31 07:31 | PCM.PN.HOSP ---
Patient Problems: Active and Suspected Problems Septic shock (Acute) Cellulitis (Acute) Subjective: Patient seen and examined. He has no complaitns this morning. He became more short of breath this morning, and was given IV solumedrol and started on BIPAP. He is febrile this morning, with temperature of 101.3F, and RR is 29 today. Wbc is 20.9 this morning. Review of systems is otherwise negative. Vitals/I&O's: Vital Signs Temp Pulse Resp BP Pulse Ox 101.3 F H 70 29 H 110/46 L 92 05/31/20 04:00 05/31/20 07:00 05/31/20 07:00 05/31/20 07:00 05/31/20 07:00 Oxygen Flow Rate (L/min) 2 Oxygen Delivery Method Nasal Cannula Weight: 484 lb 2.162 oz Body Mass Index (BMI) 66.4 Intake and Output for Last 24 Hours 05/29/20 05/30/20 05/31/20 23:59 23:59 23:59 Intake Total 640 / 640 5767.85 / 5772.55 372.23 / 372.23 Output Total 6250 / 6890 3740 / 3740 Balance 640 / 390 -482.15 / -1117.45 -3367.77 / -3367.77 General: Alert, Oriented x3, Cooperative, No apparent distress, - - super morbid obesity HEENT: Atraumatic, PERRLA, EOMI, Normocephalic Oral: Dry Mucosa Neck: Supple, No JVD, Negative Carotid Bruits Lungs: Tachypneic, - - diminished breath sounds bibasally, no wheezes or crackles. on BIPAP Cardiovascular: Regular rate, Regular Rhythm, Normal S1, Normal S2, No murmurs Abdomen: Bowel Sounds Present, Soft, Non Tender, Non-Distended, No Hepato-splenomegaly Extremities: No clubbing, No cyanosis, Capillary Refill Less than 3 Seconds, - - bilateral massive lymphedema. Both LEs wrapped in PAMELLA bandage Skin: No rashes, No breakdown Musculoskeletal: No Tenderness to Palpation of Joints or Extremities Lymphatic: No Cervical, Supraclavicular, or Inguinal Adenopathy Neurological: Cranial nerves II-XII grossly intact, Neuro grossly intact, Motor Exam 5/5 strength throughout Psych/Mental Status: Normal Affect, Appropriate, Alert and oriented to time, place, person, mood and affect Microbiology Past 72 Hours 05/29/20 21:10 Tissue - Other Gram Stain - Final 05/29/20 21:10 Wound - Aerobic & Anaerobic Swabs Gram Stain - Final 05/29/20 20:45 Stool Enteric Bacteriology - Final 05/29/20 20:45 Stool C. difficile GDH Antigen & Toxins - Final 05/29/20 17:00 Urine Catheter - Catheter Legionella Antigen - Final 05/29/20 17:00 Urine Catheter - Catheter Streptococcus pneumoniae Antigen (M - Final 05/29/20 20:00 Mucosa - Nasopharyngeal Respiratory Panel (PCR) - Final 05/29/20 17:00 Mucosa - Nose SARS-CoV-2 Antigen (Rapid) - Final Laboratory Results 05/30/20 09:18: POC Glucose 163 H 05/30/20 12:54: POC Glucose 159 H 05/30/20 16:57: POC Glucose 171 H 05/30/20 21:11: POC Glucose 142 H 05/31/20 02:20: Vancomycin Trough 23.1 H 05/31/20 04:20: WBC 20.9 H, RBC 3.42 L, Hgb 8.9 L, Hct 29.8 L, MCV 87.1, MCH 26.0 L, MCHC 29.9 L, RDW Std Deviation 55.8 H, RDW Coeff of Varsha 17.2 H, Plt Count 214, MPV 8.9, Immature Gran % (Auto) 1.300 H, Neut % (Auto) 84.3 H, Lymph % (Auto) 7.8 L, Hartley % (Auto) 4.7, Eos % (Auto) 1.7, Baso % (Auto) 0.2, Absolute Neuts (auto) 17.6 H, Absolute Lymphs (auto) 1.63, Nucleated RBC % 0 05/31/20 04:20: Sodium 138, Potassium 3.5, Chloride 105, Carbon Dioxide 30.0, Anion Gap 3 L, BUN 19 H, Creatinine 1.29, Estim Creat Clear Calc 69.35, Est GFR (MDRD) Af Amer 74, Est GFR (MDRD) Non-Af 61, BUN/Creatinine Ratio 14.7, Glucose 108 H, Calcium 8.1 L Diagnostic Data Chest X-Ray 05/31/20 05:05 IMPRESSION: There is NO acute cardiopulmonary abnormality. Electronically Signed: Ubaldo Zayas MD at 5:37 EST , Service support , Current Medications Acetaminophen (Acetaminophen 325 Mg Tablet) 650 mg PO Q6H PRN PRN PRN Reason: Pain Score 1-10/Temp > 100.7 F Last Admin: 05/31/20 04:18 Dose: 650 mg Documented by: Al Hydroxide/Mg Hydroxide (Mag Hydrox/Al Hydrox/Simeth 30 Ml Udc) 30 ml PO Q6H PRN PRN PRN Reason: Gastric Burning Albuterol Sulfate (Albuterol 2.5 Mg/3 Ml Vial.Neb.) 2.5 mg INHALATION Q2H PRN PRN PRN Reason: Dyspnea, wheezing Last Admin: 05/31/20 05:03 Dose: 2.5 mg Documented by: Albuterol/Ipratropium (Ipratropium/Albuterol Sulfate 3 Ml Ampul.Neb) 3 ml INHALATION Q4HWA.RT HARSHIL Aripiprazole (Aripiprazole 10 Mg Tablet) 30 mg PO DAILY [facility] Last Admin: 05/30/20 10:46 Dose: 30 mg Documented by: Aspirin (Aspirin E.C. 81 Mg Tablet) 81 mg PO DAILY@0800 [facility] Last Admin: 05/30/20 10:45 Dose: 81 mg Documented by: Atorvastatin Calcium (Atorvastatin Calcium 40 Mg Tablet) 40 mg PO QHS [facility] Last Admin: 05/30/20 21:13 Dose: 40 mg Documented by: Calamine/Phenol (Menthol/Lanolin/Calamine/Znox 113 Gm Tube) 1 applic TOPICAL BID [facility]; Protocol Last Admin: 05/30/20 21:12 Dose: 1 applicatio Documented by: Fluoxetine HCl (Fluoxetine 20 Mg Capsule) 40 mg PO DAILY [facility] Last Admin: 05/30/20 10:45 Dose: 40 mg Documented by: Guaifenesin (Guaifenesin 10 Ml Udc (200mg/10ml)) 10 ml PO Q4H PRN PRN PRN Reason: COUGH Hydralazine HCl (Hydralazine 20 Mg/Ml Vial) 10 mg IV Q4H PRN PRN PRN Reason: SBP > 160 Piperacillin Sod/Tazobactam (Sod 3.375 gm/ Sodium Chloride) 50 mls @ 12.5 mls/hr IV Q8 [facility] Last Admin: 05/31/20 04:56 Dose: 12.5 mls/hr Documented by: Vancomycin IV Pharmacy to Dose (1 ea/ Sodium Chloride) 500 mls @ 250 mls/hr IV PRN PRN; Protocol PRN Reason: Rx to Dose Sodium Chloride () 250 mls @ 15 mls/hr IV .[id number] PRN PRN Reason: Saline Flush Sodium Chloride () 250 mls @ 15 mls/hr IV .[id number] PRN PRN Reason: Additional IVPB Infusion Norepinephrine Bitartrate 8 mg (/ Sodium Chloride) 250 mls @ 9.375 mls/hr CONT INF .[id number] [facility]; Protocol Last Titration: 05/31/20 07:00 Dose: 6 mcg/min, 11.3 mls/hr Documented by: Insulin Human Lispro (Insulin Lispro 100 Unit/Ml Insuln.Pen) 0 unit SC ACHS [facility]; Protocol Last Admin: 05/30/20 21:12 Dose: Not Given Documented by: Insulin Human Regular (Insulin U-500 Pen) 140 units SC BID [facility] Last Admin: 05/30/20 21:13 Dose: 140 u Documented by: Loperamide HCl (Loperamide 2 Mg Capsule) 2 mg PO Q4H PRN PRN PRN Reason: Diarrhea Last Admin: 05/30/20 21:16 Dose: 2 mg Documented by: Melatonin (Melatonin 3 Mg Tablet) 3 mg PO QHS PRN PRN PRN Reason: INSOMNIA Nitroglycerin (Nitroglycerin (Inpatient Use) 0.4 Mg Tab.Subl) 0.4 mg SUBLINGUAL Q5M PRN PRN Reason: CARDIAC/CHEST PAIN Nystatin (Nystatin Powder 15gm Bottle) 1 applic TOPICAL BID [facility]; Protocol Last Admin: 05/30/20 21:13 Dose: 1 applicatio Documented by: Ondansetron HCl (Ondansetron 4 Mg/2 Ml Vial) 4 mg IV Q8H PRN PRN PRN Reason: NAUSEA/VOMITING Prochlorperazine Edisylate (Prochlorperazine 10 Mg/2 Ml Vial) 5 mg IV Q4H PRN PRN PRN Reason: Breakthrough Nausea/Vomiting Senna/Docusate Sodium (Senna/Docusate Sodium 1 Tablet) 2 tablet PO BID PRN PRN PRN Reason: Constipation Sodium Chloride (0.9% Saline Lock 10 Ml Syringe) 10 - 40 ml IV UD PRN PRN Reason: SALINE FLUSH Last Admin: 05/31/20 06:00 Dose: 20 ml Documented by: Throat Lozenges (Benzocaine/Menthol 1 Lozenge) 1 lozenge MUCOUS MEM Q2H PRN PRN PRN Reason: SORE THROAT Warfarin Sodium (Warfarin 2.5 Mg Tablet) 2.5 mg PO Fr@1700 HARSHIL Warfarin Sodium (Warfarin 5 Mg Tablet) 5 mg PO SuMoTuWeThSa@1700 HARSHIL Last Admin: 05/30/20 18:33 Dose: 5 mg Documented by: STROKE Vital Signs/Narrative: Vital Signs Temp Pulse Resp BP Pulse Ox 05/31/20 07:00 70 29 H 110/46 L 92 05/31/20 06:00 78 36 H 108/47 L 92 05/31/20 05:03 81 20 H 05/31/20 05:00 72 19 H 96/74 94 05/31/20 04:00 101.3 F H 69 21 H 128/52 H 95 Medical Necessity - Tobacco Use Smoking Status: Never smoker Tobacco Use: Non-smoker Assessment/Plan All Active Problems Cellulitis of right leg (Acute) Septic shock (Acute) Cellulitis (Acute) Acute exacerbation of CHF (congestive heart failure) (Acute) Anasarca (Acute) Unable to ambulate (Acute) #Septic shock due to bilateral LE cellulitis in elis[place] setting of severe LE lymphedema patient still requiring low dose levophed wbc is down to 20.9, and he is still febrile and tachypneic. on IV vancomycin and zosyn ID and critical care on board blood cultures pending. wound gram stain also pending #Acute hypoxic respiratory insufficiency became more short of breath this yoselin was put on IV solumedrol now on 2L of oxygen by nasal canula BNP was only 14.9 on admission, titrate oxygen to maintain sats >90% CXR showed no acute cardiopulmonary pathology #Diarrhea: resolved. C Diff screen was negative. Stool for enteric pathogen negative # Hyponatremia: resolved. Na is 138. #Lactic acidosis: stable #JIL:resolved. Cr is down to 1.29 # History of DVT: on coumadin. INR is therapeutic at 2.9. #Type 2 diabetes mellitus: victoza on hold. on insulin regular U-500 140 units twice daily. Insulin sliding scale. Accu-Cheks AC at bedtime. #HFrEF: not in exacerbation.stable. # Anxiety and depression: on Abilify #FERNANDO: wears oxygen at night. Not on CPAP or BIPAP DVT prophylaxis: on coumadin. INR is pending today Inpatient E&M: 23088 [facility] L[facility]
--- NOTE | 2020-05-31 07:57 | PCM.PN.INT ---
Subjective: The patient was seen and examined at the bedside this morning. Events from the last 24 hours have been reviewed. The patient remains febrile with a T-max overnight of 101.8 ?F. Repeat chest x-ray from this morning revealed no acute cardiopulmonary process. The patient remains on Levophed at 6 mcg/min to maintain hemodynamic stability. Overnight, the patient developed audible wheezing, for which he received a one-time dose of IV Lasix and was also started on nebulized bronchodilators. The patient utilized BiPAP for approximately 20 minutes. This morning, although the patient does have some audible wheezing, he denies any resting shortness of breath. I also spoke to him regarding CODE STATUS and he indicated that he would not want to have CPR or an endotracheal tube placed. Therefore, CODE STATUS was updated to DNR CCA without intubation. Objective: The patient's most recent lab work, culture data and imaging studies have all been personally reviewed. Surface echocardiogram from November 2019 revealed normal LV size with an ejection fraction of 65%. Right ventricular systolic pressure was unable to be estimated. Infectious work-up has been unrevealing to date. General: Alert, Cooperative, No apparent distress, - - Super morbidly obese HEENT: Atraumatic, PERRLA, Normocephalic Oral: No Gingival or Mucosal Lesions/ Ulcerations Neck: Supple, No Nodes, Trachea Midline Lungs: Diminished, Wheezes Cardiovascular: Regular rate, Regular Rhythm Abdomen: Bowel Sounds Present, Soft, Non Tender, Obese Extremities: No clubbing, No cyanosis, Edema Skin: - - Wrapped lower extremities Musculoskeletal: No Muscle Wasting Lymphatic: No Cervical, Supraclavicular, or Inguinal Adenopathy Neurological: Cranial nerves II-XII grossly intact, Neuro grossly intact Psych/Mental Status: Normal Affect, Appropriate Vital Signs Temp Pulse Resp BP Pulse Ox 101.3 F H 70 29 H 110/46 L 92 05/31/20 04:00 05/31/20 07:00 05/31/20 07:00 05/31/20 07:00 05/31/20 07:00 Oxygen Flow Rate (L/min) 2 Oxygen Delivery Method Nasal Cannula Weight: 484 lb 2.162 oz Body Mass Index (BMI) 66.4 Intake and Output for Last 24 Hours 05/29/20 05/30/20 05/31/20 23:59 23:59 23:59 Intake Total 640 / 640 5767.85 / 5772.55 372.23 / 372.23 Output Total 6250 / 6867 3740 / 3740 Balance 640 / 390 -482.15 / -1117.45 -3367.77 / -3367.77 Labs (Last 48 Hours) 05/29/20 05/29/20 05/29/20 16:35 16:35 16:35 WBC 25.9 H RBC 4.32 L Hgb 11.0 L Hct 36.5 L MCV 84.5 MCH 25.5 L MCHC 30.1 L RDW Std Deviation 52.4 H RDW Coeff of Varsha 16.9 H Plt Count 275 MPV 8.6 Immature Gran % (Auto) 1.400 H Neut % (Auto) 93.4 H Lymph % (Auto) 3.0 L [place] % (Auto) 2.0 Eos % (Auto) 0.0 Baso % (Auto) 0.2 Absolute Neuts (auto) 24.2 H Absolute Lymphs (auto) 0.78 L Nucleated RBC % 0 Differential Comment COMMENT PT 28.0 H INR 2.7 APTT 49.5 H Specimen Type Sample Site pH Bicarbonate Actual Total CO2 Base Excess O2 Saturation ABG pCO2 ABG pO2 Carmelo Test O2 Delivery Device Liter Flow Sodium 128 L Potassium 4.0 Chloride 93 L Carbon Dioxide 28.0 Anion Gap 7 BUN 21 H Creatinine 1.64 H Estim Creat Clear Calc 54.55 Est GFR (MDRD) Af Amer 56 L Est GFR (MDRD) Non-Af 46 L BUN/Creatinine Ratio 12.8 Glucose 225 H Lactic Acid Calcium 8.8 Magnesium Ferritin Total Bilirubin 0.60 AST 5 L ALT 14 L Alkaline Phosphatase 87 Lactate Dehydrogenase Troponin I < 0.015 C-React Prot Ext Range B-Natriuretic Peptide Total Protein 8.4 H Albumin 2.9 L Globulin 5.5 H Albumin/Globulin Ratio 0.5 L Procalcitonin Urine Color Urine Clarity Urine pH Ur Specific [place] Urine Protein Urine Glucose (UA) Urine Ketones Urine Occult Blood Urine Nitrite Urine Bilirubin Urine Urobilinogen Ur Leukocyte Esterase Urine RBC Urine WBC Ur Squamous Epith Cells Urine Bacteria Urine Mucus Vancomycin Trough COVID-19 (JEN) S.aureus Protein A PCR MRSA (PCR) POC Glucose 05/29/20 05/29/20 05/29/20 16:35 16:35 16:35 WBC RBC Hgb Hct MCV MCH MCHC RDW Std Deviation RDW Coeff of Varsha Plt Count MPV Immature Gran % (Auto) Neut % (Auto) Lymph % (Auto) [place] % (Auto) Eos % (Auto) Baso % (Auto) Absolute Neuts (auto) Absolute Lymphs (auto) Nucleated RBC % Differential Comment PT INR APTT Specimen Type Sample Site pH Bicarbonate Actual Total CO2 Base Excess O2 Saturation ABG pCO2 ABG pO2 Carmelo Test O2 Delivery Device Liter Flow Sodium Potassium Chloride Carbon Dioxide Anion Gap BUN Creatinine Estim Creat Clear Calc Est GFR (MDRD) Af Amer Est GFR (MDRD) Non-Af BUN/Creatinine Ratio Glucose Lactic Acid 4.1 H* Calcium Magnesium 1.9 Ferritin 79 Total Bilirubin AST ALT Alkaline Phosphatase Lactate Dehydrogenase 134 Troponin I C-React Prot Ext Range 139.00 H B-Natriuretic Peptide 14.9 Total Protein Albumin Globulin Albumin/Globulin Ratio Procalcitonin Urine Color Urine Clarity Urine pH Ur Specific [place] Urine Protein Urine Glucose (UA) Urine Ketones Urine Occult Blood Urine Nitrite Urine Bilirubin Urine Urobilinogen Ur Leukocyte Esterase Urine RBC Urine WBC Ur Squamous Epith Cells Urine Bacteria Urine Mucus Vancomycin Trough COVID-19 (JEN) S.aureus Protein A PCR MRSA (PCR) POC Glucose 05/29/20 05/29/20 05/29/20 16:35 17:00 20:00 WBC RBC Hgb Hct MCV MCH MCHC RDW Std Deviation RDW Coeff of Varsha Plt Count MPV Immature Gran % (Auto) Neut % (Auto) Lymph % (Auto) [place] % (Auto) Eos % (Auto) Baso % (Auto) Absolute Neuts (auto) Absolute Lymphs (auto) Nucleated RBC % Differential Comment PT INR APTT Specimen Type Sample Site pH Bicarbonate Actual Total CO2 Base Excess O2 Saturation ABG pCO2 ABG pO2 Carmelo Test O2 Delivery Device Liter Flow Sodium Potassium Chloride Carbon Dioxide Anion Gap BUN Creatinine Estim Creat Clear Calc Est GFR (MDRD) Af Amer Est GFR (MDRD) Non-Af BUN/Creatinine Ratio Glucose Lactic Acid Calcium Magnesium Ferritin Total Bilirubin AST ALT Alkaline Phosphatase Lactate Dehydrogenase Troponin I C-React Prot Ext Range B-Natriuretic Peptide Total Protein Albumin Globulin Albumin/Globulin Ratio Procalcitonin 0.82 H Urine Color Yellow Urine Clarity Clear Urine pH 5.0 Ur Specific [place] 1.010 Urine Protein Negative Urine Glucose (UA) Normal Urine Ketones Negative Urine Occult Blood Negative Urine Nitrite Negative Urine Bilirubin Negative Urine Urobilinogen Normal Ur Leukocyte Esterase 25 H Urine RBC 0 SEEN Urine WBC 0-5 SEEN Ur Squamous Epith Cells 0-5 SEEN Urine Bacteria 0 SEEN Urine Mucus 0 SEEN Vancomycin Trough COVID-19 (JEN) Not Detected S.aureus Protein A PCR NEGATIVE MRSA (PCR) Negative POC Glucose 05/29/20 05/29/20 05/29/20 21:10 21:10 21:33 WBC RBC Hgb Hct MCV MCH MCHC RDW Std Deviation RDW Coeff of Varsha Plt Count MPV Immature Gran % (Auto) Neut % (Auto) Lymph % (Auto) [place] % (Auto) Eos % (Auto) Baso % (Auto) Absolute Neuts (auto) Absolute Lymphs (auto) Nucleated RBC % Differential Comment PT INR APTT Specimen Type ART Sample Site R Radial pH 7.39 Bicarbonate Actual 22.6 Total CO2 24 Base Excess -2 O2 Saturation 94 L ABG pCO2 37.5 ABG pO2 71 L Carmelo Test Positive O2 Delivery Device Cannula Liter Flow 6.0 Sodium Potassium Chloride Carbon Dioxide Anion Gap BUN Creatinine Estim Creat Clear Calc Est GFR (MDRD) Af Amer Est GFR (MDRD) Non-Af BUN/Creatinine Ratio Glucose Lactic Acid Calcium Magnesium Ferritin Total Bilirubin AST ALT Alkaline Phosphatase Lactate Dehydrogenase Troponin I C-React Prot Ext Range B-Natriuretic Peptide Total Protein Albumin Globulin Albumin/Globulin Ratio Procalcitonin Urine Color Urine Clarity Urine pH Ur Specific [place] Urine Protein Urine Glucose (UA) Urine Ketones Urine Occult Blood Urine Nitrite Urine Bilirubin Urine Urobilinogen Ur Leukocyte Esterase Urine RBC Urine WBC Ur Squamous Epith Cells Urine Bacteria Urine Mucus Vancomycin Trough COVID-19 (JEN) S.aureus Protein A PCR NEGATIVE MRSA (PCR) Negative Negative POC Glucose 05/29/20 05/29/20 05/30/20 22:00 23:01 03:26 WBC 23.9 H RBC 3.75 L Hgb 9.9 L Hct 32.6 L MCV 86.9 MCH 26.4 L MCHC 30.4 L RDW Std Deviation 54.7 H RDW Coeff of Varsha 17.2 H Plt Count 208 MPV 8.7 Immature Gran % (Auto) 1.700 H Neut % (Auto) 91.7 H Lymph % (Auto) 2.9 L [place] % (Auto) 2.4 Eos % (Auto) 1.0 Baso % (Auto) 0.3 Absolute Neuts (auto) 21.9 H Absolute Lymphs (auto) 0.69 L Nucleated RBC % 0 Differential Comment PT INR APTT Specimen Type Sample Site pH Bicarbonate Actual Total CO2 Base Excess O2 Saturation ABG pCO2 ABG pO2 Carmelo Test O2 Delivery Device Liter Flow Sodium Potassium Chloride Carbon Dioxide Anion Gap BUN Creatinine Estim Creat Clear Calc Est GFR (MDRD) Af Amer Est GFR (MDRD) Non-Af BUN/Creatinine Ratio Glucose Lactic Acid 5.6 H* Calcium Magnesium Ferritin Total Bilirubin AST ALT Alkaline Phosphatase Lactate Dehydrogenase Troponin I C-React Prot Ext Range B-Natriuretic Peptide Total Protein Albumin Globulin Albumin/Globulin Ratio Procalcitonin Urine Color Urine Clarity Urine pH Ur Specific [place] Urine Protein Urine Glucose (UA) Urine Ketones Urine Occult Blood Urine Nitrite Urine Bilirubin Urine Urobilinogen Ur Leukocyte Esterase Urine RBC Urine WBC Ur Squamous Epith Cells Urine Bacteria Urine Mucus Vancomycin Trough COVID-19 (JEN) S.aureus Protein A PCR MRSA (PCR) POC Glucose 179 H 05/30/20 05/30/20 05/30/20 03:26 03:26 06:40 WBC RBC Hgb Hct MCV MCH MCHC RDW Std Deviation RDW Coeff of Varsha Plt Count MPV Immature Gran % (Auto) Neut % (Auto) Lymph % (Auto) [place] % (Auto) Eos % (Auto) Baso % (Auto) Absolute Neuts (auto) Absolute Lymphs (auto) Nucleated RBC % Differential Comment PT 29.9 H INR 2.9 APTT Specimen Type Sample Site pH Bicarbonate Actual Total CO2 Base Excess O2 Saturation ABG pCO2 ABG pO2 Carmelo Test O2 Delivery Device Liter Flow Sodium 131 L Potassium 4.3 Chloride 97 L Carbon Dioxide 25.0 Anion Gap 9 BUN 24 H Creatinine 1.77 H Estim Creat Clear Calc 50.54 Est GFR (MDRD) Af Amer 51 L Est GFR (MDRD) Non-Af 42 L BUN/Creatinine Ratio 13.6 Glucose 157 H Lactic Acid 5.5 H* Calcium 7.9 L Magnesium Ferritin Total Bilirubin 0.60 AST 40 H ALT 16 Alkaline Phosphatase 77 Lactate Dehydrogenase Troponin I C-React Prot Ext Range B-Natriuretic Peptide Total Protein 6.5 Albumin 2.1 L Globulin 4.4 H Albumin/Globulin Ratio 0.5 L Procalcitonin Urine Color Urine Clarity Urine pH Ur Specific [place] Urine Protein Urine Glucose (UA) Urine Ketones Urine Occult Blood Urine Nitrite Urine Bilirubin Urine Urobilinogen Ur Leukocyte Esterase Urine RBC Urine WBC Ur Squamous Epith Cells Urine Bacteria Urine Mucus Vancomycin Trough COVID-19 (JEN) S.aureus Protein A PCR MRSA (PCR) POC Glucose 05/30/20 05/30/20 05/30/20 06:59 09:18 12:54 WBC RBC Hgb Hct MCV MCH MCHC RDW Std Deviation RDW Coeff of Varsha Plt Count MPV Immature Gran % (Auto) Neut % (Auto) Lymph % (Auto) [place] % (Auto) Eos % (Auto) Baso % (Auto) Absolute Neuts (auto) Absolute Lymphs (auto) Nucleated RBC % Differential Comment PT INR APTT Specimen Type Sample Site pH Bicarbonate Actual Total CO2 Base Excess O2 Saturation ABG pCO2 ABG pO2 Carmelo Test O2 Delivery Device Liter Flow Sodium Potassium Chloride Carbon Dioxide Anion Gap BUN Creatinine Estim Creat Clear Calc Est GFR (MDRD) Af Amer Est GFR (MDRD) Non-Af BUN/Creatinine Ratio Glucose Lactic Acid Calcium Magnesium Ferritin Total Bilirubin AST ALT Alkaline Phosphatase Lactate Dehydrogenase Troponin I C-React Prot Ext Range B-Natriuretic Peptide Total Protein Albumin Globulin Albumin/Globulin Ratio Procalcitonin Urine Color Urine Clarity Urine pH Ur Specific [place] Urine Protein Urine Glucose (UA) Urine Ketones Urine Occult Blood Urine Nitrite Urine Bilirubin Urine Urobilinogen Ur Leukocyte Esterase Urine RBC Urine WBC Ur Squamous Epith Cells Urine Bacteria Urine Mucus Vancomycin Trough COVID-19 (JEN) S.aureus Protein A PCR MRSA (PCR) POC Glucose 198 H 163 H 159 H 05/30/20 05/30/20 05/31/20 16:57 21:11 02:20 WBC RBC Hgb Hct MCV MCH MCHC RDW Std Deviation RDW Coeff of Varsha Plt Count MPV Immature Gran % (Auto) Neut % (Auto) Lymph % (Auto) [place] % (Auto) Eos % (Auto) Baso % (Auto) Absolute Neuts (auto) Absolute Lymphs (auto) Nucleated RBC % Differential Comment PT INR APTT Specimen Type Sample Site pH Bicarbonate Actual Total CO2 Base Excess O2 Saturation ABG pCO2 ABG pO2 Carmelo Test O2 Delivery Device Liter Flow Sodium Potassium Chloride Carbon Dioxide Anion Gap BUN Creatinine Estim Creat Clear Calc Est GFR (MDRD) Af Amer Est GFR (MDRD) Non-Af BUN/Creatinine Ratio Glucose Lactic Acid Calcium Magnesium Ferritin Total Bilirubin AST ALT Alkaline Phosphatase Lactate Dehydrogenase Troponin I C-React Prot Ext Range B-Natriuretic Peptide Total Protein Albumin Globulin Albumin/Globulin Ratio Procalcitonin Urine Color Urine Clarity Urine pH Ur Specific [place] Urine Protein Urine Glucose (UA) Urine Ketones Urine Occult Blood Urine Nitrite Urine Bilirubin Urine Urobilinogen Ur Leukocyte Esterase Urine RBC Urine WBC Ur Squamous Epith Cells Urine Bacteria Urine Mucus Vancomycin Trough 23.1 H COVID-19 (JEN) S.aureus Protein A PCR MRSA (PCR) POC Glucose 171 H 142 H 05/31/20 05/31/20 04:20 04:20 WBC 20.9 H RBC 3.42 L Hgb 8.9 L Hct 29.8 L MCV 87.1 MCH 26.0 L MCHC 29.9 L RDW Std Deviation 55.8 H RDW Coeff of Varsha 17.2 H Plt Count 214 MPV 8.9 Immature Gran % (Auto) 1.300 H Neut % (Auto) 84.3 H Lymph % (Auto) 7.8 L [place] % (Auto) 4.7 Eos % (Auto) 1.7 Baso % (Auto) 0.2 Absolute Neuts (auto) 17.6 H Absolute Lymphs (auto) 1.63 Nucleated RBC % 0 Differential Comment PT INR APTT Specimen Type Sample Site pH Bicarbonate Actual Total CO2 Base Excess O2 Saturation ABG pCO2 ABG pO2 Carmelo Test O2 Delivery Device Liter Flow Sodium 138 Potassium 3.5 Chloride 105 Carbon Dioxide 30.0 Anion Gap 3 L BUN 19 H Creatinine 1.29 Estim Creat Clear Calc 69.35 Est GFR (MDRD) Af Amer 74 Est GFR (MDRD) Non-Af 61 BUN/Creatinine Ratio 14.7 Glucose 108 H Lactic Acid Calcium 8.1 L Magnesium Ferritin Total Bilirubin AST ALT Alkaline Phosphatase Lactate Dehydrogenase Troponin I C-React Prot Ext Range B-Natriuretic Peptide Total Protein Albumin Globulin Albumin/Globulin Ratio Procalcitonin Urine Color Urine Clarity Urine pH Ur Specific [place] Urine Protein Urine Glucose (UA) Urine Ketones Urine Occult Blood Urine Nitrite Urine Bilirubin Urine Urobilinogen Ur Leukocyte Esterase Urine RBC Urine WBC Ur Squamous Epith Cells Urine Bacteria Urine Mucus Vancomycin Trough COVID-19 (JEN) S.aureus Protein A PCR MRSA (PCR) POC Glucose Microbiology 05/29/20 21:10 Tissue - Other Gram Stain - Final 05/29/20 21:10 Wound - Aerobic & Anaerobic Swabs Gram Stain - Final 05/29/20 20:45 Stool Enteric Bacteriology - Final 05/29/20 20:45 Stool C. difficile GDH Antigen & Toxins - Final 05/29/20 17:00 Urine Catheter - Catheter Legionella Antigen - Final 05/29/20 17:00 Urine Catheter - Catheter Streptococcus pneumoniae Antigen (M - Final 05/29/20 20:00 Mucosa - Nasopharyngeal Respiratory Panel (PCR) - Final 05/29/20 17:00 Mucosa - Nose SARS-CoV-2 Antigen (Rapid) - Final Clinical Impression(s) from Imaging Studies Chest X-Ray 05/29/20 17:10 IMPRESSION: Normal x-ray examination of the chest. Electronically Signed: Rachel Dowell MD at 17:42 EST Tel , Service support , Chest X-Ray 05/30/20 05:55 IMPRESSION: Hyperinflation. Prominence of the pulmonary arteries bilaterally. Electronically Signed: Chin Obregon at 10:00 EST , Service support , Chest X-Ray 05/31/20 05:05 IMPRESSION: There is NO acute cardiopulmonary abnormality. Electronically Signed: Ubaldo Zayas MD at 5:37 EST , Service support , Medical Necessity - Tobacco Use Smoking Status: Never smoker Tobacco Use: Non-smoker Assessment/Plan All Active Problems Cellulitis of right leg (Acute) Septic shock (Acute) Cellulitis (Acute) Acute exacerbation of CHF (congestive heart failure) (Acute) Anasarca (Acute) Unable to ambulate (Acute) RECOMMENDATIONS: 1. Continue antimicrobials per ID recommendations. 2. Continue to wean Levophed to maintain a mean arterial pressure at or above 65 mmHg. 3. Continue systemic anticoagulation with Coumadin. 4. Wean supplemental oxygen to maintain saturations at or above 90%. 5. Encourage incentive spirometer use and mobilize patient as tolerated. 6. Continue bronchodilator therapy. 7. Intermittent diuretics as tolerated by hemodynamics and renal function. IMPRESSIONS: 1. Septic shock Unclear source, although lower extremity cellulitis is a possibility. The patient has received supplemental IV fluid hydration. Recommend continuing vasopressor support to maintain a mean arterial pressure at or above 65 mmHg. The patient will be continued on empiric antimicrobials, pending further infectious work-up per ID recommendations. 2. Acute kidney injury Improved. Likely prerenal in etiology. The patient did receive supplemental IV fluid hydration and is being maintained on pressor support to maintain hemodynamic stability. Anticipate improvement with time. Continue to monitor urine output. No current indication for renal replacement therapy. 3. Heart failure with preserved ejection fraction/history of DVT/morbid obesity Complicates care, management, recovery and prognosis. Continue Lantus and sliding scale insulin coverage. Physical therapy to work with the patient. CODE status: Discussed CODE status at length including difference between FULL code, DNR-CCA and DNR-CC status. Following discussions about the differences in these status, patient requested DNR CCA without intubation CODE STATUS. TIME: 35 minutes of critical care time, independent of procedures, was spent addressing the patient's septic shock, acute kidney injury, heart failure with preserved ejection fraction, review of all data and collaboration with the care team. ([id number]) [phone]: [id number] Critical care first hour
[2020-05-31] MEDS: Ipratropium/Albuterol Sulfate 3 ML AMPUL.NEB INHALATION ×4 (08:41→19:46)
[2020-05-31 09:15] LABS: International Normalized Ratio 2.4; Prothrombin Time (Protime)PT. 25.3 SECONDS (11.7-14.9)
[2020-05-31] MEDS: ARIPiprazole 10 MG Tablet 30 MG PO (10:26)
[2020-05-31] MEDS: Nystatin Powder 15gm Bottle 1 APPLIC TOPICAL ×2 (10:26→21:01)
[2020-05-31] MEDS: FLUoxetine 20 MG Capsule 40 MG PO (10:26)
[2020-05-31] MEDS: Aspirin E.C. 81 MG Tablet PO (10:26)
[2020-05-31] MEDS: Menthol/Lanolin/Calamine/Znox 113 GM Tube 1 APPLIC TOPICAL ×2 (10:27→21:02)
[2020-05-31 10:35] LABS: Bedside Glucose 230 mg/dL (70-110)
--- NOTE | 2020-05-31 12:46 | CASEMGMT ---
SW spoke w/pt in room in regard to discharge plan, reviewed the option of going to a [facility] for rehab. Pt states he will go home and he will manage. SW reviewed w/pt that he needed the assist of two in therapy and how would he manage at home on his own. SW asked if he has ever been anywhere for rehab, he states [facility]([phone], f: [phone]). Pt is okay w/SW checking on bed availability. SW gave pt list of SNF's in [facility] w/star ratings, and let pt know will tell him what [facility] says. SW called [facility], spoke w/admissions. They would consider pt but need to see referral, pt is 484 pounds and their limit is 500 pounds. SW spoke again w/pt, let him know [facility] is taking pts and will review referral if pt okay w/SW sending it. Pt first asked about [facility]. SW explained to pt they are not taking any referrals until the start of the year. Pt agreeable to SW sending referral to [facility]. SW faxed referral to [facility], will continue to follow. GRAZYNA Worrell
[2020-05-31] MEDS: Insulin Lispro 100 UNIT/ML INSULN.PEN SC ×3 (13:05→22:17)
[2020-05-31 13:11] LABS: Bedside Glucose 263 mg/dL (70-110)
--- NOTE | 2020-05-31 15:45 | PCM.PN.ID ---
Patient Problems: Active and Suspected Problems Septic shock (Acute) Cellulitis (Acute) Subjective: Feeling better, still some fevers, legs less sore. - Physical Exam Vitals/I&O's: Vital Signs Temp Pulse Resp BP Pulse Ox 100.5 F H 66 24 H 125/61 H 94 05/31/20 08:00 05/31/20 15:30 05/31/20 11:43 05/31/20 10:00 05/31/20 10:00 Oxygen Flow Rate (L/min) 6 Oxygen Delivery Method Nasal Cannula Weight: 219.6 kg Body Mass Index (BMI) 66.4 Intake and Output for Last 24 Hours 05/29/20 05/30/20 05/31/20 23:59 23:59 23:59 Intake Total 640 / 640 5767.85 / 5772.55 456.13 / 456.13 Output Total 6250 / 6890 4390 / 4390 Balance 640 / 390 -482.15 / -1117.45 -3933.87 / -3933.87 General: Alert, Cooperative Lungs: Clear to auscultation, Normal air movement Cardiovascular: Regular rate, Regular Rhythm Abdomen: Soft, Non Tender, Non-Distended, Obese Extremities: Edema Skin: Ulcer/ Wound - reviewed photos Microbiology Past 72 Hours 05/29/20 21:10 Tissue - Other Gram Stain - Final 05/29/20 21:10 Tissue - Other Wound Culture - Preliminary GNR 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 05/29/20 20:45 Stool Enteric Bacteriology - Final 05/29/20 20:45 Stool C. difficile GDH Antigen & Toxins - Final 05/29/20 17:00 Urine Catheter - Catheter Legionella Antigen - Final 05/29/20 17:00 Urine Catheter - Catheter Streptococcus pneumoniae Antigen (M - Final 05/29/20 20:00 Mucosa - Nasopharyngeal Respiratory Panel (PCR) - Final 05/29/20 17:00 Mucosa - Nose SARS-CoV-2 Antigen (Rapid) - Final Laboratory Results 05/30/20 16:57: POC Glucose 171 H 05/30/20 21:11: POC Glucose 142 H 05/31/20 02:20: Vancomycin Trough 23.1 H 05/31/20 04:20: WBC 20.9 H, RBC 3.42 L, Hgb 8.9 L, Hct 29.8 L, MCV 87.1, MCH 26.0 L, MCHC 29.9 L, RDW Std Deviation 55.8 H, RDW Coeff of Varsha 17.2 H, Plt Count 214, MPV 8.9, Immature Gran % (Auto) 1.300 H, Neut % (Auto) 84.3 H, Lymph % (Auto) 7.8 L, Keith % (Auto) 4.7, Eos % (Auto) 1.7, Baso % (Auto) 0.2, Absolute Neuts (auto) 17.6 H, Absolute Lymphs (auto) 1.63, Nucleated RBC % 0 05/31/20 04:20: Sodium 138, Potassium 3.5, Chloride 105, Carbon Dioxide 30.0, Anion Gap 3 L, BUN 19 H, Creatinine 1.29, Estim Creat Clear Calc 69.35, Est GFR (MDRD) Af Amer 74, Est GFR (MDRD) Non-Af 61, BUN/Creatinine Ratio 14.7, Glucose 108 H, Calcium 8.1 L 05/31/20 08:55: Random Vancomycin 18.0 H 05/31/20 08:55: PT 25.3 H, INR 2.4 05/31/20 10:25: POC Glucose 230 H 05/31/20 13:02: POC Glucose 263 H Current Medications Acetaminophen (Acetaminophen 325 Mg Tablet) 650 mg PO Q6H PRN PRN PRN Reason: Pain Score 1-10/Temp > 100.7 F Last Admin: 05/31/20 04:18 Dose: 650 mg Documented by: Al Hydroxide/Mg Hydroxide (Mag Hydrox/Al Hydrox/Simeth 30 Ml Udc) 30 ml PO Q6H PRN PRN PRN Reason: Gastric Burning Albuterol Sulfate (Albuterol 2.5 Mg/3 Ml Vial.Neb.) 2.5 mg INHALATION Q2H PRN PRN PRN Reason: Dyspnea, wheezing Last Admin: 05/31/20 05:03 Dose: 2.5 mg Documented by: Albuterol/Ipratropium (Ipratropium/Albuterol Sulfate 3 Ml Ampul.Neb) 3 ml INHALATION Q4HWA.RT [facility] Last Admin: 05/31/20 15:45 Dose: 3 ml Documented by: Aripiprazole (Aripiprazole 10 Mg Tablet) 30 mg PO DAILY [facility] Last Admin: 05/31/20 10:26 Dose: 30 mg Documented by: Aspirin (Aspirin E.C. 81 Mg Tablet) 81 mg PO DAILY@0800 [facility] Last Admin: 05/31/20 10:26 Dose: 81 mg Documented by: Atorvastatin Calcium (Atorvastatin Calcium 40 Mg Tablet) 40 mg PO QHS [facility] Last Admin: 05/30/20 21:13 Dose: 40 mg Documented by: Calamine/Phenol (Menthol/Lanolin/Calamine/Znox 113 Gm Tube) 1 applic TOPICAL BID [facility]; Protocol Last Admin: 05/31/20 10:27 Dose: 1 applicatio Documented by: Fluoxetine HCl (Fluoxetine 20 Mg Capsule) 40 mg PO DAILY [facility] Last Admin: 05/31/20 10:26 Dose: 40 mg Documented by: Guaifenesin (Guaifenesin 10 Ml Udc (200mg/10ml)) 10 ml PO Q4H PRN PRN PRN Reason: COUGH Hydralazine HCl (Hydralazine 20 Mg/Ml Vial) 10 mg IV Q4H PRN PRN PRN Reason: SBP > 160 Piperacillin Sod/Tazobactam (Sod 3.375 gm/ Sodium Chloride) 50 mls @ 12.5 mls/hr IV Q8 [facility] Last Admin: 05/31/20 15:16 Dose: 12.5 mls/hr Documented by: Vancomycin IV Pharmacy to Dose (1 ea/ Sodium Chloride) 500 mls @ 250 mls/hr IV PRN PRN; Protocol PRN Reason: Rx to Dose Sodium Chloride () 250 mls @ 15 mls/hr IV .[id number] PRN PRN Reason: Saline Flush Sodium Chloride () 250 mls @ 15 mls/hr IV .[id number] PRN PRN Reason: Additional IVPB Infusion Norepinephrine Bitartrate 8 mg (/ Sodium Chloride) 250 mls @ 9.375 mls/hr CONT INF .[id number] [facility]; Protocol Last Titration: 05/31/20 10:00 Dose: 6 mcg/min, 11.3 mls/hr Documented by: Insulin Human Lispro (Insulin Lispro 100 Unit/Ml Insuln.Pen) 0 unit SC ACHS [facility]; Protocol Last Admin: 05/31/20 13:05 Dose: 2 units Documented by: Insulin Human Regular (Insulin U-500 Pen) 140 units SC BID [facility] Last Admin: 05/31/20 10:27 Dose: 140 u Documented by: Loperamide HCl (Loperamide 2 Mg Capsule) 2 mg PO Q4H PRN PRN PRN Reason: Diarrhea Last Admin: 05/30/20 21:16 Dose: 2 mg Documented by: Melatonin (Melatonin 3 Mg Tablet) 3 mg PO QHS PRN PRN PRN Reason: INSOMNIA Nitroglycerin (Nitroglycerin (Inpatient Use) 0.4 Mg Tab.Subl) 0.4 mg SUBLINGUAL Q5M PRN PRN Reason: CARDIAC/CHEST PAIN Nystatin (Nystatin Powder 15gm Bottle) 1 applic TOPICAL BID [facility]; Protocol Last Admin: 05/31/20 10:26 Dose: 1 applicatio Documented by: Ondansetron HCl (Ondansetron 4 Mg/2 Ml Vial) 4 mg IV Q8H PRN PRN PRN Reason: NAUSEA/VOMITING Prochlorperazine Edisylate (Prochlorperazine 10 Mg/2 Ml Vial) 5 mg IV Q4H PRN PRN PRN Reason: Breakthrough Nausea/Vomiting Senna/Docusate Sodium (Senna/Docusate Sodium 1 Tablet) 2 tablet PO BID PRN PRN PRN Reason: Constipation Sodium Chloride (0.9% Saline Lock 10 Ml Syringe) 10 - 40 ml IV UD PRN PRN Reason: SALINE FLUSH Last Admin: 05/31/20 06:00 Dose: 20 ml Documented by: Throat Lozenges (Benzocaine/Menthol 1 Lozenge) 1 lozenge MUCOUS MEM Q2H PRN PRN PRN Reason: SORE THROAT Warfarin Sodium (Warfarin 2.5 Mg Tablet) 2.5 mg PO Fr@1700 HARSHIL Warfarin Sodium (Warfarin 5 Mg Tablet) 5 mg PO SuMoTuWeThSa@1700 HARSHIL Last Admin: 05/30/20 18:33 Dose: 5 mg Documented by: Medical Necessity - Tobacco Use Smoking Status: Never smoker Tobacco Use: Non-smoker Route of nutrition/ use of supplements: [] Nutritional Intake: [] IV Site: [] Garcia Catheter: [] - Assessment/Plan Antibiotics: [] Assessment/Plan: [] Active and Suspected Problems Septic shock (Acute) Cellulitis (Acute) septic shock suspected source BLE cellulitis with chronic lymphedema - fever improved. On vanc/zosyn. Covid pcr and Ag neg. UAg neg. Wound cx showing some GNR, GPC. Cdiff neg. MRSA pcr of wounds neg. Remains on pressors. Will follow
--- NOTE | 2020-05-31 16:45 | PCM.RX.CS ---
Consult Pharmacy has been consulted to manage selected antiobiotic: Vancomycin Type of Consult: Follow-up Suspected Infection: Sepsis Prior Doses of Antibiotics Received/Current Regimen: 1250mg iv q8h Labs: Sodium 138 mmol/L (136-145) 05/31/20 04:20 Potassium 3.5 mmol/L (3.5-5.1) 05/31/20 04:20 Chloride 105 mmol/L (98-107) 05/31/20 04:20 Carbon Dioxide 30.0 mmol/L (21.0-32.0) 05/31/20 04:20 Anion Gap 3 (5-15) L 05/31/20 04:20 BUN 19 mg/dL (7-18) H 05/31/20 04:20 Creatinine 1.29 mg/dL (0.70-1.30) 05/31/20 04:20 Est GFR (MDRD) Af Amer 74 mL/min (>60) 05/31/20 04:20 Est GFR (MDRD) Non-Af 61 mL/min (>60) 05/31/20 04:20 BUN/Creatinine Ratio 14.7 RATIO (10-20) 05/31/20 04:20 Glucose 108 mg/dL (74-106) H 05/31/20 04:20 Vancomycin Trough 23.1 ug/mL (5.0-15.0) H 05/31/20 02:20 Random Vancomycin 18.0 ug/mL (0.0-15.0) H 05/31/20 08:55 Microbiology: Microbiology 05/29/20 21:10 Tissue - Other Gram Stain - Final 05/29/20 21:10 Tissue - Other Wound Culture - Preliminary GNR lactose production operations engineer Gram positive organism 05/29/20 21:10 Wound - Aerobic & Anaerobic Swabs Gram Stain - Final 05/29/20 21:10 Wound - Aerobic & Anaerobic Swabs Wound Culture - Preliminary GNR lactose production operations engineer GNR Poss Pseudomonas sp 05/29/20 17:00 Urine, Clean Catch Urine Culture - Preliminary Culture exhibits no growth. 05/29/20 20:45 Stool Enteric Bacteriology - Final 05/29/20 20:45 Stool C. difficile GDH Antigen & Toxins - Final 05/29/20 17:00 Urine Catheter - Catheter Legionella Antigen - Final 05/29/20 17:00 Urine Catheter - Catheter Streptococcus pneumoniae Antigen (M - Final 05/29/20 20:00 Mucosa - Nasopharyngeal Respiratory Panel (PCR) - Final 05/29/20 17:00 Mucosa - Nose SARS-CoV-2 Antigen (Rapid) - Final Weight used for dosin.6 kg Estimated Creatinine Clearance: ~120 Goal Trough: 15-20 mcg/mL Pharmacy Plan for Drug Dosing: Trough level 14 hrs post last dose was 18.0 (goal range 15-20mcg/ml). Will change dose from 1250mg iv q8h to 1250mg iv q12h. Another trough level has been ordered for 06.02.20 before 4th dose of new regimen. Pharmacy Service will continue to monitor and adjust dosing as required. Follow-Up Labs: Trough Vancomycin - 12.20.20 @0630 before 0700 dose
--- NOTE | 2020-05-31 16:45 | CASEMGMT ---
Social Work [facility] returned call and stated pt exceeds the weight limit and they cannot accept. SW will follow up for other SNF placement. ALLEN Hurst
[2020-05-31 17:05] LABS: Bedside Glucose 356 mg/dL (70-110)
[2020-05-31] MEDS: Atorvastatin Calcium 40 MG Tablet PO (21:01)
[2020-05-31 22:25] LABS: Bedside Glucose 310 mg/dL (70-110)
[2020-06-01] VITALS (22 sets, daily range): BP systolic 103–150; BP diastolic 54–81; PULSE 46–74; RESP 17–27; TEMP 36.3–37.7; O2SAT 91–96
[2020-06-01 04:08] LABS: Absolute Lymphocyte Count 1.22 X10^3/uL (0.83-4.51); Absolute Neutrophil Count 19.5 X10^3/uL (2.0-7.7); Basophil# 0.02 X10^3/uL; Basophil% 0.1 % (0-1); Hematocrit 30.9 % (40-54); Hemoglobin 8.9 g/dL (13.0-16.5); Lymphocyte # 1.22 X10^3/ul (4.0); Lymphocyte % 5.5 % (19-41); Mean Corp Hgb Conc 28.8 g/dL (32-36); Mean Corpuscular Hgb 25.2 pg (27.0-32.0); Mean Corpuscular Volume 87.5 fL (80-94); Monocyte% 4.9 % (0-10); NRBC Flagged by Analyzer 0 % (0-5); Neutrophil # 19.45 X10^3/uL (2.7-7.7); Neutrophil % 87.2 % (47-70); Platelet Count 208 K/mm3 (150-450); RBC Distribution Width CV 17.2 % (11.6-14.6); RBC Distribution Width SD 55.5 fl (35.1-43.9); Red Blood Count 3.53 M/mm3 (4.6-6.2); White Blood Count 22.3 K/mm3 (4.4-11.0)
[2020-06-01 04:23] LABS: Anion Gap 3 (5-15); BUN 22 mg/dL (7-18); BUN/Creat Ratio 17.2 RATIO (10-20); Calcium,Total 8.4 mg/dL (8.5-10.1); Chloride 105 mmol/L (98-107); Creatinine, Serum 1.28 mg/dL (0.70-1.30); EST Glomerular Filtration Rate 61 mL/min (>60); Est Glom Filt Rate - Afr Amer 74 mL/min (>60); Estimated Creatinine Clearance 69.89 ml/min; Glucose 258 mg/dL (74-106); Potassium 4.4 mmol/L (3.5-5.1); Sodium Level 137 mmol/L (136-145)
--- NOTE | 2020-06-01 05:49 | PCM.PN.INT ---
Subjective: The patient was seen and examined at the bedside this morning. Events from the last 24 hours have been reviewed. The patient is currently afebrile, hemodynamically stable and maintaining appropriate oxygen saturations on 3 L/min via nasal cannula. The patient is currently documented to be overall net -4.4 L for the hospital admission. The patient was bradycardic overnight with heart rates in the 40s and continues to have intermittent wheezing, per nursing report. The patient was able to be weaned off of Levophed completely yesterday. Objective: The patient's most recent lab work, culture data and imaging studies have all been personally reviewed. Surface echocardiogram from November 2019 revealed normal LV size with an ejection fraction of 65%. Right ventricular systolic pressure was unable to be estimated. Wound cultures revealed gram-negative chilo, lactose rubber splicer and possible Pseudomonas. General: Alert, No apparent distress, - - Super morbidly obese HEENT: Atraumatic, PERRLA, Normocephalic Oral: No Gingival or Mucosal Lesions/ Ulcerations Neck: Supple, No Nodes, Trachea Midline Lungs: Diminished, Wheezes Cardiovascular: Normal S1, Normal S2, No murmurs, Bradycardic Abdomen: Bowel Sounds Present, Soft, Non Tender, Obese Extremities: No clubbing, No cyanosis, Edema Skin: - - No significant change from previous. Musculoskeletal: No Muscle Wasting Lymphatic: No Cervical, Supraclavicular, or Inguinal Adenopathy Neurological: Cranial nerves II-XII grossly intact, Neuro grossly intact Psych/Mental Status: Normal Affect, Appropriate Vital Signs Temp Pulse Resp BP Pulse Ox 98.8 F 47 L 21 H 117/59 L 93 06/01/20 04:00 06/01/20 04:00 06/01/20 04:00 06/01/20 04:00 06/01/20 04:00 Oxygen Flow Rate (L/min) 3 Oxygen Delivery Method Nasal Cannula Weight: 484 lb 2.162 oz Body Mass Index (BMI) 66.4 Intake and Output for Last 24 Hours 05/30/20 05/31/20 06/01/20 23:59 23:59 23:59 Intake Total 5767.85 / 5772.55 844.58 / 1244.58 450 / 450 Output Total 6250 / 6890 5090 / 5690 840 / 840 Balance -482.15 / -1117.45 -4245.42 / -4445.42 -390 / -390 Labs (Last 48 Hours) 05/30/20 05/30/20 05/30/20 06:40 06:59 09:18 WBC RBC Hgb Hct MCV MCH MCHC RDW Std Deviation RDW Coeff of Varsha Plt Count MPV Immature Gran % (Auto) Neut % (Auto) Lymph % (Auto) [place] % (Auto) Eos % (Auto) Baso % (Auto) Absolute Neuts (auto) Absolute Lymphs (auto) Nucleated RBC % PT 29.9 H INR 2.9 Sodium Potassium Chloride Carbon Dioxide Anion Gap BUN Creatinine Estim Creat Clear Calc Est GFR (MDRD) Af Amer Est GFR (MDRD) Non-Af BUN/Creatinine Ratio Glucose Calcium Vancomycin Trough Random Vancomycin POC Glucose 198 H 163 H 05/30/20 05/30/20 05/30/20 12:54 16:57 21:11 WBC RBC Hgb Hct MCV MCH MCHC RDW Std Deviation RDW Coeff of Varsha Plt Count MPV Immature Gran % (Auto) Neut % (Auto) Lymph % (Auto) [place] % (Auto) Eos % (Auto) Baso % (Auto) Absolute Neuts (auto) Absolute Lymphs (auto) Nucleated RBC % PT INR Sodium Potassium Chloride Carbon Dioxide Anion Gap BUN Creatinine Estim Creat Clear Calc Est GFR (MDRD) Af Amer Est GFR (MDRD) Non-Af BUN/Creatinine Ratio Glucose Calcium Vancomycin Trough Random Vancomycin POC Glucose 159 H 171 H 142 H 05/31/20 05/31/20 05/31/20 02:20 04:20 04:20 WBC 20.9 H RBC 3.42 L Hgb 8.9 L Hct 29.8 L MCV 87.1 MCH 26.0 L MCHC 29.9 L RDW Std Deviation 55.8 H RDW Coeff of Varsha 17.2 H Plt Count 214 MPV 8.9 Immature Gran % (Auto) 1.300 H Neut % (Auto) 84.3 H Lymph % (Auto) 7.8 L [place] % (Auto) 4.7 Eos % (Auto) 1.7 Baso % (Auto) 0.2 Absolute Neuts (auto) 17.6 H Absolute Lymphs (auto) 1.63 Nucleated RBC % 0 PT INR Sodium 138 Potassium 3.5 Chloride 105 Carbon Dioxide 30.0 Anion Gap 3 L BUN 19 H Creatinine 1.29 Estim Creat Clear Calc 69.35 Est GFR (MDRD) Af Amer 74 Est GFR (MDRD) Non-Af 61 BUN/Creatinine Ratio 14.7 Glucose 108 H Calcium 8.1 L Vancomycin Trough 23.1 H Random Vancomycin POC Glucose 05/31/20 05/31/20 05/31/20 08:55 08:55 10:25 WBC RBC Hgb Hct MCV MCH MCHC RDW Std Deviation RDW Coeff of Varsha Plt Count MPV Immature Gran % (Auto) Neut % (Auto) Lymph % (Auto) [place] % (Auto) Eos % (Auto) Baso % (Auto) Absolute Neuts (auto) Absolute Lymphs (auto) Nucleated RBC % PT 25.3 H INR 2.4 Sodium Potassium Chloride Carbon Dioxide Anion Gap BUN Creatinine Estim Creat Clear Calc Est GFR (MDRD) Af Amer Est GFR (MDRD) Non-Af BUN/Creatinine Ratio Glucose Calcium Vancomycin Trough Random Vancomycin 18.0 H POC Glucose 230 H 05/31/20 05/31/20 05/31/20 13:02 16:57 22:16 WBC RBC Hgb Hct MCV MCH MCHC RDW Std Deviation RDW Coeff of Varsha Plt Count MPV Immature Gran % (Auto) Neut % (Auto) Lymph % (Auto) [place] % (Auto) Eos % (Auto) Baso % (Auto) Absolute Neuts (auto) Absolute Lymphs (auto) Nucleated RBC % PT INR Sodium Potassium Chloride Carbon Dioxide Anion Gap BUN Creatinine Estim Creat Clear Calc Est GFR (MDRD) Af Amer Est GFR (MDRD) Non-Af BUN/Creatinine Ratio Glucose Calcium Vancomycin Trough Random Vancomycin POC Glucose 263 H 356 H 310 H 06/01/20 06/01/20 03:55 03:55 WBC 22.3 H RBC 3.53 L Hgb 8.9 L Hct 30.9 L MCV 87.5 MCH 25.2 L MCHC 28.8 L RDW Std Deviation 55.5 H RDW Coeff of Varsha 17.2 H Plt Count 208 MPV 9.0 Immature Gran % (Auto) 2.300 H Neut % (Auto) 87.2 H Lymph % (Auto) 5.5 L [place] % (Auto) 4.9 Eos % (Auto) 0.0 Baso % (Auto) 0.1 Absolute Neuts (auto) 19.5 H Absolute Lymphs (auto) 1.22 Nucleated RBC % 0 PT INR Sodium 137 Potassium 4.4 Chloride 105 Carbon Dioxide 29.0 Anion Gap 3 L BUN 22 H Creatinine 1.28 Estim Creat Clear Calc 69.89 Est GFR (MDRD) Af Amer 74 Est GFR (MDRD) Non-Af 61 BUN/Creatinine Ratio 17.2 Glucose 258 H Calcium 8.4 L Vancomycin Trough Random Vancomycin POC Glucose Microbiology 05/29/20 21:10 Tissue - Other Gram Stain - Final 05/29/20 21:10 Tissue - Other Wound Culture - Preliminary GNR lactose rubber splicer Gram positive organism 05/29/20 21:10 Wound - Aerobic & Anaerobic Swabs Gram Stain - Final 05/29/20 21:10 Wound - Aerobic & Anaerobic Swabs Wound Culture - Preliminary GNR lactose rubber splicer GNR Poss Pseudomonas sp 05/29/20 17:00 Urine, Clean Catch Urine Culture - Preliminary Culture exhibits no growth. 05/29/20 20:45 Stool Enteric Bacteriology - Final 05/29/20 20:45 Stool C. difficile GDH Antigen & Toxins - Final 05/29/20 17:00 Urine Catheter - Catheter Legionella Antigen - Final 05/29/20 17:00 Urine Catheter - Catheter Streptococcus pneumoniae Antigen (M - Final Clinical Impression(s) from Imaging Studies Chest X-Ray 05/29/20 17:10 IMPRESSION: Normal x-ray examination of the chest. Electronically Signed: Rachel Dowell MD at 17:42 EST Tel , Service support , Chest X-Ray 05/30/20 05:55 IMPRESSION: Hyperinflation. Prominence of the pulmonary arteries bilaterally. Electronically Signed: Chin Obregon at 10:00 EST , Service support , Chest X-Ray 05/31/20 05:05 IMPRESSION: There is NO acute cardiopulmonary abnormality. Electronically Signed: Ubaldo Zayas MD at 5:37 EST , Service support , Medical Necessity - Tobacco Use Smoking Status: Never smoker Tobacco Use: Non-smoker Assessment/Plan All Active Problems Cellulitis of right leg (Acute) Septic shock (Acute) Cellulitis (Acute) Acute exacerbation of CHF (congestive heart failure) (Acute) Anasarca (Acute) Unable to ambulate (Acute) RECOMMENDATIONS: 1. Continue antimicrobials per ID recommendations. 2. Continue systemic anticoagulation and recheck INR this morning. 3. Restart home diuretic regimen. 4. Wean supplemental oxygen to maintain saturations at or above 90%. 5. Encourage incentive spirometer use and mobilize patient as tolerated. 6. Continue bronchodilator therapy. 7. The patient is medically stable for transfer out of the intensive care unit. IMPRESSIONS: 1. Septic shock Likely secondary to lower extremity cellulitis/lymphedema. The patient did receive supplemental IV fluid hydration and was able to be successfully weaned from vasopressor support. He will be continued on antimicrobials per ID recommendations. 2. Acute kidney injury Improved. Likely prerenal in etiology. Renal function improved with volume expansion and stabilization of hemodynamics. Okay from my perspective to restart home diuretic regimen. Continue to monitor urine output. No indication for renal replacement therapy. 3. Heart failure with preserved ejection fraction/history of DVT/morbid obesity Complicates care, management, recovery and prognosis. Continue Lantus and sliding scale insulin coverage. Physical therapy to work with the patient. CODE status: Discussed CODE status at length including difference between FULL code, DNR-CCA and DNR-CC status. Following discussions about the differences in these status, patient requested DNR CCA without intubation CODE STATUS. This note was generated with [employer] dictation software. It may contain incorrect words, spelling, and punctuation that were not noted in checking the note before signing. Inpatient E&M: [id number] [facility] L3
[2020-06-01] MEDS: Insulin Lispro 100 UNIT/ML INSULN.PEN SC ×4 (06:19→21:53)
[2020-06-01 06:26] LABS: Bedside Glucose 244 mg/dL (70-110)
[2020-06-01] MEDS: Ipratropium/Albuterol Sulfate 3 ML AMPUL.NEB INHALATION ×4 (06:37→18:43)
--- NOTE | 2020-06-01 07:34 | PCM.PN.HOSP ---
Patient Problems: Active and Suspected Problems Septic shock (Acute) Cellulitis (Acute) Subjective: Patient seen and examined. He had no complaints overnight. He was noted to be bradycardic overnight with heart rate going as low as the 40s. Continues to have intermittent wheezing. He has been completely weaned off of Levophed and is on 3 L of oxygen by nasal cannula. He is on 2 L positive balance by 4.4 L. Review of systems is otherwise negative. WBC is up to 22.3 today. Vitals/I&O's: Vital Signs Temp Pulse Resp BP Pulse Ox 98.4 F 59 L 19 H 114/61 93 06/01/20 07:00 06/01/20 07:16 06/01/20 07:16 06/01/20 07:00 06/01/20 07:16 Oxygen Flow Rate (L/min) 2 Oxygen Delivery Method Nasal Cannula Weight: 485 lb 10.853 oz Body Mass Index (BMI) 66.4 Intake and Output for Last 24 Hours 05/30/20 05/31/20 06/01/20 23:59 23:59 23:59 Intake Total 5767.85 / 5772.55 844.58 / 1244.58 740 / 740 Output Total 6250 / 6890 5090 / 5690 1190 / 1190 Balance -482.15 / -1117.45 -4245.42 / -4445.42 -450 / -450 General: Alert, Oriented x3, Cooperative, No apparent distress, - - super morbid obesity HEENT: Atraumatic, PERRLA, EOMI, Normocephalic Oral: Dry Mucosa Neck: Supple, No JVD, Negative Carotid Bruits Lungs: Tachypneic, - - diminished breath sounds bibasally, no wheezes or crackles. on BIPAP Cardiovascular: Regular rate, Regular Rhythm, Normal S1, Normal S2, No murmurs Abdomen: Bowel Sounds Present, Soft, Non Tender, Non-Distended, No Hepato-splenomegaly Extremities: No clubbing, No cyanosis, Capillary Refill Less than 3 Seconds, - - bilateral massive lymphedema. Both LEs wrapped in PAMELLA bandage Skin: No rashes, No breakdown Musculoskeletal: No Tenderness to Palpation of Joints or Extremities Lymphatic: No Cervical, Supraclavicular, or Inguinal Adenopathy Neurological: Cranial nerves II-XII grossly intact, Neuro grossly intact, Motor Exam 5/5 strength throughout Psych/Mental Status: Normal Affect, Appropriate, Alert and oriented to time, place, person, mood and affect Microbiology Past 72 Hours 05/29/20 21:10 Tissue - Other Gram Stain - Final 05/29/20 21:10 Tissue - Other Wound Culture - Preliminary GNR lactose roving department end finder Gram positive organism 05/29/20 21:10 Wound - Aerobic & Anaerobic Swabs Gram Stain - Final 05/29/20 21:10 Wound - Aerobic & Anaerobic Swabs Wound Culture - Preliminary GNR lactose roving department end finder GNR Poss Pseudomonas sp 05/29/20 17:00 Urine, Clean Catch Urine Culture - Preliminary Culture exhibits no growth. 05/29/20 20:45 Stool Enteric Bacteriology - Final 05/29/20 20:45 Stool C. difficile GDH Antigen & Toxins - Final 05/29/20 17:00 Urine Catheter - Catheter Legionella Antigen - Final 05/29/20 17:00 Urine Catheter - Catheter Streptococcus pneumoniae Antigen (M - Final 05/29/20 20:00 Mucosa - Nasopharyngeal Respiratory Panel (PCR) - Final 05/29/20 17:00 Mucosa - Nose SARS-CoV-2 Antigen (Rapid) - Final Laboratory Results 05/31/20 08:55: Random Vancomycin 18.0 H 05/31/20 08:55: PT 25.3 H, INR 2.4 05/31/20 10:25: POC Glucose 230 H 05/31/20 13:02: POC Glucose 263 H 05/31/20 16:57: POC Glucose 356 H 05/31/20 22:16: POC Glucose 310 H 06/01/20 03:55: WBC 22.3 H, RBC 3.53 L, Hgb 8.9 L, Hct 30.9 L, MCV 87.5, MCH 25.2 L, MCHC 28.8 L, RDW Std Deviation 55.5 H, RDW Coeff of Varsha 17.2 H, Plt Count 208, MPV 9.0, Immature Gran % (Auto) 2.300 H, Neut % (Auto) 87.2 H, Lymph % (Auto) 5.5 L, [place] % (Auto) 4.9, Eos % (Auto) 0.0, Baso % (Auto) 0.1, Absolute Neuts (auto) 19.5 H, Absolute Lymphs (auto) 1.22, Nucleated RBC % 0 06/01/20 03:55: Sodium 137, Potassium 4.4, Chloride 105, Carbon Dioxide 29.0, Anion Gap 3 L, BUN 22 H, Creatinine 1.28, Estim Creat Clear Calc 69.89, Est GFR (MDRD) Af Amer 74, Est GFR (MDRD) Non-Af 61, BUN/Creatinine Ratio 17.2, Glucose 258 H, Calcium 8.4 L 06/01/20 06:19: POC Glucose 244 H Diagnostic Data Chest X-Ray 05/31/20 05:05 IMPRESSION: There is NO acute cardiopulmonary abnormality. Electronically Signed: Ubaldo Zayas MD at 5:37 EST , Service support , Current Medications Acetaminophen (Acetaminophen 325 Mg Tablet) 650 mg PO Q6H PRN PRN PRN Reason: Pain Score 1-10/Temp > 100.7 F Last Admin: 05/31/20 04:18 Dose: 650 mg Documented by: Al Hydroxide/Mg Hydroxide (Mag Hydrox/Al Hydrox/Simeth 30 Ml Udc) 30 ml PO Q6H PRN PRN PRN Reason: Gastric Burning Albuterol Sulfate (Albuterol 2.5 Mg/3 Ml Vial.Neb.) 2.5 mg INHALATION Q2H PRN PRN PRN Reason: Dyspnea, wheezing Last Admin: 05/31/20 05:03 Dose: 2.5 mg Documented by: Albuterol/Ipratropium (Ipratropium/Albuterol Sulfate 3 Ml Ampul.Neb) 3 ml INHALATION Q4HWA.RT [facility] Last Admin: 06/01/20 06:37 Dose: 3 ml Documented by: Aripiprazole (Aripiprazole 10 Mg Tablet) 30 mg PO DAILY [facility] Last Admin: 05/31/20 10:26 Dose: 30 mg Documented by: Aspirin (Aspirin E.C. 81 Mg Tablet) 81 mg PO DAILY@0800 [facility] Last Admin: 05/31/20 10:26 Dose: 81 mg Documented by: Atorvastatin Calcium (Atorvastatin Calcium 40 Mg Tablet) 40 mg PO QHS [facility] Last Admin: 05/31/20 21:01 Dose: 40 mg Documented by: Calamine/Phenol (Menthol/Lanolin/Calamine/Znox 113 Gm Tube) 1 applic TOPICAL BID [facility]; Protocol Last Admin: 05/31/20 21:02 Dose: 1 applicatio Documented by: Fluoxetine HCl (Fluoxetine 20 Mg Capsule) 40 mg PO DAILY [facility] Last Admin: 05/31/20 10:26 Dose: 40 mg Documented by: Guaifenesin (Guaifenesin 10 Ml Udc (200mg/10ml)) 10 ml PO Q4H PRN PRN PRN Reason: COUGH Hydralazine HCl (Hydralazine 20 Mg/Ml Vial) 10 mg IV Q4H PRN PRN PRN Reason: SBP > 160 Piperacillin Sod/Tazobactam (Sod 3.375 gm/ Sodium Chloride) 50 mls @ 12.5 mls/hr IV Q8 [facility] Last Admin: 06/01/20 06:15 Dose: 12.5 mls/hr Documented by: Vancomycin IV Pharmacy to Dose (1 ea/ Sodium Chloride) 500 mls @ 250 mls/hr IV PRN PRN; Protocol PRN Reason: Rx to Dose Sodium Chloride () 250 mls @ 15 mls/hr IV .[id number] PRN PRN Reason: Saline Flush Sodium Chloride () 250 mls @ 15 mls/hr IV .[id number] PRN PRN Reason: Additional IVPB Infusion Vancomycin HCl 1,250 mg/ (Sodium Chloride) 275 mls @ 167 mls/hr IV Q12H [facility] Last Infusion: 05/31/20 21:29 Dose: Infused Documented by: Insulin Human Lispro (Insulin Lispro 100 Unit/Ml Insuln.Pen) 0 unit SC ACHS [facility]; Protocol Last Admin: 06/01/20 06:19 Dose: 2 units Documented by: Insulin Human Regular (Insulin U-500 Pen) 140 units SC BID [facility] Last Admin: 05/31/20 22:18 Dose: 140 u Documented by: Loperamide HCl (Loperamide 2 Mg Capsule) 2 mg PO Q4H PRN PRN PRN Reason: Diarrhea Last Admin: 05/30/20 21:16 Dose: 2 mg Documented by: Nitroglycerin (Nitroglycerin (Inpatient Use) 0.4 Mg Tab.Subl) 0.4 mg SUBLINGUAL Q5M PRN PRN Reason: CARDIAC/CHEST PAIN Nystatin (Nystatin Powder 15gm Bottle) 1 applic TOPICAL BID [facility]; Protocol Last Admin: 05/31/20 21:01 Dose: 1 applicatio Documented by: Ondansetron HCl (Ondansetron 4 Mg/2 Ml Vial) 4 mg IV Q8H PRN PRN PRN Reason: NAUSEA/VOMITING Prochlorperazine Edisylate (Prochlorperazine 10 Mg/2 Ml Vial) 5 mg IV Q4H PRN PRN PRN Reason: Breakthrough Nausea/Vomiting Senna/Docusate Sodium (Senna/Docusate Sodium 1 Tablet) 2 tablet PO BID PRN PRN PRN Reason: Constipation Sodium Chloride (0.9% Saline Lock 10 Ml Syringe) 10 - 40 ml IV UD PRN PRN Reason: SALINE FLUSH Last Admin: 05/31/20 06:00 Dose: 20 ml Documented by: Throat Lozenges (Benzocaine/Menthol 1 Lozenge) 1 lozenge MUCOUS MEM Q2H PRN PRN PRN Reason: SORE THROAT Torsemide (Torsemide 100 Mg Tablet) 100 mg PO DAILY [facility] Warfarin Sodium (Warfarin 2.5 Mg Tablet) 2.5 mg PO Fr@1700 [facility] Last Admin: 05/31/20 17:32 Dose: 2.5 mg Documented by: Warfarin Sodium (Warfarin 5 Mg Tablet) 5 mg PO SuMoTuWeThSa@1700 [facility] Last Admin: 05/30/20 18:33 Dose: 5 mg Documented by: STROKE Vital Signs/Narrative: Vital Signs Temp Pulse Resp BP Pulse Ox 06/01/20 07:16 59 L 19 H 93 06/01/20 07:00 98.4 F 50 L 20 H 114/61 93 06/01/20 06:00 98.4 F 46 L 21 H 111/56 L 91 06/01/20 05:00 98.6 F 47 L 22 H 110/57 L 94 06/01/20 04:00 98.8 F 47 L 21 H 117/59 L 93 Medical Necessity - Tobacco Use Smoking Status: Never smoker Tobacco Use: Non-smoker Assessment/Plan All Active Problems Cellulitis of right leg (Acute) Septic shock (Acute) Cellulitis (Acute) Acute exacerbation of CHF (congestive heart failure) (Acute) Anasarca (Acute) Unable to ambulate (Acute) #Septic shock due to bilateral LE cellulitis in the setting of severe LE lymphedema now weaned off levophed wbc up to 22.3 on IV vancomycin and zosyn blood and urine cultures pending. ID and critical care on board Wound cultures growing gram-negative chilo lactose fermenting gram-negative rods possibly Pseudomonas as well as Streptococcus group G. #Acute hypoxic respiratory insufficiency on IV solumedrol. Remains on 2L of oxygen was put on IV solumedrol BNP was only 14.9 on admission, titrate oxygen to maintain sats >90% CXR showed no acute cardiopulmonary pathology #Bradycardia; HR down as low as the 40s overnight. He is asymptomatic. Will order 2 D echo and monitor. If it worsens, to consult cardiology #Diarrhea: resolved. C Diff screen was negative. Stool for enteric pathogen negative #JIL:resolved. # History of DVT: on coumadin. IINR pendng #Type 2 diabetes mellitus: victoza on hold. on insulin regular U-500 140 units twice daily. Insulin sliding scale. Accu-Cheks AC at bedtime. #HFrEF: not in exacerbation.stable. # Anxiety and depression: on Abilify #FERNANDO: wears oxygen at night. Not on CPAP or BIPAP DVT prophylaxis: on coumadin. INR is 2.4 Disposition: transfer to PCU Inpatient E&M: 82130 Subs Hosp L3
[2020-06-01 08:25] LABS: International Normalized Ratio 2.4; Prothrombin Time (Protime)PT. 25.6 SECONDS (11.7-14.9)
[2020-06-01] MEDS: ARIPiprazole 10 MG Tablet 30 MG PO (09:09)
[2020-06-01] MEDS: Aspirin E.C. 81 MG Tablet PO (09:09)
[2020-06-01] MEDS: FLUoxetine 20 MG Capsule 40 MG PO (09:10)
[2020-06-01] MEDS: Nystatin Powder 15gm Bottle 1 APPLIC TOPICAL ×2 (09:11→21:52)
[2020-06-01] MEDS: Menthol/Lanolin/Calamine/Znox 113 GM Tube 1 APPLIC TOPICAL ×2 (09:12→21:52)
[2020-06-01] MEDS: Torsemide 100 MG Tablet PO (09:51)
[2020-06-01 12:20] LABS: Bedside Glucose 253 mg/dL (70-110)
[2020-06-01 16:25] LABS: Bedside Glucose 168 mg/dL (70-110)
--- NOTE | 2020-06-01 19:00 | PCS.PANDOC ---
PANDEMIC DOCUMENTATION INITIATED: Date: 05/29/20 Time: 20:00
[2020-06-01] MEDS: Acetaminophen 325 MG Tablet 650 MG PO (19:56)
[2020-06-01] MEDS: Atorvastatin Calcium 40 MG Tablet PO (21:53)
[2020-06-01 22:06] LABS: Bedside Glucose 178 mg/dL (70-110)
[2020-06-01] MEDS: 0.9% Saline Lock 10 ML Syringe IV (23:19)
[2020-06-02] VITALS (12 sets, daily range): BP systolic 105–136; BP diastolic 53–69; PULSE 48–75; RESP 18–24; TEMP 36.1–36.7; O2SAT 94–97
[2020-06-02 05:14] LABS: Absolute Lymphocyte Count 3.25 X10^3/uL (0.83-4.51); Basophil# 0.02 X10^3/uL; Basophil% 0.1 % (0-1); Eosinophil# 0.27 X10^3/uL; Eosinophils% 1.4 % (0-5); Hematocrit 31.2 % (40-54); Hemoglobin 9.3 g/dL (13.0-16.5); Lymphocyte # 3.25 X10^3/ul (4.0); Lymphocyte % 17.3 % (19-41); Mean Corp Hgb Conc 29.8 g/dL (32-36); Mean Corpuscular Hgb 25.7 pg (27.0-32.0); Mean Corpuscular Volume 86.2 fL (80-94); Mean Platelet Vol. 9.1 fl (6.2-12.0); Monocyte# 1.06 X10^3/uL; Monocyte% 5.7 % (0-10); NRBC Flagged by Analyzer 0.2 % (0-5); Neutrophil # 13.95 X10^3/uL (2.7-7.7); Neutrophil % 74.5 % (47-70); Platelet Count 269 K/mm3 (150-450); Red Blood Count 3.62 M/mm3 (4.6-6.2); White Blood Count 18.7 K/mm3 (4.4-11.0)
[2020-06-02 05:30] LABS: Anion Gap 6 (5-15); BUN 29 mg/dL (7-18); BUN/Creat Ratio 22.1 RATIO (10-20); Calcium,Total 8.5 mg/dL (8.5-10.1); Chloride 103 mmol/L (98-107); Creatinine, Serum 1.31 mg/dL (0.70-1.30); EST Glomerular Filtration Rate 60 mL/min (>60); Est Glom Filt Rate - Afr Amer 72 mL/min (>60); Estimated Creatinine Clearance 68.29 ml/min; Glucose 102 mg/dL (74-106); Potassium 3.5 mmol/L (3.5-5.1); Sodium Level 137 mmol/L (136-145)
--- NOTE | 2020-06-02 06:02 | PN_ITS ---
Patient Problems: Active and Suspected Problems Septic shock (Acute) Cellulitis (Acute) Subjective: The patient was seen and examined at the bedside this morning. Events from the last 24 hours have been reviewed. The patient is currently afebrile, hemodynamically stable and maintaining appropriate oxygen saturations on 3 L/min via nasal cannula. The patient has remained clinically stable following transfer out of the medical intensive care unit yesterday. The patient is currently documented to be overall net -3.7 L for the hospital admission. Objective: The patient's most recent lab work, culture data and imaging studies have all been personally reviewed. Surface echocardiogram from November 2019 revealed normal LV size with an ejection fraction of 65%. Right ventricular systolic pressure was unable to be estimated. Wound cultures revealed gram-negative chilo, lactose farm equipment engineer and possible Pseudomonas. - Physical Exam Vitals/I&O's: Vital Signs Temp Pulse Resp BP Pulse Ox 97.5 F L 53 L 18 129/69 H 94 06/02/20 03:30 06/02/20 03:30 06/02/20 03:30 06/02/20 03:30 06/02/20 03:30 Oxygen Flow Rate (L/min) 3 Oxygen Delivery Method Nasal Cannula Weight: 485 lb 10.853 oz Body Mass Index (BMI) 66.4 Intake and Output for Last 24 Hours 05/31/20 06/01/20 06/02/20 23:59 23:59 23:59 Intake Total 844.58 / 1244.58 2730.35 / 2730.35 50 / 50 Output Total 5090 / 5690 2390 / 2390 Balance -4245.42 / -4445.42 340.35 / 340.35 50 / 50 General: Alert, Cooperative, No apparent distress, - - Super morbidly obese HEENT: Atraumatic, PERRLA, Normocephalic Oral: No Gingival or Mucosal Lesions/ Ulcerations Neck: Supple, No Nodes, Trachea Midline Lungs: No rhonchi, No rales, Diminished, Wheezes Cardiovascular: Normal S1, Normal S2, No murmurs, Bradycardic Abdomen: Bowel Sounds Present, Soft, Non Tender, Obese Extremities: No clubbing, No cyanosis, Edema Skin: - - No significant change from previous Musculoskeletal: No Muscle Wasting Lymphatic: No Cervical, Supraclavicular, or Inguinal Adenopathy Neurological: Cranial nerves II-XII grossly intact, Neuro grossly intact Psych/Mental Status: Normal Affect Labs (Last 48 Hours) 05/29/20 05/31/20 05/31/20 20:00 08:55 08:55 WBC RBC Hgb Hct MCV MCH MCHC RDW Std Deviation RDW Coeff of Varsha Plt Count MPV Immature Gran % (Auto) Neut % (Auto) Lymph % (Auto) [place] % (Auto) Eos % (Auto) Baso % (Auto) Absolute Neuts (auto) Absolute Lymphs (auto) Nucleated RBC % PT 25.3 H INR 2.4 Sodium Potassium Chloride Carbon Dioxide Anion Gap BUN Creatinine Estim Creat Clear Calc Est GFR (MDRD) Af Amer Est GFR (MDRD) Non-Af BUN/Creatinine Ratio Glucose Calcium Random Vancomycin 18.0 H COVID-19 (JEN) Not Detected S.aureus Protein A PCR NEGATIVE MRSA (PCR) Negative POC Glucose 05/31/20 05/31/20 05/31/20 10:25 13:02 16:57 WBC RBC Hgb Hct MCV MCH MCHC RDW Std Deviation RDW Coeff of Varsha Plt Count MPV Immature Gran % (Auto) Neut % (Auto) Lymph % (Auto) [place] % (Auto) Eos % (Auto) Baso % (Auto) Absolute Neuts (auto) Absolute Lymphs (auto) Nucleated RBC % PT INR Sodium Potassium Chloride Carbon Dioxide Anion Gap BUN Creatinine Estim Creat Clear Calc Est GFR (MDRD) Af Amer Est GFR (MDRD) Non-Af BUN/Creatinine Ratio Glucose Calcium Random Vancomycin COVID-19 (JEN) S.aureus Protein A PCR MRSA (PCR) POC Glucose 230 H 263 H 356 H 05/31/20 06/01/20 06/01/20 22:16 03:55 03:55 WBC 22.3 H RBC 3.53 L Hgb 8.9 L Hct 30.9 L MCV 87.5 MCH 25.2 L MCHC 28.8 L RDW Std Deviation 55.5 H RDW Coeff of Varsha 17.2 H Plt Count 208 MPV 9.0 Immature Gran % (Auto) 2.300 H Neut % (Auto) 87.2 H Lymph % (Auto) 5.5 L [place] % (Auto) 4.9 Eos % (Auto) 0.0 Baso % (Auto) 0.1 Absolute Neuts (auto) 19.5 H Absolute Lymphs (auto) 1.22 Nucleated RBC % 0 PT INR Sodium 137 Potassium 4.4 Chloride 105 Carbon Dioxide 29.0 Anion Gap 3 L BUN 22 H Creatinine 1.28 Estim Creat Clear Calc 69.89 Est GFR (MDRD) Af Amer 74 Est GFR (MDRD) Non-Af 61 BUN/Creatinine Ratio 17.2 Glucose 258 H Calcium 8.4 L Random Vancomycin COVID-19 (JEN) S.aureus Protein A PCR MRSA (PCR) POC Glucose 310 H 06/01/20 06/01/20 06/01/20 03:55 06:19 12:04 WBC RBC Hgb Hct MCV MCH MCHC RDW Std Deviation RDW Coeff of Varsha Plt Count MPV Immature Gran % (Auto) Neut % (Auto) Lymph % (Auto) [place] % (Auto) Eos % (Auto) Baso % (Auto) Absolute Neuts (auto) Absolute Lymphs (auto) Nucleated RBC % PT 25.6 H INR 2.4 Sodium Potassium Chloride Carbon Dioxide Anion Gap BUN Creatinine Estim Creat Clear Calc Est GFR (MDRD) Af Amer Est GFR (MDRD) Non-Af BUN/Creatinine Ratio Glucose Calcium Random Vancomycin COVID-19 (JEN) S.aureus Protein A PCR MRSA (PCR) POC Glucose 244 H 253 H 06/01/20 06/01/20 06/02/20 16:23 21:50 04:49 WBC 18.7 H RBC 3.62 L Hgb 9.3 L Hct 31.2 L MCV 86.2 MCH 25.7 L MCHC 29.8 L RDW Std Deviation 54.0 H RDW Coeff of Varsha 17.0 H Plt Count 269 MPV 9.1 Immature Gran % (Auto) 1.000 H Neut % (Auto) 74.5 H Lymph % (Auto) 17.3 L [place] % (Auto) 5.7 Eos % (Auto) 1.4 Baso % (Auto) 0.1 Absolute Neuts (auto) 14.0 H Absolute Lymphs (auto) 3.25 Nucleated RBC % 0.2 PT INR Sodium Potassium Chloride Carbon Dioxide Anion Gap BUN Creatinine Estim Creat Clear Calc Est GFR (MDRD) Af Amer Est GFR (MDRD) Non-Af BUN/Creatinine Ratio Glucose Calcium Random Vancomycin COVID-19 (JEN) S.aureus Protein A PCR MRSA (PCR) POC Glucose 168 H 178 H 12/20/20 04:49 WBC RBC Hgb Hct MCV MCH MCHC RDW Std Deviation RDW Coeff of Varsha Plt Count MPV Immature Gran % (Auto) Neut % (Auto) Lymph % (Auto) [place] % (Auto) Eos % (Auto) Baso % (Auto) Absolute Neuts (auto) Absolute Lymphs (auto) Nucleated RBC % PT INR Sodium 137 Potassium 3.5 Chloride 103 Carbon Dioxide 28.0 Anion Gap 6 BUN 29 H Creatinine 1.31 H Estim Creat Clear Calc 68.29 Est GFR (MDRD) Af Amer 72 Est GFR (MDRD) Non-Af 60 BUN/Creatinine Ratio 22.1 H Glucose 102 Calcium 8.5 Random Vancomycin COVID-19 (JEN) S.aureus Protein A PCR MRSA (PCR) POC Glucose Microbiology 05/29/20 21:10 Wound - Aerobic & Anaerobic Swabs Gram Stain - Final 05/29/20 21:10 Wound - Aerobic & Anaerobic Swabs Wound Culture - Preliminary GNR lactose farm equipment engineer GNR Poss Pseudomonas sp Streptococcus group G 05/29/20 21:10 Tissue - Other Gram Stain - Final 05/29/20 21:10 Tissue - Other Wound Culture - Preliminary GNR lactose farm equipment engineer Streptococcus group G Gram positive chilo 05/29/20 17:00 Urine, Clean Catch Urine Culture - Final Culture exhibits no growth. 05/29/20 16:50 Blood Culture (Wb) - Anticubital Right Blood Culture - Preliminary No growth in 48 hours. 05/29/20 16:35 Blood Culture (Wb) - Anticubital Left Blood Culture - Preliminary No growth in 48 hours. Clinical Impression(s) from Imaging Studies Chest X-Ray 05/29/20 17:10 IMPRESSION: Normal x-ray examination of the chest. Electronically Signed: Rachel Dowell MD at 17:42 EST Tel , Service support , Chest X-Ray 05/30/20 05:55 IMPRESSION: Hyperinflation. Prominence of the pulmonary arteries bilaterally. Electronically Signed: Chin Obregon, at 10:00 EST , Service support , Chest X-Ray 05/31/20 05:05 IMPRESSION: There is NO acute cardiopulmonary abnormality. Electronically Signed: Ubaldo Zayas MD at 5:37 EST , Service support , Current Medications Acetaminophen (Acetaminophen 325 Mg Tablet) 650 mg PO Q6H PRN PRN PRN Reason: Pain Score 1-10/Temp > 100.7 F Last Admin: 06/01/20 19:56 Dose: 650 mg Documented by: Al Hydroxide/Mg Hydroxide (Mag Hydrox/Al Hydrox/Simeth 30 Ml Udc) 30 ml PO Q6H PRN PRN PRN Reason: Gastric Burning Albuterol Sulfate (Albuterol 2.5 Mg/3 Ml Vial.Neb.) 2.5 mg INHALATION Q2H PRN PRN PRN Reason: Dyspnea, wheezing Last Admin: 05/31/20 05:03 Dose: 2.5 mg Documented by: Albuterol/Ipratropium (Ipratropium/Albuterol Sulfate 3 Ml Ampul.Neb) 3 ml INHALATION Q4HWA.RT [facility] Last Admin: 06/01/20 18:43 Dose: 3 ml Documented by: Aripiprazole (Aripiprazole 10 Mg Tablet) 30 mg PO DAILY [facility] Last Admin: 06/01/20 09:09 Dose: 30 mg Documented by: Aspirin (Aspirin E.C. 81 Mg Tablet) 81 mg PO DAILY@0800 [facility] Last Admin: 06/01/20 09:09 Dose: 81 mg Documented by: Atorvastatin Calcium (Atorvastatin Calcium 40 Mg Tablet) 40 mg PO QHS [facility] Last Admin: 06/01/20 21:53 Dose: 40 mg Documented by: Calamine/Phenol (Menthol/Lanolin/Calamine/Znox 113 Gm Tube) 1 applic TOPICAL BID [facility]; Protocol Last Admin: 06/01/20 21:52 Dose: 1 applicatio Documented by: Fluoxetine HCl (Fluoxetine 20 Mg Capsule) 40 mg PO DAILY [facility] Last Admin: 06/01/20 09:10 Dose: 40 mg Documented by: Guaifenesin (Guaifenesin 10 Ml Udc (200mg/10ml)) 10 ml PO Q4H PRN PRN PRN Reason: COUGH Hydralazine HCl (Hydralazine 20 Mg/Ml Vial) 10 mg IV Q4H PRN PRN PRN Reason: SBP > 160 Piperacillin Sod/Tazobactam (Sod 3.375 gm/ Sodium Chloride) 50 mls @ 12.5 mls/hr IV Q8 [facility] Last Infusion: 06/02/20 03:21 Dose: Infused Documented by: Vancomycin IV Pharmacy to Dose (1 ea/ Sodium Chloride) 500 mls @ 250 mls/hr IV PRN PRN; Protocol PRN Reason: Rx to Dose Sodium Chloride () 250 mls @ 15 mls/hr IV .[id number] PRN PRN Reason: Saline Flush Sodium Chloride () 250 mls @ 15 mls/hr IV .[id number] PRN PRN Reason: Additional IVPB Infusion Vancomycin HCl 1,250 mg/ (Sodium Chloride) 275 mls @ 167 mls/hr IV Q12H [facility] Last Infusion: 06/01/20 21:01 Dose: Infused Documented by: Insulin Human Lispro (Insulin Lispro 100 Unit/Ml Insuln.Pen) 0 unit SC ACHS [facility]; Protocol Last Admin: 06/01/20 21:53 Dose: 1 units Documented by: Insulin Human Regular (Insulin U-500 Pen) 140 units SC BID [facility] Last Admin: 06/01/20 21:54 Dose: 140 u Documented by: Loperamide HCl (Loperamide 2 Mg Capsule) 2 mg PO Q4H PRN PRN PRN Reason: Diarrhea Last Admin: 05/30/20 21:16 Dose: 2 mg Documented by: Nitroglycerin (Nitroglycerin (Inpatient Use) 0.4 Mg Tab.Subl) 0.4 mg SUBLINGUAL Q5M PRN PRN Reason: CARDIAC/CHEST PAIN Nystatin (Nystatin Powder 15gm Bottle) 1 applic TOPICAL BID [facility]; Protocol Last Admin: 06/01/20 21:52 Dose: 1 applicatio Documented by: Ondansetron HCl (Ondansetron 4 Mg/2 Ml Vial) 4 mg IV Q8H PRN PRN PRN Reason: NAUSEA/VOMITING Prochlorperazine Edisylate (Prochlorperazine 10 Mg/2 Ml Vial) 5 mg IV Q4H PRN PRN PRN Reason: Breakthrough Nausea/Vomiting Senna/Docusate Sodium (Senna/Docusate Sodium 1 Tablet) 2 tablet PO BID PRN PRN PRN Reason: Constipation Sodium Chloride (0.9% Saline Lock 10 Ml Syringe) 10 - 40 ml IV UD PRN PRN Reason: SALINE FLUSH Last Admin: 06/01/20 23:19 Dose: 10 ml Documented by: Throat Lozenges (Benzocaine/Menthol 1 Lozenge) 1 lozenge MUCOUS MEM Q2H PRN PRN PRN Reason: SORE THROAT Torsemide (Torsemide 100 Mg Tablet) 100 mg PO DAILY [facility] Last Admin: 06/01/20 09:51 Dose: 100 mg Documented by: Warfarin Sodium (Warfarin 2.5 Mg Tablet) 2.5 mg PO Fr@1700 [facility] Last Admin: 05/31/20 17:32 Dose: 2.5 mg Documented by: Warfarin Sodium (Warfarin 5 Mg Tablet) 5 mg PO SuMoTuWeThSa@1700 [facility] Last Admin: 06/01/20 17:36 Dose: 5 mg Documented by: Medical Necessity - Tobacco Use Smoking Status: Never smoker Tobacco Use: Non-smoker Assessment/Plan All Active Problems Cellulitis of right leg (Acute) Septic shock (Acute) Cellulitis (Acute) Acute exacerbation of CHF (congestive heart failure) (Acute) Anasarca (Acute) Unable to ambulate (Acute) RECOMMENDATIONS: 1. Continue antimicrobials per ID recommendations. 2. Continue systemic anticoagulation and monitor INR daily. 3. Continue home diuretic regimen. 4. Wean supplemental oxygen to maintain saturations at or above 90%. 5. Encourage incentive spirometer use and mobilize patient as tolerated. 6. Continue bronchodilator therapy. 7. Given the patient's lack of further ICU needs, will sign off. Please call with any additional questions. IMPRESSIONS: 1. Septic shock Likely secondary to lower extremity cellulitis/lymphedema. The patient did receive supplemental IV fluid hydration and was able to be successfully weaned from vasopressor support. The patient remains hemodynamically stable. He will be continued on antimicrobials per ID recommendations. 2. Acute kidney injury Improved. Likely prerenal in etiology. Renal function improved with volume expansion and stabilization of hemodynamics. Plan to continue home diuretic regimen. Continue to monitor urine output. No indication for renal replacement therapy. 3. Heart failure with preserved ejection fraction/history of DVT/morbid obesity Complicates care, management, recovery and prognosis. Continue Lantus and sliding scale insulin coverage. Physical therapy to work with the patient. CODE status: Discussed CODE status at length including difference between FULL code, DNR-CCA and DNR-CC status. Following discussions about the differences in these status, patient requested DNR CCA without intubation CODE STATUS. This note was generated with [employer] dictation software. It may contain incorrect words, spelling, and punctuation that were not noted in checking the note before signing. Inpatient E&M: 54924 Subs Hosp L2
[2020-06-02] MEDS: 0.9% Saline Lock 10 ML Syringe IV (06:44)
[2020-06-02] MEDS: Ipratropium/Albuterol Sulfate 3 ML AMPUL.NEB INHALATION ×4 (06:49→20:19)
[2020-06-02 06:50] LABS: Bedside Glucose 88 mg/dL (70-110)
--- NOTE | 2020-06-02 07:48 | PN_ITS ---
Patient Problems: Active and Suspected Problems Septic shock (Acute) Cellulitis (Acute) Subjective: Patient seen and examined. He had no complaints. He was transferred to the progressive care unit yesterday. Review of systems otherwise negative. He still has mild bradycardia but is asymptomatic. He is on 3 L of oxygen cell c ount is down to 18.7 today. Vitals/I&O's: Vital Signs Temp Pulse Resp BP Pulse Ox 97.5 F L 53 L 18 129/69 H 94 06/02/20 03:30 06/02/20 03:30 06/02/20 03:30 06/02/20 03:30 06/02/20 03:30 Oxygen Flow Rate (L/min) 3 Oxygen Delivery Method Nasal Cannula Weight: 485 lb 10.853 oz Body Mass Index (BMI) 66.4 Intake and Output for Last 24 Hours 05/31/20 06/01/20 06/02/20 23:59 23:59 23:59 Intake Total 844.58 / 1244.58 2730.35 / 2730.35 290 / 290 Output Total 5090 / 5690 2390 / 2390 725 / 725 Balance -4245.42 / -4445.42 340.35 / 340.35 -435 / -435 General: Alert, Oriented x3, Cooperative, No apparent distress, - - super morbid obesity HEENT: Atraumatic, PERRLA, EOMI, Normocephalic Oral: Dry Mucosa Neck: Supple, No JVD, Negative Carotid Bruits Lungs: Tachypneic, - - diminished breath sounds bibasally, no wheezes or crackles. on BIPAP Cardiovascular: Regular rate, Regular Rhythm, Normal S1, Normal S2, No murmurs Abdomen: Bowel Sounds Present, Soft, Non Tender, Non-Distended, No Hepato- splenomegaly Extremities: No clubbing, No cyanosis, Capillary Refill Less than 3 Seconds, - - bilateral massive lymphedema. Both LEs wrapped in PAMELLA bandage Skin: No rashes, No breakdown Musculoskeletal: No Tenderness to Palpation of Joints or Extremities Lymphatic: No Cervical, Supraclavicular, or Inguinal Adenopathy Neurological: Cranial nerves II-XII grossly intact, Neuro grossly intact, Motor Exam 5/5 strength throughout Psych/Mental Status: Normal Affect, Appropriate, Alert and oriented to time, place, person, mood and affect Microbiology Past 72 Hours 05/29/20 21:10 Tissue - Other Gram Stain - Final 05/29/20 21:10 Tissue - Other Wound Culture - Final Enterobacter cloacae complex Streptococcus group G Corynebacterium striatum 05/29/20 21:10 Wound - Aerobic & Anaerobic Swabs Gram Stain - Final 05/29/20 21:10 Wound - Aerobic & Anaerobic Swabs Wound Culture - Final Escherichia coli Pseudomonas aeroginosa Streptococcus group G 05/29/20 17:00 Urine, Clean Catch Urine Culture - Final Culture exhibits no growth. 05/29/20 16:50 Blood Culture (Wb) - Anticubital Right Blood Culture - Preliminary No growth in 48 hours. 05/29/20 16:35 Blood Culture (Wb) - Anticubital Left Blood Culture - Preliminary No growth in 48 hours. 05/29/20 20:45 Stool Enteric Bacteriology - Final 05/29/20 20:45 Stool C. difficile GDH Antigen & Toxins - Final 05/29/20 17:00 Urine Catheter - Catheter Legionella Antigen - Final 05/29/20 17:00 Urine Catheter - Catheter Streptococcus pneumoniae Antigen (M - Final Laboratory Results 05/29/20 20:00: COVID-19 (JEN) Not Detected, S.aureus Protein A PCR NEGATIVE, MRSA (PCR) Negative 06/01/20 03:55: PT 25.6 H, INR 2.4 06/01/20 12:04: POC Glucose 253 H 06/01/20 16:23: POC Glucose 168 H 06/01/20 21:50: POC Glucose 178 H 06/02/20 04:49: WBC 18.7 H, RBC 3.62 L, Hgb 9.3 L, Hct 31.2 L, MCV 86.2, MCH 25.7 L, MCHC 29.8 L, RDW Std Deviation 54.0 H, RDW Coeff of Varsha 17.0 H, Plt Count 269, MPV 9.1, Immature Gran % (Auto) 1.000 H, Neut % (Auto) 74.5 H, Lymph % (Auto) 17.3 L, [place] % (Auto) 5.7, Eos % (Auto) 1.4, Baso % (Auto) 0.1, Absolute Neuts (auto) 14.0 H, Absolute Lymphs (auto) 3.25, Nucleated RBC % 0.2 06/02/20 04:49: Sodium 137, Potassium 3.5, Chloride 103, Carbon Dioxide 28.0, Anion Gap 6, BUN 29 H, Creatinine 1.31 H, Estim Creat Clear Calc 68.29, Est GFR (MDRD) Af Amer 72, Est GFR (MDRD) Non-Af 60, BUN/Creatinine Ratio 22.1 H, Glucose 102, Calcium 8.5 06/02/20 06:40: POC Glucose 88 06/02/20 07:29: Vancomycin Trough Pending Current Medications Acetaminophen (Acetaminophen 325 Mg Tablet) 650 mg PO Q6H PRN PRN PRN Reason: Pain Score 1-10/Temp > 100.7 F Last Admin: 06/01/20 19:56 Dose: 650 mg Documented by: Al Hydroxide/Mg Hydroxide (Mag Hydrox/Al Hydrox/Simeth 30 Ml Udc) 30 ml PO Q6H PRN PRN PRN Reason: Gastric Burning Albuterol Sulfate (Albuterol 2.5 Mg/3 Ml Vial.Neb.) 2.5 mg INHALATION Q2H PRN PRN PRN Reason: Dyspnea, wheezing Last Admin: 05/31/20 05:03 Dose: 2.5 mg Documented by: Albuterol/Ipratropium (Ipratropium/Albuterol Sulfate 3 Ml Ampul.Neb) 3 ml INHALATION Q4HWA.RT [facility] Last Admin: 06/02/20 06:49 Dose: 3 ml Documented by: Aripiprazole (Aripiprazole 10 Mg Tablet) 30 mg PO DAILY [facility] Last Admin: 06/01/20 09:09 Dose: 30 mg Documented by: Aspirin (Aspirin E.C. 81 Mg Tablet) 81 mg PO DAILY@0800 [facility] Last Admin: 06/01/20 09:09 Dose: 81 mg Documented by: Atorvastatin Calcium (Atorvastatin Calcium 40 Mg Tablet) 40 mg PO QHS [facility] Last Admin: 06/01/20 21:53 Dose: 40 mg Documented by: Calamine/Phenol (Menthol/Lanolin/Calamine/Znox 113 Gm Tube) 1 applic TOPICAL BID [facility]; Protocol Last Admin: 06/01/20 21:52 Dose: 1 applicatio Documented by: Fluoxetine HCl (Fluoxetine 20 Mg Capsule) 40 mg PO DAILY [facility] Last Admin: 06/01/20 09:10 Dose: 40 mg Documented by: Guaifenesin (Guaifenesin 10 Ml Udc (200mg/10ml)) 10 ml PO Q4H PRN PRN PRN Reason: COUGH Hydralazine HCl (Hydralazine 20 Mg/Ml Vial) 10 mg IV Q4H PRN PRN PRN Reason: SBP > 160 Piperacillin Sod/Tazobactam (Sod 3.375 gm/ Sodium Chloride) 50 mls @ 12.5 mls/hr IV Q8 [facility] Last Admin: 06/02/20 06:41 Dose: 12.5 mls/hr Documented by: Vancomycin IV Pharmacy to Dose (1 ea/ Sodium Chloride) 500 mls @ 250 mls/hr IV PRN PRN; Protocol PRN Reason: Rx to Dose Sodium Chloride () 250 mls @ 15 mls/hr IV .[id number] PRN PRN Reason: Saline Flush Sodium Chloride () 250 mls @ 15 mls/hr IV .[id number] PRN PRN Reason: Additional IVPB Infusion Vancomycin HCl 1,250 mg/ (Sodium Chloride) 275 mls @ 167 mls/hr IV Q12H [facility] Last Infusion: 06/01/20 21:01 Dose: Infused Documented by: Insulin Human Lispro (Insulin Lispro 100 Unit/Ml Insuln.Pen) 0 unit SC ACHS [facility]; Protocol Last Admin: 06/02/20 06:44 Dose: Not Given Documented by: Insulin Human Regular (Insulin U-500 Pen) 140 units SC BID [facility] Last Admin: 06/01/20 21:54 Dose: 140 u Documented by: Loperamide HCl (Loperamide 2 Mg Capsule) 2 mg PO Q4H PRN PRN PRN Reason: Diarrhea Last Admin: 05/30/20 21:16 Dose: 2 mg Documented by: Nitroglycerin (Nitroglycerin (Inpatient Use) 0.4 Mg Tab.Subl) 0.4 mg SUBLINGUAL Q5M PRN PRN Reason: CARDIAC/CHEST PAIN Nystatin (Nystatin Powder 15gm Bottle) 1 applic TOPICAL BID [facility]; Protocol Last Admin: 06/01/20 21:52 Dose: 1 applicatio Documented by: Ondansetron HCl (Ondansetron 4 Mg/2 Ml Vial) 4 mg IV Q8H PRN PRN PRN Reason: NAUSEA/VOMITING Prochlorperazine Edisylate (Prochlorperazine 10 Mg/2 Ml Vial) 5 mg IV Q4H PRN PRN PRN Reason: Breakthrough Nausea/Vomiting Senna/Docusate Sodium (Senna/Docusate Sodium 1 Tablet) 2 tablet PO BID PRN PRN PRN Reason: Constipation Sodium Chloride (0.9% Saline Lock 10 Ml Syringe) 10 - 40 ml IV UD PRN PRN Reason: SALINE FLUSH Last Admin: 06/02/20 06:44 Dose: 20 ml Documented by: Throat Lozenges (Benzocaine/Menthol 1 Lozenge) 1 lozenge MUCOUS MEM Q2H PRN PRN PRN Reason: SORE THROAT Torsemide (Torsemide 100 Mg Tablet) 100 mg PO DAILY [facility] Last Admin: 06/01/20 09:51 Dose: 100 mg Documented by: Warfarin Sodium (Warfarin 2.5 Mg Tablet) 2.5 mg PO Fr@1700 [facility] Last Admin: 05/31/20 17:32 Dose: 2.5 mg Documented by: Warfarin Sodium (Warfarin 5 Mg Tablet) 5 mg PO SuMoTuWeThSa@1700 [facility] Last Admin: 06/01/20 17:36 Dose: 5 mg Documented by: Medical Necessity - Tobacco Use Smoking Status: Never smoker Tobacco Use: Non-smoker Assessment/Plan All Active Problems Cellulitis of right leg (Acute) Septic shock (Acute) Cellulitis (Acute) Acute exacerbation of CHF (congestive heart failure) (Acute) Anasarca (Acute) Unable to ambulate (Acute) #Septic shock due to bilateral LE cellulitis in the setting of severe LE lymphedema * now weaned off levophed * wbc down to 18.7 * continue zosyn, DC vancomycin * blood and urine cultures pending. * ID and critical care on board * Wound cultures growing gram-negative chilo lactose fermenting gram-negative rods possibly Pseudomonas as well as Streptococcus group G. * #Acute hypoxic respiratory insufficiency * on IV solumedrol. Remains on 2L of oxygen * on IV solumedrol * BNP was only 14.9 on admission, * titrate oxygen to maintain sats >90% * CXR showed no acute cardiopulmonary pathology * #Bradycardia; * asymptomatic. Heart rate down in the 50s. 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 * Will get 2D echo. #Diarrhea: resolved. C Diff screen was negative. Stool for enteric pathogen negative # History of DVT: on coumadin. INR is therapeutic #Type 2 diabetes mellitus: victoza on hold. on insulin regular U-500 140 units twice daily. Insulin sliding scale. Accu-Cheks AC at bedtime. #HFrEF: not in exacerbation.stable. # Anxiety and depression: on Abilify #FERNANDO: wears oxygen at night. Not on CPAP or BIPAP DVT prophylaxis: on coumadin. INR is therapeutic Inpatient E&M: 37945 Subs Hosp L2
[2020-06-02 08:01] LABS: Vancomycin, Trough Level 17.5 ug/mL (5.0-15.0)
[2020-06-02 08:23] LABS: International Normalized Ratio 2.8; Prothrombin Time (Protime)PT. 28.9 SECONDS (11.7-14.9)
[2020-06-02] MEDS: Aspirin E.C. 81 MG Tablet PO (09:05)
[2020-06-02] MEDS: ARIPiprazole 10 MG Tablet 30 MG PO (09:06)
[2020-06-02] MEDS: FLUoxetine 20 MG Capsule 40 MG PO (09:07)
[2020-06-02] MEDS: Torsemide 100 MG Tablet PO (09:07)
[2020-06-02 09:40] LABS: Bedside Glucose 148 mg/dL (70-110)
[2020-06-02] MEDS: Nystatin Powder 15gm Bottle 1 APPLIC TOPICAL (10:44)
[2020-06-02] MEDS: Menthol/Lanolin/Calamine/Znox 113 GM Tube 1 APPLIC TOPICAL (10:45)
[2020-06-02 11:26] LABS: Bedside Glucose 85 mg/dL (70-110)
[2020-06-02 16:31] LABS: Bedside Glucose 60 mg/dL (70-110)
[2020-06-02 17:05] LABS: Bedside Glucose 97 mg/dL (70-110)
[2020-06-02] MEDS: Atorvastatin Calcium 40 MG Tablet PO (21:53)
[2020-06-02] MEDS: Acetaminophen 325 MG Tablet 650 MG PO (21:53)
[2020-06-02] MEDS: Insulin Lispro 100 UNIT/ML INSULN.PEN SC (21:54)
[2020-06-02 22:06] LABS: Bedside Glucose 176 mg/dL (70-110)
[2020-06-03] VITALS (12 sets, daily range): BP systolic 133–152; BP diastolic 53–87; PULSE 61–95; RESP 16–20; TEMP 36.2–36.9; O2SAT 94–100
[2020-06-03 03:40] LABS: Bedside Glucose 51 mg/dL (70-110)
[2020-06-03 04:16] LABS: Bedside Glucose 108 mg/dL (70-110)
[2020-06-03 05:23] LABS: Absolute Lymphocyte Count 2.53 X10^3/uL (0.83-4.51); Absolute Neutrophil Count 9.3 X10^3/uL (2.0-7.7); Basophil# 0.05 X10^3/uL; Basophil% 0.4 % (0-1); Differential Indicated SCAN CRITERIA MET; Eosinophil# 0.37 X10^3/uL; Eosinophils% 2.8 % (0-5); Hematocrit 34.5 % (40-54); Hemoglobin 10.1 g/dL (13.0-16.5); Lymphocyte # 2.53 X10^3/ul (4.0); Lymphocyte % 19.1 % (19-41); Mean Corp Hgb Conc 29.3 g/dL (32-36); Mean Corpuscular Hgb 25.4 pg (27.0-32.0); Mean Corpuscular Volume 86.7 fL (80-94); Mean Platelet Vol. 10.4 fl (6.2-12.0); Monocyte# 0.79 X10^3/uL; Monocyte% 5.9 % (0-10); NRBC Flagged by Analyzer 0.2 % (0-5); Neutrophil # 9.32 X10^3/uL (2.7-7.7); Neutrophil % 70.1 % (47-70); POSITIVE COUNT YES; RBC Distribution Width CV 17.2 % (11.6-14.6); RBC Distribution Width SD 55.7 fl (35.1-43.9); Red Blood Count 3.98 M/mm3 (4.6-6.2); White Blood Count 13.3 K/mm3 (4.4-11.0)
[2020-06-03 05:39] LABS: Platelet Estimate ADEQUATE (ADEQ)
[2020-06-03 05:40] LABS: Anion Gap 7 (5-15); BUN 27 mg/dL (7-18); BUN/Creat Ratio 22.9 RATIO (10-20); Calcium,Total 8.4 mg/dL (8.5-10.1); Chloride 102 mmol/L (98-107); Creatinine, Serum 1.18 mg/dL (0.70-1.30); EST Glomerular Filtration Rate 68 mL/min (>60); Est Glom Filt Rate - Afr Amer 82 mL/min (>60); Estimated Creatinine Clearance 75.81 ml/min; Glucose 87 mg/dL (74-106); Potassium 3.7 mmol/L (3.5-5.1); Sodium Level 134 mmol/L (136-145)
--- NOTE | 2020-06-03 05:47 | NURSING ---
Updated Ludin from [facility] via telephone.
--- NOTE | 2020-06-03 05:55 | ECHOCS_ITS ---
Reason For Study: Arrhythmia Procedure This was a 2D Doppler, Color Flow transthoracic echocardiogram. Very technically difficult study due to patients body habitus. patient was scanned upright in chair d/t body habitus and SOB. Limited views obtained, contrast injection performed. The study was technically difficult. Contrast injection was performed. Exam performed portable in patient room. Left Ventricle Based upon the 2D echocardiographic and contrast enhanced images obtained there appears to be grossly normal left ventricular size, wall motion, and systolic function. The estimated ejection fraction is 60 %. Unable to assess diastolic dysfunction. Right Ventricle Based upon the 2D echocardiographic and contrast enhanced images obtained there appears to be grossly normal right ventricular size and systolic function. Atria Normal left atrium. The right atrium is not well visualized. No doppler evidence for ASD. Mitral Valve There is no mitral annular calcification. Normal mitral valve. Trivial mitral valve insufficiency. Tricuspid Valve The tricuspid valve is not well visualized. Trivial tricuspid valve insufficiency. Aortic Valve Trisinus/trileaflet aortic valve. Mild focal aortic valve calcification. Pulmonic Valve The pulmonic valve is not well visualized. Great Vessels Borderline to mildly dilated aortic root. Pericardium/Pleural No pericardial effusion. Medication Diluted definity 5ml given slow IV push to enhance endocardial definition. MMode/2D Measurements & Calculations Ao root diam: 3.9 cm Doppler Measurements & Calculations PA V2 max: 112.7 cm/sec Interpretation Summary The study was technically difficult. Contrast injection was performed. Based upon the 2D echocardiographic and contrast enhanced images obtained there appears to be grossly normal left ventricular size, wall motion, and systolic function. The estimated ejection fraction is 60 %. Trivial mitral valve insufficiency. Trivial tricuspid valve insufficiency. Mild focal aortic valve calcification. Borderline to mildly dilated aortic root. Unable to assess diastolic dysfunction. Ordering Physician: Olamide Meza Performed By: Josesito Vergara RCS
[2020-06-03 07:05] LABS: Bedside Glucose 55 mg/dL (70-110)
[2020-06-03] MEDS: Ipratropium/Albuterol Sulfate 3 ML AMPUL.NEB INHALATION ×4 (07:19→20:06)
[2020-06-03 07:25] LABS: Bedside Glucose 89 mg/dL (70-110)
[2020-06-03] MEDS: ARIPiprazole 10 MG Tablet 30 MG PO (09:01)
[2020-06-03] MEDS: FLUoxetine 20 MG Capsule 40 MG PO (09:02)
[2020-06-03] MEDS: Aspirin E.C. 81 MG Tablet PO (09:02)
[2020-06-03] MEDS: Torsemide 100 MG Tablet PO (09:02)
[2020-06-03 09:20] LABS: Bedside Glucose 192 mg/dL (70-110)
--- NOTE | 2020-06-03 11:27 | CASEMGMT ---
TABATHA went to patient's room to let him know [facility] not able to take him. He told SW that is okay as he does not need to go anywhere now. TABATHA reviewed therapy notes and it appears he is doing better, but he has the most trouble with getting up and down out of the chair. He said he would like home health and he usually has [place] [facility]. Kristi SOTO MSW
[2020-06-03] MEDS: Menthol/Lanolin/Calamine/Znox 113 GM Tube 1 APPLIC TOPICAL ×2 (11:36→21:23)
[2020-06-03 11:45] LABS: Bedside Glucose 118 mg/dL (70-110)
--- NOTE | 2020-06-03 13:53 | CASEMGMT ---
Addendum entered by Carito Jay 06/03/20 14:14: Call to [facility] and they state pt[facility]. Pt is currently on 3L nc continuous at this time. Dr. Cisneros is aware, voices understanding. Misbah ROMERO CM Original Note: Call to [facility] and per Cari, pt is current with them for SN, PT/OT at this time. Resumption of care order placed at this time as pt informed Kiana MAYS that he plans to go home at discharge. Misbah ROMERO CM
--- NOTE | 2020-06-03 15:58 | PCM.PN.ID ---
Patient Problems: Active and Suspected Problems Septic shock (Acute) Cellulitis (Acute) Subjective: Feeling much better, legs much less sore, no fever - Physical Exam Vitals/I&O's: Vital Signs Temp Pulse Resp BP Pulse Ox 98.0 F 73 18 152/53 H 100 06/03/20 15:30 06/03/20 15:30 06/03/20 15:30 06/03/20 15:30 06/03/20 15:30 Oxygen Flow Rate (L/min) 3 Oxygen Delivery Method Nasal Cannula Weight: 220.3 kg Body Mass Index (BMI) 66.4 Intake and Output for Last 24 Hours 06/01/20 06/02/20 06/03/20 23:59 23:59 23:59 Intake Total 2730.35 / 2730.35 1385 / 1865 880 / 880 Output Total 2390 / 2390 725 / 725 Balance 340.35 / 340.35 660 / 1140 880 / 880 General: Alert, Cooperative, No apparent distress Lungs: Clear to auscultation, Normal air movement Cardiovascular: Regular rate, Regular Rhythm Abdomen: Soft, Non Tender, Non-Distended Skin: Ulcer/ Wound Microbiology Past 72 Hours 05/29/20 21:10 Tissue - Other Gram Stain - Final 05/29/20 21:10 Tissue - Other Wound Culture - Final Enterobacter cloacae complex Streptococcus group G Corynebacterium striatum 05/29/20 21:10 Wound - Aerobic & Anaerobic Swabs Gram Stain - Final 05/29/20 21:10 Wound - Aerobic & Anaerobic Swabs Wound Culture - Final Escherichia coli Pseudomonas aeroginosa Streptococcus group G 05/29/20 17:00 Urine, Clean Catch Urine Culture - Final Culture exhibits no growth. 05/29/20 16:50 Blood Culture (Wb) - Anticubital Right Blood Culture - Preliminary No growth in 48 hours. 05/29/20 16:35 Blood Culture (Wb) - Anticubital Left Blood Culture - Preliminary No growth in 48 hours. Laboratory Results 06/02/20 16:24: POC Glucose 60 L 06/02/20 16:48: POC Glucose 97 06/02/20 21:52: POC Glucose 176 H 06/03/20 03:35: POC Glucose 51 L 06/03/20 04:09: POC Glucose 108 06/03/20 05:15: WBC 13.3 H, RBC 3.98 L, Hgb 10.1 L, Hct 34.5 L, MCV 86.7, MCH 25.4 L, MCHC 29.3 L, RDW Std Deviation 55.7 H, RDW Coeff of Varsha 17.2 H, Plt Count [employer], MPV 10.4, Immature Gran % (Auto) 1.700 H, Neut % (Auto) 70.1 H, Lymph % (Auto) 19.1, [place] % (Auto) 5.9, Eos % (Auto) 2.8, Baso % (Auto) 0.4, Absolute Neuts (auto) 9.3 H, Absolute Lymphs (auto) 2.53, Nucleated RBC % 0.2, Platelet Estimate ADEQUATE 06/03/20 05:15: Sodium 134 L, Potassium 3.7, Chloride 102, Carbon Dioxide 25.0, Anion Gap 7, BUN 27 H, Creatinine 1.18, Estim Creat Clear Calc 75.81, Est GFR (MDRD) Af Amer 82, Est GFR (MDRD) Non-Af 68, BUN/Creatinine Ratio 22.9 H, Glucose 87, Calcium 8.4 L 06/03/20 06:45: POC Glucose 55 L 06/03/20 07:17: POC Glucose 89 06/03/20 08:57: POC Glucose 192 H 06/03/20 11:23: POC Glucose 118 H Current Medications Acetaminophen (Acetaminophen 325 Mg Tablet) 650 mg PO Q6H PRN PRN PRN Reason: Pain Score 1-10/Temp > 100.7 F Last Admin: 06/02/20 21:53 Dose: 650 mg Documented by: Al Hydroxide/Mg Hydroxide (Mag Hydrox/Al Hydrox/Simeth 30 Ml Udc) 30 ml PO Q6H PRN PRN PRN Reason: Gastric Burning Albuterol Sulfate (Albuterol 2.5 Mg/3 Ml Vial.Neb.) 2.5 mg INHALATION Q2H PRN PRN PRN Reason: Dyspnea, wheezing Last Admin: 05/31/20 05:03 Dose: 2.5 mg Documented by: Albuterol/Ipratropium (Ipratropium/Albuterol Sulfate 3 Ml Ampul.Neb) 3 ml INHALATION Q4HWA.RT [facility] Last Admin: 06/03/20 14:56 Dose: 3 ml Documented by: Aripiprazole (Aripiprazole 10 Mg Tablet) 30 mg PO DAILY [facility] Last Admin: 06/03/20 09:01 Dose: 30 mg Documented by: Aspirin (Aspirin E.C. 81 Mg Tablet) 81 mg PO DAILY@0800 [facility] Last Admin: 06/03/20 09:02 Dose: 81 mg Documented by: Atorvastatin Calcium (Atorvastatin Calcium 40 Mg Tablet) 40 mg PO QHS [facility] Last Admin: 06/02/20 21:53 Dose: 40 mg Documented by: Calamine/Phenol (Menthol/Lanolin/Calamine/Znox 113 Gm Tube) 1 applic TOPICAL BID [facility]; Protocol Last Admin: 06/03/20 11:36 Dose: 1 applicatio Documented by: Fluoxetine HCl (Fluoxetine 20 Mg Capsule) 40 mg PO DAILY [facility] Last Admin: 06/03/20 09:02 Dose: 40 mg Documented by: Guaifenesin (Guaifenesin 10 Ml Udc (200mg/10ml)) 10 ml PO Q4H PRN PRN PRN Reason: COUGH Hydralazine HCl (Hydralazine 20 Mg/Ml Vial) 10 mg IV Q4H PRN PRN PRN Reason: SBP > 160 Piperacillin Sod/Tazobactam (Sod 3.375 gm/ Sodium Chloride) 50 mls @ 12.5 mls/hr IV Q8 [facility] Last Admin: 06/03/20 14:21 Dose: 12.5 mls/hr Documented by: Sodium Chloride () 250 mls @ 15 mls/hr IV .[id number] PRN PRN Reason: Saline Flush Sodium Chloride () 250 mls @ 15 mls/hr IV .[id number] PRN PRN Reason: Additional IVPB Infusion Insulin Human Lispro (Insulin Lispro 100 Unit/Ml Insuln.Pen) 0 unit SC ACHS [facility]; Protocol Last Admin: 06/03/20 11:36 Dose: Not Given Documented by: Insulin Human Regular (Insulin U-500 Pen) 140 units SC BID [facility] Last Admin: 06/03/20 09:03 Dose: 140 u Documented by: Loperamide HCl (Loperamide 2 Mg Capsule) 2 mg PO Q4H PRN PRN PRN Reason: Diarrhea Last Admin: 05/30/20 21:16 Dose: 2 mg Documented by: Nitroglycerin (Nitroglycerin (Inpatient Use) 0.4 Mg Tab.Subl) 0.4 mg SUBLINGUAL Q5M PRN PRN Reason: CARDIAC/CHEST PAIN Nystatin (Nystatin Powder 15gm Bottle) 1 applic TOPICAL BID [facility]; Protocol Last Admin: 06/03/20 09:03 Dose: Not Given Documented by: Ondansetron HCl (Ondansetron 4 Mg/2 Ml Vial) 4 mg IV Q8H PRN PRN PRN Reason: NAUSEA/VOMITING Prochlorperazine Edisylate (Prochlorperazine 10 Mg/2 Ml Vial) 5 mg IV Q4H PRN PRN PRN Reason: Breakthrough Nausea/Vomiting Senna/Docusate Sodium (Senna/Docusate Sodium 1 Tablet) 2 tablet PO BID PRN PRN PRN Reason: Constipation Sodium Chloride (0.9% Saline Lock 10 Ml Syringe) 10 - 40 ml IV UD PRN PRN Reason: SALINE FLUSH Last Admin: 06/02/20 06:44 Dose: 20 ml Documented by: Throat Lozenges (Benzocaine/Menthol 1 Lozenge) 1 lozenge MUCOUS MEM Q2H PRN PRN PRN Reason: SORE THROAT Torsemide (Torsemide 100 Mg Tablet) 100 mg PO DAILY [facility] Last Admin: 06/03/20 09:02 Dose: 100 mg Documented by: Warfarin Sodium (Warfarin 2.5 Mg Tablet) 2.5 mg PO Fr@1700 [facility] Last Admin: 05/31/20 17:32 Dose: 2.5 mg Documented by: Warfarin Sodium (Warfarin 5 Mg Tablet) 5 mg PO SuMoTuWeThSa@1700 [facility] Last Admin: 06/02/20 16:52 Dose: 5 mg Documented by: Medical Necessity - Tobacco Use Smoking Status: Never smoker Tobacco Use: Non-smoker Route of nutrition/ use of supplements: [] Nutritional Intake: [] IV Site: [] Garcia Catheter: [] - Assessment/Plan Antibiotics: [] Assessment/Plan: [] Active and Suspected Problems Septic shock (Acute) Cellulitis (Acute) septic shock suspected source BLE cellulitis with chronic lymphedema - fever improved. On vanc/zosyn. Covid pcr and Ag neg. UAg neg. Wound cx showing some pseudomonas, strep, ecoli, corynebacter, enterobacter. Cdiff neg. MRSA pcr of wounds neg. Ok for d/c home with 5 more days of levaquin. Will follow
[2020-06-03 17:15] LABS: Bedside Glucose 86 mg/dL (70-110)
--- NOTE | 2020-06-03 17:52 | PN_ITS ---
Patient Problems: Active and Suspected Problems Septic shock (Acute) Cellulitis (Acute) Subjective: Patient was seen and examined today, I briefly discussed his case with pulmonary medicine and infectious diseases, infectious diseases start the patient was stable for discharge home on 5 more days of Levaquin, patient's oxygen could not be [facility] at [facility] and so the patient will have to be kept here until tomorrow, if he remains stable in the morning, his oxygen will be [facility]. - Physical Exam Vitals/I&O's: Vital Signs Temp Pulse Resp BP Pulse Ox 98.0 F 73 18 152/53 H 100 06/03/20 15:30 06/03/20 15:30 06/03/20 15:30 06/03/20 15:30 06/03/20 15:30 Oxygen Flow Rate (L/min) 3 Oxygen Delivery Method Nasal Cannula Weight: 220.3 kg Body Mass Index (BMI) 66.4 Intake and Output for Last 24 Hours 06/01/20 06/02/20 06/03/20 23:59 23:59 23:59 Intake Total 2730.35 / 2730.35 1385 / 1865 1120 / 1120 Output Total 2390 / 2390 725 / 725 300 / 300 Balance 340.35 / 340.35 660 / 1140 820 / 820 General: Alert, Oriented x3, Cooperative, No apparent distress, Well developed HEENT: Atraumatic, PERRLA, EOMI, Normocephalic Oral: Moist Mucosa Neck: Supple, No JVD, Trachea Midline, Thyroid Normal Size and Texture Lungs: Clear to auscultation, Normal air movement, No rhonchi, No wheeze Cardiovascular: Regular rate, Regular Rhythm, Normal S1, Normal S2, No murmurs Abdomen: Bowel Sounds Present, Soft, Non Tender, Non-Distended, Obese Extremities: - - Bilateral lower leg lymphedematous changes are noted which are severe Musculoskeletal: No Tenderness to Palpation of Joints or Extremities Neurological: Cranial nerves II-XII grossly intact, Neuro grossly intact, Sensory exam intact to light touch and pain, Coordination normal Psych/Mental Status: Normal Affect, Appropriate, Alert and oriented to time, place, person, mood and affect Microbiology Past 72 Hours 05/29/20 21:10 Tissue - Other Gram Stain - Final 05/29/20 21:10 Tissue - Other Wound Culture - Final Enterobacter cloacae complex Streptococcus group G Corynebacterium striatum 05/29/20 21:10 Wound - Aerobic & Anaerobic Swabs Gram Stain - Final 05/29/20 21:10 Wound - Aerobic & Anaerobic Swabs Wound Culture - Final Escherichia coli Pseudomonas aeroginosa Streptococcus group G 05/29/20 17:00 Urine, Clean Catch Urine Culture - Final Culture exhibits no growth. 05/29/20 16:50 Blood Culture (Wb) - Anticubital Right Blood Culture - Preliminary No growth in 48 hours. 05/29/20 16:35 Blood Culture (Wb) - Anticubital Left Blood Culture - Preliminary No growth in 48 hours. Laboratory Results 06/02/20 21:52: POC Glucose 176 H 06/03/20 03:35: POC Glucose 51 L 06/03/20 04:09: POC Glucose 108 06/03/20 05:15: WBC 13.3 H, RBC 3.98 L, Hgb 10.1 L, Hct 34.5 L, MCV 86.7, MCH 25.4 L, MCHC 29.3 L, RDW Std Deviation 55.7 H, RDW Coeff of Varsha 17.2 H, Plt Count LEVERMAN, MPV 10.4, Immature Gran % (Auto) 1.700 H, Neut % (Auto) 70.1 H, Lymph % (Auto) 19.1, [place] % (Auto) 5.9, Eos % (Auto) 2.8, Baso % (Auto) 0.4, Absolute Neuts (auto) 9.3 H, Absolute Lymphs (auto) 2.53, Nucleated RBC % 0.2, Platelet Estimate ADEQUATE 06/03/20 05:15: Sodium 134 L, Potassium 3.7, Chloride 102, Carbon Dioxide 25.0, Anion Gap 7, BUN 27 H, Creatinine 1.18, Estim Creat Clear Calc 75.81, Est GFR (MDRD) Af Amer 82, Est GFR (MDRD) Non-Af 68, BUN/Creatinine Ratio 22.9 H, Glucose 87, Calcium 8.4 L 06/03/20 06:45: POC Glucose 55 L 06/03/20 07:17: POC Glucose 89 06/03/20 08:57: POC Glucose 192 H 06/03/20 11:23: POC Glucose 118 H 06/03/20 17:12: POC Glucose 86 Current Medications Acetaminophen (Acetaminophen 325 Mg Tablet) 650 mg PO Q6H PRN PRN PRN Reason: Pain Score 1-10/Temp > 100.7 F Last Admin: 06/02/20 21:53 Dose: 650 mg Documented by: Al Hydroxide/Mg Hydroxide (Mag Hydrox/Al Hydrox/Simeth 30 Ml Udc) 30 ml PO Q6H PRN PRN PRN Reason: Gastric Burning Albuterol Sulfate (Albuterol 2.5 Mg/3 Ml Vial.Neb.) 2.5 mg INHALATION Q2H PRN PRN PRN Reason: Dyspnea, wheezing Last Admin: 05/31/20 05:03 Dose: 2.5 mg Documented by: Albuterol/Ipratropium (Ipratropium/Albuterol Sulfate 3 Ml Ampul.Neb) 3 ml INHALATION Q4HWA.RT [facility] Last Admin: 06/03/20 14:56 Dose: 3 ml Documented by: Aripiprazole (Aripiprazole 10 Mg Tablet) 30 mg PO DAILY [facility] Last Admin: 06/03/20 09:01 Dose: 30 mg Documented by: Aspirin (Aspirin E.C. 81 Mg Tablet) 81 mg PO DAILY@0800 [facility] Last Admin: 06/03/20 09:02 Dose: 81 mg Documented by: Atorvastatin Calcium (Atorvastatin Calcium 40 Mg Tablet) 40 mg PO QHS [facility] Last Admin: 06/02/20 21:53 Dose: 40 mg Documented by: Calamine/Phenol (Menthol/Lanolin/Calamine/Znox 113 Gm Tube) 1 applic TOPICAL BID [facility]; Protocol Last Admin: 06/03/20 11:36 Dose: 1 applicatio Documented by: Fluoxetine HCl (Fluoxetine 20 Mg Capsule) 40 mg PO DAILY [facility] Last Admin: 06/03/20 09:02 Dose: 40 mg Documented by: Guaifenesin (Guaifenesin 10 Ml Udc (200mg/10ml)) 10 ml PO Q4H PRN PRN PRN Reason: COUGH Hydralazine HCl (Hydralazine 20 Mg/Ml Vial) 10 mg IV Q4H PRN PRN PRN Reason: SBP > 160 Sodium Chloride () 250 mls @ 15 mls/hr IV .[id number] PRN PRN Reason: Saline Flush Sodium Chloride () 250 mls @ 15 mls/hr IV .[id number] PRN PRN Reason: Additional IVPB Infusion Insulin Human Lispro (Insulin Lispro 100 Unit/Ml Insuln.Pen) 0 unit SC ACHS [facility]; Protocol Last Admin: 06/03/20 17:43 Dose: Not Given Documented by: Insulin Human Regular (Insulin U-500 Pen) 140 units SC BID [facility] Last Admin: 06/03/20 09:03 Dose: 140 u Documented by: Levofloxacin (Levofloxacin 500 Mg Tablet) 500 mg PO X1 ONE Stop: 06/03/20 17:52 Levofloxacin (Levofloxacin 500 Mg Tablet) 500 mg PO DAILY@0600 [facility] Loperamide HCl (Loperamide 2 Mg Capsule) 2 mg PO Q4H PRN PRN PRN Reason: Diarrhea Last Admin: 05/30/20 21:16 Dose: 2 mg Documented by: Nitroglycerin (Nitroglycerin (Inpatient Use) 0.4 Mg Tab.Subl) 0.4 mg SUBLINGUAL Q5M PRN PRN Reason: CARDIAC/CHEST PAIN Nystatin (Nystatin Powder 15gm Bottle) 1 applic TOPICAL BID [facility]; Protocol Last Admin: 06/03/20 09:03 Dose: Not Given Documented by: Ondansetron HCl (Ondansetron 4 Mg/2 Ml Vial) 4 mg IV Q8H PRN PRN PRN Reason: NAUSEA/VOMITING Prochlorperazine Edisylate (Prochlorperazine 10 Mg/2 Ml Vial) 5 mg IV Q4H PRN PRN PRN Reason: Breakthrough Nausea/Vomiting Senna/Docusate Sodium (Senna/Docusate Sodium 1 Tablet) 2 tablet PO BID PRN PRN PRN Reason: Constipation Sodium Chloride (0.9% Saline Lock 10 Ml Syringe) 10 - 40 ml IV UD PRN PRN Reason: SALINE FLUSH Last Admin: 06/02/20 06:44 Dose: 20 ml Documented by: Throat Lozenges (Benzocaine/Menthol 1 Lozenge) 1 lozenge MUCOUS MEM Q2H PRN PRN PRN Reason: SORE THROAT Torsemide (Torsemide 100 Mg Tablet) 100 mg PO DAILY [facility] Last Admin: 06/03/20 09:02 Dose: 100 mg Documented by: Warfarin Sodium (Warfarin 2.5 Mg Tablet) 2.5 mg PO Fr@1700 [facility] Last Admin: 05/31/20 17:32 Dose: 2.5 mg Documented by: Warfarin Sodium (Warfarin 5 Mg Tablet) 5 mg PO Singh@1700 [facility] Last Admin: 06/02/20 16:52 Dose: 5 mg Documented by: Medical Necessity - Tobacco Use Smoking Status: Never smoker Tobacco Use: Non-smoker Assessment/Plan All Active Problems Cellulitis of right leg (Acute) Septic shock (Acute) Cellulitis (Acute) Acute exacerbation of CHF (congestive heart failure) (Acute) Anasarca (Acute) Unable to ambulate (Acute) #1 septic shock secondary to cellulitis of the lower legs-patient's antibiotic was changed to Levaquin today, again anticipate discharge to home tomorrow if he remains medically stable #2 Acute hypoxia-patient has oxygen at home which he uses at bedtime, patient is currently on 3 L via nasal cannula continuously at this time, he will need new oxygen orders through the [facility] which will be done tomorrow. #3 obstructive sleep apnea-according to medical record, patient is noncompliant with CPAP usage #4 severe lymphedema #5 morbid obesity #6 cellulitis of the lower extremities-most probably secondary to multiorganisms (E. coli, Pseudomonas, Streptococcus, enterobacteria cloacae) #7 type 2 diabetes-blood sugar will be monitored, sliding scale insulin will be given, patient is currently on U500 insulin chronically and he will continue to receive this in the hospital-I have decided to lower his U500 dose to 120 units twice daily. 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
[2020-06-03] MEDS: levoFLOXacin 500 MG Tablet PO (19:01)
[2020-06-03 20:46] LABS: Bedside Glucose 98 mg/dL (70-110)
[2020-06-03] MEDS: Atorvastatin Calcium 40 MG Tablet PO (21:24)
[2020-06-03] MEDS: Acetaminophen 325 MG Tablet 650 MG PO (21:24)
[2020-06-03 21:30] LABS: Bedside Glucose 135 mg/dL (70-110)
[2020-06-03 23:09] LABS: Magnesium 1.9 mg/dL (1.6-2.6)
[2020-06-04] VITALS (12 sets, daily range): BP systolic 123–140; BP diastolic 61–69; PULSE 65–83; RESP 17–20; TEMP 36.6–36.9; O2SAT 81–100
[2020-06-04 01:11] LABS: Bedside Glucose 162 mg/dL (70-110)
[2020-06-04] MEDS: levoFLOXacin 500 MG Tablet PO (05:35)
[2020-06-04] MEDS: Insulin Lispro 100 UNIT/ML INSULN.PEN SC ×2 (06:45→12:27)
[2020-06-04 06:55] LABS: Bedside Glucose 174 mg/dL (70-110)
[2020-06-04] MEDS: Ipratropium/Albuterol Sulfate 3 ML AMPUL.NEB INHALATION ×3 (07:20→15:16)
[2020-06-04] MEDS: ARIPiprazole 10 MG Tablet 30 MG PO (09:09)
[2020-06-04] MEDS: Aspirin E.C. 81 MG Tablet PO (09:09)
[2020-06-04] MEDS: Torsemide 100 MG Tablet PO (09:10)
[2020-06-04] MEDS: Nystatin Powder 15gm Bottle 1 APPLIC TOPICAL (09:10)
[2020-06-04] MEDS: Menthol/Lanolin/Calamine/Znox 113 GM Tube 1 APPLIC TOPICAL (09:10)
[2020-06-04] MEDS: FLUoxetine 20 MG Capsule 40 MG PO (09:11)
--- NOTE | 2020-06-04 09:35 | CASEMGMT ---
Addendum entered by Carito Jay 06/04/20 13:35: Call back to Marcelina at [facility] and she is aware that pt will be discharged today and that DEVORAH order and clinicals to be faxed once obtained. Marcelina now states at this time, that pt will need a new order for C SN, PT/OT at this time. New order placed at this time and order faxed with H&P, progress note, d/c instructions at this time. D/C summary to be faxed once obtained. Marcelina also updated that pt does have hospital bed but refuses to use at this time, voices understanding. Misbah RN CM Addendum entered by Carito Jay 06/04/20 12:06: Per Starla at [facility], they have a new order that needs filled out and signed by physician at this time. Order signed and faxed back to [facility] at this time. Starla is aware that pt ready for d/c and that he has a concentrator at home for bedtime 2L, voices understanding. This RN CM then received call from SIVAN Coyle RN, for pt and she states she will work on hospital bed for pt at this time but that they do not do lift chairs and that will not be covered by [facility] either. Jonna is aware that pt plan is to d/c home today with resumption of HHC, voices understanding. This RN CM to room and pt states plan is still to go home at d/c with [facility]. Pt states already has a hospital bed that is in working order but does not use as he prefers the couch. Pt is aware that he will need to go home on 2L with exertion and that tank to be delivered to hospital prior to discharge. Pt voices no further questions/concerns/needs at this time. Per ARTURO Wolfe tech, pt has been getting up well on own today. Message left with Jonna at [facility] to notify that pt has hospital bed already. Call back from Starla at [facility] and she states pt was set up for 2L w/ exertion earlier this year and should have portable tank. Starla aware that both pt and [facility] only state concentrator and no portability, voices understanding and states she will get tank delivered. Mikaaten RN CM Addendum entered by Carito Jay 06/04/20 10:45: Pt does qualify for 2L nc w/ exertion at this time. Order faxed with testing to [facility] at this time. Misbah ROMERO CM Original Note: This RN CM received message from Marcelina at [facility] stating that she still feels pt needs to go to SNF and they will take him back after d/c from SNF. Call to Marcelina to clarify if pt chooses not to [facility], [facility], she states if this RN CM starts process for further DME(hospital bed, lift recliner) then they would probably take him back. She reiterates what she had told RN CM previously and this RN CM advised her that it's pt's choice about discharge plan as he is A/Ox4 at this time. Therapy to notify this RN CM after they see pt today. Message left with Andrés MAYS at [facility] to call this RN CM back regarding need for equipment at this time. Misbah ROMERO CM
[2020-06-04 11:35] LABS: Bedside Glucose 155 mg/dL (70-110)
--- NOTE | 2020-06-04 15:44 | PCM.DC ---
- Discharge Diagnoses Current Active Problems: Current Active and Chronic Problems Anxiety and depression (Chronic) High cholesterol (Chronic) Hypertension (Chronic) Obstructive sleep apnea (Chronic) CVA (cerebral vascular accident) (Chronic) Diabetes (Chronic) Morbid obesity (Chronic) Septic shock (Acute) Cellulitis (Acute) Congestive heart failure (Chronic) Lymphedema (Chronic) You will use the following diet at home:: Calorie/Carbohydrate Controlled (specify 1200, 1400, etc) - 1800 ADA Your food should be the consistency of: Regular Your liquids should be the consistency of: Regular/Thin Discharge Activity: Return to Normal Activity Weight Bearing Status: Full weight bearing Additional Instructions: oxygen at 2 liters per minute with exertion and while sleeping Allergies/Adverse Reactions: Allergies gabapentin Adverse Reaction (Verified 05/29/20 16:14) Swelling of legs Medications to take at Discharge Aripiprazole [Abilify] 30 mg PO DAILY 11/04/19 Warfarin [Coumadin] 5 mg PO SUMOTUWETHSA 11/04/19 Aspirin E.C. [Ecotrin] 81 mg PO DAILY@0800 02/20/20 Liraglutide [Victoza 3-Rick] 1.2 mg SQ DAILY 02/20/20 Senna/Docusate Sodium [Senokot-S] 2 tab PO BID PRN PRN tab 04/04/20 Fluoxetine HCl 40 mg PO DAILY 05/29/20 Menthol/Lanolin/Calamine/Znox [Calmoseptine Ointment] 1 applic TOPICAL BID 05/29/20 Nystatin Powder [Mycostatin Powder] 1 applic TOPICAL BID 05/29/20 Rosuvastatin Calcium [Crestor] 20 mg PO QHS 05/29/20 Warfarin Sodium [Coumadin] 2.5 mg PO FR 05/29/20 Acetaminophen [Tylenol Tablet] 650 mg PO Q6H PRN PRN tablet 06/04/20 Insulin U-500 [Humulin R U-500 ([facility])] 120 units SC BID pen 06/04/20 Torsemide [Demadex] 100 mg PO DAILY tablet 06/04/20 levoFLOXacin tablet [Levaquin tablet] 500 mg PO DAILY@0600 #5 tab 06/04/20 The following prescriptions were given: levoFLOXacin tablet [Levaquin tablet] 500 mg PO DAILY@0600 #5 tab Transmission Status: Pending to [facility] - Please follow up with your Primary Care Physician in: in 2 weeks Test Results: Test results from this visit will be discussed in further detail at your follow-up appointment, if applicable.
--- NOTE | 2020-06-05 14:42 | CASEMGMT ---
NICK ORNELAS Discharge F/U Phone Call LACE: 14 Strata: 4 Discharge date: 06/04/2020 Call date: 06/05/2020 Call time: [id number] Admission dx: SIRS, lactic acidosis, JIL Pt states has been doing 'ok' since discharge. Pt states no questions regarding discharge instructions or medications at this time. Pt states [facility] was out to do start of care, he has his oxygen set up, and he says his aide is out picking up groceries at this time. [facility] and states plans to attend f/u appt's. Pt states no suggestions for WC at this time and states 'The staff was outstanding!' Pt voices no further questions/concerns/needs at this time. SStaten NICK ORNELAS
--- NOTE | 2020-06-09 09:23 | PCM.DC.SUM ---
Discharge Date and Diagnosis - Problem List Patient Problems: Active and Suspected Problems Septic shock (Acute) Cellulitis (Acute) Date of Admission: 05/29/20 Date of Discharge: 06/04/20 - Primary Discharge Diagnosis Acute Problems: Active Problems #1 septic shock secondary to cellulitis of the lower legs #2 Acute hypoxia #3 obstructive sleep apnea- noncompliant with CPAP usage #4 severe lymphedema of the legs #5 morbid obesity #6 cellulitis of the lower extremities-most probably secondary to multiorganisms (E. 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 - Secondary Discharge Diagnosis Chronic Problems: Chronic Problems Anxiety and depression (Chronic) High cholesterol (Chronic) Hypertension (Chronic) Obstructive sleep apnea (Chronic) CVA (cerebral vascular accident) (Chronic) Diabetes (Chronic) Morbid obesity (Chronic) Congestive heart failure (Chronic) Lymphedema (Chronic) Hospital Course and Treatment Consultations 05/29/20 19:44 Consult: Onc/Wound/spring manufacturing set up technician Routine Comment: Operations: None Procedures: None Summary of Care Provided: The patient is a 59 year old M who was seen in the emergency room at [facility] with complaints of fever, chills, generalized weakness. Cup in the emergency room included labs which showed a white blood cell count of 25.9, glucose was elevated to 25, creatinine was 1.64, INR was 2.7, troponin was unremarkable, lactic acid was elevated at 4.1. Patient was given Zofran for nausea-he was given normal saline in the emergency room, he was started on IV Zosyn and vancomycin and admitted to the [facility] for septic shock and cellulitis of the legs. Patient was seen in consultation by critical care and wired Levophed to maintain hemodynamic stability, is also seen in consultation by infectious diseases. Patient was also seen by PT and OT. Patient's oxygen was not able to be weaned completely off prior to discharge, patient improved during his hospitalization and on 06/04/2020, he was seen and examined and felt to be stable for discharge home:General: Alert, Oriented x3, Cooperative, No apparent distress, Well developed HEENT: Atraumatic, PERRLA, EOMI, Normocephalic Oral: Moist Mucosa Neck: Supple, No JVD, Trachea Midline, Thyroid Normal Size and Texture Lungs: Clear to auscultation, Normal air movement, No rhonchi, No wheeze Cardiovascular: Regular rate, Regular Rhythm, Normal S1, Normal S2, No murmurs Abdomen: Bowel Sounds Present, Soft, Non Tender, Non-Distended, Obese Extremities: - - Bilateral lower leg lymphedematous changes are noted which are severe Musculoskeletal: No Tenderness to Palpation of Joints or Extremities Neurological: Cranial nerves II-XII grossly intact, Neuro grossly intact, Sensory exam intact to light touch and pain, Coordination normal Psych/Mental Status: Normal Affect, Appropriate, Alert and oriented to time, place, person, mood and affect Patient was qualified for oxygen while ambulating with a pulse ox of 81% on room air, with oxygen at 2 L, with ambulation his pulse ox was 98, and at rest on room air the patient's pulse ox was 96. Patient was expected to use oxygen in the home and portable oxygen outside the home during his ADLs. Patient Problems: Active and Suspected Problems Septic shock (Acute) Cellulitis (Acute) - Physical Exam Vitals/I&O's: Vital Signs Temp Pulse Resp BP Pulse Ox 98.3 F 80 18 137/69 H 100 06/04/20 17:00 06/04/20 17:00 06/04/20 17:00 06/04/20 17:00 06/04/20 17:00 Oxygen Flow Rate (L/min) [ 2 AMBULATION with Oxygen] Oxygen Flow Rate (L/min) [ 0 AMBULATING on Room Air] Oxygen Flow Rate (L/min) [At 0 REST on Room Air] Oxygen Flow Rate (L/min) 2 Oxygen Delivery Method Nasal Cannula Weight: 214 kg Body Mass Index (BMI) 66.4 Discharge Activity: Return to Normal Activity Weight Bearing Status: Full weight bearing Home Medications: Medications to take at Discharge Aripiprazole [Abilify] 30 mg PO DAILY 11/04/19 Warfarin [Coumadin] 5 mg PO SUMOTUWETHSA 11/04/19 Aspirin E.C. [Ecotrin] 81 mg PO DAILY@0800 02/20/20 Liraglutide [Victoza 3-Rick] 1.2 mg SQ DAILY 02/20/20 Senna/Docusate Sodium [Senokot-S] 2 tab PO BID PRN PRN tab 04/04/20 Fluoxetine HCl 40 mg PO DAILY 05/29/20 Menthol/Lanolin/Calamine/Znox [Calmoseptine Ointment] 1 applic TOPICAL BID 05/29/20 Nystatin Powder [Mycostatin Powder] 1 applic TOPICAL BID 05/29/20 Rosuvastatin Calcium [Crestor] 20 mg PO QHS 05/29/20 Warfarin Sodium [Coumadin] 2.5 mg PO FR 05/29/20 Acetaminophen [Tylenol Tablet] 650 mg PO Q6H PRN PRN tab 06/04/20 Insulin U-500 [Humulin R U-500 (BKC)] 120 units SC BID pen 06/04/20 Torsemide [Demadex] 100 mg PO DAILY tab 06/04/20 levoFLOXacin tablet [Levaquin tablet] 500 mg PO DAILY@0600 #5 tab 06/04/20 Following Prescriptions Were Given to Patient: levoFLOXacin tablet [Levaquin tablet] 500 mg PO DAILY@0600 #5 tab Transmission Status: Received by [facility]] - Please follow up with your Primary Care Physician in: in 2 weeks Disposition: Home Minutes spent on discharge:: 32 Patient Condition:: Stable Medical Necessity - Tobacco Use Smoking Status: Never smoker Tobacco Use: Non-smoker Meaningful Use Info Meaningful Use Diagnoses (Choose all that apply): None applicable Inpatient E&M: 31762 Disch Hosp
== END 2020-06-04 16:51 | disposition home health service (06) | DRG 871 ==
LOC: ED 17:41 → ICU 18:32 → PCU 06-01 18:01
PROVIDERS: Hospitalist; Internal Medicine Critical Care Medicine; Internal Medicine Infectious Disease; Student in an Organized Health Care Education/Training Program; Admitting Provider Family Medicine; Emergency Provider Emergency Medicine; Visit Provider Internal Medicine
DX: A41.9 Sepsis, unspecified organism (principal); R65.21 Severe sepsis with septic shock; L03.116 Cellulitis of left lower limb; L03.115 Cellulitis of right lower limb; D68.9 Coagulation defect, unspecified; I50.42 Chronic combined systolic (congestive) and diastolic (congestive) heart failure; Z68.44 Body mass index [BMI] 60.0-69.9, adult; N17.9 Acute kidney failure, unspecified; E87.1 Hypo-osmolality and hyponatremia; G47.33 Obstructive sleep apnea (adult) (pediatric); R09.02 Hypoxemia; I89.0 Lymphedema, not elsewhere classified; T45.515A Adverse effect of anticoagulants, initial encounter; E66.01 Morbid (severe) obesity due to excess calories; Z91.19 Patient's noncompliance with other medical treatment and regimen; E11.9 Type 2 diabetes mellitus without complications; F41.9 Anxiety disorder, unspecified; F31.9 Bipolar disorder, unspecified; B96.5 Pseudomonas (aeruginosa) (mallei) (pseudomallei) as the cause of diseases classified elsewhere; B95.4 Other streptococcus as the cause of diseases classified elsewhere; I11.0 Hypertensive heart disease with heart failure; E78.5 Hyperlipidemia, unspecified; Z86.73 Personal history of transient ischemic attack (TIA), and cerebral infarction without residual deficits; Z86.718 Personal history of other venous thrombosis and embolism; D64.9 Anemia, unspecified
CPT/HCPCS: 36415; 36600; 71045; 80048; 80053; 80202; 81001; 82728; 82803; 82962; 83605; 83615; 83735; 83880; 84145; 84484; 85025; 85610; 85730; 86140; 87040; 87070; 87077; 87086; 87186; 87205; 87426; 87449; 87493; 87506; 87633; 87635; 87640; 87641; 93005; 93306; 94640; 97110; 97116; 97162; 97166; 97530; 97535; 97802; 97803; 99251; 99285; J7030; J7040; J7050; Q9957; A4216; C8929; G0463; J1940; J2405; U0002

== ENCOUNTER 2020-06-12 16:43 | Inpatient (IN) | payer OTHER, MEDICARE, MEDICAID, SELFPAY ==
[2020-05-29 20:01] VITALS: BMI 66.4
[2020-06-12 16:43] VITALS: BP 137/51; PULSE 73; RESP 12; TEMP 36.6; O2SAT 100; BMI 67.4
--- NOTE | 2020-06-12 16:51 | EKG12_ITS ---
Test Reason : WEAPING LEG Blood Pressure : / mmHG Vent. Rate : 074 BPM Atrial Rate : 074 BPM P-R Int : 162 ms QRS Dur : 104 ms QT Int : 398 ms P-R-T Axes : 023 005 029 degrees QTc Int : 441 ms Normal sinus rhythm Normal ECG Confirmed by CARLOS DENIS, JAXON ([id number]), assistant editor OMKAR PAZ ([id number]) on 06/17/2020 9:31:36 AM Referred By: NORMA Confirmed By:SRIRAM GONZALEZ MD
--- NOTE | 2020-06-12 16:53 | ED.DCSUM_ITS ---
History of Present Illness Chief Complaint: Edema Detail of Chief Complaint: And 22 pound weight gain in 1 week Informant: Patient Onset: Weeks Context: Gradual Onset Timing: Continuous Quality: Increased swelling lower extremity and 22 pounds weight gain Location: Right and left lower extremity Current Severity: Severe Maximum Severity: Severe Worsened by: Per patient unknown Relieved by: Nothing Associated Symptoms: Wobbly when he walks, fatigue Narrative: Patient is a 59-year-old male who was discharged in the hospital 1 week ago. Patient states he has not put his shoes on in 1 week. He sleeps in a chair. He states there was a blister noted lateral anterior mid left leg that ruptured the night he was discharged from the hospital. There has been serous drainage. He states he was in the hospital for sepsis due to left leg infection. He denies fever, chills night sweats. He denies chest pain. Does report dyspnea on exertion. He sleeps in a chair. He is unable to lie flat. He states he is compliant with his medication and diet. He does have history of congestive heart failure as well as hypertension and hypercholesterolemia. He denies dysuria, frequency, urgency or hematuria. He denies any upper respiratory infectious symptoms. Prior similar symptoms: Yes Recent Illness/Hospitalization: Yes - For infection left leg - Past Medical History (1) Anasarca Status: Acute (2) Anxiety and depression Status: Chronic (3) CVA (cerebral vascular accident) Status: Chronic (4) Congestive heart failure Status: Chronic (5) Diabetes Status: Chronic (6) High cholesterol Status: Chronic (7) Hypertension Status: Chronic (8) Morbid obesity Status: Chronic (9) Obstructive sleep apnea Status: Chronic Past Medical History - Allergies and Home Meds Allergies/Adverse Reactions: Allergies gabapentin Adverse Reaction (Verified 06/12/20 16:47) Swelling of legs Primary Care Physician: 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 Lives: Alone Smoking Status: Never smoker Alcohol: None Drugs: None - Family History Maternal Family History: Reports: Heart Disease - Mother with history of significant CHF. Paternal Family History: Reports: Cancer - Father with a history of mesothelioma. Review of Systems General: Denies: Chills, Fever, Malaise, Subjective, Sweats, Weight loss - Patient reports 22 pound weight gain Eyes: Denies: Visual changes - bilaterally, Blurred Vision - bilaterally ENT: Denies: Bilateral ear pain, Rhinorrhea Cardiovascular: Denies: Chest pain, Palpitations, Heart racing Respiratory: Reports: Dyspnea, Dyspnea on exertion, Orthopnea - He presented chair upright. Denies: Cough, Sputum, Paroxysmal nocturnal dyspnea Gastrointestinal: Reports: Nausea. Denies: Abdominal pain, Vomiting, Diarrhea Genitourinary: Denies: Dysuria, Hematuria, Frequency Musculoskeletal: Reports: Swelling. Denies: Myalgias, Arthralgias, Neck pain, Back pain, Extremity Pain Skin: Reports: Rash, Wounds, - - There is evidence of venous stasis dermatitis bilaterally. There is a wound that patient reported in HPI. Denies: Abscess, Abrasions Neurological: Denies: Headache, Weakness Psych: Denies: Depression, Anxiety Endocrine: Denies: Polyuria, Polydipsia Hematologic: Denies: Easy bruising, Easy bleeding Allergy: Denies: Uticaria Physical Exam Vital Signs/Narrative: Vital Signs Temp Pulse Resp BP Pulse Ox 06/12/20 16:43 97.8 F 73 12 137/51 H 100 Inital Vital Signs reviewed: Yes General: Well nourished, Well developed, Obese, Unkempt, No Acute Distress Head: Normocephalic, Atraumatic Eyes: Perrl, EOMI, Pale conjunctiva. Negative for: Scleral icterus ENT: Moist mucous membranes, No rhinorrhea. Negative for: Nasal congestion, Sinus tenderness Neck: Supple, Nontender, No lymphadenopathy, No JVD - Unable to determine because of body habitus Cardiovascular: Regular rate, Regular rhythm, No murmurs, Normal S1, Normal S2 Respiratory: No distress, CTA bilaterally, Chest nontender, Diminished - Suspect due to body habitus Abdomen: Soft, Nontender, Nondistended, Normal bowel sounds, No masses - Unable to determine based on body habitus Rectal: Deferred Back: Nontender, Normal Inspection Extremities: Nontender, Edema - Marked lymphedema with venous stasis dermatitis and wound lateral mid left leg. Skin: Normal color, Rash Neurological: Alert, Oriented x3, Cranial nerves II-XII grossly intact, Normal Strength. Negative for: Normal DTR Psychological: Depressed Diagnostic/Tx/Re-eval Impressions Chest X-Ray 06/12/20 17:23 IMPRESSION: Normal x-ray examination of the chest. Electronically Signed: Woo Beltran MD at 17:35 EST , Service support , 06/12/20 17:23 Chest 1 View (Portable) [RAD] Stat Laboratory Results 06/12/20 06/12/20 06/12/20 17:00 17:00 17:00 WBC 12.5 H RBC 3.83 L Hgb 9.6 L Hct 32.8 L MCV 85.6 MCH 25.1 L MCHC 29.3 L RDW Std Deviation 50.7 H RDW Coeff of Varsha 16.2 H Plt Count 392 MPV 8.1 Immature Gran % (Auto) 0.600 Neut % (Auto) 71.8 H Lymph % (Auto) 20.5 [place] % (Auto) 5.7 Eos % (Auto) 1.1 Baso % (Auto) 0.3 Absolute Neuts (auto) 9.0 H Absolute Lymphs (auto) 2.56 Nucleated RBC % 0 Sodium 136 Potassium 3.5 Chloride 100 Carbon Dioxide 32.0 Anion Gap 4 L BUN 14 Creatinine 1.24 Estim Creat Clear Calc 72.14 Est GFR (MDRD) Af Amer 77 Est GFR (MDRD) Non-Af 64 BUN/Creatinine Ratio 11.3 Glucose 158 H Calcium 9.1 Total Bilirubin 0.20 Direct Bilirubin 0.05 AST 7 L ALT 15 L Alkaline Phosphatase 84 Troponin I < 0.015 B-Natriuretic Peptide 26.5 Total Protein 8.0 Albumin 2.4 L Globulin 5.6 H White count is slightly elevated with 71% neutrophils. This is nonspecific. Basic metabolic panel reveals an elevated creatinine of 1.24 with a GFR of 64. Glucose elevated 158 with normal anion gap. BNP is normal at 26.5. Troponin is less than 0.015. Albumin is low which may contribute to his anasarca. Since patient is unable to care for self at home has a 22 pound weight gain hospitalist was paged for diuresis and consultation with case management regarding discharge planning. - EKG Initial EKG Interpretation: Sinus Rhythm - Normal sinus rhythm with ventricular 74. GA interval 162 ms. Cures duration 104 ms. QT duration 398 ms. [place] is normal. The EKG is normal. - Medical Decision Making With history of congestive heart failure month medical problems will obtain chest x-ray to assess for congestive heart failure as well as troponin to rule out atypical presentation for cardiac ischemia. EKG was obtained to assess for ischemia as well as electrolyte abnormality. CBC to assess H&H since patient appears pale. Most common reason for 22 pound weight gain in increase lymphedema is noncompliance. Patient states he is compliant. Will assess for other causes. ED Disposition - Plan for ED Patient: Disposition: Acute Care Hospital [facility] Diagnosis: Anasarca, Failure to thrive, Anemia in chronic illness [facility] [[facility]] -
[2020-06-12 17:22] LABS: Absolute Lymphocyte Count 2.56 X10^3/uL (0.83-4.51); Basophil# 0.04 X10^3/uL; Basophil% 0.3 % (0-1); Eosinophil# 0.14 X10^3/uL; Eosinophils% 1.1 % (0-5); Hematocrit 32.8 % (40-54); Hemoglobin 9.6 g/dL (13.0-16.5); Lymphocyte # 2.56 X10^3/ul (4.0); Lymphocyte % 20.5 % (19-41); Mean Corp Hgb Conc 29.3 g/dL (32-36); Mean Corpuscular Hgb 25.1 pg (27.0-32.0); Mean Corpuscular Volume 85.6 fL (80-94); Mean Platelet Vol. 8.1 fl (6.2-12.0); Monocyte# 0.71 X10^3/uL; Monocyte% 5.7 % (0-10); NRBC Flagged by Analyzer 0 % (0-5); Neutrophil # 8.96 X10^3/uL (2.7-7.7); Neutrophil % 71.8 % (47-70); Platelet Count 392 K/mm3 (150-450); RBC Distribution Width CV 16.2 % (11.6-14.6); RBC Distribution Width SD 50.7 fl (35.1-43.9); Red Blood Count 3.83 M/mm3 (4.6-6.2); White Blood Count 12.5 K/mm3 (4.4-11.0)
--- NOTE | 2020-06-12 17:23 | RAD_ITS ---
STUDY: X-RAY CHEST REASON FOR EXAM: Male, 59 years old. EDEMA IN BILATERAL LEGS, FLUID LEAKING FROM LEFT. GAINED 22LB IN PAST WEEK. HERE RECENTLY FOR SEPSIS FROM LEFT LEG INFECTION. TECHNIQUE: Single AP portable view of the chest. COMPARISON: 05/31/2020. FINDINGS: The lungs are clear and expanded. There is no demonstrated pleural abnormality. Normal size heart. Normal mediastinum and jazmine. Normal visualized pulmonary arteries. Normal visualized aortic arch and descending thoracic aorta. Normal visualized thoracic spine. Normal visualized ribs, clavicles, and shoulders. There is no demonstrated abnormality of the visualized soft tissue structures of the upper abdomen. RAD/Chest 1 View (Portable) IMPRESSION: Normal x-ray examination of the chest. Electronically Signed: Woo Beltran MD at 17:35 EST , Service support ,
[2020-06-12 17:30] LABS: AST(SGOT) 7 U/L (15-37); Alanine Aminotransfer ALT/SGPT 15 U/L (16-61); Albumin, Serum 2.4 g/dL (3.2-5.0); Alkaline Phosphatase 84 U/L (45-117); Anion Gap 4 (5-15); BUN 14 mg/dL (7-18); BUN/Creat Ratio 11.3 RATIO (10-20); Bilirubin, Direct 0.05 mg/dL (0.00-0.30); Calcium,Total 9.1 mg/dL (8.5-10.1); Chloride 100 mmol/L (98-107); Creatinine, Serum 1.24 mg/dL (0.70-1.30); EST Glomerular Filtration Rate 64 mL/min (>60); Est Glom Filt Rate - Afr Amer 77 mL/min (>60); Estimated Creatinine Clearance 72.14 ml/min; Globulin 5.6 g/dL (2.2-4.2); Glucose 158 mg/dL (74-106); Potassium 3.5 mmol/L (3.5-5.1); Sodium Level 136 mmol/L (136-145)
[2020-06-12 17:43] LABS: BNP,B-Type NATRIURETIC PEPTIDE 26.5 pg/mL (0-100)
[2020-06-12 18:47] VITALS: BMI 67.5
--- NOTE | 2020-06-12 18:51 | PCM.HP.STD ---
<Augustine Ling - Last Filed: 06/12/20 18:51> Problem List (1) Anasarca Status: Acute (2) Failure to thrive Status: Acute Qualifiers: Failure to thrive age range: in adult Qualified Code(s): R62.7 - Adult failure to thrive (3) Anemia in chronic illness Status: Chronic (4) Anxiety and depression Status: Chronic (5) CVA (cerebral vascular accident) Status: Chronic (6) Congestive heart failure Status: Chronic (7) Diabetes Status: Chronic (8) High cholesterol Status: Chronic (9) Morbid obesity Status: Chronic (10) Obstructive sleep apnea Status: Chronic (11) Lymphedema Status: Chronic History of Present Illness Date of Admission: 06/12/20 Chief Complaint: edema The patient is a 59 year old M with pmhx notable for lymphedema, CHF, CVA, DMt2, FERNANDO, who was recently admitted here at [facility] from 05/29/20 to 06/09/20 for septic shock and LE cellulitis. The patient was ambulatory and discharged to home on the . The patient incorrectly states that he was home for a week during which point he has progressively gained 22 lbs with marked worsening of his BL LE lymphedema and increased drainage. He states he has been dressing and wrapping his legs daily. He went to see his PCP at the [facility] today who sent him to the ER. He is somewhat SOB as well. He was discharged home on O2 to wear with ambulation, however he is wearing it all the time due to SOB. No CP, dizziness, LH, palp. No fever/chills/cough. [] Past Medical History Past Medical History (Chronic Problems): Chronic Problems Anxiety and depression (Chronic) High cholesterol (Chronic) Hypertension (Chronic) Obstructive sleep apnea (Chronic) CVA (cerebral vascular accident) (Chronic) Diabetes (Chronic) Morbid obesity (Chronic) Anemia in chronic illness (Chronic) Congestive heart failure (Chronic) Lymphedema (Chronic) Allergies gabapentin Adverse Reaction (Verified 06/12/20 16:47) Swelling of legs Home Medications: Ambulatory Orders Medication Instructions Recorded Aripiprazole [Abilify] 30 mg PO DAILY 11/04/19 Warfarin [Coumadin] 5 mg PO SUMOTUWETHSA 11/04/19 Aspirin E.C. [Ecotrin] 81 mg PO DAILY@0800 02/20/20 Liraglutide [Victoza 3-Rick] 1.2 mg SQ DAILY 02/20/20 Menthol/Lanolin/Calamine/Znox 1 applic TOPICAL BID 05/29/20 [Calmoseptine Ointment] Nystatin Powder [Mycostatin Powder] 1 applic TOPICAL BID 05/29/20 Rosuvastatin Calcium [Crestor] 20 mg PO DAILY 05/29/20 Warfarin Sodium [Coumadin] 2.5 mg PO FR 05/29/20 Acetaminophen [Tylenol Arthritis] 650 mg PO Q6H PRN PRN 06/12/20 Fluoxetine HCl [Prozac] 20 mg PO DAILY 06/12/20 Insulin U-500 [Humulin R U-500 120 units SC BID 06/12/20 ([facility])] Spironolactone 25 mg PO BID 06/12/20 Torsemide [Demadex] 80 mg PO DAILY 06/12/20 Surgical History: tonsillectomy, - - 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 Psychiatric History: Anxiety, Bipolar, Depression Lives: Alone Smoking Status: Never smoker Alcohol: None Drugs: None - *Family History Maternal History Items: Heart Disease - Mother with history of significant CHF. Paternal History Items: Cancer - Father with a history of mesothelioma. Review of Systems Constitutional: Reports: Weakness, Fatigue. Denies: Chills, Fever, Weight Change HEENT: Denies: Head Aches, Sinus Congestion, Sinus Drainage Cardiovascular: Denies: Chest Pain, Palpitations Respiratory: Reports: Shortness of Breath, Shortness of breath at rest, Shortness of breath upon exertion. Denies: Cough, Sputum production, Wheezing Gastrointestinal: Denies: Abdominal Pain, Diarrhea, Nausea, Vomiting Genitourinary: Denies: Dysuria, Hesitancy, Urgency Musculoskeletal: Denies: Joint Pain, Joint Tenderness Skin: Reports: Wounds - LLE distal leg wound, - - BL LE lymphedema. Denies: Lesions, Rash Neurological: Denies: Numbness, Tingling, Focal weakness Psychiatric: Denies: Anxiety, Depression, Homicidal Ideations, Suicidal Ideations Hematologic/ Lymphatic: Denies: Easy Bruising, Easy Bleeding VTE Information - Inpt Only VTE Present on Admission: No VTE Mechan Device Prophylaxis: None VTE Pharm Prophylaxis ordered?: Yes Patient Problems: Active and Suspected Problems Failure to thrive (Acute) Anasarca (Acute) - Physical Exam Vitals/I&O's: Vital Signs Temp Pulse Resp BP Pulse Ox 97.8 F 73 12 137/51 H 100 06/12/20 16:43 06/12/20 16:43 06/12/20 16:43 06/12/20 16:43 06/12/20 16:43 Oxygen Delivery Method Nasal Cannula Weight: 497 lb 5.805 oz Body Mass Index (BMI) 67.4 General: Alert, Oriented x3, Cooperative HEENT: Atraumatic, PERRLA, EOMI, Normocephalic Neck: Supple, No JVD, Negative Carotid Bruits Lungs: Clear to auscultation, Normal air movement Cardiovascular: Regular rate, No murmurs Abdomen: Bowel Sounds Present, Soft, Non Tender Extremities: No edema, Capillary Refill Less than 3 Seconds Skin: No rashes, No breakdown, - - LLE lateral distal leg open sore, excoriations. dry flaking skin throughout distal LE. toes with marked fungal changes. Some erythema. tender to palp. ulcer is moist however no kaylyn drainage of the legs that I can see at this time Musculoskeletal: No Tenderness to Palpation of Joints or Extremities Neurological: Cranial nerves II-XII grossly intact Psych/Mental Status: Normal Affect, Appropriate, Alert and oriented to time, place, person, mood and affect Laboratory Results 06/12/20 17:00: WBC 12.5 H, RBC 3.83 L, Hgb 9.6 L, Hct 32.8 L, MCV 85.6, MCH 25.1 L, MCHC 29.3 L, RDW Std Deviation 50.7 H, RDW Coeff of Varsha 16.2 H, Plt Count 392, MPV 8.1, Immature Gran % (Auto) 0.600, Neut % (Auto) 71.8 H, Lymph % (Auto) 20.5, [place] % (Auto) 5.7, Eos % (Auto) 1.1, Baso % (Auto) 0.3, Absolute Neuts (auto) 9.0 H, Absolute Lymphs (auto) 2.56, Nucleated RBC % 0 06/12/20 17:00: Sodium 136, Potassium 3.5, Chloride 100, Carbon Dioxide 32.0, Anion Gap 4 L, BUN 14, Creatinine 1.24, Estim Creat Clear Calc 72.14, Est GFR (MDRD) Af Amer 77, Est GFR (MDRD) Non-Af 64, BUN/Creatinine Ratio 11.3, Glucose 158 H, Calcium 9.1, Total Bilirubin 0.20, Direct Bilirubin 0.05, AST 7 L, ALT 15 L, Alkaline Phosphatase 84, Troponin I < 0.015, Total Protein 8.0, Albumin 2.4 L, Globulin 5.6 H 06/12/20 17:00: B-Natriuretic Peptide 26.5 Assessment/Plan All Active Problems Cellulitis of right leg (Acute) Septic shock (Acute) Cellulitis (Acute) Failure to thrive (Acute) Acute exacerbation of CHF (congestive heart failure) (Acute) Anasarca (Acute) Unable to ambulate (Acute) 1. Acute worsening of LE lymphedema with SOB, anasarca - recently treated for septic shock. doubt infectious at this time. some leukocytosis. no fever. Pt has gained 22 lbs since discharge and has massive lymphedema. Will start aggressive diuresis. CXR is normal. BNP normal. Recent Echo EF 60%, fairly normal otherwise, tho it was limited- see report 2. Debility - likely due to worsening of above. I suspect the the patient is not appropriately caring for himself and his wounds at home based on his physical appearance and rapid detioration post discharge. I have recommended he consider SNF and he is amenable at this time. 3. FERNANDO - CPAP qhs 4. T2DM with morbid obesity - hold victoza, start SSI, continue U500 at prior dose, titrate to response. project engineering manager eval. 5. Bipolar disorder - abilify, prozac 6. Hx DVT - warfarin 7. HLD - statin DVT ppx: INR pending. DC planning: as per #2 This patient was seen by Augustine Ling PA-C under the supervision of Dr. Harrell. <Erendira Harrell - Last Filed: 06/12/20 20:15> History of Present Illness I agree with the above and the following is a reflection of my independent history and physical exam Mr. Marie is a 59 year old M with multiple medical problems as noted below who was recently admitted from 05/29-06/04 for septic shock and LE cellulitis. He improved and was sent home on levaquin and has since completed his course of therapy. He [facility] [place] [facility] 2/2 wgt gain and increased leg size. Pt states that the L LE had a blister when he was discharge and that it had since ruptured and he has a wound in that area. He wears O2 at 2 L at home and is satting well on that but has some c/o SOB. He has FERNANDO/OHS but does not wear a BIPAP at home. He reports his legs are markedly larger now and that he has gained 22 lbs. His BNP is WNL and is CXR is unimpressive. His white count is up but overall better and trending down since his last admission. Hgb is relatively stable and sCr is at baseline. He is on coumadin and his INR is 2.2. He is agreeable to placement at discharge. Past Medical History Allergies gabapentin Adverse Reaction (Verified 06/12/20 16:47) Swelling of legs Review of Systems Constitutional: Reports: Weakness, Weight Change, Fatigue. Denies: Anorexia, Chills, Fever, Night Sweats, Malaise Eyes: Denies: Conjunctivae Inflammation, Drainage, Eyelid Inflammation, Pain, Redness, Vision Change HEENT: Denies: Ear Pain, Eye Pain, Head Aches, Nasal bleeding, Nasal Congestion, Post Nasal Drip, Sinus Congestion, Sinus Drainage, Sore Throat, Visual Changes Cardiovascular: Reports: Edema. Denies: Chest Pain, Claudication, Chest Pressure, Chest Tightness, Heaviness, Light Headedness, Orthopnea, Palpitations, Paroxysmal Noc. Dyspnea, Syncope Respiratory: Reports: Shortness of Breath, Shortness of breath at rest, Shortness of breath upon exertion. Denies: Cough, Hemoptysis, Pleuritic Pain, Sputum production, Wheezing Gastrointestinal: Denies: Abdominal Pain, Constipation, Diarrhea, Dyspepsia, Hematemesis, Hematochezia, Nausea, Melena, Vomiting Genitourinary: Denies: Dysuria, Frequency, Hesitancy, Incontinence, Nocturia, Retention, Urgency Musculoskeletal: Denies: Back Pain, Joint Pain, Joint stiffness, Joint swelling, Joint Tenderness, Muscle pain, Neck Pain Skin: Reports: Wounds - LLE distal leg wound-was a blister and that ruptured. Denies: Dryness, Jaundice, Lesions, Pruritis, Rash, Skin Changes Neurological: Denies: Balance problems, Slurred speech, Confusion, Difficulty swallowing, Focal weakness, Tingling, Tremor, Seizures Psychiatric: Denies: Anxiety, Depression Endocrine: Denies: Change in Body Habitus, Heat/ Cold Intolerance, Polydipsia, Polyuria Hematologic/ Lymphatic: Denies: Adenopathy, Anemia, Easy Bruising, Easy Bleeding, Petechiae, Purpura - Physical Exam Vitals/I&O's: Vital Signs Temp Pulse Resp BP Pulse Ox 97.4 F L 74 18 156/50 H 100 06/12/20 19:35 06/12/20 19:35 06/12/20 19:35 06/12/20 19:35 06/12/20 19:35 Oxygen Flow Rate (L/min) 2 Oxygen Delivery Method Nasal Cannula Weight: 215.5 kg Body Mass Index (BMI) 64.4 General: Alert, Oriented x3, Cooperative, No apparent distress, Well developed, Well nourished, - - Super MO WM lying in bed,non-toxic appearing HEENT: Atraumatic, PERRLA, EOMI, Normocephalic, EAC Clear Oral: Moist Mucosa, No Gingival or Mucosal Lesions/ Ulcerations, - - mallampati 4 Neck: Supple, No JVD, Negative Carotid Bruits, Negative Hepatojugular Reflux, Trachea Midline, Thyroid Normal Size and Texture Lungs: Clear to auscultation, Normal air movement, No rhonchi, No wheeze, No rales, - - distant 2/2 body habitus Cardiovascular: Regular rate, Regular Rhythm, Normal S1, Normal S2, No murmurs, No Ectopic Activity, No rub noted, No Gallop, - - distant Abdomen: Bowel Sounds Present, Soft, Non Tender, Obese Extremities: No clubbing, No cyanosis, Capillary Refill Less than 3 Seconds, Edema Skin: No rashes Musculoskeletal: No Muscle Wasting Lymphatic: No Cervical, Supraclavicular, or Inguinal Adenopathy Neurological: Cranial nerves II-XII grossly intact, Neuro grossly intact, Muscle tone normal, Coordination normal Psych/Mental Status: Normal Affect, Appropriate Laboratory Results 06/12/20 17:00: WBC 12.5 H, RBC 3.83 L, Hgb 9.6 L, Hct 32.8 L, MCV 85.6, MCH 25.1 L, MCHC 29.3 L, RDW Std Deviation 50.7 H, RDW Coeff of Varsha 16.2 H, Plt Count 392, MPV 8.1, Immature Gran % (Auto) 0.600, Neut % (Auto) 71.8 H, Lymph % (Auto) 20.5, [place] % (Auto) 5.7, Eos % (Auto) 1.1, Baso % (Auto) 0.3, Absolute Neuts (auto) 9.0 H, Absolute Lymphs (auto) 2.56, Nucleated RBC % 0 06/12/20 17:00: Sodium 136, Potassium 3.5, Chloride 100, Carbon Dioxide 32.0, Anion Gap 4 L, BUN 14, Creatinine 1.24, Estim Creat Clear Calc 72.14, Est GFR (MDRD) Af Amer 77, Est GFR (MDRD) Non-Af 64, BUN/Creatinine Ratio 11.3, Glucose 158 H, Calcium 9.1, Total Bilirubin 0.20, Direct Bilirubin 0.05, AST 7 L, ALT 15 L, Alkaline Phosphatase 84, Troponin I < 0.015, Total Protein 8.0, Albumin 2.4 L, Globulin 5.6 H 06/12/20 17:00: B-Natriuretic Peptide 26.5 06/12/20 17:00: PT 23.8 H, INR 2.2 Current Medications Sodium Chloride (0.9% Saline Lock 10 Ml Syringe) 10 - 40 ml IV UD PRN PRN Reason: SALINE FLUSH Assessment/Plan ASSESSMENT B LE Lymphedema SOB Anasarca HFrEF mild decompensation Debility Chronic Anemia CKD stage 2 H/O DVT Mild Leukocytosis FERNANDO OHS HTN HPL Bipolar d/o DM-2 Super MO PLAN Admit to MS diuresis--> continue home torsemide and give Lasix 60 mg BID x 1 day -watch renal function -suspect this is all 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
[2020-06-12] MEDS: Metolazone 2.5 MG Tablet PO (18:52)
[2020-06-12] MEDS: Furosemide 100 MG/10 ML Vial 80 MG IV (18:52)
[2020-06-12 18:56] VITALS: BP 123/50; PULSE 72; RESP 15; TEMP 36.6; O2SAT 98
[2020-06-12 19:30] VITALS: BMI 64.4
[2020-06-12 19:35] VITALS: BP 156/50; PULSE 74; RESP 18; TEMP 36.3; O2SAT 100
[2020-06-12 19:44] LABS: International Normalized Ratio 2.2; Prothrombin Time (Protime)PT. 23.8 SECONDS (11.7-14.9)
[2020-06-12 20:57] VITALS: PULSE 75
[2020-06-12] MEDS: oxyCODONE 5 MG Tablet PO (21:17)
[2020-06-12 21:21] LABS: Bedside Glucose 76 mg/dL (70-110)
[2020-06-12 22:56] VITALS: BP 139/50; PULSE 71; RESP 18; TEMP 36.7; O2SAT 98
[2020-06-12] MEDS: Nystatin Powder 15gm Bottle 1 APPLIC TOPICAL (23:01)
[2020-06-12 23:11] LABS: Bedside Glucose 124 mg/dL (70-110)
[2020-06-12 23:50] VITALS: O2SAT 98
[2020-06-13] VITALS (11 sets, daily range): BP systolic 112–144; BP diastolic 55–60; PULSE 67–96; RESP 16–18; TEMP 36.8–37.1; O2SAT 95–97
[2020-06-13] MEDS: Acetaminophen 325 MG Tablet 650 MG PO ×3 (02:35→22:29)
--- NOTE | 2020-06-13 02:38 | NURSING ---
pt had called out and reported feeling shaky with a headache. checked bg at 138. vss. medicated for headache. no changes noted to assessment. pt reports history of waking up in middle of the night feeling very cold. denies anxiety. warm blankets provided.
[2020-06-13 02:41] LABS: Bedside Glucose 138 mg/dL (70-110)
[2020-06-13 04:42] LABS: Absolute Neutrophil Count 8.1 X10^3/uL (2.0-7.7); Basophil# 0.04 X10^3/uL; Basophil% 0.3 % (0-1); Eosinophil# 0.18 X10^3/uL; Eosinophils% 1.5 % (0-5); Hematocrit 31.5 % (40-54); Hemoglobin 9.3 g/dL (13.0-16.5); Lymphocyte % 24.7 % (19-41); Mean Corp Hgb Conc 29.5 g/dL (32-36); Mean Corpuscular Hgb 25.3 pg (27.0-32.0); Mean Corpuscular Volume 85.6 fL (80-94); Mean Platelet Vol. 8.2 fl (6.2-12.0); Monocyte# 0.78 X10^3/uL; Monocyte% 6.4 % (0-10); NRBC Flagged by Analyzer 0 % (0-5); Neutrophil # 8.08 X10^3/uL (2.7-7.7); Neutrophil % 66.5 % (47-70); Platelet Count 385 K/mm3 (150-450); RBC Distribution Width CV 16.6 % (11.6-14.6); RBC Distribution Width SD 51.9 fl (35.1-43.9); Red Blood Count 3.68 M/mm3 (4.6-6.2); White Blood Count 12.2 K/mm3 (4.4-11.0)
[2020-06-13 04:51] LABS: International Normalized Ratio 2.4; Prothrombin Time (Protime)PT. 25.4 SECONDS (11.7-14.9)
[2020-06-13 05:00] LABS: Anion Gap 4 (5-15); BUN 12 mg/dL (7-18); BUN/Creat Ratio 12.9 RATIO (10-20); Calcium,Total 8.5 mg/dL (8.5-10.1); Chloride 98 mmol/L (98-107); Creatinine, Serum 0.93 mg/dL (0.70-1.30); EST Glomerular Filtration Rate 89 mL/min (>60); Est Glom Filt Rate - Afr Amer 108 mL/min (>60); Estimated Creatinine Clearance 96.19 ml/min; Glucose 151 mg/dL (74-106); Magnesium 1.7 mg/dL (1.6-2.6); Phosphorus 4.1 mg/dL (2.5-4.9); Potassium 3.4 mmol/L (3.5-5.1); Sodium Level 136 mmol/L (136-145)
[2020-06-13 07:35] LABS: Bedside Glucose 189 mg/dL (70-110)
[2020-06-13] MEDS: Insulin Lispro 100 UNIT/ML INSULN.PEN SC ×3 (08:47→16:43)
[2020-06-13] MEDS: Aspirin E.C. 81 MG Tablet PO (08:50)
[2020-06-13] MEDS: Menthol/Lanolin/Calamine/Znox 113 GM Tube 1 APPLIC TOPICAL ×2 (08:50→20:13)
[2020-06-13] MEDS: 0.9% Saline Lock 10 ML Syringe IV ×2 (09:52→15:15)
[2020-06-13] MEDS: FLUoxetine 20 MG Capsule PO (09:52)
[2020-06-13] MEDS: Nystatin Powder 15gm Bottle 1 APPLIC TOPICAL ×2 (09:52→20:13)
[2020-06-13] MEDS: Furosemide 100 MG/10 ML Vial 60 MG IV (09:52)
[2020-06-13] MEDS: Torsemide 100 MG Tablet PO (09:53)
[2020-06-13] MEDS: ARIPiprazole 10 MG Tablet 30 MG PO (09:53)
[2020-06-13] MEDS: Spironolactone 25 MG Tablet PO ×2 (09:54→20:12)
--- NOTE | 2020-06-13 10:45 | CASEMGMT ---
NICK ORNELAS Re-admission note: Prior admission: Admitted 05/29/20, discharged 06/04/20. Admitted for SIRS, lactic acidosis, and JIL. Pt was having difficulty caring for self @ home and SNF was recommended @ d/c but he refused and was discharged home w/[facility]: SN, PT/OT and resumption of aides MWF. Pt was also dc'd on home O2 @ 2 L/M w/exertion and @ HS (as he had previously). Portable tank was delivered to [facility] prior to d/c. Current admission: Re-admitted 06/12/20 w/rené. Pt has had acute worsening of BLE lymphedema w/drainage, SOB, #22 lb weight gain. NICK ORNELAS to room to talk with pt. -PCP. Pt goes to [facility]. Pt states he had not been in to see them for f/u since last admission, but he had been in contact with them, and plan was for [place] nurse to do home visit on Wednesday06/17/19. -Pt currently on O2 @ 3 L/M. He has home O2 @ 2 L/M w/exertion and HS. Pt has concentrator @ home and portable tanks but does not have portable tank here @ [facility]. He states, if he does return home @ d/c, he can have his friend, Alycia, bring the portable tank in to go home on. -Pt active with [facility]: SN and PT/OT. Spoke w/Purnima ([phone]) @ [facility]. She is aware pt has been admitted to [facility] and d/c plan is undetermined at this time. He also has aides MWF for 2 hrs a day ([phone]). Pt would like aides for longer period of time and plans to talk to [place] to see if they will approve this. -Pt states he is unable to do own BLE dressing changes and they only get changed on MWF when the aides are there. He uses walker and W/C to get around his home, aides buy his groceries, and he is able to prepare himself meals. Friend, Alycia, lives about 5 min away, is supportive, and helps pt when she is able. -[place] transfer declination form reviewed with pt and he is declining transfer to [facility]. Pt signed form, copy made and placed on chart, and original given to pt. Form faxed to [place] transfer center. D/C disposition: TBD. Pt would prefer to go home, but has been having difficulty caring for himself and is agreeable to going to a SNF. He again states he prefers [facility], if they are able to accept him. Otherwise, he would be open to discussing other SNF's that would be able to take him. TABATHA, Carito Coley, made aware. If pt does not go to SNF @ d/c, then plan would be to d/c home w/Resumption of care with [facility]. Would need Resumption of [facility] order placed prior to d/c, d/c summary and instructions to be faxed to [facility], and [facility] would need notified of d/c. Ryanne CALVILLO RN CM
[2020-06-13 11:25] LABS: Bedside Glucose 251 mg/dL (70-110)
--- NOTE | 2020-06-13 12:07 | CHAPLAIN ---
Type of Pastoral Visit _x__ Initial Visit ___ Follow-up Visit ___ On-call Visit ___ General Patient Visit ___ Spiritual Assessment ___ Family Conference ___ Bereavement ___ Rapid Response ___ Code Blue ___ Other (describe below) Pastoral Care Referral From _x__ Patient ___ Family ___ Nurse ___ Physician ___ Airport Electrician ___ Wedger Machine ___ Other (describe below) Sacrament/Intervention _x__ Active listening ___ Anointing ___ Scientologist ___ Bereavement ___ Communion _x__ Alanna exploration ___ _x__ Life review _x__ Prayer ___ Reconciliation ___ Sacrament of Sick _x__ Supportive presence ___ Wedding ___ Other (describe below) Pastoral Comments
--- NOTE | 2020-06-13 13:02 | PN_ITS ---
Patient Problems: Active and Suspected Problems Failure to thrive (Acute) Anasarca (Acute) Reason for Visit: Allow for anasarca, bilateral lower extremity lymphedema and acute on chronic CHF exacerbation Objective: Patient has recurrent admission for CHF exacerbation and anasarca. Was last admission 05/29, discharged on 06/09 for cellulitis and shock. Patient was discharged on Levaquin for 5 more days. Skull exam: General: Alert, Oriented x3, Cooperative, morbid obesity BMI 64.7 kg/m? HEENT: Atraumatic, PERRLA, EOMI, Normocephalic Oral: No Gingival or Mucosal Lesions/ Ulcerations Neck: Supple, No JVD, Negative Carotid Bruits Lungs: Air entry diminished in bilateral lung bases. Bilateral rales present. 2 to 3 L of oxygen Cardiovascular: Regular rate, Regular Rhythm, Normal S1, Normal S2, No murmurs Abdomen: Bowel Sounds Present, Soft, Non Tender, fat abdomen, ascites hard to clinically discern : No renal angle tenderness. No suprapubic tenderness. Extremities: Bilateral lower extremity lymphedema status post Scott wrap bandage capillary Refill Less than 3 Seconds Skin: No rashes, No breakdown Musculoskeletal: No Tenderness to Palpation of Joints or Extremities Neurological: Cranial nerves II-XII grossly intact, Deep Tendon Reflexes 2+/4 and Symmetrical, Neuro grossly intact Psych/Mental Status: Normal Affect, Appropriate. Vitals/I&O's: Vital Signs Temp Pulse Resp BP Pulse Ox 98.3 F 74 18 112/55 L 95 06/13/20 07:33 06/13/20 10:00 06/13/20 07:33 06/13/20 07:33 06/13/20 07:33 Oxygen Flow Rate (L/min) 3 Oxygen Delivery Method Nasal Cannula Weight: 477 lb 1.285 oz Body Mass Index (BMI) 64.4 Intake and Output for Last 24 Hours 06/11/20 06/12/20 06/13/20 23:59 23:59 23:59 Intake Total 1310 / 1310 Output Total 39373 / 87377 Balance -9340 / -9340 Laboratory Results 06/12/20 17:00: WBC 12.5 H, RBC 3.83 L, Hgb 9.6 L, Hct 32.8 L, MCV 85.6, MCH 25.1 L, MCHC 29.3 L, RDW Std Deviation 50.7 H, RDW Coeff of Varsha 16.2 H, Plt Count 392, MPV 8.1, Immature Gran % (Auto) 0.600, Neut % (Auto) 71.8 H, Lymph % (Auto) 20.5, Duval % (Auto) 5.7, Eos % (Auto) 1.1, Baso % (Auto) 0.3, Absolute Neuts (auto) 9.0 H, Absolute Lymphs (auto) 2.56, Nucleated RBC % 0 06/12/20 17:00: Sodium 136, Potassium 3.5, Chloride 100, Carbon Dioxide 32.0, Anion Gap 4 L, BUN 14, Creatinine 1.24, Estim Creat Clear Calc 72.14, Est GFR (MDRD) Af Amer 77, Est GFR (MDRD) Non-Af 64, BUN/Creatinine Ratio 11.3, Glucose 158 H, Calcium 9.1, Total Bilirubin 0.20, Direct Bilirubin 0.05, AST 7 L, ALT 15 L, Alkaline Phosphatase 84, Troponin I < 0.015, Total Protein 8.0, Albumin 2.4 L , Globulin 5.6 H 06/12/20 17:00: B-Natriuretic Peptide 26.5 06/12/20 17:00: PT 23.8 H, INR 2.2 06/12/20 21:09: POC Glucose 76 06/12/20 23:00: POC Glucose 124 H 06/13/20 02:29: POC Glucose 138 H 06/13/20 04:15: WBC 12.2 H, RBC 3.68 L, Hgb 9.3 L, Hct 31.5 L, MCV 85.6, MCH 25.3 L, MCHC 29.5 L, RDW Std Deviation 51.9 H, RDW Coeff of Varsha 16.6 H, Plt Count 385, MPV 8.2, Immature Gran % (Auto) 0.600, Neut % (Auto) 66.5, Lymph % (Auto) 24.7, [place] % (Auto) 6.4, Eos % (Auto) 1.5, Baso % (Auto) 0.3, Absolute Neuts (auto) 8.1 H, Absolute Lymphs (auto) 3.00, Nucleated RBC % 0 06/13/20 04:15: PT 25.4 H, INR 2.4 06/13/20 04:15: Sodium 136, Potassium 3.4 L, Chloride 98, Carbon Dioxide 34.0 H, Anion Gap 4 L, BUN 12, Creatinine 0.93, Estim Creat Clear Calc 96.19, Est GFR (MDRD) Af Amer 108, Est GFR (MDRD) Non-Af 89, BUN/Creatinine Ratio 12.9, Glucose 151 H, Calcium 8.5, Phosphorus 4.1, Magnesium 1.7 06/13/20 07:31: POC Glucose 189 H 06/13/20 11:13: POC Glucose 251 H Current Medications Acetaminophen (Acetaminophen 325 Mg Tablet) 650 mg PO Q6H PRN PRN PRN Reason: Pain Score 1-10/Temp > 100.7 F Last Admin: 06/13/20 12:37 Dose: 650 mg Documented by: Al Hydroxide/Mg Hydroxide (Mag Hydrox/Al Hydrox/Simeth 30 Ml Udc) 30 ml PO Q6H PRN PRN PRN Reason: Gastric Burning Aripiprazole (Aripiprazole 10 Mg Tablet) 30 mg PO DAILY [facility] Last Admin: 06/13/20 09:53 Dose: 30 mg Documented by: Aspirin (Aspirin E.C. 81 Mg Tablet) 81 mg PO DAILY@0800 [facility] Last Admin: 06/13/20 08:50 Dose: 81 mg Documented by: Atorvastatin Calcium (Atorvastatin Calcium 40 Mg Tablet) 40 mg PO QHS [facility] Last Admin: 06/12/20 20:37 Dose: Not Given Documented by: Calamine/Phenol (Menthol/Lanolin/Calamine/Znox 113 Gm Tube) 1 applic TOPICAL BID [facility]; Protocol Last Admin: 06/13/20 08:50 Dose: 1 applicatio Documented by: Docusate Sodium (Docusate Sodium 100 Mg Capsule) 100 mg PO BID PRN PRN PRN Reason: Constipation Fluoxetine HCl (Fluoxetine 20 Mg Capsule) 20 mg PO DAILY [facility] Last Admin: 06/13/20 09:52 Dose: 20 mg Documented by: Furosemide 500 mg/ N/A 50 mls @ 1 mls/hr CONT INF .Q50H [facility] Insulin Human Lispro (Insulin Lispro 100 Unit/Ml Insuln.Pen) 0 unit SC TIDAC [facility]; Protocol Last Admin: 06/13/20 11:15 Dose: 4 units Documented by: Insulin Human Regular (Insulin U-500 Pen) 120 units SC BID [facility] Last Admin: 06/13/20 08:48 Dose: 120 units Documented by: Melatonin (Melatonin 3 Mg Tablet) 3 mg PO QHS PRN PRN PRN Reason: INSOMNIA Nystatin (Nystatin Powder 15gm Bottle) 1 applic TOPICAL BID [facility]; Protocol Last Admin: 06/13/20 09:52 Dose: 1 applicatio Documented by: Ondansetron HCl (Ondansetron 4 Mg/2 Ml Vial) 4 mg IV Q8H PRN PRN PRN Reason: NAUSEA/VOMITING Oxycodone HCl (Oxycodone 5 Mg Tablet) 5 mg PO Q4H PRN PRN PRN Reason: Pain Score 4-10 Last Admin: 06/12/20 21:17 Dose: 5 mg Documented by: Sodium Chloride (0.9% Saline Lock 10 Ml Syringe) 10 - 40 ml IV UD PRN PRN Reason: SALINE FLUSH Last Admin: 06/13/20 09:52 Dose: 10 ml Documented by: Spironolactone (Spironolactone 25 Mg Tablet) 25 mg PO BID [facility] Last Admin: 06/13/20 09:54 Dose: 25 mg Documented by: Warfarin Sodium (Warfarin 5 Mg Tablet) 5 mg PO SuMoTuWeThSa@1700 [facility] Warfarin Sodium (Warfarin 2.5 Mg Tablet) 2.5 mg PO Fr@1700 [facility] STROKE Vital Signs/Narrative: Vital Signs Pulse 06/13/20 10:00 74 Medical Necessity - Tobacco Use Smoking Status: Never smoker Assessment/Plan All Active Problems Cellulitis of right leg (Acute) Septic shock (Acute) Cellulitis (Acute) Failure to thrive (Acute) Acute exacerbation of CHF (congestive heart failure) (Acute) Anasarca (Acute) Unable to ambulate (Acute) This is a 59, gentleman with multiple comorbidities, recent admission 05/29?06/04 for septic shock secondary to left extremity cellulitis, discharged on Levaquin was sent to ER from [facility] (formerly [facility]] for increased lower extremity edema and weight gain. Patient also has left lower extremity blisters which got ruptured. 1. Acute on chronic diastolic heart failure with worsening of LE lymphedema with anasarca, most likely secondary to recent treatment for septic shock. Patient does not have fever has continued leukocytosis from previous hospitalization and is better. At home, patient on torsemide 80 mg daily, spironolactone 25 mg twice daily. Patient was admitted and started on Lasix 60 mg IV twice daily patient is started on Lasix drip and had -9.3 L fluid balance therefore intermittent Lasix was discontinued and started on continuous Lasix drip 5 mg/h. Patient was also on torsemide 100 mg daily which is discontinued. Mild hypokalemia, potassium replaced and patient is on spironolactone. Patient had weight gain of 22 pounds since discharge. Chest x-ray is normal. BNP normal but may be spuriously low secondary to morbid obesity. Nephrology consult.Scott wrap bandage of lower extremities 2D echo 06/04 Interpretation Summary Based upon the 2D echocardiographic and contrast enhanced images obtained there appears to be grossly normal left ventricular size, wall motion, and systolic function. The estimated ejection fraction is 60 %. Trivial mitral valve insufficiency. Trivial tricuspid valve insufficiency. Mild focal aortic valve calcification. Borderline to mildly dilated aortic root. Unable to assess diastolic dysfunction. 2 recent treatment of septic shock due to cellulitis: Patient completed Levaquin. 3. FERNANDO - CPAP qhs 4. T2DM with morbid obesity with physical debility- hold victoza, continue U500 at prior dose, Accu-Chek is in his coverage and low sliding scale. Supervisor Assembling evaluation. 5. Bipolar disorder -Abilify and Prozac. 6. Hx DVT - warfarin. INR therapeutic 7. HLD - statin Inpatient E&M: 02319 Subs Hosp L2
--- NOTE | 2020-06-13 13:34 | CASEMGMT ---
Social Work Note SW did place a call to [facility] and spoke with Pedro in admissions. Pedro states they are accepting admissions however beds are limited. Pedro states their weight limit is 450 pounds. Pt will be at [facility] through the weekend. RN JOHNSON and TABATHA to continue to follow for discharge planning. Plan: LUIS Coley TEACHERS AIDE, CLINIC RECEPTIONIST
--- NOTE | 2020-06-13 13:35 | NURSING ---
skin photo: right lower leg
--- NOTE | 2020-06-13 13:36 | NURSING ---
wound photo: left lower leg
[2020-06-13] MEDS: Furosemide 500 MG in Empty Viaflex 50 mL 1 EACH CONT INF (15:15)
[2020-06-13 16:55] LABS: Bedside Glucose 276 mg/dL (70-110)
--- NOTE | 2020-06-13 18:00 | PCM.CONS.R ---
Consultation - Renal 06/13/20 PCP/ Referring MD: Requesting physician: [] Primary care physician: [facility] Reason for Consultation:: HF with edema - History of Present Illness History of Present Illness: The patient is a 59 year old M past medical history of CHF lymphedema CVA diabetes mellitus type 2 FERNANDO with recent admission for septic shock between 1215 and 1226 and he also had at that time some lower extremity cellulitis. He was discharged home on June 09. Patient thinks that he gained about 22 pounds of fluid with worsening lower extremity edema after discharge. He states that he has been dressing and wrapping his legs daily. He was sent by his primary care physician to the emergency room. He also had shortness of breath yesterday but not today. He denies chest pain dizziness syncope fever chills dysuria hematuria. He denies foamy urine. He states his shortness of breath is resolved and has no other complaints. - Allergies Allergies: Allergies gabapentin Adverse Reaction (Verified 06/12/20 16:47) Swelling of legs - Current Medications Current Medications: Current Medications Acetaminophen (Acetaminophen 325 Mg Tablet) 650 mg PO Q6H PRN PRN PRN Reason: Pain Score 1-10/Temp > 100.7 F Last Admin: 06/13/20 12:37 Dose: 650 mg Documented by: Al Hydroxide/Mg Hydroxide (Mag Hydrox/Al Hydrox/Simeth 30 Ml Udc) 30 ml PO Q6H PRN PRN PRN Reason: Gastric Burning Aripiprazole (Aripiprazole 10 Mg Tablet) 30 mg PO DAILY [facility] Last Admin: 06/13/20 09:53 Dose: 30 mg Documented by: Aspirin (Aspirin E.C. 81 Mg Tablet) 81 mg PO DAILY@0800 [facility] Last Admin: 06/13/20 08:50 Dose: 81 mg Documented by: Atorvastatin Calcium (Atorvastatin Calcium 40 Mg Tablet) 40 mg PO QHS [facility] Last Admin: 06/12/20 20:37 Dose: Not Given Documented by: Calamine/Phenol (Menthol/Lanolin/Calamine/Znox 113 Gm Tube) 1 applic TOPICAL BID [facility]; Protocol Last Admin: 06/13/20 08:50 Dose: 1 applicatio Documented by: Docusate Sodium (Docusate Sodium 100 Mg Capsule) 100 mg PO BID PRN PRN PRN Reason: Constipation Fluoxetine HCl (Fluoxetine 20 Mg Capsule) 20 mg PO DAILY [facility] Last Admin: 06/13/20 09:52 Dose: 20 mg Documented by: Furosemide 500 mg/ N/A 50 mls @ 0.5 mls/hr CONT INF .Q100H [facility] Last Admin: 06/13/20 15:15 Dose: 5 mg/hr, 0.5 mls/hr Documented by: Insulin Human Lispro (Insulin Lispro 100 Unit/Ml Insuln.Pen) 0 unit SC TIDAC [facility]; Protocol Last Admin: 06/13/20 16:43 Dose: 6 units Documented by: Insulin Human Regular (Insulin U-500 Pen) 120 units SC BID [facility] Last Admin: 06/13/20 08:48 Dose: 120 units Documented by: Melatonin (Melatonin 3 Mg Tablet) 3 mg PO QHS PRN PRN PRN Reason: INSOMNIA Nystatin (Nystatin Powder 15gm Bottle) 1 applic TOPICAL BID [facility]; Protocol Last Admin: 06/13/20 09:52 Dose: 1 applicatio Documented by: Ondansetron HCl (Ondansetron 4 Mg/2 Ml Vial) 4 mg IV Q8H PRN PRN PRN Reason: NAUSEA/VOMITING Oxycodone HCl (Oxycodone 5 Mg Tablet) 5 mg PO Q4H PRN PRN PRN Reason: Pain Score 4-10 Last Admin: 06/12/20 21:17 Dose: 5 mg Documented by: Sodium Chloride (0.9% Saline Lock 10 Ml Syringe) 10 - 40 ml IV UD PRN PRN Reason: SALINE FLUSH Last Admin: 06/13/20 15:15 Dose: 10 ml Documented by: Spironolactone (Spironolactone 25 Mg Tablet) 25 mg PO BID [facility] Last Admin: 06/13/20 09:54 Dose: 25 mg Documented by: Warfarin Sodium (Warfarin 5 Mg Tablet) 5 mg PO SuMoTuWeThSa@1700 [facility] Last Admin: 06/13/20 16:44 Dose: 5 mg Documented by: Warfarin Sodium (Warfarin 2.5 Mg Tablet) 2.5 mg PO Fr@1700 [facility] - Past Medical History Past Medical History (Chronic Problems): Chronic Problems Anxiety and depression (Chronic) High cholesterol (Chronic) Hypertension (Chronic) Obstructive sleep apnea (Chronic) CVA (cerebral vascular accident) (Chronic) Diabetes (Chronic) Morbid obesity (Chronic) Anemia in chronic illness (Chronic) Congestive heart failure (Chronic) Lymphedema (Chronic) - Past Surgical History Surgical History: tonsillectomy, - - 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 - Social History Smoking Status: Never smoker Alcohol: None Drugs: None - Family History Maternal History Items: Heart Disease - Mother with history of significant CHF. Paternal History Items: Cancer - Father with a history of mesothelioma. Patient Problems: Active and Suspected Problems Failure to thrive (Acute) Anasarca (Acute) - Physical Exam Vitals/I&O's: Vital Signs Temp Pulse Resp BP Pulse Ox 98.2 F 80 18 144/56 H 97 06/13/20 14:43 06/13/20 14:47 06/13/20 14:43 06/13/20 14:43 06/13/20 14:43 Oxygen Flow Rate (L/min) 2 Oxygen Delivery Method Nasal Cannula Weight: 216.4 kg Body Mass Index (BMI) 64.4 Intake and Output for Last 24 Hours 06/11/20 06/12/20 06/13/20 23:59 23:59 23:59 Intake Total 1310 / 1310 Output Total 32426 / 59175 Balance -9340 / -9340 General: Alert, Cooperative HEENT: Atraumatic, Normocephalic Oral: Moist Mucosa Neck: Supple, Trachea Midline Lungs: Clear to auscultation, Normal air movement Cardiovascular: Regular rate, Regular Rhythm, Normal S1, Normal S2 Abdomen: Bowel Sounds Present, Soft, Obese Extremities: Edema Laboratory Results 06/12/20 17:00: PT 23.8 H, INR 2.2 06/12/20 21:09: POC Glucose 76 06/12/20 23:00: POC Glucose 124 H 06/13/20 02:29: POC Glucose 138 H 06/13/20 04:15: WBC 12.2 H, RBC 3.68 L, Hgb 9.3 L, Hct 31.5 L, MCV 85.6, MCH 25.3 L, MCHC 29.5 L, RDW Std Deviation 51.9 H, RDW Coeff of Varsha 16.6 H, Plt Count 385, MPV 8.2, Immature Gran % (Auto) 0.600, Neut % (Auto) 66.5, Lymph % (Auto) 24.7, [place] % (Auto) 6.4, Eos % (Auto) 1.5, Baso % (Auto) 0.3, Absolute Neuts (auto) 8.1 H, Absolute Lymphs (auto) 3.00, Nucleated RBC % 0 06/13/20 04:15: PT 25.4 H, INR 2.4 06/13/20 04:15: Sodium 136, Potassium 3.4 L, Chloride 98, Carbon Dioxide 34.0 H, Anion Gap 4 L, BUN 12, Creatinine 0.93, Estim Creat Clear Calc 96.19, Est GFR (MDRD) Af Amer 108, Est GFR (MDRD) Non-Af 89, BUN/Creatinine Ratio 12.9, Glucose 151 H, Calcium 8.5, Phosphorus 4.1, Magnesium 1.7 06/13/20 07:31: POC Glucose 189 H 06/13/20 11:13: POC Glucose 251 H 06/13/20 16:42: POC Glucose 276 H Current Medications Acetaminophen (Acetaminophen 325 Mg Tablet) 650 mg PO Q6H PRN PRN PRN Reason: Pain Score 1-10/Temp > 100.7 F Last Admin: 06/13/20 12:37 Dose: 650 mg Documented by: Al Hydroxide/Mg Hydroxide (Mag Hydrox/Al Hydrox/Simeth 30 Ml Udc) 30 ml PO Q6H PRN PRN PRN Reason: Gastric Burning Aripiprazole (Aripiprazole 10 Mg Tablet) 30 mg PO DAILY [facility] Last Admin: 06/13/20 09:53 Dose: 30 mg Documented by: Aspirin (Aspirin E.C. 81 Mg Tablet) 81 mg PO DAILY@0800 [facility] Last Admin: 06/13/20 08:50 Dose: 81 mg Documented by: Atorvastatin Calcium (Atorvastatin Calcium 40 Mg Tablet) 40 mg PO QHS [facility] Last Admin: 06/12/20 20:37 Dose: Not Given Documented by: Calamine/Phenol (Menthol/Lanolin/Calamine/Znox 113 Gm Tube) 1 applic TOPICAL BID [facility]; Protocol Last Admin: 06/13/20 08:50 Dose: 1 applicatio Documented by: Docusate Sodium (Docusate Sodium 100 Mg Capsule) 100 mg PO BID PRN PRN PRN Reason: Constipation Fluoxetine HCl (Fluoxetine 20 Mg Capsule) 20 mg PO DAILY [facility] Last Admin: 06/13/20 09:52 Dose: 20 mg Documented by: Furosemide 500 mg/ N/A 50 mls @ 0.5 mls/hr CONT INF .Q100H [facility] Last Admin: 06/13/20 15:15 Dose: 5 mg/hr, 0.5 mls/hr Documented by: Insulin Human Lispro (Insulin Lispro 100 Unit/Ml Insuln.Pen) 0 unit SC TIDAC [facility]; Protocol Last Admin: 06/13/20 16:43 Dose: 6 units Documented by: Insulin Human Regular (Insulin U-500 Pen) 120 units SC BID [facility] Last Admin: 06/13/20 08:48 Dose: 120 units Documented by: Melatonin (Melatonin 3 Mg Tablet) 3 mg PO QHS PRN PRN PRN Reason: INSOMNIA Nystatin (Nystatin Powder 15gm Bottle) 1 applic TOPICAL BID [facility]; Protocol Last Admin: 06/13/20 09:52 Dose: 1 applicatio Documented by: Ondansetron HCl (Ondansetron 4 Mg/2 Ml Vial) 4 mg IV Q8H PRN PRN PRN Reason: NAUSEA/VOMITING Oxycodone HCl (Oxycodone 5 Mg Tablet) 5 mg PO Q4H PRN PRN PRN Reason: Pain Score 4-10 Last Admin: 06/12/20 21:17 Dose: 5 mg Documented by: Sodium Chloride (0.9% Saline Lock 10 Ml Syringe) 10 - 40 ml IV UD PRN PRN Reason: SALINE FLUSH Last Admin: 06/13/20 15:15 Dose: 10 ml Documented by: Spironolactone (Spironolactone 25 Mg Tablet) 25 mg PO BID [facility] Last Admin: 06/13/20 09:54 Dose: 25 mg Documented by: Warfarin Sodium (Warfarin 5 Mg Tablet) 5 mg PO SuMoTuWeThSa@1700 [facility] Last Admin: 06/13/20 16:44 Dose: 5 mg Documented by: Warfarin Sodium (Warfarin 2.5 Mg Tablet) 2.5 mg PO Fr@1700 [facility] Assessment/Plan All Active Problems Cellulitis of right leg (Acute) Septic shock (Acute) Cellulitis (Acute) Failure to thrive (Acute) Acute exacerbation of CHF (congestive heart failure) (Acute) Anasarca (Acute) Unable to ambulate (Acute) LE edema CHF DM agree with diuretic drip for now replace K monitor avoid overdiuresis renal fx stable I discussed with the patient. Thank you for consult will follow up.
[2020-06-13] MEDS: Atorvastatin Calcium 40 MG Tablet PO (20:12)
[2020-06-13 20:51] LABS: Bedside Glucose 194 mg/dL (70-110)
[2020-06-13] MEDS: oxyCODONE 5 MG Tablet PO (22:29)
[2020-06-14] VITALS (10 sets, daily range): BP systolic 121–147; BP diastolic 33–106; PULSE 62–71; RESP 16–18; TEMP 36.6–36.7; O2SAT 96–99
[2020-06-14 00:19] LABS: Bacteria 0 SEEN /hpf (None Seen); Mucous, Urine 0 SEEN /hpf (<or=2+); Red Blood Cells-Urine 0 SEEN /hpf (0-5); White Blood Cells 0 SEEN /hpf (0-5)
[2020-06-14 00:21] LABS: Color, Urine Yellow (Yellow); Glucose, Dipstick Normal (Normal); Ketone-Dipstick Negative (Negative); Leukocyte Esterase-Dipstick Negative /ul (Negative); Nitrite-Dipstick Negative (Negative); Occult Blood-Urine Negative /ul (Negative); Protein-Dipstick Negative (Negative); Urine Bilirubin Dipstick Negative (Negative); Urine Clarity Clear (Clear); Urine Urobilinogen Normal (Normal); Urine pH 6.5 (5.0 - 8.0)
[2020-06-14 00:27] LABS: Squamous Epithelial Cells - UA 0-5 SEEN /hpf (0-5)
[2020-06-14 04:04] LABS: International Normalized Ratio 2.3; Prothrombin Time (Protime)PT. 25.1 SECONDS (11.7-14.9)
[2020-06-14 04:06] LABS: Bedside Glucose 78 mg/dL (70-110)
[2020-06-14 04:12] LABS: Anion Gap 4 (5-15); BUN 11 mg/dL (7-18); Calcium,Total 8.8 mg/dL (8.5-10.1); Chloride 95 mmol/L (98-107); EST Glomerular Filtration Rate 82 mL/min (>60); Est Glom Filt Rate - Afr Amer 99 mL/min (>60); Estimated Creatinine Clearance 89.46 ml/min; Glucose 67 mg/dL (74-106); Magnesium 1.8 mg/dL (1.6-2.6); Phosphorus 3.9 mg/dL (2.5-4.9); Potassium 3.1 mmol/L (3.5-5.1); Sodium Level 138 mmol/L (136-145)
[2020-06-14 06:45] LABS: Bedside Glucose 127 mg/dL (70-110)
[2020-06-14] MEDS: Aspirin E.C. 81 MG Tablet PO (08:20)
[2020-06-14] MEDS: Menthol/Lanolin/Calamine/Znox 113 GM Tube 1 APPLIC TOPICAL ×2 (08:23→22:23)
[2020-06-14] MEDS: Nystatin Powder 15gm Bottle 1 APPLIC TOPICAL ×2 (08:23→22:23)
[2020-06-14] MEDS: FLUoxetine 20 MG Capsule PO (08:23)
[2020-06-14] MEDS: ARIPiprazole 10 MG Tablet 30 MG PO (08:23)
[2020-06-14] MEDS: Spironolactone 25 MG Tablet PO ×2 (08:24→22:22)
[2020-06-14] MEDS: Acetaminophen 325 MG Tablet 650 MG PO ×3 (08:27→22:22)
[2020-06-14] MEDS: oxyCODONE 5 MG Tablet PO ×3 (08:27→20:41)
[2020-06-14] MEDS: Insulin Lispro 100 UNIT/ML INSULN.PEN SC ×2 (11:46→16:24)
[2020-06-14 12:00] LABS: Bedside Glucose 186 mg/dL (70-110)
--- NOTE | 2020-06-14 15:30 | PN_ITS ---
Patient Problems: Active and Suspected Problems Failure to thrive (Acute) Anasarca (Acute) Reason for Visit: Follow-up for anasarca. Objective: Patient heart rate and blood pressure is controlled. Pulse ox 98% on 2 L of oxygen. Physical exam General: Alert, Oriented x3, Cooperative, BMI 60.9 kg/m? HEENT: Atraumatic, PERRLA, EOMI, Normocephalic Oral: No Gingival or Mucosal Lesions/ Ulcerations Neck: Supple, No JVD, Negative Carotid Bruits Lungs: Air entry diminished in bilateral lung bases mainly due to obesity. No crepitation/rhonchi Cardiovascular: Regular rate, Regular Rhythm, Normal S1, Normal S2, No murmurs Abdomen: Bowel Sounds Present, Soft, Non Tender, Non-Distended : Patient using urinal. No renal angle tenderness. No suprapubic tenderness. Extremities: Bilateral lower extremity lymphedema with Scott wrap bandage, Capillary Refill Less than 3 Seconds Skin: No rashes, No breakdown Musculoskeletal: No Tenderness to Palpation of Joints or Extremities. Chronic pain and tenderness of right leg. Chronic degenerative joint disease Neurological: Cranial nerves II-XII grossly intact, Deep Tendon Reflexes 2+/4 and Symmetrical, Neuro grossly intact Psych/Mental Status: Normal Affect, Appropriate. Vitals/I&O's: Vital Signs Temp Pulse Resp BP Pulse Ox 97.8 F 71 16 147/58 H 98 06/14/20 08:25 06/14/20 08:25 06/14/20 08:25 06/14/20 08:25 06/14/20 08:25 Oxygen Flow Rate (L/min) 2 Oxygen Delivery Method Nasal Cannula Weight: 449 lb 4.833 oz Body Mass Index (BMI) 64.4 Intake and Output for Last 24 Hours 06/12/20 06/13/20 06/14/20 23:59 23:59 23:59 Intake Total 1310 / 1310 1100 / 1100 Output Total 90512 / 18444 5900 / 5900 Balance -05007 / -91290 -4800 / -4800 Laboratory Results 06/13/20 16:42: POC Glucose 276 H 06/13/20 20:10: POC Glucose 194 H 06/14/20 00:12: Urine Color Yellow, Urine Clarity Clear, Urine pH 6.5, Ur Specific [place] 1.010, Urine Protein Negative, Urine Glucose (UA) Normal, Urine Ketones Negative, Urine Occult Blood Negative, Urine Nitrite Negative, Urine Bilirubin Negative, Urine Urobilinogen Normal, Ur Leukocyte Esterase Negative, Urine RBC 0 SEEN, Urine WBC 0 SEEN, Ur Squamous Epith Cells 0-5 SEEN, Urine Bacteria 0 SEEN, Urine Mucus 0 SEEN 06/14/20 03:45: PT 25.1 H, INR 2.3 06/14/20 03:45: Sodium 138, Potassium 3.1 L, Chloride 95 L, Carbon Dioxide 39.0 H, Anion Gap 4 L, BUN 11, Creatinine 1.00, Estim Creat Clear Calc 89.46, Est GFR (MDRD) Af Amer 99, Est GFR (MDRD) Non-Af 82, BUN/Creatinine Ratio 11.0, Glucose 67 L, Calcium 8.8, Phosphorus 3.9, Magnesium 1.8 06/14/20 04:02: POC Glucose 78 06/14/20 06:40: POC Glucose 127 H 06/14/20 11:44: POC Glucose 186 H Current Medications Acetaminophen (Acetaminophen 325 Mg Tablet) 650 mg PO Q6H PRN PRN PRN Reason: Pain Score 1-10/Temp > 100.7 F Last Admin: 06/14/20 15:08 Dose: 650 mg Documented by: Al Hydroxide/Mg Hydroxide (Mag Hydrox/Al Hydrox/Simeth 30 Ml Udc) 30 ml PO Q6H PRN PRN PRN Reason: Gastric Burning Aripiprazole (Aripiprazole 10 Mg Tablet) 30 mg PO DAILY [facility] Last Admin: 06/14/20 08:23 Dose: 30 mg Documented by: Aspirin (Aspirin E.C. 81 Mg Tablet) 81 mg PO DAILY@0800 [facility] Last Admin: 06/14/20 08:20 Dose: 81 mg Documented by: Atorvastatin Calcium (Atorvastatin Calcium 40 Mg Tablet) 40 mg PO QHS [facility] Last Admin: 06/13/20 20:12 Dose: 40 mg Documented by: Calamine/Phenol (Menthol/Lanolin/Calamine/Znox 113 Gm Tube) 1 applic TOPICAL BID [facility]; Protocol Last Admin: 06/14/20 08:23 Dose: 1 applicatio Documented by: Docusate Sodium (Docusate Sodium 100 Mg Capsule) 100 mg PO BID PRN PRN PRN Reason: Constipation Fluoxetine HCl (Fluoxetine 20 Mg Capsule) 20 mg PO DAILY [facility] Last Admin: 06/14/20 08:23 Dose: 20 mg Documented by: Furosemide 500 mg/ N/A 50 mls @ 0.5 mls/hr CONT INF .Q100H [facility] Last Admin: 06/13/20 15:15 Dose: 5 mg/hr, 0.5 mls/hr Documented by: Insulin Human Lispro (Insulin Lispro 100 Unit/Ml Insuln.Pen) 0 unit SC TIDAC [facility]; Protocol Last Admin: 06/14/20 11:46 Dose: 2 units Documented by: Insulin Human Regular (Insulin U-500 Pen) 120 units SC BID [facility] Last Admin: 06/14/20 08:20 Dose: 120 units Documented by: Melatonin (Melatonin 3 Mg Tablet) 3 mg PO QHS PRN PRN PRN Reason: INSOMNIA Nystatin (Nystatin Powder 15gm Bottle) 1 applic TOPICAL BID [facility]; Protocol Last Admin: 06/14/20 08:23 Dose: 1 applicatio Documented by: Ondansetron HCl (Ondansetron 4 Mg/2 Ml Vial) 4 mg IV Q8H PRN PRN PRN Reason: NAUSEA/VOMITING Oxycodone HCl (Oxycodone 5 Mg Tablet) 5 mg PO Q4H PRN PRN PRN Reason: Pain Score 4-10 Last Admin: 06/14/20 15:08 Dose: 5 mg Documented by: Sodium Chloride (0.9% Saline Lock 10 Ml Syringe) 10 - 40 ml IV UD PRN PRN Reason: SALINE FLUSH Last Admin: 06/13/20 15:15 Dose: 10 ml Documented by: Spironolactone (Spironolactone 25 Mg Tablet) 25 mg PO BID [facility] Last Admin: 06/14/20 08:24 Dose: 25 mg Documented by: Warfarin Sodium (Warfarin 5 Mg Tablet) 5 mg PO SuMoTuWeThSa@1700 [facility] Last Admin: 06/13/20 16:44 Dose: 5 mg Documented by: Warfarin Sodium (Warfarin 2.5 Mg Tablet) 2.5 mg PO Fr@1700 [facility] Medical Necessity - Tobacco Use Smoking Status: Never smoker Assessment/Plan All Active Problems Cellulitis of right leg (Acute) Septic shock (Acute) Cellulitis (Acute) Failure to thrive (Acute) Acute exacerbation of CHF (congestive heart failure) (Acute) Anasarca (Acute) Unable to ambulate (Acute) This is a 59, gentleman with multiple comorbidities, recent admission 05/29?06/04 for septic shock secondary to left extremity cellulitis, discharged on Levaquin was sent to ER from [facility] for increased lower extremity edema and weight gain. Patient also has left lower extremity blisters which got ruptured. 1. Acute on chronic diastolic heart failure with worsening of LE lymphedema with anasarca, most likely secondary to recent treatment for septic shock. Patient does not have fever has continued leukocytosis from previous hospitalization and is better. At home, patient on torsemide 80 mg daily, spironolactone 25 mg twice daily. Patient was admitted and started on Lasix 60 mg IV twice daily patient is started on Lasix drip and had -9.3 L fluid balance therefore intermittent Lasix was discontinued and started on continuous Lasix drip 5 mg/h. Patient was also on torsemide 100 mg daily which is discontinued. Mild hypokalemia, potassium replaced and patient is on spironolactone. Patient had weight gain of 22 pounds since discharge. Chest x-ray is normal. BNP normal but may be spuriously low secondary to morbid obesity. Nephrology consult.Scott wrap bandage of lower extremities 2D echo 06/04: Interpretation Summary Based upon the 2D echocardiographic and contrast enhanced images obtained there appears to be grossly normal left ventricular size, wall motion, and systolic function. The estimated ejection fraction is 60 %. Trivial mitral valve insufficiency. Trivial tricuspid valve insufficiency. Mild focal aortic valve calcification. Borderline to mildly dilated aortic root. 06/14: K3.1. Patient had -18 L fluid balance. Had 14.5 L urine output yesterday and about 6 L today. Lasix drip was slowed yesterday at 5 mg and will continue. Try to avoid acute decrease in fluid body weight or overdiuresis to avoid cardiopulmonary decompensation. Detective Sergeant consult reviewed. 2 recent treatment of septic shock due to cellulitis: Patient completed Levaquin. 3. FERNANDO - CPAP qhs 4. T2DM with morbid obesity with physical debility- hold victoza, continue U500 at prior dose, Accu-Chek is in his coverage and low sliding scale. Senior Sales Operations Analyst evaluation. 5. Bipolar disorder -Abilify and Prozac. 6. Hx DVT - warfarin. INR therapeutic 7. HLD - statin Inpatient E&M: 51250 Subs Hosp L2
--- NOTE | 2020-06-14 16:06 | PN.RENAL_ITS ---
Patient Problems: Active and Suspected Problems Failure to thrive (Acute) Anasarca (Acute) Subjective: no sob no chest pain - Physical Exam Vitals/I&O's: Vital Signs Temp Pulse Resp BP Pulse Ox 98.0 F 64 16 130/64 H 99 06/14/20 15:05 06/14/20 15:05 06/14/20 15:05 06/14/20 15:05 06/14/20 15:05 Oxygen Flow Rate (L/min) 2 Oxygen Delivery Method Nasal Cannula Weight: 203.8 kg Body Mass Index (BMI) 64.4 Intake and Output for Last 24 Hours 06/12/20 06/13/20 06/14/20 23:59 23:59 23:59 Intake Total 1310 / 1310 1100 / 1100 Output Total 91433 / 23270 5900 / 5900 Balance -37626 / -16346 -4800 / -4800 General: Alert HEENT: Atraumatic, Normocephalic Oral: Moist Mucosa Neck: Supple, Trachea Midline Lungs: Clear to auscultation, Normal air movement Cardiovascular: Normal S1, Normal S2 Abdomen: Bowel Sounds Present, Soft, Obese Extremities: No edema Laboratory Results 06/13/20 16:42: POC Glucose 276 H 06/13/20 20:10: POC Glucose 194 H 06/14/20 00:12: Urine Color Yellow, Urine Clarity Clear, Urine pH 6.5, Ur Specific [place] 1.010, Urine Protein Negative, Urine Glucose (UA) Normal, Urine Ketones Negative, Urine Occult Blood Negative, Urine Nitrite Negative, Urine Bilirubin Negative, Urine Urobilinogen Normal, Ur Leukocyte Esterase Negative, Urine RBC 0 SEEN, Urine WBC 0 SEEN, Ur Squamous Epith Cells 0-5 SEEN, Urine Bacteria 0 SEEN, Urine Mucus 0 SEEN 06/14/20 03:45: PT 25.1 H, INR 2.3 06/14/20 03:45: Sodium 138, Potassium 3.1 L, Chloride 95 L, Carbon Dioxide 39.0 H, Anion Gap 4 L, BUN 11, Creatinine 1.00, Estim Creat Clear Calc 89.46, Est GFR (MDRD) Af Amer 99, Est GFR (MDRD) Non-Af 82, BUN/Creatinine Ratio 11.0, Glucose 67 L, Calcium 8.8, Phosphorus 3.9, Magnesium 1.8 06/14/20 04:02: POC Glucose 78 06/14/20 06:40: POC Glucose 127 H 06/14/20 11:44: POC Glucose 186 H Current Medications Acetaminophen (Acetaminophen 325 Mg Tablet) 650 mg PO Q6H PRN PRN PRN Reason: Pain Score 1-10/Temp > 100.7 F Last Admin: 06/14/20 15:08 Dose: 650 mg Documented by: Al Hydroxide/Mg Hydroxide (Mag Hydrox/Al Hydrox/Simeth 30 Ml Udc) 30 ml PO Q6H PRN PRN PRN Reason: Gastric Burning Aripiprazole (Aripiprazole 10 Mg Tablet) 30 mg PO DAILY [facility] Last Admin: 06/14/20 08:23 Dose: 30 mg Documented by: Aspirin (Aspirin E.C. 81 Mg Tablet) 81 mg PO DAILY@0800 [facility] Last Admin: 06/14/20 08:20 Dose: 81 mg Documented by: Atorvastatin Calcium (Atorvastatin Calcium 40 Mg Tablet) 40 mg PO QHS [facility] Last Admin: 06/13/20 20:12 Dose: 40 mg Documented by: Calamine/Phenol (Menthol/Lanolin/Calamine/Znox 113 Gm Tube) 1 applic TOPICAL BID [facility]; Protocol Last Admin: 06/14/20 08:23 Dose: 1 applicatio Documented by: Docusate Sodium (Docusate Sodium 100 Mg Capsule) 100 mg PO BID PRN PRN PRN Reason: Constipation Fluoxetine HCl (Fluoxetine 20 Mg Capsule) 20 mg PO DAILY [facility] Last Admin: 06/14/20 08:23 Dose: 20 mg Documented by: Furosemide 500 mg/ N/A 50 mls @ 0.5 mls/hr CONT INF .Q100H [facility] Last Admin: 06/13/20 15:15 Dose: 5 mg/hr, 0.5 mls/hr Documented by: Insulin Human Lispro (Insulin Lispro 100 Unit/Ml Insuln.Pen) 0 unit SC TIDAC [facility]; Protocol Last Admin: 06/14/20 11:46 Dose: 2 units Documented by: Insulin Human Regular (Insulin U-500 Pen) 120 units SC BID [facility] Last Admin: 06/14/20 08:20 Dose: 120 units Documented by: Melatonin (Melatonin 3 Mg Tablet) 3 mg PO QHS PRN PRN PRN Reason: INSOMNIA Nystatin (Nystatin Powder 15gm Bottle) 1 applic TOPICAL BID [facility]; Protocol Last Admin: 06/14/20 08:23 Dose: 1 applicatio Documented by: Ondansetron HCl (Ondansetron 4 Mg/2 Ml Vial) 4 mg IV Q8H PRN PRN PRN Reason: NAUSEA/VOMITING Oxycodone HCl (Oxycodone 5 Mg Tablet) 5 mg PO Q4H PRN PRN PRN Reason: Pain Score 4-10 Last Admin: 06/14/20 15:08 Dose: 5 mg Documented by: Sodium Chloride (0.9% Saline Lock 10 Ml Syringe) 10 - 40 ml IV UD PRN PRN Reason: SALINE FLUSH Last Admin: 06/13/20 15:15 Dose: 10 ml Documented by: Spironolactone (Spironolactone 25 Mg Tablet) 25 mg PO BID [facility] Last Admin: 06/14/20 08:24 Dose: 25 mg Documented by: Warfarin Sodium (Warfarin 5 Mg Tablet) 5 mg PO SuMoTuWeThSa@1700 [facility] Last Admin: 06/13/20 16:44 Dose: 5 mg Documented by: Warfarin Sodium (Warfarin 2.5 Mg Tablet) 2.5 mg PO Fr@1700 [facility] Medical Necessity - Tobacco Use Smoking Status: Never smoker Assessment/Plan All Active Problems Cellulitis of right leg (Acute) Septic shock (Acute) Cellulitis (Acute) Failure to thrive (Acute) Acute exacerbation of CHF (congestive heart failure) (Acute) Anasarca (Acute) Unable to ambulate (Acute) LE edema CHF DM Stop Lasix drip the patient is negative more than 20 L in 40 hours Change Lasix to 20 mg IV every 6 and is on Aldactone replace K monitor avoid overdiuresis renal fx stable Scr 1.0
[2020-06-14] MEDS: 0.9% Saline Lock 10 ML Syringe IV ×2 (16:24→18:39)
[2020-06-14 16:31] LABS: Bedside Glucose 153 mg/dL (70-110)
[2020-06-14] MEDS: Furosemide 20 MG/2 ML VIAL IV (18:39)
--- NOTE | 2020-06-14 19:48 | NURSING ---
per pt, [place] and he requests that if he needs SNF on [place] we attempt to find one closer. informed pt that likely would not be able to make any DC plans over the weekend due to the holiday but would pass along to CM/TABATHA.
--- NOTE | 2020-06-14 20:07 | NURSING ---
Covid 19 emergency charting in effect.
[2020-06-14] MEDS: Atorvastatin Calcium 40 MG Tablet PO (22:22)
[2020-06-14 22:36] LABS: Bedside Glucose 188 mg/dL (70-110)
[2020-06-15] VITALS (8 sets, daily range): BP systolic 128–133; BP diastolic 53–75; PULSE 63–81; RESP 16–18; TEMP 36.4–37.1; O2SAT 90–97
[2020-06-15] MEDS: oxyCODONE 5 MG Tablet PO (00:56)
[2020-06-15] MEDS: Furosemide 20 MG/2 ML VIAL IV ×3 (00:57→12:12)
[2020-06-15 06:34] LABS: Absolute Neutrophil Count 4.9 X10^3/uL (2.0-7.7); Basophil# 0.03 X10^3/uL; Basophil% 0.3 % (0-1); Eosinophil# 0.28 X10^3/uL; Eosinophils% 3.1 % (0-5); Hematocrit 33.2 % (40-54); Hemoglobin 9.6 g/dL (13.0-16.5); Lymphocyte % 34.5 % (19-41); Mean Corp Hgb Conc 28.9 g/dL (32-36); Mean Corpuscular Hgb 24.9 pg (27.0-32.0); Mean Corpuscular Volume 86.2 fL (80-94); Mean Platelet Vol. 7.7 fl (6.2-12.0); Monocyte# 0.67 X10^3/uL; Monocyte% 7.5 % (0-10); NRBC Flagged by Analyzer 0 % (0-5); Neutrophil # 4.86 X10^3/uL (2.7-7.7); Neutrophil % 54.2 % (47-70); Platelet Count 338 K/mm3 (150-450); RBC Distribution Width CV 16.6 % (11.6-14.6); RBC Distribution Width SD 52.8 fl (35.1-43.9); Red Blood Count 3.85 M/mm3 (4.6-6.2)
[2020-06-15] MEDS: 0.9% Saline Lock 10 ML Syringe IV ×2 (06:41→12:12)
[2020-06-15 06:47] LABS: International Normalized Ratio 2.2
[2020-06-15 07:10] LABS: Anion Gap 2 (5-15); BUN 12 mg/dL (7-18); BUN/Creat Ratio 12.4 RATIO (10-20); Calcium,Total 8.8 mg/dL (8.5-10.1); Chloride 95 mmol/L (98-107); Creatinine, Serum 0.97 mg/dL (0.70-1.30); EST Glomerular Filtration Rate 85 mL/min (>60); Est Glom Filt Rate - Afr Amer 103 mL/min (>60); Estimated Creatinine Clearance 92.22 ml/min; Glucose 88 mg/dL (74-106); Potassium 3.7 mmol/L (3.5-5.1); Sodium Level 136 mmol/L (136-145)
[2020-06-15] MEDS: FLUoxetine 20 MG Capsule PO (09:00)
[2020-06-15] MEDS: Aspirin E.C. 81 MG Tablet PO (09:00)
[2020-06-15] MEDS: Spironolactone 25 MG Tablet PO (09:01)
[2020-06-15] MEDS: ARIPiprazole 10 MG Tablet 30 MG PO (09:01)
[2020-06-15] MEDS: Acetaminophen 325 MG Tablet 650 MG PO (09:08)
[2020-06-15 09:11] LABS: Bedside Glucose 85 mg/dL (70-110)
--- NOTE | 2020-06-15 10:05 | PCM.DC ---
- Discharge Diagnoses Current Active Problems: Current Active and Chronic Problems Anxiety and depression (Chronic) High cholesterol (Chronic) Hypertension (Chronic) Obstructive sleep apnea (Chronic) CVA (cerebral vascular accident) (Chronic) Diabetes (Chronic) Morbid obesity (Chronic) Failure to thrive (Acute) Anemia in chronic illness (Chronic) Anasarca (Acute) Congestive heart failure (Chronic) Lymphedema (Chronic) You will use the following diet at home:: Calorie/Carbohydrate Controlled (specify 1200, 1400, etc) - Carb controlled ADA diet, Cardiac Your food should be the consistency of: Regular Discharge Activity: May Not Drive Call your doctor if you observe: Fever of 101 or Higher, Coldness, Increased Pain, Numbness or Tingling, Change in Color, Inability to urinate, Inability to have a bowel movement, Shortness of breath, Dizziness, Fainting spells, Swelling in the ankles, Chest pain, Prolonged hiccoughing, Increased palpitations (irregular heartbeat), Calf discomfort, Uncontrolled pain Allergies/Adverse Reactions: Allergies gabapentin Adverse Reaction (Verified 06/12/20 16:47) Swelling of legs Medications to take at Discharge Aripiprazole [Abilify] 30 mg PO DAILY 11/04/19 Warfarin [Coumadin] 5 mg PO SUMOTUWETHSA 11/04/19 Aspirin E.C. [Ecotrin] 81 mg PO DAILY@0800 02/20/20 Liraglutide [Victoza 3-Rick] 1.2 mg SQ DAILY 02/20/20 Menthol/Lanolin/Calamine/Znox [Calmoseptine Ointment] 1 applic TOPICAL BID 05/29/20 Nystatin Powder [Mycostatin Powder] 1 applic TOPICAL BID 05/29/20 Rosuvastatin Calcium [Crestor] 20 mg PO DAILY 05/29/20 Warfarin Sodium [Coumadin] 2.5 mg PO FR 05/29/20 Acetaminophen [Tylenol Arthritis] 650 mg PO Q6H PRN PRN 06/12/20 Fluoxetine HCl [Prozac] 20 mg PO DAILY 06/12/20 Insulin U-500 [Humulin R U-500 ([facility])] 120 units SC BID 06/12/20 Spironolactone 25 mg PO BID 06/12/20 Torsemide 40 mg PO BID #60 tab 06/15/20 The following prescriptions were given: Torsemide 40 mg PO BID #60 tab Transmission Status: Pending to [facility] Phys[facility] [Primary [facility] Provider] - Please follow up with your Primary Care Physician in: In 1 to 2 weeks Test Results: Test results from this visit will be discussed in further detail at your follow-up appointment, if applicable. Please Follow Up With: Michel Schilling MD When: In 2 to 3 weeks
--- NOTE | 2020-06-15 10:07 | DS.PCM_ITS ---
Discharge Date and Diagnosis - Problem List Patient Problems: Active and Suspected Problems Failure to thrive (Acute) Anasarca (Acute) Date of Admission: 06/12/20 Date of Discharge: 06/15/20 - Primary Discharge Diagnosis Acute Problems: Active Problems Failure to thrive (Acute) Anasarca (Acute) - Secondary Discharge Diagnosis Chronic Problems: Chronic Problems Anxiety and depression (Chronic) High cholesterol (Chronic) Hypertension (Chronic) Obstructive sleep apnea (Chronic) CVA (cerebral vascular accident) (Chronic) Diabetes (Chronic) Morbid obesity (Chronic) Anemia in chronic illness (Chronic) Congestive heart failure (Chronic) Lymphedema (Chronic) Hospital Course and Treatment Consultations 06/12/20 19:57 Consult: Onc/Wound/industrial chemist Routine Comment: Operations: None Summary of Care Provided: [] This is a 59-year-old gentleman with multiple comorbidities, recent admission 05/29?06/04 for septic shock secondary to left extremity cellulitis, discharged on Levaquin was sent to ER from [facility] for increased lower extremity edema and weight gain. Patient also has left lower extremity blisters which got ruptured. 1. Acute on chronic diastolic heart failure with worsening of LE lymphedema with anasarca, most likely secondary to recent treatment for septic shock. Patient does not have fever has continued leukocytosis from previous hospitalization and is better. At home, patient on torsemide 80 mg daily, spironolactone 25 mg twice daily. Patient was admitted and started on Lasix 60 mg IV twice daily patient is started on Lasix drip and had -9.3 L fluid balance therefore intermittent Lasix was discontinued and started on continuous Lasix drip 5 mg/h. Patient was also on torsemide 100 mg daily which is discontinued. Mild hypokalemia, potassium replaced and patient is on spironolactone. Patient had weight gain of 22 pounds since discharge. Chest x-ray is normal. BNP normal but may be spuriously low secondary to morbid obesity. Nephrology consult.Scott wrap bandage of lower extremities 2D echo 06/04: Interpretation Summary Based upon the 2D echocardiographic and contrast enhanced images obtained there appears to be grossly normal left ventricular size, wall motion, and systolic function. The estimated ejection fraction is 60 %. Trivial mitral valve insufficiency. Trivial tricuspid valve insufficiency. Mild focal aortic valve calcification. Borderline to mildly dilated aortic root. 06/14: K3.1. Patient had -18 L fluid balance. Had 14.5 L urine output yesterday and about 6 L today. Lasix drip was slowed yesterday at 5 mg and will continue. Try to avoid acute decrease in fluid body weight or overdiuresis to avoid cardiopulmonary decompensation. Retort Engineer consult reviewed. Patient had total -20 L negative fluid balance. Had 7.5 L urine output yesterday. Lasix drip was discontinued yesterday and started on Lasix 20 mg IV every 6 hourly. Today I discussed with the heading maker and agrees with the discharge as patient has good diuresis and loss of fluid weight. Agree with the discharge on torsemide 40 mg twice daily along with spironolactone 25 mg twice daily. The patient not on beta-roman or SCOTT/ARB, reason unclear, once patient is euvolemic and if kidney function permits consider beta-roman and SCOTT/ARB. 2 recent treatment of septic shock due to cellulitis: Patient completed Levaquin. 3. FERNANDO - CPAP qhs 4. T2DM with morbid obesity with physical debility- hold victoza, continue U500 at prior dose, Accu-Chek is in his coverage and low sliding scale. Human Resources Psychologist evaluation. 5. Bipolar disorder -Abilify and Prozac. 6. Hx DVT - warfarin. INR therapeutic 7. HLD - statin Discharge medication reconciliation done. Discharge follow-up instructions completed. Discharge process discussed with the patient and all questions were answered to patient's satisfaction. Patient wants to go home and has oxygen at home. Total time spent, exact 35 minutes on discharge meds reconciliation, examination, coordination of care with nurses and ancillary staff, review of i maging and blood test and discussion with the patient on follow-up instructions Patient Problems: Active and Suspected Problems Failure to thrive (Acute) Anasarca (Acute) Objective: Patient heart rate 68/min. Blood pressure 128/75. On 2 L of oxygen. Patient has oxygen at home from previous hospitalization. Diuretic regimen was decreased to 20 mg IV every 6 hourly today by the heading maker. Physical exam General: Alert, Oriented x3, Cooperative, BMI 60.9 kg/m? HEENT: Atraumatic, PERRLA, EOMI, Normocephalic Oral: No Gingival or Mucosal Lesions/ Ulcerations Neck: Supple, No JVD, Negative Carotid Bruits Lungs: Air entry diminished in bilateral lung bases mainly due to obesity. No crepitation/rhonchi. Lungs are clear. Cardiovascular: Regular rate, Regular Rhythm, Normal S1, Normal S2, No murmurs Abdomen: Bowel Sounds Present, Soft, Non Tender, Non-Distended : Patient using urinal. Urine clear. No renal angle tenderness. No suprapubic tenderness. Extremities: Bilateral lower extremity lymphedema with Scott wrap bandage, Capillary Refill Less than 3 Seconds Skin: No rashes, No breakdown Musculoskeletal: No Tenderness to Palpation of Joints or Extremities. Chronic pain and tenderness of right leg. Chronic degenerative joint disease Neurological: Cranial nerves II-XII grossly intact, Deep Tendon Reflexes 2+/4 and Symmetrical, Neuro grossly intact Psych/Mental Status: Normal Affect, Appropriate. - Physical Exam Vitals/I&O's: Vital Signs Temp Pulse Resp BP Pulse Ox 98.7 F 67 18 130/68 H 96 06/15/20 08:58 06/15/20 08:58 06/15/20 08:58 06/15/20 08:58 06/15/20 08:58 Oxygen Flow Rate (L/min) 2 Oxygen Delivery Method Nasal Cannula Weight: 450 lb 2.943 oz Body Mass Index (BMI) 64.4 Intake and Output for Last 24 Hours 06/13/20 06/14/20 06/15/20 23:59 23:59 23:59 Intake Total 1310 / 1310 1562.53 / 1562.53 800 / 800 Output Total 72579 / 05519 7575 / 7575 2125 / 2125 Balance -31690 / -87003 -6012.47 / -6012.47 -1325 / -1325 Laboratory Results 06/14/20 11:44: POC Glucose 186 H 06/14/20 16:23: POC Glucose 153 H 06/14/20 22:26: POC Glucose 188 H 06/15/20 06:15: PT 24.0 H, INR 2.2 06/15/20 06:15: Sodium 136, Potassium 3.7, Chloride 95 L, Carbon Dioxide 39.0 H, Anion Gap 2 L, BUN 12, Creatinine 0.97, Estim Creat Clear Calc 92.22, Est GFR (MDRD) Af Amer 103, Est GFR (MDRD) Non-Af 85, BUN/Creatinine Ratio 12.4, Glucose 88, Calcium 8.8 06/15/20 06:15: WBC 9.0, RBC 3.85 L, Hgb 9.6 L, Hct 33.2 L, MCV 86.2, MCH 24.9 L , MCHC 28.9 L, RDW Std Deviation 52.8 H, RDW Coeff of Varsha 16.6 H, Plt Count 338, MPV 7.7, Immature Gran % (Auto) 0.400, Neut % (Auto) 54.2, Lymph % (Auto) 34.5, Logan % (Auto) 7.5, Eos % (Auto) 3.1, Baso % (Auto) 0.3, Absolute Neuts (auto) 4.9, Absolute Lymphs (auto) 3.10, Nucleated RBC % 0 06/15/20 06:38: POC Glucose 85 Current Medications Acetaminophen (Acetaminophen 325 Mg Tablet) 650 mg PO Q6H PRN PRN PRN Reason: Pain Score 1-10/Temp > 100.7 F Last Admin: 06/15/20 09:08 Dose: 650 mg Documented by: Al Hydroxide/Mg Hydroxide (Mag Hydrox/Al Hydrox/Simeth 30 Ml Udc) 30 ml PO Q6H PRN PRN PRN Reason: Gastric Burning Aripiprazole (Aripiprazole 10 Mg Tablet) 30 mg PO DAILY [facility] Last Admin: 06/15/20 09:01 Dose: 30 mg Documented by: Aspirin (Aspirin E.C. 81 Mg Tablet) 81 mg PO DAILY@0800 [facility] Last Admin: 06/15/20 09:00 Dose: 81 mg Documented by: Atorvastatin Calcium (Atorvastatin Calcium 40 Mg Tablet) 40 mg PO QHS [facility] Last Admin: 06/14/20 22:22 Dose: 40 mg Documented by: Calamine/Phenol (Menthol/Lanolin/Calamine/Znox 113 Gm Tube) 1 applic TOPICAL BID [facility]; Protocol Last Admin: 06/14/20 22:23 Dose: 1 applicatio Documented by: Docusate Sodium (Docusate Sodium 100 Mg Capsule) 100 mg PO BID PRN PRN PRN Reason: Constipation Fluoxetine HCl (Fluoxetine 20 Mg Capsule) 20 mg PO DAILY [facility] Last Admin: 06/15/20 09:00 Dose: 20 mg Documented by: Furosemide (Furosemide 20 Mg/2 Ml Vial) 20 mg IV Q6 [facility] Last Admin: 06/15/20 06:41 Dose: 20 mg Documented by: Insulin Human Lispro (Insulin Lispro 100 Unit/Ml Insuln.Pen) 0 unit SC TIDAC [facility]; Protocol Last Admin: 06/15/20 06:40 Dose: Not Given Documented by: Insulin Human Regular (Insulin U-500 Pen) 120 units SC BID [facility] Last Admin: 06/15/20 09:01 Dose: 120 units Documented by: Melatonin (Melatonin 3 Mg Tablet) 3 mg PO QHS PRN PRN PRN Reason: INSOMNIA Nystatin (Nystatin Powder 15gm Bottle) 1 applic TOPICAL BID [facility]; Protocol Last Admin: 06/14/20 22:23 Dose: 1 applicatio Documented by: Ondansetron HCl (Ondansetron 4 Mg/2 Ml Vial) 4 mg IV Q8H PRN PRN PRN Reason: NAUSEA/VOMITING Oxycodone HCl (Oxycodone 5 Mg Tablet) 5 mg PO Q4H PRN PRN PRN Reason: Pain Score 4-10 Last Admin: 06/15/20 00:56 Dose: 5 mg Documented by: Sodium Chloride (0.9% Saline Lock 10 Ml Syringe) 10 - 40 ml IV UD PRN PRN Reason: SALINE FLUSH Last Admin: 06/15/20 06:41 Dose: 10 ml Documented by: Spironolactone (Spironolactone 25 Mg Tablet) 25 mg PO BID [facility] Last Admin: 06/15/20 09:01 Dose: 25 mg Documented by: Warfarin Sodium (Warfarin 5 Mg Tablet) 5 mg PO SuMoTuWeThSa@1700 [facility] Last Admin: 06/13/20 16:44 Dose: 5 mg Documented by: Warfarin Sodium (Warfarin 2.5 Mg Tablet) 2.5 mg PO Fr@1700 [facility] Last Admin: 06/14/20 16:24 Dose: 2.5 mg Documented by: Discharge Activity: May Not Drive Call your doctor if you observe: Fever of 101 or Higher, Coldness, Increased Pain, Numbness or Tingling, Change in Color, Inability to urinate, Inability to have a bowel movement, Shortness of breath, Dizziness, Fainting spells, Swelling in the ankles, Chest pain, Prolonged hiccoughing, Increased palpitations (irregular heartbeat), Calf discomfort, Uncontrolled pain Home Medications: Medications to take at Discharge Aripiprazole [Abilify] 30 mg PO DAILY 11/04/19 Warfarin [Coumadin] 5 mg PO SUMOTUWETHSA 11/04/19 Aspirin E.C. [Ecotrin] 81 mg PO DAILY@0800 02/20/20 Liraglutide [Victoza 3-Rick] 1.2 mg SQ DAILY 02/20/20 Menthol/Lanolin/Calamine/Znox [Calmoseptine Ointment] 1 applic TOPICAL BID 05/29/20 Nystatin Powder [Mycostatin Powder] 1 applic TOPICAL BID 05/29/20 Rosuvastatin Calcium [Crestor] 20 mg PO DAILY 05/29/20 Warfarin Sodium [Coumadin] 2.5 mg PO FR 05/29/20 Acetaminophen [Tylenol Arthritis] 650 mg PO Q6H PRN PRN 06/12/20 Fluoxetine HCl [Prozac] 20 mg PO DAILY 06/12/20 Insulin U-500 [Humulin R U-500 (BKC)] 120 units SC BID 06/12/20 Spironolactone 25 mg PO BID 06/12/20 Torsemide 40 mg PO BID #60 tab 06/15/20 Following Prescriptions Were Given to Patient: Torsemide 40 mg PO BID #60 tab Transmission Status: Received by [facility] - Please follow up with your Primary Care Physician in: In 1 to 2 weeks Please Follow Up With: Michel Schilling MD When: In 2 to 3 weeks Medical Necessity - Tobacco Use Smoking Status: Never smoker Meaningful Use Info Meaningful Use Diagnoses (Choose all that apply): CHF - CHF SCOTT/ARB ordered at discharge?: No Reason SCOTT/ARB not ordered?: Worsening renal function Documented LVEF (%): 60 Inpatient E&M: 25815 Disch Hosp
--- NOTE | 2020-06-15 11:01 | CASEMGMT ---
Per Dr. Murguia, he plans to discharge pt today and states that pt is refusing SNF at this time. [facility] D/C summ/instructions to be faxed with DEVORAH order, facesheet/H&P once obtained. Misbah ROMERO CM
[2020-06-15 12:10] LABS: Bedside Glucose 133 mg/dL (70-110)
[2020-06-15] MEDS: Menthol/Lanolin/Calamine/Znox 113 GM Tube 1 APPLIC TOPICAL (12:12)
[2020-06-15] MEDS: Nystatin Powder 15gm Bottle 1 APPLIC TOPICAL (12:12)
--- NOTE | 2020-06-15 12:35 | NURSING ---
Informed pt that [facility] did not have the Torsemide medicaion on hand that they could get it wednesday06/17/20 or send it to [facility] or [facility] which have it in stock. Pt stated he has enough at home and if he needed [facility]
--- NOTE | 2020-06-17 16:07 | CASEMGMT ---
NICK ORNELAS Discharge Follow-up Phone Call: GARRY: 14 Strata: 4 Call Date: 06/17/2019 Discharge Date: 06/15/2019 Time of Call: 1600 Duration: 5 min Admitting Diagnosis: Anasarca NICK ORNELAS completed follow-up phone call after recent hospitalization. Patient states he had no questions or concerns regarding discharge instructions. States he was able to fill his prescriptions without any issues. Patient states that [facility] states that they are not taking him back because he is unsafe at home and needs to be in a assisted. NICK ORNELAS called and clarified with [facility] and they did discontinue services for retirement for patient. [facility] director states that they updated [facility] to provided retirement. NICK ORNELAS spoke with [facility] and they are asking OR for [facility] approval for retirement. NICK ORNELAS called and updated patient regarding transfer of services and waiting on OR approval. Patient voiced understanding.
== END 2020-06-15 14:05 | disposition home or self-care (01) | DRG 291 ==
LOC: ED 17:53 → MS3 19:05
PROVIDERS: Family Medicine; Physician Assistant; Admitting Provider Internal Medicine; Emergency Provider Emergency Medicine; Visit Provider Internal Medicine
DX: I13.0 Hypertensive heart and chronic kidney disease with heart failure and stage 1 through stage 4 chronic kidney disease, or unspecified chronic kidney disease (principal); I50.43 Acute on chronic combined systolic (congestive) and diastolic (congestive) heart failure; Z68.44 Body mass index [BMI] 60.0-69.9, adult; N18.2 Chronic kidney disease, stage 2 (mild); R62.7 Adult failure to thrive; E66.01 Morbid (severe) obesity due to excess calories; E11.22 Type 2 diabetes mellitus with diabetic chronic kidney disease; F31.9 Bipolar disorder, unspecified; F41.9 Anxiety disorder, unspecified; G47.33 Obstructive sleep apnea (adult) (pediatric); D63.8 Anemia in other chronic diseases classified elsewhere; I89.0 Lymphedema, not elsewhere classified; E78.5 Hyperlipidemia, unspecified; S80.822A Blister (nonthermal), left lower leg, initial encounter; Z91.19 Patient's noncompliance with other medical treatment and regimen; Z82.49 Family history of ischemic heart disease and other diseases of the circulatory system; Z86.718 Personal history of other venous thrombosis and embolism; X58.XXXA Exposure to other specified factors, initial encounter; Y93.9 Activity, unspecified; Y92.9 Unspecified place or not applicable; Y99.9 Unspecified external cause status; E87.6 Hypokalemia
CPT/HCPCS: 36415; 71045; 80048; 80076; 81001; 82962; 83735; 83880; 84100; 84484; 85025; 85610; 87086; 87088; 93005; 97110; 97116; 97162; 97166; 97530; 97802; 99251; 99285; A4216; G0463; J1940

== ENCOUNTER 2020-06-24 02:48 | Inpatient (IN) | payer OTHER, MEDICARE, MEDICAID, SELFPAY ==
[2020-06-24 02:49] VITALS: BP 110/57; PULSE 77; RESP 18; TEMP 36.4; O2SAT 100; BMI 61.4
--- NOTE | 2020-06-24 02:50 | RAD_ITS ---
STUDY: X-RAY - LEFT KNEE REASON FOR EXAM: Male, 59 years old. FELL -- C/O LT KNEE PAIN -- BEST IMAGES POSSIBLE, DUE TO PATIENT''S VERY LARGE BODY HABITUS AND INABILITY TO MOVE LEG TECHNIQUE: 3 view(s) of the knee. COMPARISON: None. FINDINGS: There is demineralization of the visualized distal femur. 2 Normal proximal tibiofibular articulation. There is no demonstrated fracture. Normal medial femorotibial compartment. Normal lateral femorotibial compartment. Degenerative disease at the patellofemoral joint with irregularity posteriorly which may indicate some erosive change. No distinct fracture seen. Minimal joint effusion. Soft tissue swelling along the anterior tibia. RAD/Knee 1 or 2 Views IMPRESSION: Degenerative disease more so along the patellofemoral articulation. Minimal joint effusion. No acute fracture. Electronically Signed: Whitney Hanks MD at 3:12 EST , Service support ,
--- NOTE | 2020-06-24 02:50 | ED.DCSUM_ITS ---
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 Negative for: Weakness, Loss of consciousness, Amnesia Narrative: Patient was in his living room getting up from a couch, he lost his balance and fell forward to his knees versus carpeted floor, injuring the left 1. Not able to get up. Required EMS to bring him to the hospital. Denies any other injuries, no prodromal symptoms. States he recently was in the hospital for water retention. Right knee is not injured or hurting. Patient is morbidly obese and has lymphedema. He states he lives on his own and has an aide that comes to help him sometimes. - Past Medical History (1) Anemia in chronic illness Status: Chronic (2) Anxiety and depression Status: Chronic (3) CVA (cerebral vascular accident) Status: Chronic (4) Congestive heart failure Status: Chronic (5) Diabetes Status: Chronic (6) High cholesterol Status: Chronic (7) Hypertension Status: Chronic (8) Lymphedema Status: Chronic (9) Morbid obesity Status: Chronic (10) Obstructive sleep apnea Status: Chronic Past Medical History - Allergies and Home Meds Allergies/Adverse Reactions: Allergies gabapentin Adverse Reaction (Verified 06/24/20 02:49) Swelling of legs Surgical History: tonsillectomy, - - 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 Lives: Alone Smoking Status: Never smoker - Family History Maternal Family History: Reports: Heart Disease - Mother with history of significant CHF. Paternal Family History: Reports: Cancer - Father with a history of mesothelioma. Review of Systems General: Denies: Chills, Fever, Sweats Eyes: Denies: Visual changes - bilaterally, Diplopia ENT: Denies: Rhinorrhea, Sore throat Cardiovascular: Denies: Chest pain, Palpitations Respiratory: Denies: Dyspnea, Cough Gastrointestinal: Denies: Abdominal pain, Nausea, Vomiting, Diarrhea, Melena, Hematochezia Genitourinary: Denies: Dysuria, Hematuria, Frequency Musculoskeletal: Reports: Swelling - chronic, Extremity Pain. Denies: Back pain Skin: Reports: Wounds - left lateral calf. Denies: Rash Neurological: Reports: Numbness - both feet chronic unchanged. Denies: Headache, Weakness Physical Exam Inital Vital Signs reviewed: Yes General: Well nourished, Well developed, Obese, - - NAD Head: Normocephalic, Atraumatic Eyes: Perrl, EOMI ENT: No trauma. Negative for: Otorrhea Neck: Nontender, Full ROM Cardiovascular: Regular rate, Regular rhythm, No murmurs Respiratory: No distress, CTA bilaterally, Chest nontender Abdomen: Soft, Nontender, Nondistended Back: Nontender, - - able to range back w/o pain Extremeties: Morbid obesity and chronic lower extremity lymphedema limits exam. Full range of motion throughout both upper extremities and right lower extremity, very limited range of motion left knee due to pain. Diffuse tenderness around the anterior and medial/lateral aspect of left knee, in addition to the proximal lower leg. No deformities able to be appreciated. No other areas of tenderness in the left lower extremity. There is a superficial wound at the lateral aspect of the mid left calf that does not appear to be infected, there is an ABD pad on it. There is diffuse dermatitis throughout both lower extremities without signs of cellulitis acutely. Skin: Normal color, No Trauma, Rash - chronic stasis dermatitis BLE; wound left lateral lower leg as above w/ granulation tissue present Neurological: Alert, Oriented x3, Cranial nerves II-XII grossly intact, Normal Strength, Normal Sensation Psychological: Normal affect, Normal Mood Diagnostic/Tx/Re-eval Impressions Knee X-Ray 06/24/20 02:50 IMPRESSION: Degenerative disease more so along the patellofemoral articulation. Minimal joint effusion. No acute fracture. Electronically Signed: Whitney Hanks MD at 3:12 EST , Service support , Lower Extremity CT 06/24/20 03:29 IMPRESSION: The medial tibial plateau is fractured without depression, its posteriorly fractured or split approximately at the level of the insertion of the posterior cruciate ligament. Consider possible avulsion injury cannot exclude injury to the posterior longitudinal ligament. If possible an MRI would be suggested if appropriate. See image #94 series 601. There is a moderate joint effusion. Extensive distortion of the knee joint. There is diffuse soft tissue edema. There is soft tissue edema also partially seen on the right side lower extremity. This may not all be posttraumatic. Consider venous stasis. There are numerous varicosities. Electronically Signed: Nakita Lara MD at 4:13 EST Tel , Service support , 06/24/20 02:50 Knee 1 or 2 Views [RAD] Stat 06/24/20 03:29 CT LE [Extremity Lower without Contra] [CT] Stat Laboratory Results 06/24/20 06/24/20 03:12 03:12 WBC 11.1 H RBC 4.05 L Hgb 10.3 L Hct 34.4 L MCV 84.9 MCH 25.4 L MCHC 29.9 L RDW Std Deviation 51.6 H RDW Coeff of Varsha 16.6 H Plt Count 312 MPV 8.3 Immature Gran % (Auto) 0.700 Neut % (Auto) 59.3 Lymph % (Auto) 28.5 [place] % (Auto) 8.4 Eos % (Auto) 2.6 Baso % (Auto) 0.5 Absolute Neuts (auto) 6.6 Absolute Lymphs (auto) 3.15 Nucleated RBC % 0 Sodium 131 L Potassium 4.1 Chloride 96 L Carbon Dioxide 29.0 Anion Gap 6 BUN 30 H Creatinine 1.37 H Estim Creat Clear Calc 65.30 Est GFR (MDRD) Af Amer 69 Est GFR (MDRD) Non-Af 57 L BUN/Creatinine Ratio 21.9 H Glucose 236 H Calcium 8.8 - Medical Decision Making Due to the patient's morbid obesity, lymphedema, and very limited range of motion, only 2 view of the left knee was possible. On my interpretation, 2 view x-ray of the left knee showed no acute fractures or dislocations. History does not support a transient knee dislocation. He is unable to move his leg even after analgesics, complaining of pain and unable to bear weight even with his cane. For these reasons CT of the knee was obtained, and shows a nondepressed small medial plateau fracture along with an effusion. This does explain his pain. Discussed with orthopedics Dr. Vanessa, who is amenable with us admitting him for consultation, discussed with hospitalist. ED Disposition - Plan for ED Patient: Disposition: Acute Care Hospital [facility] Diagnosis: Accidental fall, Inability to ambulate due to left knee, Lymphedema, Morbid obesity, Left medial tibial plateau fracture
[2020-06-24] MEDS: HYDROcodone Bitartrate/Apap 5/325 Tablet PO (03:18)
[2020-06-24 03:22] LABS: Absolute Lymphocyte Count 3.15 X10^3/uL (0.83-4.51); Absolute Neutrophil Count 6.6 X10^3/uL (2.0-7.7); Basophil# 0.06 X10^3/uL; Basophil% 0.5 % (0-1); Eosinophil# 0.29 X10^3/uL; Eosinophils% 2.6 % (0-5); Hematocrit 34.4 % (40-54); Hemoglobin 10.3 g/dL (13.0-16.5); Lymphocyte # 3.15 X10^3/ul (4.0); Lymphocyte % 28.5 % (19-41); Mean Corp Hgb Conc 29.9 g/dL (32-36); Mean Corpuscular Hgb 25.4 pg (27.0-32.0); Mean Corpuscular Volume 84.9 fL (80-94); Mean Platelet Vol. 8.3 fl (6.2-12.0); Monocyte# 0.93 X10^3/uL; Monocyte% 8.4 % (0-10); NRBC Flagged by Analyzer 0 % (0-5); Neutrophil # 6.55 X10^3/uL (2.7-7.7); Neutrophil % 59.3 % (47-70); Platelet Count 312 K/mm3 (150-450); RBC Distribution Width CV 16.6 % (11.6-14.6); RBC Distribution Width SD 51.6 fl (35.1-43.9); Red Blood Count 4.05 M/mm3 (4.6-6.2); White Blood Count 11.1 K/mm3 (4.4-11.0)
--- NOTE | 2020-06-24 03:29 | CT_ITS ---
STUDY: CT LEFT KNEE WITHOUT CONTRAST REASON FOR EXAM: Male, 59 years old. FELL AT HOME, UNABLE TO AMBULATE, HX CHF, HTN, DIAB, BONE CA IN 2010 RADIATION DOSAGE (If Supplied By Facility): CTDIvol = ( 26.45 ) mGy, DLP = ( 1059.06 ) mGycm TECHNIQUE: Transaxial CT imaging of the knee was performed. Coronal and sagittal images were reformatted. Individualized dose optimization techniques were used for this CT. COMPARISON: June 24, 2020 left knee x-ray FINDINGS: Normal medial femoral condyle.. There is a narrowed appearance of the medial compartment of the knee. There is an acute nondisplaced fracture, split appearance of the posterior medial tibial plateau. This fracture line is best seen in image #54 of the coronal views and image #66 of the axial views. There may be a slight avulsion fragment. There is also a offset appearance of the knee that is given the positioning is somewhat difficult to clarify that there is a fairly normal alignment of the lateral compartment yet there is a slightly oblique appearance of the medial compartment. The attachment of the posterior cruciate ligament is faintly visualized at that level and does insert in or near this fracture line. There is mild narrowing of the lateral compartment with mild osteophyte formation. There is near preservation of the articular joint space of the lateral knee compartment. There is moderate arthrosis of the patellofemoral compartment. There is a moderate joint effusion with elevated Hounsfield units. There is visualized superficial tissue edema sizable peripheral varicosities. Normal proximal tibiofibular articulation. The quadriceps tendon is grossly normal. The patellar tendon is grossly normal. Normal Hoffa''s fat pad. CT/Extremity Lower without Contra IMPRESSION: The medial tibial plateau is fractured without depression, its posteriorly fractured or split approximately at the level of the insertion of the posterior cruciate ligament. Consider possible avulsion injury cannot exclude injury to the posterior longitudinal ligament. If possible an MRI would be suggested if appropriate. See image #94 series 601. There is a moderate joint effusion. Extensive distortion of the knee joint. There is diffuse soft tissue edema. There is soft tissue edema also partially seen on the right side lower extremity. This may not all be posttraumatic. Consider venous stasis. There are numerous varicosities. Electronically Signed: Nakita Lara MD at 4:13 EST Tel , Service support ,
[2020-06-24 03:36] LABS: Anion Gap 6 (5-15); BUN 30 mg/dL (7-18); BUN/Creat Ratio 21.9 RATIO (10-20); Calcium,Total 8.8 mg/dL (8.5-10.1); Chloride 96 mmol/L (98-107); Creatinine, Serum 1.37 mg/dL (0.70-1.30); EST Glomerular Filtration Rate 57 mL/min (>60); Est Glom Filt Rate - Afr Amer 69 mL/min (>60); Glucose 236 mg/dL (74-106); Potassium 4.1 mmol/L (3.5-5.1); Sodium Level 131 mmol/L (136-145)
--- NOTE | 2020-06-24 03:45 | PCM.HP.STD ---
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 Diabetes mellitus complication status: with other specified complication Qualified Code(s): E11.69 - Type 2 diabetes mellitus with other specified complication; Z79.4 - manager intermediate (current) use of insulin (6) Morbid obesity Status: Chronic (7) Failure to thrive Status: Acute Qualifiers: Failure to thrive age range: in adult Qualified Code(s): R62.7 - Adult failure to thrive (8) Left medial tibial plateau fracture Status: Acute Qualifiers: Encounter type: initial encounter Fracture type: closed Qualified Code(s): S82.132A - Displaced fracture of medial condyle of left tibia, initial encounter for closed fracture History of Present Illness Date of Admission: 06/24/20 Chief Complaint: Fall, inability to stand - 1day The patient is a 59 year old M with multiple comorbidities including anasarca, lymphedema, FERNANDO, type II DM who was recently discharged on 06/15/2020. Patient was managed as acute on chronic diastolic CHF with worsening left lower extremity lymphedema with anasarca. It was felt that patient was unable to take care of himself at home and should be discharged to a intermediate facility at discharge. Whilst in the hospital, he improved with Lasix drip. Patient however refused to be discharged to a intermediate facility and wanted to go home on oxygen. He was discharged with [facility]. Per follow-up case management notes, patient's home health care refused to take him back because he is unsafe at home; it was recommended he should be in a fci. Patient comes in today after a fall. He stated that he was trying to get up from sitting, when he lost his balance and fell forward on his carpeted floor. He is unable to bear weight on his left leg. Pain is localized in the left knee, worse with movement. Vitals show temperature of 97.6F, heart rate 77, blood pressure 110/57, respiratory rate 18, SPO2 was 100% on room air. WBC 11.1, Hb 10.3, Plt 312, sodium 131, potassium 4.1, chloride 96, bicarbonate 29, BUN 30, creatinine 1.37, blood creatinine was 0.97 X-ray of the knee showed degenerative changes along the patellofemoral articulation, minimal joint effusion, no acute fracture. CT of the lower extremity Past Medical History Past Medical History (Chronic Problems): Chronic Problems Anxiety and depression (Chronic) High cholesterol (Chronic) Hypertension (Chronic) Obstructive sleep apnea (Chronic) CVA (cerebral vascular accident) (Chronic) Diabetes (Chronic) Morbid obesity (Chronic) Anemia in chronic illness (Chronic) Anasarca (Chronic) Congestive heart failure (Chronic) Lymphedema (Chronic) Allergies gabapentin Adverse Reaction (Verified 06/24/20 02:49) Swelling of legs Home Medications: Ambulatory Orders Medication Instructions Recorded Aripiprazole [Abilify] 30 mg PO DAILY 11/04/19 Warfarin [Coumadin] 5 mg PO SUMOTUWETHSA 11/04/19 Aspirin E.C. [Ecotrin] 81 mg PO DAILY@0800 02/20/20 Liraglutide [Victoza 3-Rick] 1.2 mg SQ DAILY 02/20/20 Menthol/Lanolin/Calamine/Znox 1 applic TOPICAL BID 05/29/20 [Calmoseptine Ointment] Nystatin Powder [Mycostatin Powder] 1 applic TOPICAL BID 05/29/20 Rosuvastatin Calcium [Crestor] 20 mg PO QHS 05/29/20 Warfarin Sodium [Coumadin] 2.5 mg PO FR 05/29/20 Acetaminophen [Tylenol Arthritis] 650 mg PO Q6H PRN PRN 06/12/20 Fluoxetine HCl [Prozac] 20 mg PO DAILY 06/12/20 Insulin U-500 [Humulin R U-500 120 units SC BID 06/12/20 ([facility])] Spironolactone 50 mg PO BID 06/12/20 Torsemide 40 mg PO BID #60 tab 06/15/20 Surgical History: tonsillectomy, - - 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 Psychiatric History: Anxiety, Bipolar, Depression Lives: Alone Smoking Status: Never smoker Tobacco Use: Non-smoker Alcohol: None Drugs: None - *Family History Maternal History Items: Heart Disease - Mother with history of significant CHF. Paternal History Items: Cancer - Father with a history of mesothelioma. Review of Systems Constitutional: Reports: Malaise, Weakness, Fatigue. Denies: Anorexia, Chills, Fever, Weight Change Eyes: Denies: Blurred vision, Cataracts, Conjunctivae Inflammation, Pain, Redness, Vision Change HEENT: Denies: Head Aches, Hearing Changes, Sinus Congestion, Sinus Drainage Cardiovascular: Denies: Chest Pain, Claudication, Orthopnea, Palpitations, Paroxysmal Noc. Dyspnea Respiratory: Denies: Cough, Hemoptysis, Shortness of breath at rest, Shortness of breath upon exertion, Sputum production Gastrointestinal: Denies: Abdominal Pain, Constipation, Hematemesis, Nausea, Vomiting Genitourinary: Denies: Dysuria, Incontinence Musculoskeletal: Reports: Joint Pain, Joint swelling, Joint Tenderness Skin: Reports: Pruritis, Rash, Wounds - Chronic discharging wound from the left posterior leg Neurological: Denies: Difficulty swallowing, Focal weakness, Numbness, Tingling Psychiatric: Denies: Anxiety, Depression, Homicidal Ideations, Suicidal Ideations Hematologic/ Lymphatic: Denies: Easy Bruising, Easy Bleeding VTE Information - Inpt Only VTE Present on Admission: No VTE Pharm Prophylaxis ordered?: Yes Patient Problems: Active and Suspected Problems Accidental fall (Acute) Inability to ambulate due to left knee (Acute) Left medial tibial plateau fracture (Acute) - Physical Exam Vitals/I&O's: Vital Signs Temp Pulse Resp BP Pulse Ox 97.6 F L 77 18 110/57 L 100 06/24/20 02:49 06/24/20 02:49 06/24/20 02:49 06/24/20 02:49 06/24/20 02:49 Oxygen Delivery Method Room Air Weight: 205.6 kg Body Mass Index (BMI) 61.4 General: Alert, Oriented x3, Cooperative, - - in mild distress from pain, super morbid obesity, not pale HEENT: Atraumatic, PERRLA, EOMI, Normocephalic Oral: Moist Mucosa Neck: Supple Lungs: Diminished Cardiovascular: Regular rate, Regular Rhythm, Normal S1, Normal S2, No murmurs Abdomen: Bowel Sounds Present, Soft, Non Tender, Non-Distended, No Hepato-splenomegaly Extremities: Edema - bilateral lymphodema, pedal edema +4, anasarca, chronic venous stasis, scaling of skin, chronic discharge from left posterior leg edema Skin: No rashes, No breakdown Musculoskeletal: No Tenderness to Palpation of Joints or Extremities Neurological: Cranial nerves II-XII grossly intact Psych/Mental Status: Normal Affect, Appropriate Laboratory Results 06/24/20 03:12: WBC 11.1 H, RBC 4.05 L, Hgb 10.3 L, Hct 34.4 L, MCV 84.9, MCH 25.4 L, MCHC 29.9 L, RDW Std Deviation 51.6 H, RDW Coeff of Varsha 16.6 H, Plt Count 312, MPV 8.3, Immature Gran % (Auto) 0.700, Neut % (Auto) 59.3, Lymph % (Auto) 28.5, [place] % (Auto) 8.4, Eos % (Auto) 2.6, Baso % (Auto) 0.5, Absolute Neuts (auto) 6.6, Absolute Lymphs (auto) 3.15, Nucleated RBC % 0 06/24/20 03:12: Sodium 131 L, Potassium 4.1, Chloride 96 L, Carbon Dioxide 29.0, Anion Gap 6, BUN 30 H, Creatinine 1.37 H, Estim Creat Clear Calc 65.30, Est GFR (MDRD) Af Amer 69, Est GFR (MDRD) Non-Af 57 L, BUN/Creatinine Ratio 21.9 H, Glucose 236 H, Calcium 8.8 Assessment/Plan All Active Problems Cellulitis of right leg (Acute) Septic shock (Acute) Cellulitis (Acute) Failure to thrive (Acute) Accidental fall (Acute) Inability to ambulate due to left knee (Acute) Left medial tibial plateau fracture (Acute) Acute exacerbation of CHF (congestive heart failure) (Acute) Unable to ambulate (Acute) 1. Acute left tibia medial plateau fracture, mechanical secondary to fall Patient with baseline poor performance status; chronic debility from multiple comorbidities X-ray of the left knee shows degenerative changes along the patellofemoral articulation CT of the knee from medial tibial plateau fracture without depression; fracture approximately at the level of insertion of posterior cruciate ligament, possible avulsion injury Orthopedics consulted from the ED; Continue with pain control PT/OT to evaluate and treat; patient needs to be discharged to a intermediate facility as he is unable to take care of himself. 2. Left lower extremity cellulitis, mild with left chronic posterior leg wound Patient with underlining lymphedema, chronic venous skin changes and scaling Will start patient on cefazolin, wound RN consult 3. Chronic diastolic CHF/anasarca/lymphedema, patient's discharge weight looks about the same as admission weight. Continue on torsemide, spironolactone CHF protocol, fluid restriction 4. Type II DM, insulin regimen, continue with home insulin, blood glucose check with insulin sliding scale 5. FERNANDO on CPAP 6. Bipolar disorder, continue on Abilify, Prozac 7. History of DVT on warfarin, INR is therapeutic at 2.7 8. DVT prophylaxis?on warfarin Inpatient E&M: 52796 Init Hosp L3
[2020-06-24 04:14] LABS: International Normalized Ratio 2.7; Prothrombin Time (Protime)PT. 28.2 SECONDS (11.7-14.9)
[2020-06-24 04:33] VITALS: BP 120/86; PULSE 86; RESP 16; TEMP 36.4; O2SAT 98
[2020-06-24 04:48] VITALS: BP 130/67; PULSE 72; RESP 16; TEMP 36.4; O2SAT 98
[2020-06-24 04:49] VITALS: BMI 62.4
[2020-06-24 04:53] VITALS: BMI 62.4
[2020-06-24 04:54] LABS: ALB/GLOB Ratio 0.5 RATIO (0.9-2.4); AST(SGOT) 14 U/L (15-37); Alanine Aminotransfer ALT/SGPT 17 U/L (16-61); Albumin, Serum 2.7 g/dL (3.2-5.0); Alkaline Phosphatase 88 U/L (45-117); Anion Gap 7 (5-15); BUN 31 mg/dL (7-18); BUN/Creat Ratio 22.5 RATIO (10-20); Calcium,Total 8.8 mg/dL (8.5-10.1); Chloride 96 mmol/L (98-107); Creatinine, Serum 1.38 mg/dL (0.70-1.30); EST Glomerular Filtration Rate 56 mL/min (>60); Est Glom Filt Rate - Afr Amer 68 mL/min (>60); Estimated Creatinine Clearance 64.82 ml/min; Globulin 5.6 g/dL (2.2-4.2); Glucose 232 mg/dL (74-106); Potassium 4.1 mmol/L (3.5-5.1); Protein, Total 8.3 g/dL (6.4-8.2); Sodium Level 131 mmol/L (136-145)
[2020-06-24] MEDS: 0.9% Saline Lock 10 ML Syringe IV ×6 (05:00→22:43)
[2020-06-24] MEDS: Morphine 2 MG/ML Syringe IV ×4 (05:00→20:49)
--- NOTE | 2020-06-24 05:06 | EKG12_ITS ---
Test Reason : PRE-OP Blood Pressure : / mmHG Vent. Rate : 075 BPM Atrial Rate : 075 BPM P-R Int : 166 ms QRS Dur : 104 ms QT Int : 394 ms P-R-T Axes : 018 007 023 degrees QTc Int : 439 ms Normal sinus rhythm with sinus arrhythmia Normal ECG When compared with ECG of 12-JUN-2020 17:17, No significant change was found Confirmed by FELIPE DENIS, JOSE L ([id number]), book editor OMKAR PAZ ([id number]) on 06/24/2020 1:11:30 PM Referred By: JUJU Confirmed By:JOSE L WANG MD
[2020-06-24] MEDS: Cefazolin 2 GM in 0.9% Normal Saline 100 ML IV ×3 (05:46→22:41)
[2020-06-24 06:13] LABS: Absolute Neutrophil Count 8.3 X10^3/uL (2.0-7.7); Basophil# 0.04 X10^3/uL; Basophil% 0.3 % (0-1); Eosinophil# 0.15 X10^3/uL; Eosinophils% 1.2 % (0-5); Hematocrit 32.8 % (40-54); Hemoglobin 9.8 g/dL (13.0-16.5); Lymphocyte % 20.6 % (19-41); Mean Corp Hgb Conc 29.9 g/dL (32-36); Mean Corpuscular Hgb 25.2 pg (27.0-32.0); Mean Corpuscular Volume 84.3 fL (80-94); Mean Platelet Vol. 8.3 fl (6.2-12.0); Monocyte# 0.98 X10^3/uL; Monocyte% 8.1 % (0-10); NRBC Flagged by Analyzer 0 % (0-5); Neutrophil # 8.33 X10^3/uL (2.7-7.7); Neutrophil % 68.7 % (47-70); Platelet Count 294 K/mm3 (150-450); RBC Distribution Width CV 16.6 % (11.6-14.6); Red Blood Count 3.89 M/mm3 (4.6-6.2); White Blood Count 12.1 K/mm3 (4.4-11.0)
[2020-06-24] MEDS: Insulin Lispro 100 UNIT/ML INSULN.PEN SC ×4 (06:43→22:34)
[2020-06-24 06:45] LABS: Bedside Glucose 203 mg/dL (70-110)
[2020-06-24] MEDS: oxyCODONE 5 MG Tablet 10 MG PO ×4 (07:50→22:41)
[2020-06-24] MEDS: Acetaminophen 325 MG Tablet 650 MG PO ×2 (07:50→16:13)
[2020-06-24 07:55] VITALS: BP 114/71; PULSE 99; RESP 18; TEMP 36.7; O2SAT 98
[2020-06-24] MEDS: Furosemide 80 MG Tablet PO ×2 (07:56→18:02)
[2020-06-24] MEDS: FLUoxetine 20 MG Capsule PO (07:56)
[2020-06-24] MEDS: Aspirin E.C. 81 MG Tablet PO (07:56)
[2020-06-24] MEDS: ARIPiprazole 10 MG Tablet 30 MG PO (07:56)
[2020-06-24] MEDS: Spironolactone 25 MG Tablet PO ×2 (07:56→22:34)
--- NOTE | 2020-06-24 08:03 | PCM.CONS.GEN ---
Reason for Consult Date of Consultation: 06/24/20 History of Present Illness: The patient is a 59 year old M morbidly obese with lymphedema status post ground-level fall on the left knee patient states he normally uses a walker does have pain in his knee Past Medical History Past Medical History (Chronic Problems): Chronic Problems Anxiety and depression (Chronic) High cholesterol (Chronic) Hypertension (Chronic) Obstructive sleep apnea (Chronic) CVA (cerebral vascular accident) (Chronic) Diabetes (Chronic) Morbid obesity (Chronic) Anemia in chronic illness (Chronic) Anasarca (Chronic) Congestive heart failure (Chronic) Lymphedema (Chronic) Allergies gabapentin Adverse Reaction (Verified 06/24/20 02:49) Swelling of legs Home Medications: Ambulatory Orders Medication Instructions Recorded Aripiprazole [Abilify] 30 mg PO DAILY 11/04/19 Warfarin [Coumadin] 5 mg PO SUMOTUWETHSA 11/04/19 Aspirin E.C. [Ecotrin] 81 mg PO DAILY@0800 02/20/20 Liraglutide [Victoza 3-Rick] 1.2 mg SQ DAILY 02/20/20 Menthol/Lanolin/Calamine/Znox 1 applic TOPICAL BID 05/29/20 [Calmoseptine Ointment] Nystatin Powder [Mycostatin Powder] 1 applic TOPICAL BID 05/29/20 Rosuvastatin Calcium [Crestor] 20 mg PO QHS 05/29/20 Warfarin Sodium [Coumadin] 2.5 mg PO FR 05/29/20 Acetaminophen [Tylenol Arthritis] 650 mg PO Q6H PRN PRN 06/12/20 Fluoxetine HCl [Prozac] 20 mg PO DAILY 06/12/20 Insulin U-500 [Humulin R U-500 120 units SC BID 06/12/20 ([facility])] Spironolactone 50 mg PO BID 06/12/20 Torsemide 40 mg PO BID #60 tab 06/15/20 Surgical History: tonsillectomy, - - 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 Psychiatric History: Anxiety, Bipolar, Depression Lives: Alone Smoking Status: Never smoker Tobacco Use: Non-smoker Alcohol: None Drugs: None - *Family History Maternal History Items: Heart Disease - Mother with history of significant CHF. Paternal History Items: Cancer - Father with a history of mesothelioma. Patient Problems: Active and Suspected Problems Failure to thrive (Acute) Accidental fall (Acute) Inability to ambulate due to left knee (Acute) Left medial tibial plateau fracture (Acute) - Physical Exam Vitals/I&O's: Vital Signs Temp Pulse Resp BP Pulse Ox 97.5 F L 72 16 130/67 H 98 06/24/20 04:48 06/24/20 04:48 06/24/20 04:48 06/24/20 04:48 06/24/20 04:48 Oxygen Delivery Method Room Air Weight: 460 lb Body Mass Index (BMI) 62.4 Intake and Output for Last 24 Hours 06/22/20 06/23/20 06/24/20 23:59 23:59 23:59 Intake Total 110 / 110 Output Total 500 / 500 Balance -390 / -390 General: Alert, Oriented x3, Cooperative, No apparent distress Extremities: - - Super morbid obesity, able to dorsiflex plantarflex ankle 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 no open lesions around knees possible joint effusion difficult to ascertain secondary to adipose envelope is able to extend and flex the knee Laboratory Results 06/24/20 03:12: WBC 11.1 H, RBC 4.05 L, Hgb 10.3 L, Hct 34.4 L, MCV 84.9, MCH 25.4 L, MCHC 29.9 L, RDW Std Deviation 51.6 H, RDW Coeff of Varsha 16.6 H, Plt Count 312, MPV 8.3, Immature Gran % (Auto) 0.700, Neut % (Auto) 59.3, Lymph % (Auto) 28.5, [place] % (Auto) 8.4, Eos % (Auto) 2.6, Baso % (Auto) 0.5, Absolute Neuts (auto) 6.6, Absolute Lymphs (auto) 3.15, Nucleated RBC % 0 06/24/20 03:12: Sodium 131 L, Potassium 4.1, Chloride 96 L, Carbon Dioxide 29.0, Anion Gap 6, BUN 30 H, Creatinine 1.37 H, Estim Creat Clear Calc 65.30, Est GFR (MDRD) Af Amer 69, Est GFR (MDRD) Non-Af 57 L, BUN/Creatinine Ratio 21.9 H, Glucose 236 H, Calcium 8.8 06/24/20 03:12: Sodium 131 L, Potassium 4.1, Chloride 96 L, Carbon Dioxide 28.0, Anion Gap 7, BUN 31 H, Creatinine 1.38 H, Estim Creat Clear Calc 64.82, Est GFR (MDRD) Af Amer 68, Est GFR (MDRD) Non-Af 56 L, BUN/Creatinine Ratio 22.5 H, Glucose 232 H, Calcium 8.8, Total Bilirubin 0.30, Direct Bilirubin 0.10, AST 14 L, ALT 17, Alkaline Phosphatase 88, Total Protein 8.3 H, Albumin 2.7 L, Globulin 5.6 H, Albumin/Globulin Ratio 0.5 L 06/24/20 03:45: PT 28.2 H, INR 2.7 06/24/20 06:05: WBC 12.1 H, RBC 3.89 L, Hgb 9.8 L, Hct 32.8 L, MCV 84.3, MCH 25.2 L, MCHC 29.9 L, RDW Std Deviation 51.0 H, RDW Coeff of Varsha 16.6 H, Plt Count 294, MPV 8.3, Immature Gran % (Auto) 1.100 H, Neut % (Auto) 68.7, Lymph % (Auto) 20.6, [place] % (Auto) 8.1, Eos % (Auto) 1.2, Baso % (Auto) 0.3, Absolute Neuts (auto) 8.3 H, Absolute Lymphs (auto) 2.50, Nucleated RBC % 0 06/24/20 06:41: POC Glucose 203 H Current Medications Acetaminophen (Acetaminophen 325 Mg Tablet) 650 mg PO Q6H PRN PRN PRN Reason: Pain Score 1-10/Temp > 100.7 F Last Admin: 06/24/20 07:50 Dose: 650 mg Documented by: Albuterol Sulfate (Albuterol 2.5 Mg/3 Ml Vial.Neb.) 2.5 mg INHALATION Q2H PRN PRN PRN Reason: Shortness of Breath/Wheezing Aripiprazole (Aripiprazole 10 Mg Tablet) 30 mg PO DAILY [facility] Last Admin: 06/24/20 07:56 Dose: 30 mg Documented by: Aspirin (Aspirin E.C. 81 Mg Tablet) 81 mg PO DAILY@0800 [facility] Last Admin: 06/24/20 07:56 Dose: 81 mg Documented by: Atorvastatin Calcium (Atorvastatin Calcium 40 Mg Tablet) 40 mg PO DAILY@2200 [facility] Calamine/Phenol (Menthol/Lanolin/Calamine/Znox 113 Gm Tube) 1 applic TOPICAL BID [facility]; Protocol Dextrose (Dextrose 50%-Water 25 Gm/50 Ml Disp.Syrin) 0 gm IV X1 PRN; Protocol PRN Reason: Hypoglycemia Fluoxetine HCl (Fluoxetine 20 Mg Capsule) 20 mg PO DAILY [facility] Last Admin: 06/24/20 07:56 Dose: 20 mg Documented by: Furosemide (Furosemide 80 Mg Tablet) 80 mg PO BIDLX [facility] Last Admin: 06/24/20 07:56 Dose: 80 mg Documented by: Glucagon (Glucagon 1 Mg/Ml Syringe) 1 mg IM .X1 PRN PRN Reason: Hypoglycemia Cefazolin Sodium 2 gm/ Sodium (Chloride) 110 mls @ 150 mls/hr IV Q8 [facility] Last Infusion: 06/24/20 06:30 Dose: Infused Documented by: Insulin Human Lispro (Insulin Lispro 100 Unit/Ml Insuln.Pen) 0 unit SC ACHS [facility]; Protocol Last Admin: 06/24/20 06:43 Dose: 1 u Documented by: Insulin Human Regular (Insulin U-500 Pen) 120 units SC BID [facility] Liraglutide (Liraglutide 0.6 Mg/0.1 Ml Pen.Injctr) 1.2 mg SQ DAILY [facility] Morphine Sulfate (Morphine 2 Mg/Ml Syringe) 2 mg IV Q3H PRN PRN PRN Reason: Pain Score 6-10 Last Admin: 06/24/20 05:00 Dose: 2 mg Documented by: Nystatin (Nystatin Powder 15gm Bottle) 1 applic TOPICAL BID [facility]; Protocol Ondansetron HCl (Ondansetron 4 Mg/2 Ml Vial) 4 mg IV Q8H PRN PRN PRN Reason: NAUSEA/VOMITING Oxycodone HCl (Oxycodone 5 Mg Tablet) 10 mg PO Q4H PRN PRN PRN Reason: Pain Score 6-10 Last Admin: 06/24/20 07:50 Dose: 10 mg Documented by: Senna/Docusate Sodium (Senna/Docusate Sodium 1 Tablet) 2 tablet PO BID PRN PRN PRN Reason: Constipation Sodium Chloride (0.9% Saline Lock 10 Ml Syringe) 10 - 40 ml IV UD PRN PRN Reason: SALINE FLUSH Last Admin: 06/24/20 05:46 Dose: 10 ml Documented by: Spironolactone (Spironolactone 25 Mg Tablet) 25 mg PO BID [facility] Last Admin: 06/24/20 07:56 Dose: 25 mg Documented by: Warfarin Sodium (Warfarin 5 Mg Tablet) 5 mg PO SuMoTuWeThSa@1700 [facility] Warfarin Sodium (Warfarin 2.5 Mg Tablet) 2.5 mg PO Fr@1700 [facility] Assessment/Plan All Active Problems Cellulitis of right leg (Acute) Septic shock (Acute) Cellulitis (Acute) Failure to thrive (Acute) Accidental fall (Acute) Inability to ambulate due to left knee (Acute) Left medial tibial plateau fracture (Acute) Acute exacerbation of CHF (congestive heart failure) (Acute) Unable to ambulate (Acute) Nondisplaced posterior medial tibial plateau fracture Patient is to remain nonweightbearing left lower extremity no surgical intervention warranted recommend repeat x-ray in 6 weeks
[2020-06-24] MEDS: Nystatin Powder 15gm Bottle 1 APPLIC TOPICAL ×2 (09:12→22:46)
[2020-06-24] MEDS: Menthol/Lanolin/Calamine/Znox 113 GM Tube 1 APPLIC TOPICAL ×2 (09:12→22:46)
--- NOTE | 2020-06-24 09:17 | NURSING ---
wound photo: left lower leg
--- NOTE | 2020-06-24 09:18 | NURSING ---
skin photo: right lower leg
[2020-06-24 11:40] LABS: Bedside Glucose 197 mg/dL (70-110)
--- NOTE | 2020-06-24 13:17 | CASEMGMT ---
Social Work Note Per brick cleaner questions, pt has completed HCPOA and LW, haven't provided copy to [facility] and unable to provide copy. Carito Coley INNERSOLE FITTER, MIDDLEWARE SYSTEMS ARCHITECT
--- NOTE | 2020-06-24 13:22 | CASEMGMT ---
RN JOHNSON Readmission Note Index Admission: 06/12/20-06/15/20 Diagnosis: Anasarca, lymphedema DC Disposition: Home with aides through [place]. Call to Jo @ [place]. [facility] halfway through [place] was ordered, and they are working on an authorization through the [facility], but this has not been approvd yet. -It was recommended that pt go to SNF on discharge, but he refused. Intro role of CM to patient to discuss how he managed @ home without halfway care. He states a [place] nurse came out once to evaluate for ferry terminal supervisor assistance and assisted with dressing change. His sister in law also came to assist. Pt states he realizes that he needs to go to SNF on dc now. Current Admission Diagnosis: Acute left tibia medial plateau fracture, secondary to fall. Patient fell @ home. Ortho consult:nondisplaced posterior medial tibial plateau fracture- pt is to remain nonweightbearing LLE. No surgical intervention at this time. -Discussed transfer to [facility] and patient declined. Reviewed the Declination for transfer to [facility] form and patient signed. Copy to chart. Clinicals faxed to the [facility]. Discussed dc planning with patient and he is agreeable to SNF and states they are working on it for me. See NICK ORNELAS assessment 06/13/20 for further details.
[2020-06-24 14:45] VITALS: BP 150/65; PULSE 78; RESP 18; TEMP 36.6; O2SAT 99
--- NOTE | 2020-06-24 15:49 | PN_ITS ---
Patient Problems: Active and Suspected Problems Failure to thrive (Acute) Accidental fall (Acute) Inability to ambulate due to left knee (Acute) Left medial tibial plateau fracture (Acute) Subjective: Patient states his knee pain from his tibial plateau fracture is significant but being controlled with current medications. Reports that 5 L were removed with diuresis at his last admission and he felt that he was good enough to go home at discharge and that is why he was not placed. He states that he is amenable to being placed at this point in a nursing home facility since he was will be nonweightbearing for 6 weeks. Vitals/I&O's: Vital Signs Temp Pulse Resp BP Pulse Ox 98.0 F 99 18 114/71 98 06/24/20 07:55 06/24/20 07:55 06/24/20 07:55 06/24/20 07:55 06/24/20 07:55 Oxygen Delivery Method Room Air Weight: 208.652 kg Body Mass Index (BMI) 62.4 Intake and Output for Last 24 Hours 06/22/20 06/23/20 06/24/20 23:59 23:59 23:59 Intake Total 710 / 710 Output Total 2750 / 2750 Balance -2039 / -2039 General: Alert, Oriented x3, Cooperative, No apparent distress, Well developed, Well nourished, - - Morbidly obese white male lying in bed appears comfortable HEENT: Atraumatic, Normocephalic Oral: Moist Mucosa, - - Mallampati 4 Laboratory Results 06/24/20 03:12: WBC 11.1 H, RBC 4.05 L, Hgb 10.3 L, Hct 34.4 L, MCV 84.9, MCH 25.4 L, MCHC 29.9 L, RDW Std Deviation 51.6 H, RDW Coeff of Varsha 16.6 H, Plt Count 312, MPV 8.3, Immature Gran % (Auto) 0.700, Neut % (Auto) 59.3, Lymph % (Auto) 28.5, Cannon % (Auto) 8.4, Eos % (Auto) 2.6, Baso % (Auto) 0.5, Absolute Neuts (auto) 6.6, Absolute Lymphs (auto) 3.15, Nucleated RBC % 0 06/24/20 03:12: Sodium 131 L, Potassium 4.1, Chloride 96 L, Carbon Dioxide 29.0, Anion Gap 6, BUN 30 H, Creatinine 1.37 H, Estim Creat Clear Calc 65.30, Est GFR (MDRD) Af Amer 69, Est GFR (MDRD) Non-Af 57 L, BUN/Creatinine Ratio 21.9 H, Glucose 236 H, Calcium 8.8 06/24/20 03:12: Sodium 131 L, Potassium 4.1, Chloride 96 L, Carbon Dioxide 28.0, Anion Gap 7, BUN 31 H, Creatinine 1.38 H, Estim Creat Clear Calc 64.82, Est GFR (MDRD) Af Amer 68, Est GFR (MDRD) Non-Af 56 L, BUN/Creatinine Ratio 22.5 H, Glucose 232 H, Calcium 8.8, Total Bilirubin 0.30, Direct Bilirubin 0.10, AST 14 L, ALT 17, Alkaline Phosphatase 88, Total Protein 8.3 H, Albumin 2.7 L, Globulin 5.6 H, Albumin/Globulin Ratio 0.5 L 06/24/20 03:45: PT 28.2 H, INR 2.7 06/24/20 06:05: WBC 12.1 H, RBC 3.89 L, Hgb 9.8 L, Hct 32.8 L, MCV 84.3, MCH 25.2 L, MCHC 29.9 L, RDW Std Deviation 51.0 H, RDW Coeff of Varsha 16.6 H, Plt Count 294, MPV 8.3, Immature Gran % (Auto) 1.100 H, Neut % (Auto) 68.7, Lymph % (Auto) 20.6, Cannon % (Auto) 8.1, Eos % (Auto) 1.2, Baso % (Auto) 0.3, Absolute Neuts (auto) 8.3 H, Absolute Lymphs (auto) 2.50, Nucleated RBC % 0 06/24/20 06:41: POC Glucose 203 H 06/24/20 11:35: POC Glucose 197 H Current Medications Acetaminophen (Acetaminophen 325 Mg Tablet) 650 mg PO Q6H PRN PRN PRN Reason: Pain Score 1-10/Temp > 100.7 F Last Admin: 06/24/20 07:50 Dose: 650 mg Documented by: Albuterol Sulfate (Albuterol 2.5 Mg/3 Ml Vial.Neb.) 2.5 mg INHALATION Q2H PRN PRN PRN Reason: Shortness of Breath/Wheezing Aripiprazole (Aripiprazole 10 Mg Tablet) 30 mg PO DAILY [facility] Last Admin: 06/24/20 07:56 Dose: 30 mg Documented by: Aspirin (Aspirin E.C. 81 Mg Tablet) 81 mg PO DAILY@0800 [facility] Last Admin: 06/24/20 07:56 Dose: 81 mg Documented by: Atorvastatin Calcium (Atorvastatin Calcium 40 Mg Tablet) 40 mg PO DAILY@2200 [facility] Calamine/Phenol (Menthol/Lanolin/Calamine/Znox 113 Gm Tube) 1 applic TOPICAL BID [facility]; Protocol Last Admin: 06/24/20 09:12 Dose: 1 applicatio Documented by: Dextrose (Dextrose 50%-Water 25 Gm/50 Ml Disp.Syrin) 0 gm IV X1 PRN; Protocol PRN Reason: Hypoglycemia Fluoxetine HCl (Fluoxetine 20 Mg Capsule) 20 mg PO DAILY [facility] Last Admin: 06/24/20 07:56 Dose: 20 mg Documented by: Furosemide (Furosemide 80 Mg Tablet) 80 mg PO BIDLX [facility] Last Admin: 06/24/20 07:56 Dose: 80 mg Documented by: Glucagon (Glucagon 1 Mg/Ml Syringe) 1 mg IM .X1 PRN PRN Reason: Hypoglycemia Cefazolin Sodium 2 gm/ Sodium (Chloride) 110 mls @ 150 mls/hr IV Q8 [facility] Last Admin: 06/24/20 14:48 Dose: 150 mls/hr Documented by: Insulin Human Lispro (Insulin Lispro 100 Unit/Ml Insuln.Pen) 0 unit SC ACHS [facility]; Protocol Last Admin: 06/24/20 11:35 Dose: 1 u Documented by: Insulin Human Regular (Insulin U-500 Pen) 120 units SC BID [facility] Last Admin: 06/24/20 09:12 Dose: 120 units Documented by: Morphine Sulfate (Morphine 2 Mg/Ml Syringe) 2 mg IV Q3H PRN PRN PRN Reason: Pain Score 6-10 Last Admin: 06/24/20 14:48 Dose: 2 mg Documented by: Nystatin (Nystatin Powder 15gm Bottle) 1 applic TOPICAL BID [facility]; Protocol Last Admin: 06/24/20 09:12 Dose: 1 applicatio Documented by: Ondansetron HCl (Ondansetron 4 Mg/2 Ml Vial) 4 mg IV Q8H PRN PRN PRN Reason: NAUSEA/VOMITING Oxycodone HCl (Oxycodone 5 Mg Tablet) 10 mg PO Q4H PRN PRN PRN Reason: Pain Score 6-10 Last Admin: 06/24/20 11:45 Dose: 10 mg Documented by: Senna/Docusate Sodium (Senna/Docusate Sodium 1 Tablet) 2 tablet PO BID PRN PRN PRN Reason: Constipation Sodium Chloride (0.9% Saline Lock 10 Ml Syringe) 10 - 40 ml IV UD PRN PRN Reason: SALINE FLUSH Last Admin: 06/24/20 14:48 Dose: 10 ml Documented by: Spironolactone (Spironolactone 25 Mg Tablet) 25 mg PO BID [facility] Last Admin: 06/24/20 07:56 Dose: 25 mg Documented by: Warfarin Sodium (Warfarin 5 Mg Tablet) 5 mg PO SuMoTuWeThSa@1700 [facility] Warfarin Sodium (Warfarin 2.5 Mg Tablet) 2.5 mg PO Fr@1700 [facility] Medical Necessity - Tobacco Use Smoking Status: Never smoker Tobacco Use: Non-smoker Assessment/Plan All Active Problems Cellulitis of right leg (Acute) Septic shock (Acute) Cellulitis (Acute) Failure to thrive (Acute) Accidental fall (Acute) Inability to ambulate due to left knee (Acute) Left medial tibial plateau fracture (Acute) Acute exacerbation of CHF (congestive heart failure) (Acute) Unable to ambulate (Acute) Acute nondisplaced left tibial plateau fracture secondary mechanical fall -Was seen by orthopedics -No plans for surgical management -Nonweightbearing for 6 weeks -Repeat x-ray in 6 weeks Bilateral lower extremity edema/erythema -This is much improved since last admission -Suspect the erythema is not cellulitis and venous stasis -We will stop antibiotics and monitor -Continue Lasix and Aldactone -Continue fluid restriction -Strict I's and O's -Daily weights HFrEF mild-compensated -See above Debility -PT/OT consult -SNF at discharge Chronic Anemia -Counts are stable -Monitor CKD stage 2 -Creatinine up slightly from baseline -We will monitor and make adjustments in diuresis if continues to rise H/O DVT -On chronic oral anticoagulation -Continue Coumadin -INR 2.8 today -We will continue daily INRs FERNANDO/OHS -Continue nocturnal positive pressure ventilation HTN -Stable with only diuresis -Continue to monitor HPL -Continue atorvastatin Bipolar d/o -Continue Abilify -Continue Prozac DM-2 -Continue U5 100 insulin 120 units twice daily -Check blood sugars before meals and at bedtime Super MO -Recommend weight loss -Would benefit from bariatric consultation DVT prophylaxis -Full OAC CODE STATUS -Full Inpatient E&M: 42348 Subs Hosp L2
[2020-06-24 16:21] LABS: Bedside Glucose 175 mg/dL (70-110)
--- NOTE | 2020-06-24 16:37 | CASEMGMT ---
Social Work Note SW in to speak with pt. SW introduced self and role at [facility]. Pt is alert and orientated x3. Pt agreeable to SNF, states anywhere that can take me. SW informed pt that it may be difficult to place pt due to his weight but this worker will call SNF. Pt agreeable to this worker calling SNF in [facility] to find SNF to accept pt. Pt states he prefers to remain as close as he can to [place]. TABATHA explained that the only SNF that may be willing to accommodate pt's weight in [place] is [facility]. Pt agreeable to referral being made to [facility]. TABATHA placed a call to Florinda at [facility], Florinda states their weight limit is 500 pounds. TABATHA provided referral. TABATHA Faxed referral. TABATHA received call from Florinda at [facility] stating they are able to accept pt. Florinda states pt only has VA insurance as secondary so on day 21, pt will have a daily copay rate of $178 unless pt goes to VA connected facility. Florinda states [facility] connected facility. TABATHA informed Florinda that this worker is not sure pt will be agreeable to [facility] as pt wanted to remain in [place]. SW to speak with pt tomorrow. Plan: SNF Carito Coley CLIMBING GUIDE, AUTOMATIC SPINNING LATHE SETTER
[2020-06-24 17:17] LABS: Absolute Lymphocyte Count 3.26 X10^3/uL (0.83-4.51); Absolute Neutrophil Count 5.9 X10^3/uL (2.0-7.7); Basophil# 0.04 X10^3/uL; Basophil% 0.4 % (0-1); Eosinophil# 0.31 X10^3/uL; Eosinophils% 2.9 % (0-5); Hematocrit 33.2 % (40-54); Lymphocyte # 3.26 X10^3/ul (4.0); Lymphocyte % 30.9 % (19-41); Mean Corp Hgb Conc 30.1 g/dL (32-36); Mean Corpuscular Hgb 25.6 pg (27.0-32.0); Mean Corpuscular Volume 84.9 fL (80-94); Mean Platelet Vol. 8.3 fl (6.2-12.0); Monocyte# 0.92 X10^3/uL; Monocyte% 8.7 % (0-10); NRBC Flagged by Analyzer 0 % (0-5); Neutrophil # 5.94 X10^3/uL (2.7-7.7); Neutrophil % 56.4 % (47-70); Platelet Count 297 K/mm3 (150-450); RBC Distribution Width CV 16.9 % (11.6-14.6); RBC Distribution Width SD 52.2 fl (35.1-43.9); Red Blood Count 3.91 M/mm3 (4.6-6.2); White Blood Count 10.5 K/mm3 (4.4-11.0)
[2020-06-24 20:38] VITALS: BP 155/61; PULSE 68; RESP 18; TEMP 37; O2SAT 97
[2020-06-24] MEDS: Atorvastatin Calcium 40 MG Tablet PO (22:34)
[2020-06-24 22:40] LABS: Bedside Glucose 179 mg/dL (70-110)
[2020-06-25] MEDS: Morphine 2 MG/ML Syringe IV ×4 (01:32→17:34)
[2020-06-25] MEDS: 0.9% Saline Lock 10 ML Syringe IV ×4 (01:32→17:34)
[2020-06-25 02:41] VITALS: BP 124/49; PULSE 73; RESP 16; TEMP 36.6; O2SAT 96
[2020-06-25] MEDS: oxyCODONE 5 MG Tablet 10 MG PO ×4 (02:49→14:59)
[2020-06-25 05:29] VITALS: BP 143/64; PULSE 70; RESP 18; TEMP 37.2; O2SAT 94
[2020-06-25] MEDS: Cefazolin 2 GM in 0.9% Normal Saline 100 ML IV (05:33)
[2020-06-25 07:01] LABS: Bedside Glucose 108 mg/dL (70-110)
[2020-06-25 07:29] LABS: International Normalized Ratio 2.2; Prothrombin Time (Protime)PT. 24.2 SECONDS (11.7-14.9)
[2020-06-25 07:49] LABS: Anion Gap 5 (5-15); BUN 16 mg/dL (7-18); BUN/Creat Ratio 15.4 RATIO (10-20); Calcium,Total 8.7 mg/dL (8.5-10.1); Chloride 100 mmol/L (98-107); Creatinine, Serum 1.04 mg/dL (0.70-1.30); EST Glomerular Filtration Rate 78 mL/min (>60); Est Glom Filt Rate - Afr Amer 94 mL/min (>60); Estimated Creatinine Clearance 86.01 ml/min; Glucose 90 mg/dL (74-106); Potassium 3.9 mmol/L (3.5-5.1); Sodium Level 134 mmol/L (136-145)
--- NOTE | 2020-06-25 07:51 | NURSING ---
In to reassess bilateral lower legs. There is still some redness and moderate edema noted. Will consider trying PAMELLA wraps again this morning if patient is able to tolerate them. Pt states the left lower legs is still very painful. the PAMELLA wraps have not been really effective with the chronic lymphedema. pt is keeping legs elevated in the hospital much more than at home. will monitor.
[2020-06-25] MEDS: Aspirin E.C. 81 MG Tablet PO (08:14)
[2020-06-25 09:28] VITALS: BP 152/60; PULSE 92; RESP 16; TEMP 36.6; O2SAT 94
[2020-06-25] MEDS: ARIPiprazole 10 MG Tablet 30 MG PO (09:33)
[2020-06-25] MEDS: Menthol/Lanolin/Calamine/Znox 113 GM Tube 1 APPLIC TOPICAL (09:33)
[2020-06-25] MEDS: Nystatin Powder 15gm Bottle 1 APPLIC TOPICAL (09:33)
[2020-06-25] MEDS: Spironolactone 25 MG Tablet PO (09:33)
[2020-06-25] MEDS: Furosemide 80 MG Tablet PO ×2 (09:33→16:53)
[2020-06-25] MEDS: FLUoxetine 20 MG Capsule PO (09:34)
--- NOTE | 2020-06-25 09:37 | TREXTCAR_ITS ---
- Diet 06/24/20 08:20 ADA [Diet: Cardiac: Calorie-Controlled] Dietary Modifications:: Sodium Restricted Is pt able to select menu?: Yes How many daily calories?: 1800 calorie - Routine Orders/Code Status Enema Type: Fleetz Enema Frequency: Daily PRN Suppository Type: Dulcolax 10mg Suppository Frequency: Daily PRN Routine Lab Work: CBC, BMP, INR, - - INR daily for now Code Status: Full Code - Wound(s) RLE Wound Type: Stasis Ulcer LLE Wound Type: Stasis Ulcer - Therapies Weight Bearing: Non weight bearing - Left lower extremity Extremity Affected:: Left Lower Physical Therapy: Eval and Treat Occupational Therapy: Eval and Treat - Allergies/Procedures Done in Hospital Allergies/Adverse Reactions: Allergies gabapentin Adverse Reaction (Verified 06/24/20 02:49) Swelling of legs Procedures: None - Type of Care/Length of Stay Estimated LOS: More Than 30 Days Type of Care Needed: Skilled Rehab Potential: Fair Prognosis: Good - Additional Orders/Day of Discharge Day of Discharge: 06/25/20 - Follow Up Care Primary Care Physician: [facility] [Primary Care Provider] - Please follow up with your Primary Care Physician in: 1 to 2 weeks after d/c from SNF Please Follow Up With: Issa Vanessa DO When: 6 weeks for L Tibial Plateua Fracture
--- NOTE | 2020-06-25 09:46 | DS.PCM_ITS ---
Discharge Date and Diagnosis - Problem List Patient Problems: Active and Suspected Problems Failure to thrive (Acute) Accidental fall (Acute) Inability to ambulate due to left knee (Acute) Left medial tibial plateau fracture (Acute) Date of Admission: 06/24/20 Date of Discharge: 06/25/20 - Primary Discharge Diagnosis Acute Problems: Active Problems Failure to thrive (Acute) Accidental fall (Acute) Inability to ambulate due to left knee (Acute) Left medial tibial plateau fracture (Acute) - Secondary Discharge Diagnosis Chronic Problems: Chronic Problems Anxiety and depression (Chronic) High cholesterol (Chronic) Hypertension (Chronic) Obstructive sleep apnea (Chronic) CVA (cerebral vascular accident) (Chronic) Diabetes (Chronic) Morbid obesity (Chronic) Anemia in chronic illness (Chronic) Anasarca (Chronic) Congestive heart failure (Chronic) Lymphedema (Chronic) Hospital Course and Treatment Imaging Results: CT left lower extremity without contrast 06/24/2020 -Medial tibial plateau fracture without depression, moderate joint effusion, soft tissue edema Consultations Onc/Wound/business management specialistvender surgery Operations: None Procedures: None Summary of Care Provided: Mr. Marie is a 59 year old really obese WM with a complex past medical history including chronic bilateral lower extremity lymphedema/venous stasis, chronic bilateral lower extremity wounds, HFrEF chronic anemia, CKD stage II, history of DVT, debility, FERNANDO, OHS, hypertension, hyperlipidemia, bipolar disorder, DM-2, and super morbid obesity who presented to the emergency department on 06/24/2020 after a fall from standing he had at home. He was recently admitted from 06/12/2020 to 06/15/2020 for marked anasarca and volume overload and he was treated with a Lasix drip. Upon that admission it was discussed with the patient that a longterm facility discharge may be in his best interest prior to going back home. He states that after his edema improved with the Lasix drip he felt he had improved enough to go home and did so with home health care following. Stated on admission he lost his balance and fell forward onto a carpeted floor and after the fall was unable to bear weight on his left lower extremity. The pain was localized to his left knee and it was worse with movement. Scan done in the emergency department showed a left tibial plateau fracture. Orthopedics was consulted and felt that conservative management was most appropriate. Patient is to be nonweightbearing for 6 weeks with repeat x- rays to be done at the end of that 6-week time frame. He is also to follow-up with orthopedic surgery at that time. His pain has been managed well with oxycodone 10 mg every 6 hours as needed. He has been accepted at [facility] and the patient is agreeable to discharge to longterm facility at this time. Discharge diagnoses Acute left nondisplaced tibial plateau fracture secondary to mechanical fall Chronic bilateral lower extremity edema/erythema HFpEF-compensated Debility Chronic anemia CKD stage II History of DVT FERNANDO OHS HTN HPL Bipolar disorder DM-2 Super morbid obesity Mild hyponatremia Discharge time greater than 35 minutes Patient Problems: Active and Suspected Problems Failure to thrive (Acute) Accidental fall (Acute) Inability to ambulate due to left knee (Acute) Left medial tibial plateau fracture (Acute) Subjective: Patient states he continues to feel okay other than for his left knee pain which he states is being controlled with current pain medication regimen. - Physical Exam Vitals/I&O's: Vital Signs Temp Pulse Resp BP Pulse Ox 97.9 F 92 16 152/60 H 94 06/25/20 09:28 06/25/20 09:28 06/25/20 09:28 06/25/20 09:28 06/25/20 09:28 Oxygen Delivery Method Room Air Weight: 208.652 kg Body Mass Index (BMI) 62.4 Intake and Output for Last 24 Hours 06/23/20 06/24/20 06/25/20 23:59 23:59 23:59 Intake Total 1680 / 1680 510 / 510 Output Total 5800 / 5800 1700 / 1700 Balance -4120 / -4120 -1190 / -1190 General: Alert, Oriented x3, Cooperative, No apparent distress, Well developed, Well nourished, - - Super morbidly obese white male, lying in bed, appears comfortable HEENT: Atraumatic, PERRLA, EOMI, Normocephalic, EAC Clear Oral: Moist Mucosa, No Gingival or Mucosal Lesions/ Ulcerations, - - Mallampati 4, no thrush Neck: Supple, Trachea Midline, Thyroid Normal Size and Texture Lungs: Clear to auscultation, Normal air movement, No rhonchi, No wheeze, No rales, - - Distant secondary to body habitus Cardiovascular: Regular rate, Regular Rhythm, Normal S1, Normal S2, No murmurs, No Ectopic Activity, No rub noted, No Gallop Abdomen: Bowel Sounds Present, Soft, Non Tender, Non-Distended, Obese Extremities: No clubbing, No cyanosis, Edema Skin: No rashes, - - Superficial bilateral lower extremity wounds related to chronic venous stasis Musculoskeletal: No Muscle Wasting, Tenderness - Left knee Neurological: Cranial nerves II-XII grossly intact, Neuro grossly intact Psych/Mental Status: Normal Affect, Appropriate, - - Very pleasant Laboratory Results 06/24/20 11:35: POC Glucose 197 H 06/24/20 16:16: POC Glucose 175 H 06/24/20 17:08: WBC 10.5, RBC 3.91 L, Hgb 10.0 L, Hct 33.2 L, MCV 84.9, MCH 25.6 L, MCHC 30.1 L, RDW Std Deviation 52.2 H, RDW Coeff of Varsha 16.9 H, Plt Count 297, MPV 8.3, Immature Gran % (Auto) 0.700, Neut % (Auto) 56.4, Lymph % (Auto) 30.9, [place] % (Auto) 8.7, Eos % (Auto) 2.9, Baso % (Auto) 0.4, Absolute Neuts (auto) 5.9, Absolute Lymphs (auto) 3.26, Nucleated RBC % 0 06/24/20 22:32: POC Glucose 179 H 06/25/20 06:35: PT 24.2 H, INR 2.2 06/25/20 06:35: Sodium 134 L, Potassium 3.9, Chloride 100, Carbon Dioxide 29.0, Anion Gap 5, BUN 16, Creatinine 1.04, Estim Creat Clear Calc 86.01, Est GFR (MDRD) Af Amer 94, Est GFR (MDRD) Non-Af 78, BUN/Creatinine Ratio 15.4, Glucose 90, Calcium 8.7 06/25/20 06:48: POC Glucose 108 Current Medications Acetaminophen (Acetaminophen 325 Mg Tablet) 650 mg PO Q6H PRN PRN PRN Reason: Pain Score 1-10/Temp > 100.7 F Last Admin: 06/24/20 16:13 Dose: 650 mg Documented by: Albuterol Sulfate (Albuterol 2.5 Mg/3 Ml Vial.Neb.) 2.5 mg INHALATION Q2H PRN PRN PRN Reason: Shortness of Breath/Wheezing Aripiprazole (Aripiprazole 10 Mg Tablet) 30 mg PO DAILY [facility] Last Admin: 06/25/20 09:33 Dose: 30 mg Documented by: Aspirin (Aspirin E.C. 81 Mg Tablet) 81 mg PO DAILY@0800 [facility] Last Admin: 06/25/20 08:14 Dose: 81 mg Documented by: Atorvastatin Calcium (Atorvastatin Calcium 40 Mg Tablet) 40 mg PO DAILY@2200 [facility] Last Admin: 06/24/20 22:34 Dose: 40 mg Documented by: Calamine/Phenol (Menthol/Lanolin/Calamine/Znox 113 Gm Tube) 1 applic TOPICAL BID [facility]; Protocol Last Admin: 06/25/20 09:33 Dose: 1 applicatio Documented by: Dextrose (Dextrose 50%-Water 25 Gm/50 Ml Disp.Syrin) 0 gm IV X1 PRN; Protocol PRN Reason: Hypoglycemia Fluoxetine HCl (Fluoxetine 20 Mg Capsule) 20 mg PO DAILY [facility] Last Admin: 06/25/20 09:34 Dose: 20 mg Documented by: Furosemide (Furosemide 80 Mg Tablet) 80 mg PO BIDLX [facility] Last Admin: 06/25/20 09:33 Dose: 80 mg Documented by: Glucagon (Glucagon 1 Mg/Ml Syringe) 1 mg IM .X1 PRN PRN Reason: Hypoglycemia Cefazolin Sodium 2 gm/ Sodium (Chloride) 110 mls @ 150 mls/hr IV Q8 [facility] Last Infusion: 06/25/20 06:17 Dose: Infused Documented by: Insulin Human Lispro (Insulin Lispro 100 Unit/Ml Insuln.Pen) 0 unit SC ACHS [facility]; Protocol Last Admin: 06/25/20 06:50 Dose: Not Given Documented by: Insulin Human Regular (Insulin U-500 Pen) 120 units SC BID [facility] Last Admin: 06/24/20 22:35 Dose: 120 units Documented by: Morphine Sulfate (Morphine 2 Mg/Ml Syringe) 2 mg IV Q3H PRN PRN PRN Reason: Pain Score 6-10 Last Admin: 06/25/20 09:43 Dose: 2 mg Documented by: Nystatin (Nystatin Powder 15gm Bottle) 1 applic TOPICAL BID [facility]; Protocol Last Admin: 06/25/20 09:33 Dose: 1 applicatio Documented by: Ondansetron HCl (Ondansetron 4 Mg/2 Ml Vial) 4 mg IV Q8H PRN PRN PRN Reason: NAUSEA/VOMITING Oxycodone HCl (Oxycodone 5 Mg Tablet) 10 mg PO Q4H PRN PRN PRN Reason: Pain Score 6-10 Last Admin: 06/25/20 06:50 Dose: 10 mg Documented by: Senna/Docusate Sodium (Senna/Docusate Sodium 1 Tablet) 2 tablet PO BID PRN PRN PRN Reason: Constipation Sodium Chloride (0.9% Saline Lock 10 Ml Syringe) 10 - 40 ml IV UD PRN PRN Reason: SALINE FLUSH Last Admin: 06/25/20 09:43 Dose: 10 ml Documented by: Spironolactone (Spironolactone 25 Mg Tablet) 25 mg PO BID [facility] Last Admin: 06/25/20 09:33 Dose: 25 mg Documented by: Warfarin Sodium (Warfarin 5 Mg Tablet) 5 mg PO SuMoTuWeThSa@1700 [facility] Last Admin: 06/24/20 16:15 Dose: 5 mg Documented by: Warfarin Sodium (Warfarin 2.5 Mg Tablet) 2.5 mg PO Fr@1700 [facility] Home Medications: Medications to take at Discharge Aripiprazole [Abilify] 30 mg PO DAILY 11/04/19 Warfarin [Coumadin] 5 mg PO SUMOTUWETHSA 11/04/19 Aspirin E.C. [Ecotrin] 81 mg PO DAILY@0800 02/20/20 Liraglutide [Victoza 3-Rick] 1.2 mg SQ DAILY 02/20/20 Menthol/Lanolin/Calamine/Znox [Calmoseptine Ointment] 1 applic TOPICAL BID 05/29/20 Nystatin Powder [Mycostatin Powder] 1 applic TOPICAL BID 05/29/20 Rosuvastatin Calcium [Crestor] 20 mg PO QHS 05/29/20 Warfarin Sodium [Coumadin] 2.5 mg PO FR 05/29/20 Acetaminophen [Tylenol Arthritis] 650 mg PO Q6H PRN PRN 06/12/20 Fluoxetine HCl [Prozac] 20 mg PO DAILY 06/12/20 Insulin U-500 [Humulin R U-500 ([facility])] 120 units SC BID 06/12/20 Spironolactone 50 mg PO BID 06/12/20 Torsemide 40 mg PO BID #60 tab 06/15/20 Oxycodone [Oxyir] 10 mg PO Q4H PRN PRN 1 Days #6 tablet 06/25/20 Following Prescriptions Were Given to Patient: Oxycodone [Oxyir] 10 mg PO Q4H PRN PRN 1 Days #6 tablet PRN Reason: Pain Score 6-10 [facility] [Primary [facility] Provider] - Please follow up with your Primary Care Physician in: 1 to 2 weeks after d/c from SNF Please Follow Up With: Issa Vanessa DO When: 6 weeks for L Tibial Plateua Fracture Medical Necessity - Tobacco Use Smoking Status: Never smoker Tobacco Use: Non-smoker Meaningful Use Info Meaningful Use Diagnoses (Choose all that apply): None applicable Inpatient E&M: 92453 [facility] Hosp
--- NOTE | 2020-06-25 11:01 | NURSING ---
this nurse attempted to call report 4 times as pt is being picked up by transport at 1130. [phone] was called 3x and [phone] 1x, no answer at anytime
--- NOTE | 2020-06-25 11:05 | CASEMGMT ---
Social Work Note SW in to speak with pt. TABATHA updated pt that [facility] is able to accept pt, informed pt that on day 21-100 pt will have copay of $178 a day unless pt applies for Medicaid. Pt states he applied for Medicaid in the past, states he wasn't approved. TABATHA informed pt that the other option would be to look for a VA contracted facility and pending if pt is VA connected enough, VA may help cover copay days but this worker cannot guarantee that. Pt agreeable to [facility]. TABATHA updated physician, pt is medically ready for discharge. TABATHA faxed completed discharge paperwork to [facility] including transfer to extended care facility, signed medication list, scripts, COVID test, and COVID screening tool. Original in SNF folder and copy on pt's chart. TABATHA completed convalescent [facility] in [place]. Original in SNF folder and copy on pt's chart. RN states pt is able to transport via cot. TABATHA accessed trip assist and earliest physician's ambulance can transport pt is 12:30pm. TABATHA requested bariatric cot for pt. TABATHA completed transportation form and placed on SNF folder and copy on pt's chart. TABATHA updated RN and pt on transportation time. TABATHA placed a call to Florinda at [facility] and updated her on transportation time. TABATHA was then updated that pt actually does have Medicaid. TABATHA faxed Medicaid confirmation to [facility]. TABATHA updated pt that he does have Medicaid so Medicaid will cover copay. Pt states understanding. Plan: [facility] skilled today with physician's ambulance transporting pt via bariatric cot at 12:30pm Carito Coley MSW, ACID CORRECTION HAND
[2020-06-25] MEDS: Insulin Lispro 100 UNIT/ML INSULN.PEN SC ×2 (11:18→16:48)
[2020-06-25 11:35] LABS: Bedside Glucose 204 mg/dL (70-110)
--- NOTE | 2020-06-25 12:03 | NURSING ---
report called to buzz at [facility]. pt is now supposed to be picked up at 1230
--- NOTE | 2020-06-25 14:05 | CASEMGMT ---
Social Work Note SW received update from social secretary that physician's called stating they were going to be another half hour before they can transport pt. SW placed a call to Florinda at [facility] and updated her that physician's will be at [facility] in the next half hour. Carito Coley CLIENT SOLUTIONS MANAGER, WELCOME CENTER ATTENDANT
[2020-06-25 15:00] VITALS: BP 144/77; PULSE 75; RESP 16; TEMP 36.7; O2SAT 97
--- NOTE | 2020-06-25 15:46 | NURSING ---
awaRe per physician's ambulance crew transportation delayed ~1.5hr from now as awaiting on lift assist.
[2020-06-25 17:05] LABS: Bedside Glucose 181 mg/dL (70-110)
== END 2020-06-25 17:50 | disposition skilled nursing facility (03) | DRG 563 ==
LOC: ED 03:17 → MS3 04:08
PROVIDERS: Admitting Provider Internal Medicine; Emergency Provider Emergency Medicine; Visit Provider Internal Medicine
DX: S82.145A Nondisplaced bicondylar fracture of left tibia, initial encounter for closed fracture (principal); I13.0 Hypertensive heart and chronic kidney disease with heart failure and stage 1 through stage 4 chronic kidney disease, or unspecified chronic kidney disease; E87.1 Hypo-osmolality and hyponatremia; Z68.44 Body mass index [BMI] 60.0-69.9, adult; I50.22 Chronic systolic (congestive) heart failure; W01.0XXA Fall on same level from slipping, tripping and stumbling without subsequent striking against object, initial encounter; Y93.89 Activity, other specified; Y92.008 Other place in unspecified non-institutional (private) residence as the place of occurrence of the external cause; Y99.9 Unspecified external cause status; E66.01 Morbid (severe) obesity due to excess calories; I89.0 Lymphedema, not elsewhere classified; D63.8 Anemia in other chronic diseases classified elsewhere; F31.9 Bipolar disorder, unspecified; F41.9 Anxiety disorder, unspecified; G47.33 Obstructive sleep apnea (adult) (pediatric); N18.2 Chronic kidney disease, stage 2 (mild); E11.22 Type 2 diabetes mellitus with diabetic chronic kidney disease; E78.5 Hyperlipidemia, unspecified; R62.7 Adult failure to thrive; Z86.718 Personal history of other venous thrombosis and embolism
CPT/HCPCS: 36415; 73560; 73700; 80048; 80053; 80076; 82962; 85025; 85610; 87426; 93005; 97162; 97166; 97802; 99285; A4216

== ENCOUNTER 2020-11-20 09:33 | Observation (INO) | payer OTHER, MEDICARE, MEDICAID, SELFPAY ==
[2020-08-14 13:20] VITALS: BMI 56.7
[2020-11-20] VITALS (18 sets, daily range): BP systolic 104–168; BP diastolic 49–85; PULSE 61–90; RESP 11–24; TEMP 36.3–36.6; O2SAT 93–98; BMI 57.2; BMI 58.4
--- NOTE | 2020-11-20 09:43 | EKG12_ITS ---
Test Reason : CHEST PAIN Blood Pressure : / mmHG Vent. Rate : 069 BPM Atrial Rate : 069 BPM P-R Int : 172 ms QRS Dur : 104 ms QT Int : 398 ms P-R-T Axes : 014 -09 041 degrees QTc Int : 426 ms Normal sinus rhythm Normal ECG Confirmed by FELIPE DENIS, JOSE L ([id number]), film editor supervisor SCOOBY FOSTER ([id number]) on 11/22/2020 8:35:36 AM Referred By: TOMER Confirmed By:JOSE L WANG MD
--- NOTE | 2020-11-20 09:46 | ED.VIS.CHEST ---
HPI History of Present Illness Chief Complaint: Chest Pain Informant: patient Onset/Context/Timing Onset: Days (2) Activity at onset: gradual Timing: Continuous Quality: Positive for Pressure Location: Substernal Worsened By: Exertion Relieved By: Nothing Associated Symptoms: Positive for Nausea, Diaphoresis, Dyspnea, Cough, Lightheadedness and Acid Reflux; Negative for Vomiting, Fever and Palpitations Narrative Narrative: Patient presents with chest pain that has been constant for the past 2 days. Patient describes the pain as a pressure. Patient states the pain is worse with exertion. Patient states nothing makes the pain better. Patient states the pain is over the substernal area. Patient denies any radiation of the pain. Patient admits to nausea but denies any vomiting. Patient states that he broke out into a sweat a couple days ago when he first had an episode of chest pain and tachycardia. Patient denies any further episodes of diaphoresis or tachycardia. Patient does admit to some shortness of breath. Patient also admits to some lightheadedness and reflux. Patient admits to a cough but denies any sputum production. Patient denies any fevers or chills. CVD Risk Factors: Positive for Hypertension, Diabetes, Hypercholesterolemia and Family History 1' </=55; Negative for Smoking PE Risk Factors: Positive for Prior DVT or PE; Negative for Recent Travel/Surgery, Recent Immobilization, Cancer and OCP + Smoking + >/=35 PFSH PFSH Home Medications aripiprazole 30 mg PO DAILY 11/04/19 [History Last Taken 06/23/20] warfarin 5 mg PO SUTUTHSA 11/04/19 [History Last Taken 06/23/20] liraglutide 1.2 mg SQ DAILY 02/20/20 [History Last Taken 06/23/20] menthol-zinc oxide 1 applic TOPICAL BID 05/29/20 [History Last Taken 06/12/20] rosuvastatin 20 mg PO QHS 05/29/20 [History Last Taken 06/23/20] acetaminophen 650 mg PO Q6H PRN PRN 06/12/20 [History Last Taken 06/12/20] fluoxetine 20 mg PO DAILY 06/12/20 [History Last Taken 06/23/20] insulin regular hum U-500 conc 120 units SC BID 06/12/20 [History Last Taken 06/23/20] spironolactone 50 mg PO BID 06/12/20 [History Last Taken 06/23/20] ascorbic acid (vitamin C) 1 g PO QODAY 11/20/20 [History Last Taken Unknown] dextrose [Glucose Gel] 15 g PO PRN PRN 11/20/20 [History Last Taken Unknown] hydrophilic cream 1 applic TOPICAL PRN PRN 11/20/20 [History Last Taken Unknown] polyethylene glycol 3350 17 g PO DAILY 11/20/20 [History Last Taken Unknown] torsemide 80 mg PO BID 11/20/20 [History Last Taken Unknown] warfarin 2.5 mg PO MOWEFR 11/20/20 [History Last Taken Unknown] Allergy/AdvReac Type Severity Reaction Status Date / Time atorvastatin Allergy Other Verified 11/20/20 09:43 metformin Allergy Other Verified 11/20/20 09:43 gabapentin AdvReac Swelling Verified 11/20/20 09:39 of legs Surgical History (Updated 11/20/20 @ 09:[address] Paul Kay DO) History of tonsillectomy Social History Smoking Status: Never smoker ROS ROS ED Constitutional Constitutional ED: Denies chills or fever(s) Eyes Eyes: Denies blurry vision or change in vision ENT ENT ED: Reports rhinorrhea; Denies sore throat Cardiovascular Cardiovascular: Reports chest pain; Denies palpitations Respiratory/Chest Respiratory/Chest: Reports cough and dyspnea Gastrointestinal Gastrointestinal: Reports nausea; Denies abdominal pain or vomiting Genitourinary Genitourinary ED: Denies dysuria or hematuria Musculoskeletal Musculoskeletal: Denies back pain or neck pain Integumentary Denies abscess or rash Neurologic Neurologic: Denies headache(s) or weakness Allergic/Immunologic Allergic/Immunologic ED: Denies mouth swelling or urticaria EXAM Physical Exam Const Vital Signs: 11/20/20 09:33 11/20/20 09:42 11/20/20 09:46 Temperature 97.8 F Temperature Source Temporal Pulse Rate 90 Respiratory Rate 24 H Respiratory Effort Normal Non-Labored Blood Pressure 143/71 H Blood Pressure Mean 95 Pulse Ox 96 95 Oxygen Delivery Method Room Air Nasal Cannula Oxygen Flow Rate (L/min) 2 11/20/20 09:47 11/20/20 09:53 11/20/20 10:12 Temperature 97.8 F Temperature Source Temporal Pulse Rate 90 70 68 Respiratory Rate 24 H Respiratory Effort Blood Pressure 143/71 H 122/55 H 122/68 H Blood Pressure Mean 95 Pulse Ox 95 Oxygen Delivery Method Room Air Oxygen Flow Rate (L/min) 11/20/20 10:18 11/20/20 10:38 11/20/20 11:00 Temperature 97.8 F 97.9 F Temperature Source Temporal Temporal Pulse Rate 70 68 63 Respiratory Rate 11 L 19 H Respiratory Effort Blood Pressure 112/49 L 104/54 L 112/50 L Blood Pressure Mean 70 70 Pulse Ox 94 93 Oxygen Delivery Method Room Air Room Air Oxygen Flow Rate (L/min) Positive well nourished, well developed and obese General Appearance ED: well developed Nutritional Appearance: obese HEENT Reports moist mucous membranes Neck supple and no JVD Resp normal respiratory effort and clear to auscultation bilaterally Effort and Inspection: Negative for respiratory distress Cardio regular rate and regular rhythm GI normal to inspection, nondistended, normoactive bowel sounds, soft to palpation and non-tender Extremity General Extremety ED: Yes edema; Negative for tenderness General Extremity: edema Neuro oriented x3, CN's II-XII intact bilaterally and no sensory deficits noted Sensorium / Orientation: awake and alert Motor Exam: strength 5/5 throughout Psych mental status grossly normal Heart Score History: Moderately Suspicious ECG: Normal Age: >45 - <65 years Risk Factors: >/= 3 Risk Factors or History of CAD Troponin: </= Normal Limit Score: 4 MDM MDM MDM Narrative Medical decision making narrative: Patient was given aspirin and sublingual nitroglycerin here. EKG was obtained. On my interpretation, it showed a normal sinus rhythm with a rate of 69. MI interval, QRS interval, and QTc intervals were all normal. Bern was normal. There are no acute ST or T wave changes. Portable 1 view chest x-ray was obtained. On my interpretation, lung byers are clear. There is normal cardiac silhouette. Bony thorax is normal. There is no acute process noted. Radiologist also interpreted the x-ray and agrees. CBC shows a slight leukocytosis of 12.7. PT with INR was therapeutic at 2.0. Basic metabolic profile showed a slightly elevated creatinine of 1.32 and a slightly elevated BUN of 20. These were consistent with prior results. Glucose was elevated at 312. Troponin was normal. Patient states he had some intermittent chest pain here in the emergency department but is currently not having any pain. Patient has a HEART score of 4. Patient states his last stress test was proximately 2 years ago at [facility] in [place]. I recommended admission to the hospital for further testing. Patient is agreeable with this. Case was discussed with the hospitalist. He will admit the patient to his service for observation. Patient understood and was agreeable with the plan. All questions were answered. Lab Data Attestation: I reviewed the patient's lab results. Labs: Laboratory Results - last 24 hr 11/20/20 11/20/20 11/20/20 09:39 09:39 09:39 WBC 12.7 H RBC 4.56 L Hgb 12.1 L Hct 39.6 L MCV 86.8 MCH 26.5 L MCHC 30.6 L RDW Std Deviation 50.0 H RDW Coeff of Varsha 15.7 H Plt Count 287 MPV 8.8 Immature Gran % (Auto) 0.700 Neut % (Auto) 64.7 Lymph % (Auto) 24.4 [place] % (Auto) 5.9 Eos % (Auto) 3.9 Baso % (Auto) 0.4 Absolute Neuts (auto) 8.2 H Absolute Lymphs (auto) 3.10 Nucleated RBC % 0 PT 22.3 H INR 2.0 Sodium 134 L Potassium 3.7 Chloride 98 Carbon Dioxide 27.0 Anion Gap 9 BUN 20 H Creatinine 1.32 H Estim Creat Clear Calc 66.95 Est GFR (MDRD) Af Amer 72 Est GFR (MDRD) Non-Af 59 L BUN/Creatinine Ratio 15.2 Glucose 312 H Calcium 9.3 Troponin I < 0.015 Radiography Chest X-Ray - ED: 1 View, Read by ED Physician, Read by Radiologist and Normal Diagnostic Testing: Radiology Impression Chest X-Ray 11/20/20 10:20 IMPRESSION: No acute abnormality is seen. Electronically Signed: Chin Obregon MD at 10:51 EDT , Service support , EKG Initial EKG: Attestation: I personally reviewed and interpreted this EKG as follows: Interpretation: Sinus Rhythm (69) and No Acute Injury Pattern Prior EKG tracings: available for review Prior: Unchanged (06/24/2020) Treatment and Re-Evaluation Vital Sign Attestation:: Vital signs were reviewed prior to admission. Vital signs are stable. Discharge Plan Dx/Rx/DC Orders Clinical Impression: Chest pain Disposition Disposition: Acute Care Hospital [facility]
[2020-11-20] MEDS: Aspirin 81 MG TAB.CHEW 324 MG PO (09:50)
[2020-11-20 09:52] LABS: Absolute Neutrophil Count 8.2 X10^3/uL (2.0-7.7); Basophil# 0.05 X10^3/uL; Basophil% 0.4 % (0-1); Eosinophils% 3.9 % (0-5); Hematocrit 39.6 % (40-54); Hemoglobin 12.1 g/dL (13.0-16.5); Lymphocyte % 24.4 % (19-41); Mean Corp Hgb Conc 30.6 g/dL (32-36); Mean Corpuscular Hgb 26.5 pg (27.0-32.0); Mean Corpuscular Volume 86.8 fL (80-94); Mean Platelet Vol. 8.8 fl (6.2-12.0); Monocyte# 0.75 X10^3/uL; Monocyte% 5.9 % (0-10); NRBC Flagged by Analyzer 0 % (0-5); Neutrophil # 8.21 X10^3/uL (2.7-7.7); Neutrophil % 64.7 % (47-70); Platelet Count 287 K/mm3 (150-450); RBC Distribution Width CV 15.7 % (11.6-14.6); Red Blood Count 4.56 M/mm3 (4.6-6.2); White Blood Count 12.7 K/mm3 (4.4-11.0)
[2020-11-20] MEDS: Nitroglycerin SL (ED/IMG/CATH) 0.4 MG TABLET SL ×3 (09:53→10:18)
[2020-11-20 10:04] LABS: Anion Gap 9 (5-15); BUN 20 mg/dL (7-18); BUN/Creat Ratio 15.2 RATIO (10-20); Calcium,Total 9.3 mg/dL (8.5-10.1); Chloride 98 mmol/L (98-107); Creatinine, Serum 1.32 mg/dL (0.70-1.30); EST Glomerular Filtration Rate 59 mL/min (>60); Est Glom Filt Rate - Afr Amer 72 mL/min (>60); Estimated Creatinine Clearance 66.95 ml/min; Glucose 312 mg/dL (74-106); Potassium 3.7 mmol/L (3.5-5.1); Sodium Level 134 mmol/L (136-145)
[2020-11-20 10:13] LABS: Prothrombin Time (Protime)PT. 22.3 SECONDS (11.7-14.9)
--- NOTE | 2020-11-20 10:20 | RAD_ITS ---
STUDY: X-RAY CHEST REASON FOR EXAM: Male, 60 years old. Chest pain and shortness of breath. TECHNIQUE: Single AP portable view of the chest. COMPARISON: Comparison is made with prior study dated 06/12/2020. FINDINGS: EKG electrodes are seen. The lungs are clear and expanded. There is no demonstrated pleural abnormality. Normal size heart. Normal mediastinum and jazmine. Normal visualized pulmonary arteries. There is atherosclerotic tortuosity of the aortic arch and descending thoracic aorta. There are diffuse degenerative changes of the visualized thoracic spine. Normal visualized ribs, clavicles, and shoulders. There is no demonstrated abnormality of the visualized soft tissue structures of the upper abdomen. RAD/Chest 1 View (Portable) IMPRESSION: No acute abnormality is seen. Electronically Signed: Chin Obregon MD at 10:51 EDT , Service support ,
--- NOTE | 2020-11-20 11:44 | NURSING ---
DR CORTEZ FOR DR OCHOA
--- NOTE | 2020-11-20 11:57 | NURSING ---
114 OBS CP ASHELFAH
--- NOTE | 2020-11-20 12:37 | HP.PCM.HOS_ITS ---
HPI - General General Date of Admission: 11/20/20 Date of Service: 11/20/20 Chief Complaint: Chest pain HPI Narrative ABISAI DIAZ, is a 60 M with past medical history as mentioned below presented to the emergency room because of chest pain. His symptoms started 3 days ago with retrosternal chest pain, constant most of the time, described as pressure- like pain, mild to moderate, nonradiating, associated with mild shortness of breath, aggravated by walking, no relieving factors. He mentioned that the pain has been constant but got better today. He mentioned that when the pain started this past Wednesday, he checked his pulse rate and was in the 130s which slowed down with rest. In the emergency department, his vital signs were stable. His routine blood work was remarkable for mild leukocytosis which is chronic, hemoglobin is 12.1 g/dL which is also chronic, BUN is 20 and creatinine is 1.32 and those are at his baseline. Chest x-ray showed no acute findings. EKG revealed normal sinus rhythm without evidence of acute ischemic changes. Troponin was negative. He is being admitted for chest pain for evaluation. [facility] Home Medications aripiprazole 30 mg PO DAILY 11/04/19 [History Last Taken 06/23/20] warfarin 5 mg PO SUTUTHSA 11/04/19 [History Last Taken 06/23/20] liraglutide 1.2 mg SQ DAILY 02/20/20 [History Last Taken 06/23/20] menthol-zinc oxide 1 applic TOPICAL BID 05/29/20 [History Last Taken 06/12/20] rosuvastatin 20 mg PO QHS 05/29/20 [History Last Taken 06/23/20] acetaminophen 650 mg PO Q6H PRN PRN 06/12/20 [History Last Taken 06/12/20] fluoxetine 20 mg PO DAILY 06/12/20 [History Last Taken 06/23/20] insulin regular hum U-500 conc 120 units SC BID 06/12/20 [History Last Taken 06/23/20] spironolactone 50 mg PO BID 06/12/20 [History Last Taken 06/23/20] ascorbic acid (vitamin C) 1 g PO QODAY 11/20/20 [History Last Taken Unknown] dextrose [Glucose Gel] 15 g PO PRN PRN 11/20/20 [History Last Taken Unknown] hydrophilic cream 1 applic TOPICAL PRN PRN 11/20/20 [History Last Taken Unknown] polyethylene glycol 3350 17 g PO DAILY 11/20/20 [History Last Taken Unknown] torsemide 80 mg PO BID 11/20/20 [History Last Taken Unknown] warfarin 2.5 mg PO MOWEFR 11/20/20 [History Last Taken Unknown] Allergy/AdvReac Type Severity Reaction Status Date / Time atorvastatin Allergy Other Verified 11/20/20 09:43 metformin Allergy Other Verified 11/20/20 09:43 gabapentin AdvReac Swelling Verified 11/20/20 09:39 of legs no significant family history Surgical History (Updated 11/20/20 @ 09:[address] Paul Kay DO) History of tonsillectomy Social History (Updated 11/20/20 @ 12:[address] Margarita Canas MD) Smoking Status: Never smoker alcohol intake: never ROS Constitutional Constitutional: Denies anorexia, chills, fatigue, fever(s) or malaise Eyes Eyes: Denies blurry vision, change in eye color, change in vision, double vision or eye pain ENT HEENT: Denies ear discharge, ear pain, epistaxis, headache(s), nasal congestion, post nasal drip or sore throat Cardiovascular Cardiovascular: Reports chest pain, dyspnea on exertion and palpitations; Denies edema, lightheadedness, orthopnea or syncope Respiratory/Chest Respiratory/Chest: Denies cough, hemoptysis, productive cough, shortness of breath with exertion or wheezing Gastrointestinal Gastrointestinal: Denies abdominal pain, constipation, diarrhea, hematemesis, hematochezia, melena, nausea or vomiting Genitourinary Genitourinary: Denies burning urination, dysuria, hematuria, urinary hesitancy or urinary urgency Musculoskeletal Musculoskeletal: Denies arthralgias, back pain, joint pain, joint swelling, myalgias or neck pain Neurologic Neurologic: Denies confusion, dizziness, focal weakness, headache(s), numbness, paresthesias, seizures, tingling, tremor(s) or vertigo Psychiatric Psychiatric: Denies anxiety, depression, hallucinations, homicidal ideation or suicidal ideation Endocrine Endocrinology: Denies change in body appearance, cold intolerance, heat intolerance, polydipsia or polyuria Hematologic/Lymphatic Hematologic/Lymphatic: Denies easy bleeding, easy bruising or lymphadenopathy Allergic/Immunologic Allergic/Immunologic: Denies itchy eyes, rhinitis, throat swelling, tongue swelling, hives, urticaria or wheezing Vital Signs Vital Signs Vital Signs: 11/20/20 09:33 11/20/20 09:42 11/20/20 09:46 Temperature 97.8 F Temperature Source Temporal Pulse Rate 90 Respiratory Rate 24 H Respiratory Effort Normal Non-Labored Blood Pressure 143/71 H Blood Pressure Mean 95 Blood Pressure Source Blood Pressure Position Blood Pressure Location Pulse Ox 96 95 Oxygen Delivery Method Room Air Nasal Cannula Oxygen Flow Rate (L/min) 2 11/20/20 09:47 11/20/20 09:53 11/20/20 10:12 Temperature 97.8 F Temperature Source Temporal Pulse Rate 90 70 68 Respiratory Rate 24 H Respiratory Effort Blood Pressure 143/71 H 122/55 H 122/68 H Blood Pressure Mean 95 Blood Pressure Source Blood Pressure Position Blood Pressure Location Pulse Ox 95 Oxygen Delivery Method Room Air Oxygen Flow Rate (L/min) 11/20/20 10:18 11/20/20 10:38 11/20/20 11:00 Temperature 97.8 F 97.9 F Temperature Source Temporal Temporal Pulse Rate 70 68 63 Respiratory Rate 11 L 19 H Respiratory Effort Blood Pressure 112/49 L 104/54 L 112/50 L Blood Pressure Mean 70 70 Blood Pressure Source Blood Pressure Position Blood Pressure Location Pulse Ox 94 93 Oxygen Delivery Method Room Air Room Air Oxygen Flow Rate (L/min) 11/20/20 12:00 11/20/20 12:03 11/20/20 12:25 Temperature 97.9 F 97.9 F 97.4 F L Temperature Source Temporal Temporal Oral Pulse Rate 63 63 63 Respiratory Rate 14 14 18 Respiratory Effort Blood Pressure 116/55 L 116/55 L 137/85 H Blood Pressure Mean 75 75 102 Blood Pressure Source Monitor Blood Pressure Position Sitting Blood Pressure Location Right Forearm Pulse Ox 98 98 98 Oxygen Delivery Method Room Air Room Air Oxygen Flow Rate (L/min) Weight Weight: 431 lb 3.587 oz Body Mass Index (BMI) 58.4 Physical Exam Const alert, oriented x3, no apparent distress and no limitations General Appearance: cooperative HEENT normocephalic, head/scalp atraumatic, external ears normal, external nose normal and moist oral mucous membranes Eyes PERRL, EOMs intact bilaterally, conjunctivae normal and no scleral icterus General Eye: normal appearance of both eyes Neck no lymphadenopathy, supple, no meningeal signs, no JVD and no carotid bruits Lymph Lymphatic: no lymphadenopathy noted Resp normal respiratory effort, normal air movement and clear to auscultation bilaterally Auscultation: Negative for crackles, rales, rhonchi or wheezes Cardio regular rate, regular rhythm, S1 normal heart sound, S2 normal heart sound, no murmurs and no JVD GI normal to inspection, nondistended, normoactive bowel sounds, soft to palpation, non-tender and non-distended; Negative for hepatosplenomegaly GI Narrative: Morbidly obese. Extremity normal to inspection and full ROM Extremity Narrative: Bilateral leg edema, lymphedema, stasis dermatitis. Skin no rashes or lesions noted, no wounds and no petechiae Neuro oriented x3, CN's II-XII intact bilaterally and moves all extremities Sensorium / Orientation: alert Speech: speech normal Motor Exam: strength 5/5 throughout Psych mental status grossly normal, affect normal and denies hallucinations Results Lab / Micro Data Result Diagrams: 11/20/20 09:39 11/20/20 09:39 Labs: Laboratory Results - last 24 hr 11/20/20 11/20/20 11/20/20 09:39 09:39 09:39 WBC 12.7 H RBC 4.56 L Hgb 12.1 L Hct 39.6 L MCV 86.8 MCH 26.5 L MCHC 30.6 L RDW Std Deviation 50.0 H RDW Coeff of Varsha 15.7 H Plt Count 287 MPV 8.8 Immature Gran % (Auto) 0.700 Neut % (Auto) 64.7 Lymph % (Auto) 24.4 [place] % (Auto) 5.9 Eos % (Auto) 3.9 Baso % (Auto) 0.4 Absolute Neuts (auto) 8.2 H Absolute Lymphs (auto) 3.10 Nucleated RBC % 0 PT 22.3 H INR 2.0 Sodium 134 L Potassium 3.7 Chloride 98 Carbon Dioxide 27.0 Anion Gap 9 BUN 20 H Creatinine 1.32 H Estim Creat Clear Calc 66.95 Est GFR (MDRD) Af Amer 72 Est GFR (MDRD) Non-Af 59 L BUN/Creatinine Ratio 15.2 Glucose 312 H Calcium 9.3 Troponin I < 0.015 Radiology Impression Chest X-Ray 11/20/20 10:20 IMPRESSION: No acute abnormality is seen. Electronically Signed: Chin Obregon MD at 10:51 EDT , Service support , Assessment & Plan Assessment/Plan (1) Chest pain: (2) Diabetes mellitus, type 2: (3) Hyperlipidemia: (4) Anxiety and depression: (5) History of DVT (deep vein thrombosis): (6) Hypertension: (7) Congestive heart failure: PLAN: This is a 60 years old male patient presented to the emergency room because of chest pain and he is being admitted for evaluation. #1 chest pain: Risk factors are morbid obesity, diabetes and hypertension as well as hyperlipidemia. Denied smoking or drinking alcohol. Initial EKG and troponin was negative. Chest x-ray showed no acute findings. Plan: Admit to PCU for observation, cardiac monitoring, serial cardiac enzymes, Tylenol as needed, Zofran as needed, sublingual nitro as needed, nuclear stress test tomorrow morning if cardiac enzymes are negative. #2 type 2 diabetes mellitus: ADA diet, Accu-Cheks, insulin sliding scale, continue home doses of insulin. #3 history of DVT: On Coumadin, INR is 2. Plan to continue Coumadin. #4 hypertension: Blood pressure stable, continue home treatment. #5 anxiety and depression: Stable, continue aripiprazole and fluoxetine. #6 chronic diastolic CHF: Stable, compensated. Continue Aldactone and torsemide. #7 DVT prophylaxis on Coumadin, INR is 2. This note was generated with [employer] dictation software. It may contain incorrect words, spelling, and punctuation that were not noted in checking the note before signing. Charges/Coding Visit Charges OBSV E&M: 80228 Initial observation care L3
[2020-11-20] MEDS: Insulin Lispro 100 UNIT/ML INSULN.PEN SC ×3 (13:01→21:44)
[2020-11-20 13:06] LABS: Bedside Glucose 210 mg/dL (70-110)
--- NOTE | 2020-11-20 14:15 | EKG12_ITS ---
Test Reason : CP Blood Pressure : / mmHG Vent. Rate : 066 BPM Atrial Rate : 066 BPM P-R Int : 170 ms QRS Dur : 096 ms QT Int : 402 ms P-R-T Axes : 006 005 040 degrees QTc Int : 421 ms Normal sinus rhythm Normal ECG When compared with ECG of 20-NOV-2020 09:52, MANUAL COMPARISON REQUIRED, DATA IS UNCONFIRMED Confirmed by FELIPE DENIS, JOSE L ([id number]), material expeditor OMKAR PAZ ([id number]) on 11/26/2020 9:15:11 AM Referred By: GLEN GARCIA Confirmed By:JOSE L WANG MD
[2020-11-20 16:45] LABS: Bedside Glucose 169 mg/dL (70-110)
[2020-11-20] MEDS: Spironolactone 50 MG Tablet PO (20:35)
[2020-11-20] MEDS: Atorvastatin Calcium 40 MG Tablet PO (20:35)
[2020-11-20] MEDS: Furosemide 80 MG Tablet 160 MG PO (20:35)
[2020-11-20] MEDS: Nitroglycerin (INPATIENT USE) 0.4 MG TAB.SUBL SL ×2 (20:41→20:46)
[2020-11-20] MEDS: Insulin U-500 UNITS/ML PEN 130 UNITS SC (21:44)
[2020-11-20] MEDS: Acetaminophen 325 MG Tablet 650 MG PO (21:48)
[2020-11-20 21:51] LABS: Bedside Glucose 194 mg/dL (70-110)
[2020-11-21 03:00] VITALS: BP 145/84; PULSE 66; PULSE 85; RESP 18; TEMP 36.8; O2SAT 95
--- NOTE | 2020-11-21 05:00 | EKG12_ITS ---
Test Reason : AM EKG Blood Pressure : / mmHG Vent. Rate : 062 BPM Atrial Rate : 062 BPM P-R Int : 170 ms QRS Dur : 108 ms QT Int : 426 ms P-R-T Axes : 009 012 035 degrees QTc Int : 432 ms Normal sinus rhythm Normal ECG When compared with ECG of 20-NOV-2020 14:15, MANUAL COMPARISON REQUIRED, DATA IS UNCONFIRMED Confirmed by FELIPE DENIS, JOSE L ([id number]), scientific editor OMKAR PAZ ([id number]) on 11/26/2020 9:06:57 AM Referred By: DIEGO Confirmed By:JOSE L WANG MD
[2020-11-21 06:46] LABS: Bedside Glucose 143 mg/dL (70-110)
[2020-11-21 06:56] VITALS: O2SAT 91
[2020-11-21 07:00] VITALS: PULSE 64
[2020-11-21 08:12] VITALS: BP 131/79; PULSE 67; RESP 18; TEMP 36.5; O2SAT 95
[2020-11-21] MEDS: Insulin U-500 UNITS/ML PEN 130 UNITS SC (11:01)
--- NOTE | 2020-11-21 11:01 | STRESSREP_ITS ---
Stress Test Report Regadenoson myocardial perfusion stress test. Indication; Patient presented with symptoms of chest pain with a negative series of high sensitive troponin. Stress protocol: Resting EKG demonstrates. Normal sinus rhythm. 0.4 mg of regadenoson was infused per usual protocol followed by rapid intravenous saline flush injection continuous EKG monitoring was performed. The maximum heart rate attained was 86 bpm bpm which was 53% of maximum predicted heart . Stress EKG showed[, no significant change from the resting EKG, with maximum heart rate of 107bpm. Arrhythmia: No arrhythmia demonstrated Symptoms: Patient had no symptoms of chest pain Blood pressure at rest: 142/62 mmHg Myocardial perfusion protocol. 15 mCi of Technetium 99m Sestamibi was injected at rest. 0.4 mg of Regadenoson was infused per usual protocol peak infusion 44.7 mCi of Technetium 99m sestamibi was injected. Stress images were obtained stress and rest images were reconstructed and compared in the short axis vertical and horizontal long axis. Gated images were also obtained Perfusion SPECT analysis: Review of the images demonstrate normal uptake of sestamibi at rest, post stress images demonstrate similar uptake of sestamibi to the resting images, homogeneous tracer uptake With no evidence of reversible myocardial ischemia. Inferior attenuation artifact noted. Gated SPECT analysis: The gated ejection fraction is 60%. Wall motion showed normal LV systolic function with normal left ventricular wall motion Conclusion: Negative Lexiscan sestamibi myocardial perfusion study for reversible myocardial ischemia Normal left ventricle systolic function. Inferior attenuation artifact of no clinical significance Bro Ibarra MD,FACC,[facility]
[2020-11-21] MEDS: Spironolactone 50 MG Tablet PO (11:02)
[2020-11-21] MEDS: FLUoxetine 20 MG Capsule PO (11:02)
[2020-11-21] MEDS: Furosemide 80 MG Tablet 160 MG PO (11:02)
[2020-11-21] MEDS: ARIPiprazole 10 MG Tablet 30 MG PO (11:02)
[2020-11-21 11:10] LABS: Bedside Glucose 221 mg/dL (70-110)
--- NOTE | 2020-11-21 11:12 | DCINST_ITS ---
Discharge Instructions Diet Discharge Diet: Low fat / Low cholesterol and 1800 Calorie Control Diet Activity Discharge Activity: Return to Normal Activity Dressing / Incision Call your doctor if you observe: Fever of 101 or Higher, Shortness of breath, Dizziness, Fainting spells, Chest pain, Increased palpitations (irregular heartbeat) and Uncontrolled pain Follow Up Care Test Results: Test results from this visit will be discussed in further detail at your follow-up appointment, if applicable. Discharge Plan Admission Admit Date/Time: 11/20/20 11:50 Primary Reason for Your Visit: chest pain. Attending Provider: Margarita Canas Primary Care Provider: [facility],[place] Instructions Patient Instructions: ED Chest Pain, Noncardiac Discharge Orders/Prescriptions Prescriptions: Continued warfarin 5 MG tablet 5 mg PO SUTUTHSA RF: 0 aripiprazole 30 MG tablet 30 mg PO DAILY RF: 0 liraglutide 0.6 MG/0.1 ML pen injector 1.2 mg SQ DAILY RF: 0 rosuvastatin 20 MG tablet 20 mg PO QHS RF: 0 menthol-zinc oxide 1 APPLIC ointment 1 applic TOPICAL BID RF: 0 spironolactone 25 MG tablet 50 mg PO BID RF: 0 acetaminophen 650 MG tablet extended release 650 mg PO Q6H PRN PRN (Reason: Pain 1-10 Or Fever) RF: 0 fluoxetine 20 MG capsule 20 mg PO DAILY RF: 0 insulin regular hum U-500 conc 500 UNITS/ML insulin pen 130 units SC BID RF: 0 ascorbic acid (vitamin C) 1,000 mg Tablet 1 g PO QODAY RF: 0 polyethylene glycol 3350 17 gram Powder In Packet 17 g PO QHS RF: 0 dextrose [Glucose Gel] 40 % Gel 15 g PO PRN PRN (Reason: Hypoglycemia) RF: 0 warfarin 2.5 mg Tablet 2.5 mg PO MOWEFR RF: 0 hydrophilic cream Cream 1 applic TOPICAL PRN PRN (Reason: Dry Skin) RF: 0 torsemide 20 MG tablet 80 mg PO BID RF: 0 Referrals / Follow Up: [facility],[place] [Primary Care Provider] - Within 2 Weeks Disposition Disposition (needs filled in before D/C Order can be placed): Home, self care
--- NOTE | 2020-11-21 11:20 | CASEMGMT ---
NICK ORNELAS NOTE: Pt being discharged. RN CM to room to discuss discharge planning. Pt sitting up in recliner chair in room. Awake/alert/oriented. Pt states he lives alone and wishes to return home w/DEVORAH w/[facility] for PT/OT. He states does not feel he needs a nurse through [facility], as the [facility] will send out a nurse to his home as needed as well as a doctor. He states he has all the DME he needs and denies having any concerns/needs/questions re: discharge planning. TC to Klaudia @ [facility] and she was made aware pt being discharged home today. Ryanne CALVILLO RN CM
--- NOTE | 2020-11-21 11:45 | CHAPLAIN ---
Type of Pastoral Visit _x__ Initial Visit ___ Follow-up Visit ___ On-call Visit ___ General Patient Visit ___ Spiritual Assessment ___ Family Conference ___ Bereavement ___ Rapid Response ___ Code Blue ___ Other (describe below) Pastoral Care Referral From _x__ Patient ___ Family ___ Nurse ___ Physician ___ Drawing In Machine Tender ___ Officer Captain ___ Other (describe below) Sacrament/Intervention _x__ Active listening ___ Anointing ___ Cheondoism ___ Bereavement ___ Communion _x__ Alanna exploration ___ _x__ Life review _x__ Prayer ___ Reconciliation ___ Sacrament of Sick _x__ Supportive presence ___ Wedding ___ Other (describe below) Pastoral Comments
--- NOTE | 2020-11-21 12:20 | PCM.DC.SUM ---
Providers Date of Admission: 11/20/20 Primary Care Physician: [facility] Reason For Visit: CHEST PAIN Diagnosis Discharge Diagnosis (1) Chest pain: Status: Acute Code(s): R07.9 - Chest pain, unspecified (2) Diabetes mellitus, type 2: Status: Chronic Code(s): E11.9 - Type 2 diabetes mellitus without complications (3) Hyperlipidemia: Status: Chronic Code(s): E78.5 - Hyperlipidemia, unspecified (4) Anxiety and depression: Status: Chronic Code(s): F41.9 - Anxiety disorder, unspecified; F32.9 - Major depressive disorder, single episode, unspecified (5) History of DVT (deep vein thrombosis): Status: Chronic Code(s): Z86.718 - Personal history of other venous thrombosis and embolism (6) Hypertension: Status: Chronic Code(s): I10 - Essential (primary) hypertension (7) Congestive heart failure: Status: Chronic Code(s): I50.9 - Heart failure, unspecified Medications at Discharge Home Medications aripiprazole 30 mg PO DAILY 11/04/19 warfarin 5 mg PO SUTUTHSA 11/04/19 liraglutide 1.2 mg SQ DAILY 02/20/20 menthol-zinc oxide 1 applic TOPICAL BID 05/29/20 rosuvastatin 20 mg PO QHS 05/29/20 acetaminophen 650 mg PO Q6H PRN PRN 06/12/20 fluoxetine 20 mg PO DAILY 06/12/20 insulin regular hum U-500 conc 130 units SC BID 06/12/20 spironolactone 50 mg PO BID 06/12/20 ascorbic acid (vitamin C) 1 g PO QODAY 11/20/20 dextrose [Glucose Gel] 15 g PO PRN PRN 11/20/20 hydrophilic cream 1 applic TOPICAL PRN PRN 11/20/20 polyethylene glycol 3350 17 g PO QHS 11/20/20 torsemide 80 mg PO BID 11/20/20 warfarin 2.5 mg PO MOWEFR 11/20/20 Hospital Course Operations None Procedures EKG and Stress test Summary of Care Provided Minutes Spent on Discharge: 25 Hospital Course: This is a 60 years old male patient presented to the emergency room because of chest pain and he was admitted for evaluation. His risk factors for CAD included morbid obesity, diabetes and hypertension as well as hyperlipidemia. Initial EKG revealed normal sinus rhythm without evidence of acute ischemic changes. Troponin was done x3 and was negative. Chest x-ray showed no acute findings. He underwent nuclear stress test that showed no evidence of stress-induced myocardial ischemia with ejection fraction of 60%. ACS ruled out. His symptoms could be due to musculoskeletal pain. Patient discharged home in a stable medical condition, discharged on his previous home medications without any changes, recommended follow-up with PCP in 2 weeks. Physical Exam Const alert, oriented x3, no apparent distress and no limitations General Appearance: cooperative HEENT normocephalic, head/scalp atraumatic, external ears normal, external nose normal and moist oral mucous membranes Eyes PERRL, EOMs intact bilaterally, conjunctivae normal and no scleral icterus General Eye: normal appearance of both eyes Neck no lymphadenopathy, supple, no meningeal signs, no JVD and no carotid bruits Lymph Lymphatic: no lymphadenopathy noted Resp normal respiratory effort, normal air movement and clear to auscultation bilaterally Auscultation: Negative for crackles, rales, rhonchi or wheezes Cardio regular rate, regular rhythm, S1 normal heart sound, S2 normal heart sound, no murmurs and no JVD GI normal to inspection, nondistended, normoactive bowel sounds, soft to palpation, non-tender and non-distended; Negative for hepatosplenomegaly GI Narrative: Morbidly obese. Extremity normal to inspection and full ROM Extremity Narrative: Bilateral leg edema, lymphedema, stasis dermatitis. Skin no rashes or lesions noted, no wounds and no petechiae Neuro oriented x3, CN's II-XII intact bilaterally and moves all extremities Sensorium / Orientation: alert Speech: speech normal Motor Exam: strength 5/5 throughout Psych mental status grossly normal, affect normal and denies hallucinations Weight / BMI Weight Weight: 431 lb 3.587 oz Body Mass Index (BMI) 58.4 ABG / Lab / Microbiology Data Result Diagrams: 11/20/20 09:39 11/20/20 09:39 Laboratory: Laboratory Results - last 24 hr 11/20/20 11/20/20 11/20/20 12:53 12:59 15:49 Troponin I < 0.015 < 0.015 POC Glucose 210 H 11/20/20 11/20/20 11/21/20 16:34 21:41 06:40 Troponin I POC Glucose 169 H 194 H 143 H 11/21/20 10:59 Troponin I POC Glucose 221 H D/C Instructions Discharge Diet: Low fat / Low cholesterol and 1800 Calorie Control Diet Call your doctor if you observe: Fever of 101 or Higher, Shortness of breath, Dizziness, Fainting spells, Chest pain, Increased palpitations (irregular heartbeat) and Uncontrolled pain Meaningful Use Info Meaningful Use Diagnoses (Choose all that apply): None applicable Discharge Plan Admission Admit Date/Time: 11/20/20 11:50 Primary Reason for Your Visit: chest pain. Attending Provider: Margarita Canas Primary Care Provider: [facility],[place] Instructions Patient Instructions: ED Chest Pain, Noncardiac Discharge Orders/Prescriptions Prescriptions: Continued warfarin 5 MG tablet 5 mg PO SUTUTHSA RF: 0 aripiprazole 30 MG tablet 30 mg PO DAILY RF: 0 liraglutide 0.6 MG/0.1 ML pen injector 1.2 mg SQ DAILY RF: 0 rosuvastatin 20 MG tablet 20 mg PO QHS RF: 0 menthol-zinc oxide 1 APPLIC ointment 1 applic TOPICAL BID RF: 0 spironolactone 25 MG tablet 50 mg PO BID RF: 0 acetaminophen 650 MG tablet extended release 650 mg PO Q6H PRN PRN (Reason: Pain 1-10 Or Fever) RF: 0 fluoxetine 20 MG capsule 20 mg PO DAILY RF: 0 insulin regular hum U-500 conc 500 UNITS/ML insulin pen 130 units SC BID RF: 0 ascorbic acid (vitamin C) 1,000 mg Tablet 1 g PO QODAY RF: 0 polyethylene glycol 3350 17 gram Powder In Packet 17 g PO QHS RF: 0 dextrose [Glucose Gel] 40 % Gel 15 g PO PRN PRN (Reason: Hypoglycemia) RF: 0 warfarin 2.5 mg Tablet 2.5 mg PO MOWEFR RF: 0 hydrophilic cream Cream 1 applic TOPICAL PRN PRN (Reason: Dry Skin) RF: 0 torsemide 20 MG tablet 80 mg PO BID RF: 0 Referrals / Follow Up: [facility] [Primary Care Provider] - Within 2 Weeks Disposition Disposition (needs filled in before D/C Order can be placed): Home, self care Charges/Coding Visit Charges OBSV E&M: 56702 Observation care discharge
== END 2020-11-21 11:14 | disposition home health service (06) ==
LOC: ED 11:51 → PCU 12:58
PROVIDERS: Admitting Provider Hospitalist; Emergency Provider Emergency Medicine; Visit Provider Hospitalist
DX: R07.89 Other chest pain (principal); E78.00 Pure hypercholesterolemia, unspecified; E11.9 Type 2 diabetes mellitus without complications; I25.10 Atherosclerotic heart disease of native coronary artery without angina pectoris; R00.0 Tachycardia, unspecified; R06.02 Shortness of breath; F32.9 Major depressive disorder, single episode, unspecified; F41.9 Anxiety disorder, unspecified; E78.5 Hyperlipidemia, unspecified; I11.0 Hypertensive heart disease with heart failure; I50.32 Chronic diastolic (congestive) heart failure; Z86.718 Personal history of other venous thrombosis and embolism; Z79.899 Other long term (current) drug therapy; Z79.01 Long term (current) use of anticoagulants; Z79.4 Long term (current) use of insulin; E66.01 Morbid (severe) obesity due to excess calories; Z68.43 Body mass index [BMI] 50.0-59.9, adult
CPT/HCPCS: 36415; 71045; 78452; 80048; 82962; 84484; 85025; 85610; 93005; 93017; 99218; 99251; 99285; A9500; A4216; G0378; G0463; J2785